=== PATIENT | male | born 1940 | race Caucasian/White ===

== ENCOUNTER 2017-09-30 18:00 | Observation (INO) | payer MEDICARE ==
--- NOTE | 2017-09-30 18:02 | ED ---
General Adult HPI - General Stated complaint: abd pain Time Seen by Provider: 09/30/17 18:02 - History of Present Illness Initial comments: Ernesto is a 77-year-old male who has not seen a physician in a number of years. He presents to the emergency department today via EMS for evaluation of inability to urinate and constipation. Patient reports he usually has bowel movements daily, his last bowel movement was 3 days ago. He reports that he cannot have a bowel movement. In addition the patient states that he feels a constant urge to urinate strains to urinate he is able to only dribble a little bit of urine with no relief of the urge. She does report that approximately 6 or 7 years ago he had similar symptoms, he had a Berger catheter placed at that time, he states he had a Berger catheter in place for 3-4 weeks, he followed up with a urologist remove the catheter and he has not had any problems since that time. Patient denies any history of any urologic surgeries or procedures. He is not sure what the cause of his previous episode was. He cannot recall if he was placed on antibiotics when the Berger was placed. Patient denies any other complaints denies any fevers, chills, nausea, vomiting , chest pain or shortness of breath. - Related Data Home Medications Medication Instructions Recorded Confirmed Aspirin 325 mg PO DAILY 09/30/17 09/30/17 Allergies Allergy/AdvReac Type Severity Reaction Status Date / Time No Known Allergies Allergy Verified 09/30/17 18:23 Review of Systems ROS Statement: Those systems with pertinent positive or pertinent negative responses have been documented in the HPI. ROS Other: All systems not noted in ROS Statement are negative. Constitutional: Denies: fever, chills Respiratory: Denies: cough Cardiovascular: Denies: chest pain Gastrointestinal: Reports: abdominal pain, constipation. Denies: nausea, vomiting Genitourinary: Reports: urgency Musculoskeletal: Denies: back pain Skin: Reports: lesions Hematological/Lymphatic: Denies: easy bleeding, easy bruising Past Medical History Past Medical History: CVA/TIA History of Any Multi-Drug Resistant Organisms: None Reported Past Surgical History: Tonsillectomy Additional Past Surgical History / Comment(s): Vasectomy Past Anesthesia/Blood Transfusion Reactions: No Reported Reaction Past Psychological History: No Psychological Hx Reported Smoking Status: Current every day smoker Past Alcohol Use History: Daily, Heavy Past Drug Use History: None Reported - Past Family History Father Family Medical History: CVA/TIA Mother Family Medical History: Dementia General Exam Limitations: no limitations General appearance: alert, in no apparent distress, other (unkempt, foul smelling, soiled clothes and shoes, noted to have ) Head exam: Present: atraumatic, normocephalic Eye exam: Present: normal appearance ENT exam: Present: other (poor fitting, broken dentures, ) Neck exam: Present: normal inspection, full ROM Respiratory exam: Absent: respiratory distress Cardiovascular Exam: Present: regular rate GI/Abdominal exam: Present: soft, distended (palpable bladder), tenderness Rectal exam: Present: deferred Extremities exam: Present: full ROM Neurological exam: Present: alert, oriented X3 Psychiatric exam: Present: flat affect Skin exam: Present: warm, dry, other Course Vital Signs 09/30/17 09/30/17 18:06 21:01 Temperature 97.8 F Pulse Rate 97 80 Respiratory 18 16 Rate Blood Pressure 102/67 127/76 O2 Sat by Pulse 98 96 Oximetry Medical Decision Making - Medical Decision Making Patient was seen and evaluated Patient is very unkempt, wearing soiled clothes and shoes He is noted to have bugs crawling on his clothes and skin Bladder scan >1000mL Labs, UA, berger catheter ordered [employer] notified of bedbug situation, patient's clothing removed and bagged, patient is to be showered prior UA reveals UTI, rocephin ordered Labs reviewed - mild hyperkalemia, normal kidney function Patient care discussed with Dr. Pena who accepts admission for UTI with urinary retention, confusion and concern for unsafe living conditions considering the poor condition the patient was in upon arrival admission orders placed - Lab Data Result diagrams: 09/30/17 19:22 09/30/17 19:22 Lab Results 09/30/17 09/30/17 09/30/17 Range/Units 19:22 19:22 19:22 WBC 5.0 (3.8-10.6) k/uL RBC 3.93 L (4.30-5.90) m/uL Hgb 13.3 (13.0-17.5) gm/dL Hct 39.0 (39.0-53.0) % MCV 99.3 (80.0-100.0) fL MCH 33.8 (25.0-35.0) pg MCHC 34.0 (31.0-37.0) g/dL RDW 13.8 (11.5-15.5) % Plt Count 305 (150-450) k/uL Neutrophils % 57 % Lymphocytes % 26 % Monocytes % 10 % Eosinophils % 3 % Basophils % 1 % Neutrophils # 2.8 (1.3-7.7) k/uL Lymphocytes # 1.3 (1.0-4.8) k/uL Monocytes # 0.5 (0-1.0) k/uL Eosinophils # 0.2 (0-0.7) k/uL Basophils # 0.0 (0-0.2) k/uL Sodium 142 (137-145) mmol/L Potassium 5.5 H (3.5-5.1) mmol/L Chloride 108 H (98-107) mmol/L Carbon Dioxide 24 (22-30) mmol/L Anion Gap 10 mmol/L BUN 12 (9-20) mg/dL Creatinine 0.80 (0.66-1.25) mg/dL Est GFR (MDRD) Af Amer >60 (>60 ml/min/1.73 sqM) Est GFR (MDRD) Non-Af >60 (>60 ml/min/1.73 sqM) Glucose 96 (74-99) mg/dL Calcium 9.3 (8.4-10.2) mg/dL Total Bilirubin 0.6 (0.2-1.3) mg/dL AST 34 (17-59) U/L ALT 17 L (21-72) U/L Alkaline Phosphatase 49 (38-126) U/L Total Protein 8.0 (6.3-8.2) g/dL Albumin 4.1 (3.5-5.0) g/dL Urine Color Yellow Urine Appearance Turbid (Clear) Urine pH 8.0 (5.0-8.0) Ur Specific Wayne 1.007 (1.001-1.035) Urine Protein 2+ H (Negative) Urine Glucose (UA) Negative (Negative) Urine Ketones Negative (Negative) Urine Blood Moderate H (Negative) Urine Nitrite Negative (Negative) Urine Bilirubin Negative (Negative) Urine Urobilinogen <2.0 (<2.0) mg/dL Ur Leukocyte Esterase Large H (Negative) Urine WBC 113 H (0-5) /hpf Urine WBC Clumps Moderate H (None) /hpf Ur Squamous Epith Cells 16 H (0-4) /hpf Disposition Clinical Impression: UTI (urinary tract infection), Acute urinary retention, Confusion, Infestation by bed bug, Poor oral hygiene Disposition: ADMITTED IP TO THIS HOSP Condition: Good
[2017-09-30 19:33] LABS: Basophils % (A) 1 %; CH 32.8; CHCM 33.1; Eosinophils # (A) 0.2 k/uL (0-0.7); Eosinophils % (A) 3 %; HDW 2.22; HGB 13.3 gm/dL (13.0-17.5); Luc # (Auto) 0.16; Luc % (Auto) 3; Lymphocytes # (A) 1.3 k/uL (1.0-4.8); Lymphocytes % (A) 26 %; MCH 33.8 pg (25.0-35.0); MCV 99.3 fL (80.0-100.0); Mean Platelet Volume 7.7; Monocytes # (A) 0.5 k/uL (0-1.0); Monocytes % (A) 10 %; Neutrophils # (A) 2.8 k/uL (1.3-7.7); Neutrophils % (A) 57 %; RBC 3.93 m/uL (4.30-5.90); RDW 13.8 % (11.5-15.5); WBC (Perox) 4.87
[2017-09-30 19:43] LABS: ALT 17 U/L (21-72); AST 34 U/L (17-59); Alkaline Phosphatase 49 U/L (38-126); Anion Gap 10 mmol/L; Appearance,Urine Turbid (Clear); Bilirubin,Urine Negative (Negative); Blood Urea Nitrogen 12 mg/dL (9-20); Calcium 9.3 mg/dL (8.4-10.2); Carbon Dioxide 24 mmol/L (22-30); Chloride 108 mmol/L (98-107); Glucose 96 mg/dL (74-99); Glucose,Urine (UA) Negative (Negative); Ketones,Urine Negative (Negative); Leukocyte Esterase,Urine Large (Negative); Nitrite,Urine Negative (Negative); Non-African American GFR(MDRD) >60 (>60 ml/min/1.73 sqM); Particle Count 83903; Protein,Urine 2+ (Negative); Sodium 142 mmol/L (137-145); Specific Gravity,Urine 1.007 (1.001-1.035); Squamous Epithelial Cell,Urine 16 /hpf (0-4); Total Bilirubin 0.6 mg/dL (0.2-1.3); UA Billing (MACRO vs. MICRO) MICRO; Urobilinogen,Urine <2.0 mg/dL (<2.0); WBC,Urine 113 /hpf (0-5)
[2017-09-30 19:44] LABS: Potassium 5.5 mmol/L (3.5-5.1)
[2017-09-30] MEDS ORDERED: cefTRIAXone IN SWFI 1,000 MG/10 ML SYRINGE IVP STA (20:23)
--- NOTE | 2017-09-30 20:37 | XR ---
EXAMINATION TYPE: XR abdomen acute w cxr DATE OF EXAM: 09/30/2017 COMPARISON: NONE HISTORY: Constipation and abdominal pain. TECHNIQUE: Single view upright chest radiograph, upright abdominal radiograph and supine abdominal r adiographs were performed. FINDINGS: Chest: Multiple healed old right-sided rib fractures are noted. There is pulmonary hyperinflation, ta pering of pulmonary vasculature and biapical lucency related to underlying COPD. Cardia mediastinal s ilhouette is within normal limits. No focal consolidation, pleural effusion or pneumothorax is seen. ABDOMEN: Moderate to large amount of retained fecal material is seen within a nondilated colon. There is a paucity of bowel gas within the rectum. No dilated small bowel is seen. No differential air-flu id levels or pneumoperitoneum. Moderate degenerative changes of the lumbosacral spine are seen as wel l as mild dextroscoliotic curvature. Moderate degenerative changes are also seen of the femoral aceta bular joints. IMPRESSION: 1. No acute cardiopulmonary pathology. Radiographic sequela of COPD. 2. Moderate to large amount of retained fecal debris without evidence of bowel obstruction or pneumop eritoneum.
[2017-09-30] MEDS ORDERED: NALOXONE 0.4 MG/ML 1 ML VIAL IV PRN ×2 (20:42→22:41)
[2017-09-30] MEDS: SODIUM CHLORIDE 0.9% 1,000 ML IV SCH (21:39)
[2017-09-30] MEDS ORDERED: ACETAMINOPHEN TAB 325 MG TAB PO PRN (22:41)
[2017-09-30] MEDS ORDERED: MAGNESIUM HYDROXIDE 2,400 MG/10 ML CUP PO PRN (22:41)
--- NOTE | 2017-09-30 23:05 | P.HPIM ---
History of Present Illness H&P Date: 09/30/17 Chief Complaint: Inability to urinate 77-year-old male who has not seen a physician in a number of years presents to the emergency department today via EMS for evaluation of inability to urinate and constipation. Patient feels a constant urge to urinate, he strains to urinate but he is able to only dribble a little bit of urine with no relief of the urge. He also has pain with urination. He denied any hematuria. He denied having any fevers, chills, abdominal pain, nausea or vomiting. No chest pain or shortness of breath. He does report that approximately 6 or 7 years ago he had similar symptoms, he had a Humphreys catheter placed at that time, the Humphreys catheter was in place for 3- 4 weeks, at that time he followed up with a urologist to remove the catheter and he has not had any problems since then. He also stated that normally he has a bowel movement every other day. In the emergency department patient looked very disheveled and unkempt, there were some bugs seen crawling on his skin. Review of Systems 12 point review of system was performed, negative except for HPI Past Medical History Past Medical History: No Reported History History of Any Multi-Drug Resistant Organisms: None Reported Past Surgical History: Tonsillectomy Additional Past Surgical History / Comment(s): Vasectomy Past Anesthesia/Blood Transfusion Reactions: No Reported Reaction Past Psychological History: No Psychological Hx Reported Smoking Status: Current every day smoker Past Alcohol Use History: Daily, Heavy Past Drug Use History: None Reported - Past Family History Father Family Medical History: CVA/TIA Mother Family Medical History: Dementia Medications and Allergies Home Medications Medication Instructions Recorded Confirmed Type Aspirin 325 mg PO DAILY 09/30/17 09/30/17 History Allergies Allergy/AdvReac Type Severity Reaction Status Date / Time No Known Allergies Allergy Verified 09/30/17 18:23 Physical Exam Vitals: Vital Signs Temp Pulse Resp BP Pulse Ox 09/30/17 21:01 80 16 127/76 96 09/30/17 18:06 97.8 F 97 18 102/67 98 Intake and Output 09/30/17 09/30/17 09/30/17 06:59 14:59 22:59 Output Total 2100 Balance -2100 Output: Urine 2100 Uretheral (Humphreys) 2100 Other: Weight 72.575 kg Patient Weight 10/01/17 06:59 Weight 72.575 kg Constitutional: No acute distress, conversant, pleasant Eyes: Anicteric sclerae, moist conjunctiva, no lid-lag, PERRLA, ENMT: Poor dentition, oropharynx clear, no erythema, exudates Neck: Supple, FROM, no masses, or JVD, No carotid bruits, No thyromegaly Lungs: Clear to auscultation, Clear to percussion, Normal respiratory effort, no accessory muscle use Cardiovascular: Heart regular in rate and rhythm, No murmurs, gallops, or rubs, No peripheral edema Abdominal: Soft, Nontender, no guarding, rebound or rigidity, Normoactive bowel sounds, No hepatomegaly, No splenomegaly, No palpable mass Skin: Normal temperature, tone, texture, turgor, no induration, No subcutaneous nodules, No rash, lesions, No ulcers Extremities: Long toenails, no digital cyanosis, No clubbing, Pedal pulses intact and symmetrical, Radial pulses intact and symmetrical, No calf tenderness Psychiatric: Alert and oriented to person, place and time, appropriate affect, intact judgement Neuro: Muscles Strength 5/5 in all 4 extremities, Sensation to light touch grossly present throughout, Cranial nerves II-XII grossly intact, no focal sensory deficits Results CBC & Chem 7: 09/30/17 19:22 09/30/17 19:22 Labs: Abnormal Lab Results - Last 24 Hours (Table) 09/30/17 09/30/17 09/30/17 Range/Units 19:22 19:22 19:22 RBC 3.93 L (4.30-5.90) m/uL Potassium 5.5 H (3.5-5.1) mmol/L Chloride 108 H (98-107) mmol/L ALT 17 L (21-72) U/L Urine Protein 2+ H (Negative) Urine Blood Moderate H (Negative) Ur Leukocyte Esterase Large H (Negative) Urine WBC 113 H (0-5) /hpf Urine WBC Clumps Moderate H (None) /hpf Ur Squamous Epith Cells 16 H (0-4) /hpf Assessment and Plan Plan: #1 Acute urinary tract infection/likely benign prostatic hypertrophy: Labs reviewed Urine culture was sent to the emergency department Start ceftriaxone 1 g IV daily Adjust antibiotics once the cultures are back Check PSA Urology consult #2 Constipation: Start laxatives #3 Rule out domestic elder abuse/unsafe home environment: Patient denies any abuse Consult social work and adult protective services #4 DVT prophylaxis: SCDs
[2017-09-30] MEDS: BISACODYL 5 MG TABLET.DR PO SCH (23:36)
[2017-09-30] MEDS: DOCUSATE 100 MG CAP PO SCH (23:36)
[2017-10-01 04:54] VITALS: BMI 20.5
[2017-10-01 07:33] LABS: ALT 28 U/L (21-72); AST 17 U/L (17-59); Alkaline Phosphatase 56 U/L (38-126); Anion Gap 9 mmol/L; Blood Urea Nitrogen 10 mg/dL (9-20); Carbon Dioxide 23 mmol/L (22-30); Chloride 110 mmol/L (98-107); Glucose 78 mg/dL (74-99); Magnesium 2.2 mg/dL (1.6-2.3); Non-African American GFR(MDRD) >60 (>60 ml/min/1.73 sqM); Phosphorus 3.4 mg/dL (2.5-4.5); Potassium 4.2 mmol/L (3.5-5.1); Sodium 142 mmol/L (137-145); Total Bilirubin 0.2 mg/dL (0.2-1.3); Total Protein 6.5 g/dL (6.3-8.2)
[2017-10-01 07:52] LABS: Basophils # (A) 0.1 k/uL (0-0.2); Basophils % (A) 1 %; CH 33.2; CHCM 33.1; Eosinophils # (A) 0.1 k/uL (0-0.7); Eosinophils % (A) 3 %; HCT 37.8 % (39.0-53.0); HGB 12.6 gm/dL (13.0-17.5); Luc # (Auto) 0.15; Luc % (Auto) 3; Lymphocytes % (A) 22 %; MCH 33.5 pg (25.0-35.0); MCHC 33.2 g/dL (31.0-37.0); MCV 100.7 fL (80.0-100.0); Macrocytosis Slight; Mean Platelet Volume 7.7; Monocytes # (A) 0.6 k/uL (0-1.0); Monocytes % (A) 12 %; Neutrophils # (A) 2.8 k/uL (1.3-7.7); Neutrophils % (A) 60 %; RBC 3.76 m/uL (4.30-5.90); RDW 13.7 % (11.5-15.5); WBC 4.8 k/uL (3.8-10.6); WBC (Perox) 4.72
--- NOTE | 2017-10-01 08:04 | P.PN ---
Subjective Progress Note Date: 10/01/17 Principal diagnosis: urinary retention 77 year old male that presented to the emergency room with 2 day history with inability to urinate. Denies any fever or chills.Any dysuria or hematuria. Says he can't produce he hadn't prolong urination.. But does but never had issues with urination in the past. Objective - Vital Signs Vital signs: Vital Signs Temp 97.8 F 09/30/17 18:06 Pulse 86 09/30/17 23:00 Resp 16 09/30/17 21:01 BP 115/62 09/30/17 23:00 Pulse Ox 99 09/30/17 23:00 Intake & Output 09/30/17 10/01/17 10/01/17 18:59 06:59 18:59 Intake Total 100 Output Total 2100 Balance -2000 Weight 72.575 kg 72.575 kg Intake: Oral 100 Output: Urine 2100 Uretheral (Berger) 2100 Other: Voiding Method Indwelling Catheter - Exam gen:alert and oriented lungs:clear to auscultation heart:s1s2 abdomen:soft and depressible,non tender ext:no edema - Labs CBC & Chem 7: 10/01/17 06:38 10/01/17 06:38 Labs: Abnormal Lab Results - Last 24 Hours (Table) 09/30/17 09/30/17 09/30/17 Range/Units 19:22 19:22 19:22 RBC 3.93 L (4.30-5.90) m/uL Potassium 5.5 H (3.5-5.1) mmol/L Chloride 108 H (98-107) mmol/L ALT 17 L (21-72) U/L Albumin (3.5-5.0) g/dL Urine Protein 2+ H (Negative) Urine Blood Moderate H (Negative) Ur Leukocyte Esterase Large H (Negative) Urine WBC 113 H (0-5) /hpf Urine WBC Clumps Moderate H (None) /hpf Ur Squamous Epith Cells 16 H (0-4) /hpf 10/01/17 Range/Units 06:38 RBC (4.30-5.90) m/uL Potassium (3.5-5.1) mmol/L Chloride 110 H (98-107) mmol/L ALT (21-72) U/L Albumin 3.3 L (3.5-5.0) g/dL Urine Protein (Negative) Urine Blood (Negative) Ur Leukocyte Esterase (Negative) Urine WBC (0-5) /hpf Urine WBC Clumps (None) /hpf Ur Squamous Epith Cells (0-4) /hpf Microbiology - Last 24 Hours (Table) 09/30/17 19:22 Urine Culture - Preliminary Urine,Catheterized Assessment and Plan (1) Acute urinary retention Narrative/Plan: berger catheter in place will start flomax had 1 liter out immediately after berger was placed urology to follow psa pending Current Visit: Yes Status: Acute Code(s): R33.8 - OTHER RETENTION OF URINE SNOMED Code(s): 234407435 (2) UTI (urinary tract infection) Narrative/Plan: on rocephin await cultures Current Visit: Yes Status: Acute Code(s): N39.0 - URINARY TRACT INFECTION, SITE NOT SPECIFIED SNOMED Code(s): 90791728 (3) Infestation by bed bug Current Visit: Yes Status: Acute Code(s): B88.8 - OTHER SPECIFIED INFESTATIONS SNOMED Code(s): 56439067
[2017-10-01] MEDS: BISACODYL 5 MG TABLET.DR PO SCH (08:40)
[2017-10-01] MEDS: DOCUSATE 100 MG CAP PO SCH ×2 (08:40→20:53)
[2017-10-01] MEDS: ASPIRIN 325 MG TAB PO SCH (08:40)
[2017-10-01] MEDS: TAMSULOSIN 0.4 MG CAP.ER.24H PO SCH ×2 (08:41→17:28)
--- NOTE | 2017-10-01 09:14 | P.GSCN ---
History of Present Illness Consult date: 10/01/17 Reason for Consult: Urinary retention History of present illness: The patient is a 77-year-old male presented to the emergency room yesterday afternoon for evaluation of abdominal pain and difficulty voiding. The patient said he had not had a bowel movement for the 3 previous days that on the date of admission he noted there is urinary frequency, sensations of incomplete bladder emptying and difficulty passing any urine. An seen in the emergency room a bladder scan showed at least 1000 mL. A catheter was placed and the patient was admitted for further evaluation due to concern in regard to a possible urinary tract infection. It's unclear how much actually drained from the patient's bladder when the catheter was initially placed however the report suggests it was 2100 mL. The patient has no previous history of urinary retention and had not had any recent fever or chills. He does have a history of urinary retention which occurred 7 years ago following a similar episode of constipation. The patient says he normally moves his bowels daily. He says he usually voids every 3-4 hours during the day and once or twice at night. He denies straining to void and feels he voids completely. He says the only hematuria he had in the past was 7 years ago associated with his urinary retention. Review of Systems - Constitutional Denies chills, Denies fever - Cardiovascular Denies chest pain, Denies shortness of breath - Respiratory Denies cough, Denies wheezing - Gastrointestinal Reports constipation, Denies abdominal pain, Denies vomiting - Genitourinary Reports as per HPI Past Medical History Past Medical History: No Reported History, CVA/TIA (CVA 9 years ago which affected his balance) History of Any Multi-Drug Resistant Organisms: None Reported Past Surgical History: Tonsillectomy Additional Past Surgical History / Comment(s): Vasectomy, bilateral inguinal hernia repair Past Anesthesia/Blood Transfusion Reactions: No Reported Reaction Past Psychological History: No Psychological Hx Reported Smoking Status: Current every day smoker Past Alcohol Use History: Daily, Heavy Past Drug Use History: None Reported - Past Family History Father Family Medical History: CVA/TIA Mother Family Medical History: Dementia Medications and Allergies Home Medications Medication Instructions Recorded Confirmed Type Aspirin 325 mg PO DAILY 09/30/17 09/30/17 History Allergies Allergy/AdvReac Type Severity Reaction Status Date / Time No Known Allergies Allergy Verified 09/30/17 18:23 Surgical - Exam Vital Signs Temp Pulse Resp BP Pulse Ox 97.8 F 97 18 102/67 98 09/30/17 18:06 09/30/17 18:06 09/30/17 18:06 09/30/17 18:06 09/30/17 18:06 - General well developed, no distress - ENT poor skilled nursing - Respiratory normal respiratory effort - Abdomen Abdomen: soft, non tender, no organomegaly Hernia: none - Genitourinary normal penis with no external lesions, testicles non-tender (A Humphreys catheter is in place and is draining urine with a moderate amount of sediment) - Rectum Rectum: normal sphincter tone, no hemorrhoids, other (Prostate is 1-2+ enlarged , smooth and benign in consistency. No evidence of fecal impaction) - Neurologic no memory loss - Psychiatric speech is normal, memory intact Results - Labs 10/01/17 06:38 10/01/17 06:38 Abnormal Lab Results - Last 24 Hours (Table) 09/30/17 09/30/17 09/30/17 Range/Units 19:22 19:22 19:22 RBC 3.93 L (4.30-5.90) m/uL Hgb (13.0-17.5) gm/dL Hct (39.0-53.0) % MCV (80.0-100.0) fL Potassium 5.5 H (3.5-5.1) mmol/L Chloride 108 H (98-107) mmol/L ALT 17 L (21-72) U/L Albumin (3.5-5.0) g/dL Urine Protein 2+ H (Negative) Urine Blood Moderate H (Negative) Ur Leukocyte Esterase Large H (Negative) Urine WBC 113 H (0-5) /hpf Urine WBC Clumps Moderate H (None) /hpf Ur Squamous Epith Cells 16 H (0-4) /hpf 10/01/17 10/01/17 Range/Units 06:38 06:38 RBC 3.76 L (4.30-5.90) m/uL Hgb 12.6 L (13.0-17.5) gm/dL Hct 37.8 L (39.0-53.0) % MCV 100.7 H (80.0-100.0) fL Potassium (3.5-5.1) mmol/L Chloride 110 H (98-107) mmol/L ALT (21-72) U/L Albumin 3.3 L (3.5-5.0) g/dL Urine Protein (Negative) Urine Blood (Negative) Ur Leukocyte Esterase (Negative) Urine WBC (0-5) /hpf Urine WBC Clumps (None) /hpf Ur Squamous Epith Cells (0-4) /hpf Microbiology - Last 24 Hours (Table) 09/30/17 19:22 Urine Culture - Preliminary Urine,Catheterized Diabetes panel 09/30/17 10/01/17 Range/Units 19:22 06:38 Sodium 142 142 (137-145) mmol/L Potassium 5.5 H 4.2 (3.5-5.1) mmol/L Chloride 108 H 110 H (98-107) mmol/L Carbon Dioxide 24 23 (22-30) mmol/L BUN 12 10 (9-20) mg/dL Creatinine 0.80 0.80 (0.66-1.25) mg/dL Glucose 96 78 (74-99) mg/dL Calcium 9.3 9.0 (8.4-10.2) mg/dL AST 34 17 (17-59) U/L ALT 17 L 28 (21-72) U/L Alkaline Phosphatase 49 56 (38-126) U/L Total Protein 8.0 6.5 (6.3-8.2) g/dL Albumin 4.1 3.3 L (3.5-5.0) g/dL Calcium panel 09/30/17 10/01/17 Range/Units 19:22 06:38 Calcium 9.3 9.0 (8.4-10.2) mg/dL Phosphorus 3.4 (2.5-4.5) mg/dL Albumin 4.1 3.3 L (3.5-5.0) g/dL Pituitary panel 09/30/17 10/01/17 Range/Units 19:22 06:38 Sodium 142 142 (137-145) mmol/L Potassium 5.5 H 4.2 (3.5-5.1) mmol/L Chloride 108 H 110 H (98-107) mmol/L Carbon Dioxide 24 23 (22-30) mmol/L BUN 12 10 (9-20) mg/dL Creatinine 0.80 0.80 (0.66-1.25) mg/dL Glucose 96 78 (74-99) mg/dL Calcium 9.3 9.0 (8.4-10.2) mg/dL Adrenal panel 09/30/17 10/01/17 Range/Units 19:22 06:38 Sodium 142 142 (137-145) mmol/L Potassium 5.5 H 4.2 (3.5-5.1) mmol/L Chloride 108 H 110 H (98-107) mmol/L Carbon Dioxide 24 23 (22-30) mmol/L BUN 12 10 (9-20) mg/dL Creatinine 0.80 0.80 (0.66-1.25) mg/dL Glucose 96 78 (74-99) mg/dL Calcium 9.3 9.0 (8.4-10.2) mg/dL Total Bilirubin 0.6 0.2 (0.2-1.3) mg/dL AST 34 17 (17-59) U/L ALT 17 L 28 (21-72) U/L Alkaline Phosphatase 49 56 (38-126) U/L Total Protein 8.0 6.5 (6.3-8.2) g/dL Albumin 4.1 3.3 L (3.5-5.0) g/dL Assessment and Plan Assessment: Impression: Urinary retention-probably precipitated by recent constipation. The patient had no previous symptoms of significant bladder outflow obstruction. It's unclear whether the patient actually has urinary tract infection as the sediment present within his urine could be from his urinary retention. If the patient actually had 2100 mL in his bladder it is possible that his bladder has at least temporarily been damaged due to overdistention. It is also possible that the patient has a chronically elevated postvoid residual with minimal symptoms Recommendation: The patient's constipation should be treated. The patient will be started on tamsulosin. If he remains afebrile he could be discharged and could follow-up in my office on Monday or Monday morning. If his appointment is in the morning his catheter could be removed and we could check him later in the day to ensure that he is voiding completely. If he remains unable to void then he might be started on self catheterization.
[2017-10-01] MEDS: SODIUM CHLORIDE 0.9% 1,000 ML IV SCH ×2 (14:10→19:19)
[2017-10-01] MEDS ORDERED: cefTRIAXone IN SWFI 1,000 MG/10 ML SYRINGE IVP SCH (20:00)
[2017-10-01 22:07] VITALS: RESP 16
[2017-10-02 07:36] LABS: CH 32.3; CHCM 31.1; HCT 36.3 % (39.0-53.0); HDW 2.04; HGB 11.4 gm/dL (13.0-17.5); MCH 32.6 pg (25.0-35.0); MCHC 31.3 g/dL (31.0-37.0); MCV 104.2 fL (80.0-100.0); Macrocytosis Moderate; Mean Platelet Volume 8.1; RBC 3.49 m/uL (4.30-5.90); RDW 14.7 % (11.5-15.5); WBC 5.8 k/uL (3.8-10.6)
[2017-10-02 07:46] LABS: Anion Gap 4 mmol/L; Blood Urea Nitrogen 15 mg/dL (9-20); Calcium 8.8 mg/dL (8.4-10.2); Carbon Dioxide 26 mmol/L (22-30); Chloride 108 mmol/L (98-107); Glucose 92 mg/dL (74-99); Non-African American GFR(MDRD) >60 (>60 ml/min/1.73 sqM); Potassium 4.1 mmol/L (3.5-5.1); Sodium 138 mmol/L (137-145)
[2017-10-02] MEDS: DOCUSATE 100 MG CAP PO SCH (08:17)
[2017-10-02] MEDS: ASPIRIN 325 MG TAB PO SCH (08:17)
[2017-10-02] MEDS: BISACODYL 5 MG TABLET.DR PO SCH (08:17)
[2017-10-02] MEDS: SODIUM CHLORIDE 0.9% 1,000 ML IV SCH (11:14)
[2017-10-02 15:45] VITALS: BP 121/75; PULSE 74; TEMP 98.6
--- NOTE | 2017-10-02 16:48 | P.DS ---
Providers Date of admission: 09/30/17 20:52 Expected date of discharge: 10/02/17 Attending physician: Gigi Pena MD Consults: 09/30/17 23:01 Consult Physician Routine Consulting Provider: Yared Costa Consult Reason/Comments: inability to urinate, UTI Do you want consulting provider notified?: Yes, Notify in am Primary care physician: Stated None - Discharge Diagnosis(es) (1) Constipation Current Visit: Yes Status: Acute (2) UTI (urinary tract infection) Current Visit: Yes Status: Acute (3) Acute urinary retention Current Visit: Yes Status: Acute (4) Infestation by bed bug Current Visit: Yes Status: Resolved (5) Poor oral hygiene Current Visit: Yes Status: Chronic Hospital Course: Patient is a 77-year-old male past medical history of prior stroke, tobacco abuse, and denture use who initially presented to the emergency department with inability to urinate. He had a Humphreys catheter placed was found to have acute urinary retention. He was also on have urinary tract infection was started on antibiotics. Acute abdominal series revealed constipation and he was started on bowel regiment. He was admitted to the general medical floor for further monitoring and care. Dr. Costa was consulted from urology. He recommended discharge home with Humphreys catheter in place, continuing Flomax, treat constipation, and follow up in the office in 2-3 days for possible voiding trial. Urine culture came back as 50- 100,000 colonies of apparent skin or genital ev, this will be treated as an acute urinary tract infection as it appears this urine was obtained from Humphreys catheter. He also had a large bowel movement the day before discharge. He had improved on ceftriaxone and was therefore switched to Keflex to complete a course of therapy. He will follow-up with urology on 10/04 at 740 in the morning. He does not have a family care physician but an appointment was made to establish care with Dr. Min Ortega. He was discharged home in stable condition. Unfortunately home health care could not be arranged as he does not have a primary care provider. He is provided with a leg bag and instructions on emptying his Humphreys catheter. Patient seen and examined at bedside. Resolved, no pain, aware he needs to go home with Humphreys catheter in place. He has no complaints currently and has been up and ambulating well. He states that he feels safe at home and does well for himself. He does not drive typically. He has no other complaints currently. He would like to be established with a primary care physician in the area and I suggested Dr. Ortega as he did not know of one and he is in agreement with this plan. Vital signs reviewed and stable. General: non toxic, no distress, appears at stated age Derm: warm, dry Head: atraumatic, normocephalic, symmetric Eyes: EOMI, no lid lag, anicteric sclera Mouth: no lip lesion, mucus membranes moist Cardiovascular: S1S2 reg, no murmur, positive posterior tibial pulse bilateral, Lungs: CTA bilateral, no rhonchi, no rales , no accessory muscle use Abdominal: soft, nontender to palpation, no guarding, no appreciable organomegaly Ext: no gross muscle atrophy, no edema, no contractures Neuro: CN II-XI grossly intact, no focal neuro deficits Psych: Alert, oriented, appropriate affect A total of 25 minutes of time were spent preparing this complex discharge summary . Patient Condition at Discharge: Good Plan - Discharge Summary New Discharge Prescriptions: New Cephalexin [Keflex] 500 mg PO Q12HR #10 cap Docusate [Colace] 100 mg PO BID cap Tamsulosin [Flomax] 0.4 mg PO PC-SUPPER #30 cap.er.24h Docusate [Colace] 100 mg PO BID #60 capsule Continue Aspirin 325 mg PO DAILY Discharge Medication List Aspirin 325 mg PO DAILY 09/30/17 [History] Cephalexin [Keflex] 500 mg PO Q12HR #10 cap 10/02/17 [Rx] Docusate [Colace] 100 mg PO BID cap 10/02/17 [Rx] Docusate [Colace] 100 mg PO BID #60 capsule 10/02/17 [Rx] Tamsulosin [Flomax] 0.4 mg PO PC-SUPPER #30 cap.er.24h 10/02/17 [Rx] Follow up Appointment(s)/Referral(s): Min Ortega MD [STAFF PHYSICIAN] - 10/09/17 9:15 am Yared Costa MD [STAFF PHYSICIAN] - 10/04/17 7:40 am Patient Instructions/Handouts: Cephalexin (By mouth), Laxative, Stool Softeners (By mouth), Tamsulosin (By mouth), Urinary Retention in Men (GEN), Urinary Tract Infection in Men (DC), Humphreys Catheter Placement and Care (DC), Bed Bugs (GEN) Activity/Diet/Wound Care/Special Instructions: home with leg bag - keep catheter in and Dr. Costa's staff will remove on Thursday 10/04 Discharge Disposition: HOME WITH HOME HEALTH SERVICES
== END 2017-10-02 16:32 | disposition home health service (06) ==
LOC: EC 18:00 → 5MS5E 20:52
PROVIDERS: ADMIT Internal Medicine; ATTEND Internal Medicine
DX: K59.00 Constipation, unspecified (principal); R33.9 Retention of urine, unspecified; N39.0 Urinary tract infection, site not specified; F17.200 Nicotine dependence, unspecified, uncomplicated; B88.8 Other specified infestations; Z79.82 Long term (current) use of aspirin; Z86.73 Personal history of transient ischemic attack (TIA), and cerebral infarction without residual deficits
CPT/HCPCS: 51702; 99285 ×2; 96374 ×2; 96376; 51798; 36415; 80053 ×2; 80048; 83735; 84100; 85025 ×2; 85027; 81001; 87086; 74022; G0378 ×3; G0103; J0696 ×2

== ENCOUNTER 2018-01-28 00:04 | Emergency (ER) | payer MEDICARE ==
[2018-01-28 00:13] VITALS: BP 146/80; PULSE 72; RESP 16; TEMP 97.7
--- NOTE | 2018-01-28 00:47 | CT ---
EXAMINATION TYPE: CT brain shalom gale DATE OF EXAM: 01/28/2018 COMPARISON: Head CT scan 09/24/2015 HISTORY: Neck pain. Headache. CT DLP: 1109.20 mGycm Automated exposure control for dose reduction was used. TECHNIQUE: CT scan of the head and cervical spine are performed without contrast. FINDINGS: There is cerebral cortical atrophy. There is no mass effect nor midline shift. There is n o sign of intracranial hemorrhage. The calvarium is intact. There is some debris in the left external auditory canal. The cervical vertebra have normal alignment. There is narrowing of disc spaces from C3 to T1 with mod erate hypertrophic anterior spurring. The posterior elements are intact. Facet joints are intact. I s ee no fracture. Skull base is intact. IMPRESSION: Cerebral atrophy. No acute intracranial abnormality. No change. Multilevel cervical spondylotic change. No fracture seen. Fibrotic changes noted at the lung apices.
--- NOTE | 2018-01-28 02:07 | ED ---
Fall HPI - General Chief Complaint: Fall Stated Complaint: Fall Time Seen by Provider: 01/28/18 00:06 Source: patient, EMS Mode of arrival: EMS - History of Present Illness Initial Comments: This patient is a 78-year-old man brought by ambulance to be evaluated for possible head injury. The patient had been drinking earlier today and then states that he lost his balance and then he fell striking his head on the edge of a table as she fell. There was no loss of consciousness. The patient states that there was initially some pain he states he is not having any pain now he is denying neck pain. He denies any other injury in the fall. Patient denies any neurologic symptoms. MD Complaint: fall -: minutes(s) Fall From: standing When Fall Occurred: just prior to arrival Fall Witnessed: yes, by bystander Place Fall Occurred: home Loss of Consciousness: none Prolonged Down Time?: no Symptoms Prior to Fall: none Severity scale (1-10): 0 Context: alcohol use Associated Symptoms: denies - Related Data Home Medications Medication Instructions Recorded Confirmed Aspirin 325 mg PO DAILY 09/30/17 09/30/17 Previous Rx's Medication Instructions Recorded Cephalexin [Keflex] 500 mg PO Q12HR #10 cap 10/02/17 Docusate [Colace] 100 mg PO BID cap 10/02/17 Docusate [Colace] 100 mg PO BID #60 capsule 10/02/17 Tamsulosin [Flomax] 0.4 mg PO PC-SUPPER #30 cap.er.24h 10/02/17 Allergies Allergy/AdvReac Type Severity Reaction Status Date / Time No Known Allergies Allergy Verified 01/28/18 00:12 Review of Systems ROS Statement: Those systems with pertinent positive or pertinent negative responses have been documented in the HPI. ROS Other: All systems not noted in ROS Statement are negative. Constitutional: Denies: weakness Eyes: Denies: eye pain, vision change ENT: Denies: hearing loss, epistaxis Respiratory: Denies: cough, dyspnea Cardiovascular: Denies: chest pain, syncope Gastrointestinal: Denies: abdominal pain, vomiting Musculoskeletal: Denies: back pain Skin: Denies: lesions Neurological: Denies: headache, weakness, numbness, paresthesias Hematological/Lymphatic: Denies: easy bleeding Past Medical History Past Medical History: No Reported History, CVA/TIA History of Any Multi-Drug Resistant Organisms: None Reported Past Surgical History: Tonsillectomy Additional Past Surgical History / Comment(s): Vasectomy, bilateral inguinal hernia repair Past Anesthesia/Blood Transfusion Reactions: No Reported Reaction Past Psychological History: No Psychological Hx Reported Smoking Status: Current every day smoker Past Alcohol Use History: Daily, Heavy Past Drug Use History: None Reported - Past Family History Father Family Medical History: CVA/TIA Mother Family Medical History: Dementia General Exam Limitations: no limitations General appearance: alert, in no apparent distress, appears intoxicated Head exam: Present: atraumatic, normocephalic, normal inspection Eye exam: Present: normal appearance, PERRL, EOMI, nystagmus. Absent: scleral icterus, conjunctival injection Neck exam: Present: other (Cervical collar). Absent: tenderness Respiratory exam: Present: normal lung sounds bilaterally. Absent: respiratory distress, wheezes, rales, rhonchi, stridor, chest wall tenderness Cardiovascular Exam: Present: regular rate, normal rhythm, normal heart sounds. Absent: systolic murmur, diastolic murmur, rubs, gallop GI/Abdominal exam: Present: soft. Absent: tenderness Extremities exam: Present: normal inspection, full ROM, normal capillary refill. Absent: tenderness Neurological exam: Present: alert, oriented X3, other (Mild dysarthria and mild ataxia.). Absent: motor sensory deficit Skin exam: Present: warm, dry, intact, normal color. Absent: rash Course Vital Signs 01/28/18 00:06 Temperature 97.7 F Pulse Rate 72 Respiratory 16 Rate Blood Pressure 146/80 O2 Sat by Pulse 97 Oximetry Disposition Clinical Impression: Fall, Head injury, Alcohol intoxication Disposition: HOME SELF-CARE Condition: Good Instructions: Fall Prevention for Older Adults (ED), Head Injury (ED), Alcohol Intoxication (ED) Referrals: None,Stated [Primary Care Provider] - 1-2 days
== END 2018-01-28 02:29 | disposition home or self-care (01) ==
LOC: EC 00:04
DX: S09.90XA Unspecified injury of head, initial encounter (principal); F10.129 Alcohol abuse with intoxication, unspecified; F17.200 Nicotine dependence, unspecified, uncomplicated; Z79.82 Long term (current) use of aspirin; Z86.73 Personal history of transient ischemic attack (TIA), and cerebral infarction without residual deficits; W01.198A Fall on same level from slipping, tripping and stumbling with subsequent striking against other object, initial encounter; Y93.89 Activity, other specified; Y92.009 Unspecified place in unspecified non-institutional (private) residence as the place of occurrence of the external cause
CPT/HCPCS: 70450; 72125; 99284

== ENCOUNTER 2019-03-18 01:12 | Observation (INO) | payer MEDICARE ==
[2019-03-18] MEDS ORDERED: SODIUM CHLORIDE 0.9% 1,000 ML IV STA (01:37)
--- NOTE | 2019-03-18 01:49 | ED ---
Fall HPI - General Source: EMS Mode of arrival: EMS <Christine Ruiz - Last Filed: 03/18/19 04:17> <Shaunna Gentile - Last Filed: 03/18/19 07:57> - General Chief Complaint: Fall Stated Complaint: Fall Time Seen by Provider: 03/18/19 01:13 - History of Present Illness Initial Comments: 79-year-old male patient presents to the emergency department today after experiencing a fall at home. Patient states that he was got out of bed because his cat was misbehaving. States he bent over to continuous pickling line pickler the cat and crumpled to the floor. Patient states that he is unsure why he fell. Denies any history of frequent falls. Patient does admit to drinking alcohol today. Patient states that he feels generally weak which is unusual for him. Patient states he is usually able to walk a mile a day. He denies any focal weakness, numbness, or tingling. Denies any headache, blurred vision, double vision. Denies any nausea, vomiting, abdominal pain. Denies any chest pain to me. Denies any shortness of breath or dizziness. Patient denies any recent rash, fever, chills, diarrhea, constipation, back pain, numbness, tingling, hematuria, dysuria, urinary urgency, urinary frequency, or any other complaints. (Christine Ruiz) - Related Data Home Medications Medication Instructions Recorded Confirmed Aspirin 325 mg PO DAILY 09/30/17 03/18/19 Previous Rx's Medication Instructions Recorded Cephalexin [Keflex] 500 mg PO Q12HR #10 cap 10/02/17 Docusate [Colace] 100 mg PO BID cap 10/02/17 Docusate [Colace] 100 mg PO BID #60 capsule 10/02/17 Tamsulosin [Flomax] 0.4 mg PO PC-SUPPER #30 cap.er.24h 10/02/17 Allergies Allergy/AdvReac Type Severity Reaction Status Date / Time No Known Allergies Allergy Verified 03/18/19 05:25 Review of Systems ROS Other: All systems not noted in ROS Statement are negative. <Christine Ruiz - Last Filed: 03/18/19 04:17> ROS Other: All systems not noted in ROS Statement are negative. <Shaunna Gentile - Last Filed: 03/18/19 07:57> ROS Statement: Those systems with pertinent positive or pertinent negative responses have been documented in the HPI. Past Medical History Past Medical History: CVA/TIA History of Any Multi-Drug Resistant Organisms: None Reported Past Surgical History: Tonsillectomy Additional Past Surgical History / Comment(s): Vasectomy, bilateral inguinal hernia repair Past Anesthesia/Blood Transfusion Reactions: No Reported Reaction Past Psychological History: No Psychological Hx Reported Smoking Status: Current every day smoker Past Alcohol Use History: Daily, Heavy Past Drug Use History: None Reported - Past Family History Father Family Medical History: CVA/TIA Mother Family Medical History: Dementia <Christine Ruiz M - Last Filed: 03/18/19 04:17> General Exam Limitations: altered mental status General appearance: alert, in no apparent distress, appears intoxicated, other (This is a well-developed, thin appearing elderly male patient in no acute distress. Vital signs upon presentation are temperature 98.4F, pulse 70, respirations 20, blood pressure 142/100, pulse ox 98% on room air. Patient is appear intoxicated, smells of alcohol, smells of urine.) Eye exam: Present: normal appearance, PERRL, EOMI. Absent: scleral icterus, conjunctival injection, nystagmus, periorbital swelling ENT exam: Present: normal exam, normal oropharynx, mucous membranes moist Respiratory exam: Present: normal lung sounds bilaterally. Absent: respiratory distress, wheezes, rales, rhonchi, stridor Cardiovascular Exam: Present: regular rate, normal rhythm, normal heart sounds. Absent: systolic murmur, diastolic murmur, rubs, gallop, clicks GI/Abdominal exam: Present: soft, normal bowel sounds. Absent: distended, tenderness, guarding, rebound, rigid Neurological exam: Present: alert, oriented X3, CN II-XII intact Expanded Speech: Present: fluid speech Cranial nerves: EOM's Intact: Normal, Tongue Deviation: Normal, Nystagmus: Normal Motor strength exam: RUE: 5, LUE: 5, RLE: 5, LLE: 5 Psychiatric exam: Present: normal affect, normal mood Skin exam: Present: warm, dry, intact, normal color. Absent: rash <Christine Ruiz M - Last Filed: 03/18/19 04:17> Course Vital Signs 03/18/19 01:17 Temperature 98.4 F Pulse Rate 70 Respiratory 20 Rate Blood Pressure 142/100 O2 Sat by Pulse 98 Oximetry Medical Decision Making - Lab Data Result diagrams: 03/18/19 01:45 03/18/19 01:45 - EKG Data -: EKG Interpreted by Ks - Radiology Data Radiology results: report reviewed, image reviewed <Christine Ruiz - Last Filed: 03/18/19 04:17> - Lab Data Result diagrams: 03/18/19 01:45 03/18/19 01:45 <Shaunna Gentile - Last Filed: 03/18/19 07:57> - Medical Decision Making 71-year-old male patient presented to the emergency department today for evalua tion after experiencing a fall. Patient does admit to being intoxicated. Physical examination is unremarkable. Neurologically intact no focal deficits. No injuries. Labs reviewed and were unremarkable. Patient's alcohol level is 293. Patient does not have transportation home or anyone to take responsibility for him. He will be admitted for observation for alcohol intoxication. (Christine Ruiz) I personally saw and examined the patient. I reviewed and agree with the mid- level provider findings including all diagnostic interpretations and treatment plans as written unless otherwise stated. (Shaunna Gentile) - Lab Data Lab Results 03/18/19 03/18/19 03/18/19 Range/Units 01:45 01:45 01:45 WBC 4.0 (3.8-10.6) k/uL RBC 3.68 L (4.30-5.90) m/uL Hgb 12.3 L (13.0-17.5) gm/dL Hct 37.4 L (39.0-53.0) % MCV 101.7 H (80.0-100.0) fL MCH 33.4 (25.0-35.0) pg MCHC 32.9 (31.0-37.0) g/dL RDW 13.9 (11.5-15.5) % Plt Count 116 L (150-450) k/uL Neutrophils % 52 % Lymphocytes % 34 % Monocytes % 7 % Eosinophils % 3 % Basophils % 1 % Neutrophils # 2.1 (1.3-7.7) k/uL Lymphocytes # 1.4 (1.0-4.8) k/uL Monocytes # 0.3 (0-1.0) k/uL Eosinophils # 0.1 (0-0.7) k/uL Basophils # 0.0 (0-0.2) k/uL Macrocytosis Slight PT 10.4 (9.0-12.0) sec INR 1.0 (<1.2) APTT 29.0 (22.0-30.0) sec Sodium 142 (137-145) mmol/L Potassium 3.7 (3.5-5.1) mmol/L Chloride 112 H (98-107) mmol/L Carbon Dioxide 22 (22-30) mmol/L Anion Gap 8 mmol/L BUN 6 L (9-20) mg/dL Creatinine 0.62 L (0.66-1.25) mg/dL Est GFR (CKD-EPI)AfAm >90 (>60 ml/min/1.73 sqM) Est GFR (CKD-EPI)NonAf >90 (>60 ml/min/1.73 sqM) Glucose 71 L (74-99) mg/dL Calcium 7.8 L (8.4-10.2) mg/dL Total Bilirubin 0.6 (0.2-1.3) mg/dL AST 36 (17-59) U/L ALT 18 L (21-72) U/L Alkaline Phosphatase 35 L (38-126) U/L Troponin I (0.000-0.034) ng/mL Total Protein 6.2 L (6.3-8.2) g/dL Albumin 3.4 L (3.5-5.0) g/dL Serum Alcohol 293 H* mg/dL 03/18/19 Range/Units 01:45 WBC (3.8-10.6) k/uL RBC (4.30-5.90) m/uL Hgb (13.0-17.5) gm/dL Hct (39.0-53.0) % MCV (80.0-100.0) fL MCH (25.0-35.0) pg MCHC (31.0-37.0) g/dL RDW (11.5-15.5) % Plt Count (150-450) k/uL Neutrophils % % Lymphocytes % % Monocytes % % Eosinophils % % Basophils % % Neutrophils # (1.3-7.7) k/uL Lymphocytes # (1.0-4.8) k/uL Monocytes # (0-1.0) k/uL Eosinophils # (0-0.7) k/uL Basophils # (0-0.2) k/uL Macrocytosis PT (9.0-12.0) sec INR (<1.2) APTT (22.0-30.0) sec Sodium (137-145) mmol/L Potassium (3.5-5.1) mmol/L Chloride (98-107) mmol/L Carbon Dioxide (22-30) mmol/L Anion Gap mmol/L BUN (9-20) mg/dL Creatinine (0.66-1.25) mg/dL Est GFR (CKD-EPI)AfAm (>60 ml/min/1.73 sqM) Est GFR (CKD-EPI)NonAf (>60 ml/min/1.73 sqM) Glucose (74-99) mg/dL Calcium (8.4-10.2) mg/dL Total Bilirubin (0.2-1.3) mg/dL AST (17-59) U/L ALT (21-72) U/L Alkaline Phosphatase (38-126) U/L Troponin I <0.012 (0.000-0.034) ng/mL Total Protein (6.3-8.2) g/dL Albumin (3.5-5.0) g/dL Serum Alcohol mg/dL - EKG Data EKG Comments: EKG obtained at 0124 shows normal sinus rhythm with a ventricular rate of 68, PA interval 192, QRS duration 92, QT 396, QTC 421. No evidence of ST elevation or depression. (Christine Ruiz) - Radiology Data Two-view x-ray of the chest is obtained. Report was reviewed in its entirety. Impression by Dr. Pérez shows no acute cardio pulmonary process. (Christine Ruiz) Disposition Decision to Admit Reason: Admit from EC Decision Date: 03/18/19 Decision Time: 04:23 <Christine Ruiz - Last Filed: 03/18/19 04:17> <Shaunna Gentile - Last Filed: 03/18/19 07:57> Clinical Impression: Alcohol intoxication Disposition: ADMITTED IP TO THIS HOSP Condition: Serious
[2019-03-18 02:08] LABS: Basophils % (A) 1 %; Eosinophils # (A) 0.1 k/uL (0-0.7); Eosinophils % (A) 3 %; HCT 37.4 % (39.0-53.0); HGB 12.3 gm/dL (13.0-17.5); Lymphocytes # (A) 1.4 k/uL (1.0-4.8); Lymphocytes % (A) 34 %; MCH 33.4 pg (25.0-35.0); MCHC 32.9 g/dL (31.0-37.0); MCV 101.7 fL (80.0-100.0); Macrocytosis Slight; Mean Platelet Volume 8.3; Monocytes # (A) 0.3 k/uL (0-1.0); Monocytes % (A) 7 %; Neutrophils # (A) 2.1 k/uL (1.3-7.7); Neutrophils % (A) 52 %; Platelet Count 116 k/uL (150-450); RBC 3.68 m/uL (4.30-5.90); RDW 13.9 % (11.5-15.5)
[2019-03-18 02:18] LABS: ALT 18 U/L (21-72); AST 36 U/L (17-59); Albumin 3.4 g/dL (3.5-5.0); Alkaline Phosphatase 35 U/L (38-126); Anion Gap 8 mmol/L; Blood Urea Nitrogen 6 mg/dL (9-20); Calcium 7.8 mg/dL (8.4-10.2); Carbon Dioxide 22 mmol/L (22-30); Chloride 112 mmol/L (98-107); Glucose 71 mg/dL (74-99); Potassium 3.7 mmol/L (3.5-5.1); Sodium 142 mmol/L (137-145); Total Bilirubin 0.6 mg/dL (0.2-1.3); Total Protein 6.2 g/dL (6.3-8.2)
[2019-03-18 02:26] LABS: Alcohol 293 mg/dL
--- NOTE | 2019-03-18 02:28 | XR ---
EXAM: XR Chest, 2 Views CLINICAL HISTORY: ITS.REASON XR Reason: Weakness TECHNIQUE: Frontal and lateral views of the chest. COMPARISON: 09/25/15 x-ray FINDINGS: Lungs: No consolidation or mass. Pleural space: No effusion. Heart: No cardiomegaly. Mediastinum: Unremarkable. IMPRESSION: No acute cardiopulmonary process.
[2019-03-18 02:29] LABS: Prothrombin Time 10.4 sec (9.0-12.0)
[2019-03-18] MEDS ORDERED: NALOXONE 0.4 MG/ML 1 ML VIAL IV PRN (04:14)
[2019-03-18] MEDS ORDERED: THIAMINE 100 MG/ML 2 ML VIAL IM STA (04:16)
[2019-03-18] MEDS ORDERED: LORazepam 2 MG/ML INJ IV PRN ×3 (04:16)
[2019-03-18] MEDS ORDERED: SODIUM CHLORIDE 0.9% 1,000 ML with MVI, ADULT NO.4 WITH VIT K 10 ML, THIAMINE 100 MG, F... IV ONE ×4 (05:00)
[2019-03-18 05:33] VITALS: BP 146/76; PULSE 69; TEMP 97.7
[2019-03-18 06:14] VITALS: RESP 17
--- NOTE | 2019-03-18 06:14 | P.HPIM ---
History of Present Illness H&P Date: 03/18/19 Chief Complaint: fall The patient is 79-year-old male patient presents to the emergency department today after experiencing a fall at home. Patient states that he was got out of bed because his cat was misbehaving. States he bent over to grape picker the cat and crumpled to the floor. Patient states that he is unsure why he fell, but reports hitting his Left hip on his bed. Denies any history of frequent falls. Patient does admit to drinking alcohol today reports 4 cans of beer and couple bottles of wine. Patient states that he feels generally weak which is unusual for him. Patient states he is usually able to walk a mile a day. He denies any focal weakness, numbness, or tingling. Denies any headache, blurred vision, double vision. Denies any nausea, vomiting, abdominal pain. Denies any chest pain to me. Denies any shortness of breath or dizziness. Patient denies any recent rash, fever, chills, diarrhea, constipation, back pain, numbness, tingling, hematuria, dysuria, urinary urgency, urinary frequency, or any other complaints. In the ER the patient had a comprehensive workup significant labs included hemoglobin of 12.3 platelets of 116, serum sodium level 142, serum potassium 3.7, BUN 6, creatinine 0.62. Serum alcohol 293. Chest x-ray showed no acute cardiopulmonary process and EKG showed normal sinus rhythm. Patient was recommended for admission for acute alcohol intoxication Review of Systems Pertinent positives per HPI all other systems otherwise negative Past Medical History Past Medical History: CVA/TIA, Dementia Additional Past Medical History / Comment(s): same day smoker. History of Any Multi-Drug Resistant Organisms: None Reported Past Surgical History: Tonsillectomy Additional Past Surgical History / Comment(s): Vasectomy, bilateral inguinal hernia repair Past Anesthesia/Blood Transfusion Reactions: No Reported Reaction Past Psychological History: No Psychological Hx Reported Smoking Status: Current every day smoker Past Alcohol Use History: Daily, Heavy Past Drug Use History: None Reported Additional Drug Use History / Comment(s): pt smelled of ETOH on admission, pt states: "I drank 3- 24 oz beers and does not like to drink hard alcohol." - Past Family History Father Family Medical History: CVA/TIA Mother Family Medical History: Dementia Medications and Allergies Home Medications Medication Instructions Recorded Confirmed Type Aspirin 325 mg PO DAILY 09/30/17 03/18/19 History Cephalexin [Keflex] 500 mg PO Q12HR #10 cap 10/02/17 03/18/19 Rx Docusate [Colace] 100 mg PO BID cap 10/02/17 03/18/19 Rx Docusate [Colace] 100 mg PO BID #60 capsule 10/02/17 03/18/19 Rx Tamsulosin [Flomax] 0.4 mg PO PC-SUPPER #30 cap.er.24h 10/02/17 03/18/19 Rx Allergies Allergy/AdvReac Type Severity Reaction Status Date / Time No Known Allergies Allergy Verified 03/18/19 05:25 Physical Exam Vitals: Vital Signs Temp Pulse Pulse Resp BP BP Pulse Ox 03/18/19 05:31 97.7 F 69 16 146/76 96 03/18/19 05:20 98.2 F 72 17 105/66 98 03/18/19 01:17 98.4 F 70 20 142/100 98 Intake and Output 03/17/19 03/17/19 03/18/19 14:59 22:59 06:59 Other: # Voids 1 Weight 83.915 kg Constitutional: Unkempt appears intoxicated, thin, smells of alcohol and urine Eyes: Anicteric sclerae, moist conjunctiva, no lid-lag, PERRLA ENMT: NC/AT,Oropharynx clear, no erythema, exudates Neck:Supple, FROM, no masses, or JVD, No carotid bruits; No thyromegaly Lungs: Clear to auscultation, Clear to percussion, Normal respiratory effort, no accessory muscle use Cardiovascular: Heart regular in rate and rhythm, No murmurs, gallops, or rubs no peripheral edema Abdominal: Soft Nontender, nom distended, no guarding, no rebound or rigidity, Normoactive bowel sounds No hepatomegaly, No splenomegaly, No palpable mass No abdominal wall hernia noted Skin: Normal temperature, tone, texture, turgor, No induration No subcutaneous nodules, No rash, lesions, No ulcers Extremities:No digital cyanosis No clubbing, Pedal pulses intact and symmetrical Radial pulses intact and symmetrical Normal gait and station, No calf tenderness Psychiatric: Alert and oriented to person, place and time, Appropriate affect Intact judgement Neuro: Muscles Strength 5/5 in all 4 extremities, Sensation to light touch grossly present throughout, Cranial nerves II-XII grossly intact. No focal sensory deficits Results CBC & Chem 7: 03/18/19 01:45 03/18/19 01:45 Labs: Abnormal Lab Results - Last 24 Hours (Table) 03/18/19 03/18/19 Range/Units 01:45 01:45 RBC 3.68 L (4.30-5.90) m/uL Hgb 12.3 L (13.0-17.5) gm/dL Hct 37.4 L (39.0-53.0) % MCV 101.7 H (80.0-100.0) fL Plt Count 116 L (150-450) k/uL Chloride 112 H (98-107) mmol/L BUN 6 L (9-20) mg/dL Creatinine 0.62 L (0.66-1.25) mg/dL Glucose 71 L (74-99) mg/dL Calcium 7.8 L (8.4-10.2) mg/dL ALT 18 L (21-72) U/L Alkaline Phosphatase 35 L (38-126) U/L Total Protein 6.2 L (6.3-8.2) g/dL Albumin 3.4 L (3.5-5.0) g/dL Serum Alcohol 293 H* mg/dL Thrombosis Risk Factor Assmnt - Choose All That Apply Each Risk Factor Represents 3 Points: Age 75 years or older Thrombosis Risk Factor Assessment Total Risk Factor Score: 3 Thrombosis Risk Factor Assessment Level: Moderate Risk Assessment and Plan (1) Alcohol intoxication Current Visit: Yes Status: Acute Code(s): F10.929 - ALCOHOL USE, UNSPECIFIED WITH INTOXICATION, UNSPECIFIED SNOMED Code(s): 60520833 (2) Poor oral hygiene Current Visit: No Status: Chronic Code(s): Z91.89 - OTH PERSONAL RISK FACTORS, NOT ELSEWHERE CLASSIFIED SNOMED Code(s): 779477104 (3) Infestation by bed bug Current Visit: No Status: Resolved Code(s): B88.8 - OTHER SPECIFIED INFESTATIONS SNOMED Code(s): 32356725 (4) Fall Current Visit: Yes Status: Acute Code(s): W19.XXXA - UNSPECIFIED FALL, INITIAL ENCOUNTER SNOMED Code(s): 3129098 Plan: The patient is placed in observation with acute alcohol intoxication with serum alcohol level of 293 he started on alcohol withdrawal protocol with Ativan when necessary per symptom triggered CIWA protocol with orders for hydration with normal saline. Continue supportive therapy with supplemental thiamine will plan to recheck serum alcohol level at approximately 12 PM today. Given patient's history of fall with hip pain we'll order hip x-rays and also consult PT . The patient was noted to have bedbugs as well we shall also consult social work to see the patient . We'll continue to monitor patient's clinical course. CODE STATUS: Full code Anticipate discharge: Later today Discussed plan of care with: patient Time with Patient: Greater than 30
--- NOTE | 2019-03-18 08:59 | XR ---
EXAMINATION TYPE: XR Hip Bilateral Complete DATE OF EXAM: 03/18/2019 CLINICAL HISTORY: pain TECHNIQUE: AP and frogleg views of the bilateral hips are obtained. COMPARISON: None. FINDINGS: There is no acute fracture/dislocation evident. The joint spaces appear moderately narrow ed. The overlying soft tissue appears unremarkable. IMPRESSION: 1. There is no acute fracture or dislocation. ICD 10 NO FRACTURE, INITIAL EVALUATION
--- NOTE | 2019-03-18 14:27 | P.PN ---
Subjective Chart was reviewed. Apparently patient got drunk, tripped and fell. No immediate trauma or loss of consciousness was described. He had x-ray of the hip that was negative for fracture. On my evaluation patient is awake alert oriented 3 stating that he is feeling well does not have any focal pain or any focal complaints. He tells me that he lives with 2 friends otherwise. REVIEW OF SYSTEMS: CONSTITUTIONAL: No fever or chills HEENT: No changes in vision or voice CARDIOVASCULAR: no chest pain or abnormal heart beats, or any swelling in ankles or feet. RESPIRATORY: No wheezing or coughing. GASTROINTESTINAL: No abdominal pain, no nausea no vomiting no constipation or diarrhea GENITOURINARY: no any urinary urgency, frequency or burning, and there has been no blood in her urine. no flank pain. MUSCULOSKELETAL: She notes full range of motion of all her joints without pain or swelling. NEUROLOGICAL: , no headache. no vision changes, or fainting. No numbness or tingling. Objective - Vital Signs Vital signs: Vital Signs Temp 97.7 F 03/18/19 05:31 Pulse 69 03/18/19 05:31 Resp 17 03/18/19 06:08 BP 146/76 03/18/19 05:31 Pulse Ox 96 03/18/19 05:31 Intake & Output 03/17/19 03/18/19 03/18/19 18:59 06:59 18:59 Intake Total 420 Balance 420 Weight 83.915 kg Intake: Oral 420 Other: Voiding Method Toilet Toilet # Voids 1 - Exam Vital Signs: I have reviewed the vital signs. GENERAL: Unkempt , no apparent distress, cooperative Eyes: PERRL, extraoculry movements intact, clear conjunctiva no nystagmus Head: : No facial asymmetry CVS: +S1/S2, No murmurs or gallops. Peripheral pulses 2+ and equal in all extremities. RESP: Unlabored respiratory effort. Clear to auscultation bilaterally. Abdomen: Bowel sounds present in all 4 quadrants, Soft to palpation, Nontender/Nondistended, No hepatosplenomegaly, no hernias or masses, no CVA tnderness Musculoskeletal: Extremities w/o deformity, No cyanosis or clubbing, no joint swelling Skin: Warm, Dry. No rashes or lesions Neuro: No focal deficits Psych: Awake, Alert, & Oriented (AAO) x3 Appropriate mood and affect - Labs CBC & Chem 7: 03/18/19 01:45 03/18/19 01:45 Labs: Abnormal Lab Results - Last 24 Hours (Table) 03/18/19 03/18/19 Range/Units 01:45 01:45 RBC 3.68 L (4.30-5.90) m/uL Hgb 12.3 L (13.0-17.5) gm/dL Hct 37.4 L (39.0-53.0) % MCV 101.7 H (80.0-100.0) fL Plt Count 116 L (150-450) k/uL Chloride 112 H (98-107) mmol/L BUN 6 L (9-20) mg/dL Creatinine 0.62 L (0.66-1.25) mg/dL Glucose 71 L (74-99) mg/dL Calcium 7.8 L (8.4-10.2) mg/dL ALT 18 L (21-72) U/L Alkaline Phosphatase 35 L (38-126) U/L Total Protein 6.2 L (6.3-8.2) g/dL Albumin 3.4 L (3.5-5.0) g/dL Serum Alcohol 293 H* mg/dL Assessment and Plan Plan: Assessment: 1. Acute alcohol intoxication 2. Accidental fall Plan: Patient appears clinically sober, he is awake alert oriented 3. He has a home and lives with some friends. Plan will be to mobilize the patient, assess for any orthostasis or difficulties in ambulation. If the patient tolerates this well, we will plan to discharge him home today with assistance from social sciences chair Strongly advised avoidance of alcohol and tobacco products
[2019-03-18] MEDS: THIAMINE 100 MG TAB PO SCH ×2 (17:29→17:39)
--- NOTE | 2019-03-19 09:32 | P.DS ---
Providers Date of admission: 03/18/19 04:17 Attending physician: Leobardo Flood MD Primary care physician: Stated None Hospital Course: Admisson date: 03/17/19 Discharge date: 03/18/19 Reason for admission: Fall Discharge diagnosis: 1. Accidental fall 2. Acute alcohol intoxication 3. Chronic alcoholism 4. bed bugs infestation HPI: per H&P from Dr. Flood:"The patient is 79-year-old male patient presents to the emergency department today after experiencing a fall at home. Patient states that he was got out of bed because his cat was misbehaving. States he bent over to curing pickling packer the cat and crumpled to the floor. Patient states that he is unsure why he fell, but reports hitting his Left hip on his bed. Denies any history of frequent falls. Patient does admit to drinking alcohol today reports 4 cans of beer and couple bottles of wine. Patient states that he feels generally weak which is unusual for him. Patient states he is usually able to walk a mile a day. He denies any focal weakness, numbness, or tingling. Denies any headache, blurred vision, double vision. Denies any nausea, vomiting, abdominal pain. Denies any chest pain to me. Denies any shortness of breath or dizziness. Patient denies any recent rash, fever, chills, diarrhea, constipation, back pain, numbness, tingling, hematuria, dysuria, urinary urgency, urinary frequency, or any other complaints. In the ER the patient had a comprehensive workup significant labs included hemoglobin of 12.3 platelets of 116, serum sodium level 142, serum potassium 3.7, BUN 6, creatinine 0.62. Serum alcohol 293. Chest x-ray showed no acute cardiopulmonary process and EKG showed normal sinus rhythm. Patient was recommended for admission for acute alcohol intoxication " Hospital course: Pt waas hydrated and monitor for withdrawals. He remained stable throughout hospitalization. On the day of discharge he was awake alert oriented 3 and clinically sober. He did not exhibit any signs of withdrawals and his vital signs were stable. Patient was mobilized and ambulated in the hallway without any difficulties. Repeat alcohol level was 114. He had x-ray of both hips which was negative for any fractures. Patient was evaluated by case management. Safe discharge environment was assessed. Patient lives at his home with 2 friends. Patient was discharged home. Refrain from drinking was advised as well as resources for alcohol rehab. Patient Condition at Discharge: Serious Plan - Discharge Summary Discharge Rx Participant: Yes New Discharge Prescriptions: Continue No Known Home Medications Discharge Medication List No Known Home Medications 03/18/19 [History] Follow up Appointment(s)/Referral(s): None,Stated [Primary Care Provider] - 1-2 days Patient Instructions/Handouts: Alcohol Intoxication (DC), Abuse of Alcohol (DC) Discharge Disposition: HOME SELF-CARE
== END 2019-03-18 18:35 | disposition home or self-care (01) ==
LOC: EC 01:12 → 1SOBS 04:17
PROVIDERS: ADMIT Family Medicine; ATTEND Family Medicine
DX: F10.229 Alcohol dependence with intoxication, unspecified (principal); M25.552 Pain in left hip; B88.8 Other specified infestations; R53.1 Weakness; Y90.8 Blood alcohol level of 240 mg/100 ml or more; F03.90 Unspecified dementia, unspecified severity, without behavioral disturbance, psychotic disturbance, mood disturbance, and anxiety; F17.200 Nicotine dependence, unspecified, uncomplicated; Z86.73 Personal history of transient ischemic attack (TIA), and cerebral infarction without residual deficits; W01.190A Fall on same level from slipping, tripping and stumbling with subsequent striking against furniture, initial encounter; Y92.003 Bedroom of unspecified non-institutional (private) residence as the place of occurrence of the external cause; Z79.82 Long term (current) use of aspirin; Z79.899 Other long term (current) drug therapy
CPT/HCPCS: 96361 ×2; 96360; 99285; 36415; 93005; 80053; 84484; 85025; 85610; 85730; 73521; 71046; G0378; G0480; 80320

== ENCOUNTER 2019-09-08 09:58 | Emergency (ER) | payer MEDICARE ==
[2019-09-08 10:46] VITALS: RESP 18
[2019-09-08] MEDS ORDERED: SODIUM CHLORIDE 0.9% 500 ML 500 ML IV STA (10:57)
[2019-09-08] MEDS ORDERED: LIDOCAINE 1% INJ 10MG/ML (20 ML MDV) SQ ONE (10:59)
[2019-09-08] MEDS ORDERED: DIPH,PERTUS(ACELL)TETVAC-LF 0.5 ML VIAL IM ONE (11:08)
[2019-09-08 11:25] LABS: ALT 8 U/L (21-72); AST 28 U/L (17-59); African American GFR (CKD) >90 (>60 ml/min/1.73 sqM); Albumin 4.3 g/dL (3.5-5.0); Alkaline Phosphatase 48 U/L (38-126); Anion Gap 13 mmol/L; Blood Urea Nitrogen 11 mg/dL (9-20); Calcium 9.2 mg/dL (8.4-10.2); Carbon Dioxide 22 mmol/L (22-30); Chloride 109 mmol/L (98-107); Creatine Kinase 196 U/L (55-170); Glucose 92 mg/dL (74-99); Potassium 4.6 mmol/L (3.5-5.1); Sodium 144 mmol/L (137-145); Total Bilirubin 0.6 mg/dL (0.2-1.3); Total Protein 7.9 g/dL (6.3-8.2)
[2019-09-08 11:30] LABS: Alcohol 165 mg/dL
[2019-09-08 11:31] LABS: Basophils % (A) 1 %; Eosinophils % (A) 0 %; HCT 42.2 % (39.0-53.0); HGB 14.3 gm/dL (13.0-17.5); Lymphocytes # (A) 0.7 k/uL (1.0-4.8); Lymphocytes % (A) 8 %; MCH 32.9 pg (25.0-35.0); MCHC 33.8 g/dL (31.0-37.0); MCV 97.5 fL (80.0-100.0); Mean Platelet Volume 6.9; Monocytes # (A) 0.8 k/uL (0-1.0); Monocytes % (A) 9 %; Neutrophils # (A) 6.5 k/uL (1.3-7.7); Neutrophils % (A) 80 %; Platelet Count 253 k/uL (150-450); RBC 4.33 m/uL (4.30-5.90); RDW 13.6 % (11.5-15.5); WBC 8.2 k/uL (3.8-10.6)
[2019-09-08 11:38] LABS: INR 0.9 (<1.2); Partial Thromboplastin Time 23.6 sec (22.0-30.0); Prothrombin Time 9.4 sec (9.0-12.0)
--- NOTE | 2019-09-08 11:50 | CT ---
EXAMINATION TYPE: CT brain hsalom gale DATE OF EXAM: 09/08/2019 COMPARISON: Previous study dated 01/28/2018. HISTORY: Fall yesterday with facial injuries and memory loss. CT DLP: 1081.5 mGycm Automated exposure control for dose reduction was used. TECHNIQUE: CT scan of the head and cervical spine are performed without contrast. FINDINGS: BRAIN: There are generalized changes of sulcal prominence and ventriculomegaly compatible with mild a trophy. There is diffuse periventricular white matter lucency, compatible with chronic white matter i schemic change. There is no acute focal lesion, mass effect or midline shift identified. I do not see evidence of intracranial blood. Visualized portions of the paranasal sinuses and mastoids are clear. The bony calvarium is intact. IMPRESSION: 1. NO ACUTE INTRACRANIAL ABNORMALITY. 2. ATROPHIC CHANGE. 3. CHRONIC WHITE MATTER ISCHEMIC CHANGE. CERVICAL SPINE: There is scarring at both lung apices. Prevertebral soft tissues are normal. Vertebral body height and alignment are maintained. Atlantoaxial relationships are normal. There is d egenerative disc disease and hypertrophic spondylosis at all levels with relative sparing of the C2-3 level. There is diffuse uncovertebral joint disease present at all levels. There is facet arthropath y on the right and 3 and C3-4 as well as C5-6. No definite protrusion is seen. No fracture is identif ied. IMPRESSION: 1. NO ACUTE OSSEOUS LESION. 2. FAIRLY SEVERE DEGENERATIVE CHANGE.
[2019-09-08 11:54] LABS: Creatine Kinase MB 3.3 ng/mL (0.0-2.4); Troponin I <0.012 ng/mL (0.000-0.034)
--- NOTE | 2019-09-08 11:54 | CT ---
EXAMINATION TYPE: CT facial bones wo con DATE OF EXAM: 09/08/2019 COMPARISON: None. HISTORY: Fall yesterday with facial injuries and memory loss. CT DLP: 1081.5 mGycm Automated exposure control for dose reduction was used. TECHNIQUE: CT scan of the sinuses is performed without contrast, axial images are obtained, coronal r eformatted images are also reviewed. FINDINGS: Both zygomatic arches are intact. The pterygoid plates are intact. No mandibular fracture i s seen. No facial fracture is seen. The ash of the orbits in the ash of the maxillary sinuses are intact. On the diffusion this study cannot adequately assessed". IMPRESSION: NO ACUTE FACIAL FRACTURE.
[2019-09-08] MEDS ORDERED: LORazepam 2 MG/ML INJ IV STA (12:13)
--- NOTE | 2019-09-08 13:08 | XR ---
EXAMINATION TYPE: XR chest 1V portable DATE OF EXAM: 09/08/2019 HISTORY: syncope. REFERENCE: Previous study dated 03/18/2019. FINDINGS: Heart size is upper limits of normal. There is increasing interstitial change at the lung b ases. No pleural fluid is seen. Pulmonary vasculature appears normal. IMPRESSION: INCREASED INTERSTITIAL MARKINGS IN THE LUNG BASES MAY REFLECT ATYPICAL PNEUMONIA. LESS LIKELY WOULD B E CONGESTIVE HEART FAILURE SUPERIMPOSED UPON ABNORMAL LUNG ARCHITECTURE.
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
[2019-09-08] MEDS ORDERED: LEVOFLOXACIN 750 MG TAB PO STA (14:15)
[2019-09-08] MEDS ORDERED: TOPICAL SKIN ADHESIVE 1 EACH AMP TOPICAL ONE (14:18)
[2019-09-08 15:15] VITALS: BP 110/72; PULSE 106; TEMP 98
== END 2019-09-08 15:31 | disposition home or self-care (01) ==
LOC: EC 09:58
DX: S01.111A Laceration without foreign body of right eyelid and periocular area, initial encounter (principal); S01.312A Laceration without foreign body of left ear, initial encounter; F10.20 Alcohol dependence, uncomplicated; F03.90 Unspecified dementia, unspecified severity, without behavioral disturbance, psychotic disturbance, mood disturbance, and anxiety; F17.200 Nicotine dependence, unspecified, uncomplicated; Z23 Encounter for immunization; Z86.73 Personal history of transient ischemic attack (TIA), and cerebral infarction without residual deficits; W19.XXXA Unspecified fall, initial encounter; Y93.01 Activity, walking, marching and hiking; Y92.000 Kitchen of unspecified non-institutional (private) residence as the place of occurrence of the external cause
CPT/HCPCS: 36415; 93005; 80053; 82550; 82553; 83735; 84484; 85025; 85610; 85730; 71045; 72125; 70486; 70450; 90715; 99285; 96374; 96361; 90471; 12013; G0480; J2060; J2001; 80320; 96375

== ENCOUNTER 2020-08-02 21:38 | Observation (INO) | payer MEDICARE ==
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
[2020-08-02 22:23] LABS: Anisocytosis Slight; HCT 37.9 % (39.0-53.0); HGB 11.5 gm/dL (13.0-17.5); Hypochromasia Marked; MCH 27.4 pg (25.0-35.0); MCHC 30.4 g/dL (31.0-37.0); MCV 90.3 fL (80.0-100.0); Mean Platelet Volume 7.5; Platelet Count 289 k/uL (150-450); RDW 19.5 % (11.5-15.5); WBC 5.6 k/uL (3.8-10.6)
[2020-08-02 22:29] LABS: INR 0.9 (<1.2); Partial Thromboplastin Time 23.3 sec (22.0-30.0); Prothrombin Time 9.4 sec (9.0-12.0)
[2020-08-02 22:34] LABS: ALT 8 U/L (4-49); AST 36 U/L (17-59); African American GFR (CKD) >90 (>60 ml/min/1.73 sqM); Alkaline Phosphatase 60 U/L (38-126); Anion Gap 9 mmol/L; Blood Urea Nitrogen 9 mg/dL (9-20); Calcium 8.9 mg/dL (8.4-10.2); Carbon Dioxide 24 mmol/L (22-30); Chloride 110 mmol/L (98-107); Glucose 100 mg/dL (74-99); Non-African American GFR(CKD) 83 (>60 ml/min/1.73 sqM); Potassium 4.8 mmol/L (3.5-5.1); Sodium 143 mmol/L (137-145); Total Bilirubin 0.4 mg/dL (0.2-1.3); Total Protein 7.6 g/dL (6.3-8.2)
--- NOTE | 2020-08-02 22:37 | XR ---
EXAMINATION TYPE: XR chest 1V portable DATE OF EXAM: 08/02/2020 COMPARISON: 09/08/2019 HISTORY: Fall. Pain. TECHNIQUE: Single view FINDINGS: There is slight coarsening of interstitial markings. There is no gross heart failure. I see no pleural effusion. Heart size is normal. IMPRESSION: Coarse lung markings could relate to some mild fibrosis. No change compared to old exam. No heart failure.
[2020-08-02 22:39] LABS: Alcohol 276 mg/dL
[2020-08-02 22:46] LABS: Eosinophils # (M) 0.11 k/uL (0-0.7); Monocytes # (M) 0.45 k/uL (0-1.0); Neutrophils # (M) 3.64 k/uL (1.3-7.7); Neutrophils % (M) 65 %; Nucleated Red Blood Cells 0 /100 WBC (0-0); Total Cells Counted 100
[2020-08-02 22:47] LABS: Target Cells Present
--- NOTE | 2020-08-02 23:16 | CT ---
EXAMINATION TYPE: CT brain cspine wo con DATE OF EXAM: 08/02/2020 COMPARISON: 09/08/2019 HISTORY: fall Headache. Neck pain CT DLP: 1336.4 mGycm Automated exposure control for dose reduction was used. There is cerebral cortical atrophy. There is no mass effect nor midline shift. There is no sign of in tracranial hemorrhage. The calvarium is intact. Cervical vertebra have normal alignment. There is extensive anterior hypertrophic bridging osteophyte formation from C3 to C7. Facet joints are intact. There is mild cervical disc space narrowing. IMPRESSION: Cerebral atrophy. No acute intracranial abnormality. Moderate multilevel cervical spondylotic changes . No fracture. No significant change compared to old exam.
[2020-08-02] MEDS ORDERED: NALOXONE 0.4 MG/ML 1 ML VIAL IV PRN (23:43)
[2020-08-03 10:21] VITALS: RESP 14
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
--- NOTE | 2020-08-03 13:56 | P.DS ---
Providers Date of admission: 08/02/20 23:43 Attending physician: Alie Aparicio Primary care physician: Stated None Hospital Course: as mentioned in HPI Patient Condition at Discharge: Stable Plan - Discharge Summary Discharge Rx Participant: No New Discharge Prescriptions: New Aspirin 81 mg PO DAILY #30 chewable Discharge Medication List Aspirin 81 mg PO DAILY #30 chewable 08/03/20 [Rx] Follow up Appointment(s)/Referral(s): Diamante Mendes MD [STAFF PHYSICIAN] - 1 Week Discharge Disposition: HOME SELF-CARE
[2020-08-03 15:46] VITALS: BP 128/70; PULSE 90; TEMP 98.4
== END 2020-08-03 17:45 | disposition home or self-care (01) ==
LOC: EC 21:38 → 1SOBS 23:43
PROVIDERS: ADMIT Hospitalist; ATTEND Hospitalist
DX: M54.2 Cervicalgia (principal); F10.129 Alcohol abuse with intoxication, unspecified; Y90.8 Blood alcohol level of 240 mg/100 ml or more; Y04.2XXA Assault by strike against or bumped into by another person, initial encounter; Y92.009 Unspecified place in unspecified non-institutional (private) residence as the place of occurrence of the external cause; Z86.73 Personal history of transient ischemic attack (TIA), and cerebral infarction without residual deficits; F03.90 Unspecified dementia, unspecified severity, without behavioral disturbance, psychotic disturbance, mood disturbance, and anxiety; F17.200 Nicotine dependence, unspecified, uncomplicated; Z79.82 Long term (current) use of aspirin; Z82.3 Family history of stroke; Z81.8 Family history of other mental and behavioral disorders
CPT/HCPCS: 99285; 36415; 93005; 97165; 80053; 85025; 85610; 85730; 71045; 72125; 70450; G0378; G0480; 80320

== ENCOUNTER 2020-09-24 18:48 | Observation (INO) | payer MEDICARE ==
[2020-09-24] MEDS ORDERED: DIPH,PERTUS(ACELL)TETVAC-LF 0.5 ML VIAL IM ONE (19:02)
[2020-09-24] MEDS ORDERED: PANTOPRAZOLE 40 MG/10 ML VIAL IVP STA (19:02)
--- NOTE | 2020-09-24 19:05 | ED ---
General Adult HPI - General Chief complaint: Fall Stated complaint: ETOH Time Seen by Provider: 09/24/20 18:51 Source: EMS, RN notes reviewed, old records reviewed Mode of arrival: EMS Limitations: altered mental status - History of Present Illness Initial comments: 80-year-old male presents status post fall. Patient is intoxicated, unable to contribute specific details of the fall. Uncertain if he lost consciousness. He is uncertain if he is on any anticoagulation. He does have some dark emesis around his lips. He does admit to drinking heavily. EMS report minimal bleeding on scene. He has a right parietal scalp laceration. - Related Data Previous Rx's Medication Instructions Recorded Aspirin 81 mg PO DAILY #30 chewable 08/03/20 Allergies Allergy/AdvReac Type Severity Reaction Status Date / Time No Known Allergies Allergy Verified 09/24/20 20:22 Review of Systems ROS Statement: Those systems with pertinent positive or pertinent negative responses have been documented in the HPI. ROS Other: All systems not noted in ROS Statement are negative. Past Medical History Past Medical History: CVA/TIA, Dementia Additional Past Medical History / Comment(s): same day smoker. History of Any Multi-Drug Resistant Organisms: None Reported Past Surgical History: Tonsillectomy Additional Past Surgical History / Comment(s): Vasectomy, bilateral inguinal hernia repair Past Anesthesia/Blood Transfusion Reactions: No Reported Reaction Past Psychological History: No Psychological Hx Reported Smoking Status: Current every day smoker Past Alcohol Use History: Abuse, Daily, Heavy Past Drug Use History: None Reported - Past Family History Father Family Medical History: CVA/TIA Mother Family Medical History: Dementia General Exam Limitations: altered mental status General appearance: alert, appears intoxicated Head exam: Present: other (7 cm V-shaped laceration in the right parietal scalp.) Eye exam: Present: PERRL, EOMI ENT exam: Present: normal exam Neck exam: Present: normal inspection. Absent: tenderness, meningismus Respiratory exam: Present: normal lung sounds bilaterally. Absent: respiratory distress, wheezes Cardiovascular Exam: Present: regular rate, normal rhythm GI/Abdominal exam: Present: soft, distended. Absent: tenderness, guarding, rebound Extremities exam: Present: normal inspection, normal capillary refill. Absent: pedal edema Neurological exam: Present: alert. Absent: motor sensory deficit Psychiatric exam: Present: other (Patient does not appear to have any focal neurological findings.) Skin exam: Present: warm, dry. Absent: cyanosis, diaphoretic Course Vital Signs 09/24/20 18:56 Temperature 97.1 F L Pulse Rate 73 Respiratory 18 Rate Blood Pressure 140/64 O2 Sat by Pulse 98 Oximetry Procedures - Laceration Laceration #1 Consent Obtained: verbal consent Indication: laceration Site: scalp Size (cm): 8 Description: flap, irregular Depth: simple, single layer Type of Sutures: other (nnamdi) Number of Sutures: 9 Technique: simple, interrupted Medical Decision Making - Medical Decision Making 40-year-old male with fall, head injury, scalp laceration. Laceration is repaired after wound is cleansed and irrigated in the emergency department. [address] performed, negative for intracranial hemorrhage or mass effect, CT cervical spine negative for fracture subluxation. Patient has an alcohol level of 338. He does not have family or right home. He will be admitted for acute alcohol intoxication. - Lab Data Result diagrams: 09/24/20 19:02 09/24/20 19:02 Lab Results 09/24/20 09/24/20 09/24/20 Range/Units 19:02 19:02 19:02 WBC 10.2 (3.8-10.6) k/uL RBC 4.46 (4.30-5.90) m/uL Hgb 11.9 L (13.0-17.5) gm/dL Hct 39.2 (39.0-53.0) % MCV 88.0 (80.0-100.0) fL MCH 26.7 (25.0-35.0) pg MCHC 30.3 L (31.0-37.0) g/dL RDW 18.7 H (11.5-15.5) % Plt Count 257 (150-450) k/uL MPV 8.1 Neutrophils % 79 % Lymphocytes % 11 % Monocytes % 6 % Eosinophils % 1 % Basophils % 0 % Neutrophils # 8.1 H (1.3-7.7) k/uL Lymphocytes # 1.1 (1.0-4.8) k/uL Monocytes # 0.7 (0-1.0) k/uL Eosinophils # 0.1 (0-0.7) k/uL Basophils # 0.0 (0-0.2) k/uL Hypochromasia Moderate Anisocytosis Slight PT 10.7 (9.0-12.0) sec INR 1.0 (<1.2) APTT 27.5 (22.0-30.0) sec Sodium 141 (137-145) mmol/L Potassium 4.7 (3.5-5.1) mmol/L Chloride 109 H (98-107) mmol/L Carbon Dioxide 20 L (22-30) mmol/L Anion Gap 12 mmol/L BUN 6 L (9-20) mg/dL Creatinine 0.83 (0.66-1.25) mg/dL Est GFR (CKD-EPI)AfAm >90 (>60 ml/min/1.73 sqM) Est GFR (CKD-EPI)NonAf 84 (>60 ml/min/1.73 sqM) Glucose 95 (74-99) mg/dL Calcium 9.0 (8.4-10.2) mg/dL Total Bilirubin 0.5 (0.2-1.3) mg/dL AST 31 (17-59) U/L ALT 7 (4-49) U/L Alkaline Phosphatase 53 (38-126) U/L Total Protein 8.6 H (6.3-8.2) g/dL Albumin 4.4 (3.5-5.0) g/dL Serum Alcohol 338 H* mg/dL Disposition Clinical Impression: Scalp laceration, Fall, Alcohol intoxication Disposition: ADMITTED IP TO THIS HOSP Condition: Stable Additional Instructions: Please return for staple removal in 10-14 days. Is patient prescribed a controlled substance at d/c from ED?: No Referrals: None,Stated [Primary Care Provider] - 1-2 days Decision to Admit Reason: Admit from EC Decision Date: 09/24/20 Decision Time: 20:34
[2020-09-24 19:46] LABS: Anisocytosis Slight; Basophils % (A) 0 %; Eosinophils # (A) 0.1 k/uL (0-0.7); Eosinophils % (A) 1 %; HCT 39.2 % (39.0-53.0); HGB 11.9 gm/dL (13.0-17.5); Hypochromasia Moderate; Lymphocytes # (A) 1.1 k/uL (1.0-4.8); Lymphocytes % (A) 11 %; MCH 26.7 pg (25.0-35.0); MCHC 30.3 g/dL (31.0-37.0); Mean Platelet Volume 8.1; Monocytes # (A) 0.7 k/uL (0-1.0); Monocytes % (A) 6 %; Neutrophils # (A) 8.1 k/uL (1.3-7.7); Neutrophils % (A) 79 %; Platelet Count 257 k/uL (150-450); RBC 4.46 m/uL (4.30-5.90); RDW 18.7 % (11.5-15.5); WBC 10.2 k/uL (3.8-10.6)
--- NOTE | 2020-09-24 19:47 | CT ---
EXAMINATION TYPE: CT brain cspine wo con DATE OF EXAM: 09/24/2020 COMPARISON: 08/02/2020 HISTORY: Fall. CT DLP: 1395.3 mGycm Automated exposure control for dose reduction was used. There is cerebral atrophy. There is no mass effect nor midline shift. There is no sign of intracrania l hemorrhage. There is some frontal scalp soft tissue swelling. The calvarium is intact. Cervical vertebra have normal alignment. There is extensive hypertrophic anterior bridging osteophyte formation from C3 to C7. Posterior elements are intact. The skull base is intact. Facet joints are i ntact. IMPRESSION: Cerebral atrophy. No acute intracranial abnormality. Frontal scalp soft tissue swelling. Brain unchan ged compared to old exam. Multilevel hypertrophic degenerative disc changes in the cervical spine with large anterior bridging osteophytes. No fracture. No change compared to old exam.
[2020-09-24 19:57] LABS: ALT 7 U/L (4-49); AST 31 U/L (17-59); African American GFR (CKD) >90 (>60 ml/min/1.73 sqM); Albumin 4.4 g/dL (3.5-5.0); Alkaline Phosphatase 53 U/L (38-126); Anion Gap 12 mmol/L; Blood Urea Nitrogen 6 mg/dL (9-20); Carbon Dioxide 20 mmol/L (22-30); Chloride 109 mmol/L (98-107); Glucose 95 mg/dL (74-99); Non-African American GFR(CKD) 84 (>60 ml/min/1.73 sqM); Potassium 4.7 mmol/L (3.5-5.1); Sodium 141 mmol/L (137-145); Total Bilirubin 0.5 mg/dL (0.2-1.3); Total Protein 8.6 g/dL (6.3-8.2)
[2020-09-24 19:59] LABS: Partial Thromboplastin Time 27.5 sec (22.0-30.0); Prothrombin Time 10.7 sec (9.0-12.0)
[2020-09-24 20:11] LABS: Alcohol 338 mg/dL
[2020-09-24] MEDS ORDERED: THIAMINE 100 MG/ML 2 ML VIAL IM STA (20:34)
[2020-09-24] MEDS ORDERED: LORazepam 2 MG/ML INJ IV PRN ×3 (20:34)
[2020-09-24] MEDS ORDERED: NALOXONE 0.4 MG/ML 1 ML VIAL IV PRN (20:34)
[2020-09-24] MEDS: THIAMINE 100 MG TAB PO SCH (20:38)
--- NOTE | 2020-09-25 00:07 | P.HPIM ---
History of Present Illness H&P Date: 09/24/20 Chief Complaint: fall , intoxicated 80 year old male with no active medical issues. patient lives with two room mates. patient is a , he claims that he does not drink, however since it was , and he was having some bad memories regarding his service time. He ordered beers and pizza, but drank the two beers rather quickly, he denies depression or suicidal ideation. he tried to get up and stepped on his cat , lost his balance, and next thing he remembers is waking up in the ambulance. covered with blood. he denies any frequent falls, last fall was more than a year ago . he uses a cane to ambulate. he does not take any prescription medications. he denies any symptoms associated with his fall, denies palpitations, dizziness, nausea or vomiting. denies any chest pain or trouble breathing in the ED , ct of head and spine showed no acute pathology or fractures, patient had his right parietal scalp wound cleaned and sutured. blood work showed el evated blood alcohol, patient did not have a ride or anyone to pick him up, he was very weak to ambulate on his own. Review of Systems Pertinent positives as noted in HPI. All other systems were reviewed and are negative Past Medical History Past Medical History: CVA/TIA, Dementia Additional Past Medical History / Comment(s): same day smoker. History of Any Multi-Drug Resistant Organisms: None Reported Past Surgical History: Tonsillectomy Additional Past Surgical History / Comment(s): Vasectomy, bilateral inguinal hernia repair Past Anesthesia/Blood Transfusion Reactions: No Reported Reaction Past Psychological History: No Psychological Hx Reported Smoking Status: Current every day smoker Past Alcohol Use History: Abuse, Daily, Heavy Past Drug Use History: None Reported Additional Drug Use History / Comment(s): pt smelled of ETOH on admission, pt states: "I drank 3- 24 oz beers and does not like to drink hard alcohol." - Past Family History Father Family Medical History: CVA/TIA Mother Family Medical History: Dementia Medications and Allergies Home Medications Medication Instructions Recorded Confirmed Type Aspirin 81 mg PO DAILY #30 chewable 08/03/20 09/24/20 Rx Allergies Allergy/AdvReac Type Severity Reaction Status Date / Time No Known Allergies Allergy Verified 09/24/20 20:22 Physical Exam Vitals: Vital Signs Temp Pulse Pulse Resp BP BP Pulse Ox 09/24/20 21:15 97.6 F 71 16 129/67 97 09/24/20 18:56 97.1 F L 73 18 140/64 98 Intake and Output 09/24/20 09/24/20 09/24/20 06:59 14:59 22:59 Other: Weight 83.915 kg Constitutional: No acute distress, conversant, pleasant Eyes: Anicteric sclerae, moist conjunctiva, Pupils equal round reactive to light ENMT: Normocephalic, stapled right parietal scalp wound, dry blood over upper lip and left forehead. Oropharynx clear, no erythema, no exudates Neck: Supple, FROM, no masses, or JVD No carotid bruits No thyromegaly Lungs: Clear to auscultation Clear to percussion Normal respiratory effort, no accessory muscle use Cardiovascular: Heart regular in rate and rhythm, No murmurs, gallops, or rubs No peripheral edema Abdominal: Soft Nontender, no guarding, rebound or rigidity Abdomen moving with respiration Normoactive bowel sounds No hepatomegaly, No splenomegaly No palpable mass No abdominal wall hernia noted Skin: Normal temperature, tone, texture, turgor No induration No subcutaneous nodules No rash, lesions No ulcers Extremities: No digital cyanosis No clubbing Pedal pulses intact and symmetrical Radial pulses intact and symmetrical No calf tenderness Psychiatric: Alert and oriented to person, place and time Appropriate affect fair judgement Neuro Muscles Strength 5/5 in all 4 extremities Sensation to light touch grossly present throughout Cranial nerves II-XII grossly intact No focal sensory deficits Lymphatics: no palpable cervical or supraclavicular , or inguinal lymph nodes Results CBC & Chem 7: 09/24/20 19:02 09/24/20 19:02 Labs: Abnormal Lab Results - Last 24 Hours (Table) 09/24/20 09/24/20 Range/Units 19:02 19:02 Hgb 11.9 L (13.0-17.5) gm/dL MCHC 30.3 L (31.0-37.0) g/dL RDW 18.7 H (11.5-15.5) % Neutrophils # 8.1 H (1.3-7.7) k/uL Chloride 109 H (98-107) mmol/L Carbon Dioxide 20 L (22-30) mmol/L BUN 6 L (9-20) mg/dL Total Protein 8.6 H (6.3-8.2) g/dL Serum Alcohol 338 H* mg/dL Thrombosis Risk Factor Assmnt - Choose All That Apply Any of the Below Risk Factors Present?: Yes Each Factor Represents 1 point: Swollen legs (current) Other Risk Factors: No Each Risk Factor Represents 3 Points: Age 75 years or older Thrombosis Risk Factor Assessment Total Risk Factor Score: 4 Thrombosis Risk Factor Assessment Level: Moderate Risk Assessment and Plan Assessment: acute severe alcohol intoxication with delerium , improving acute accidental fall with traumatic wound plan wound cleaning and nnamdi applied in the ED pain control IVF hydration thiamine benzo per CIWA for withdrawal PPI fall precautions mechanical DVT PPX CODE STATUS:full code Discussed with: Patient, ER Anticipated length of stay < than [address]: home A total of 65 minutes was spent on the care of this complex patient more than 50% of the time was spent in counseling and care coordination.
[2020-09-25] MEDS: SODIUM CHLORIDE 0.9% 1,000 ML IV SCH ×2 (00:45→11:15)
[2020-09-25] MEDS ORDERED: PANTOPRAZOLE 40 MG TABLET PO SCH (07:30)
[2020-09-25] MEDS: THIAMINE 100 MG TAB PO SCH (07:53)
[2020-09-25 09:20] VITALS: BP 132/75; PULSE 92; RESP 17; TEMP 98.1
--- NOTE | 2020-09-25 18:22 | P.DS ---
Providers Date of admission: 09/24/20 20:35 Attending physician: Medardo Arnold MD Primary care physician: Stated None - Discharge Diagnosis(es) (1) Scalp laceration Status: Acute Hospital Course: Patient with history of alcohol abuse positive alcohol level in the emergency room. The patient sustained a head lock off the fall was monitored overnight he was seen by me in the morning he had no evidence of withdrawal he had no pain on he wanted to go home plan for home with outpatient management patient was counseled about the need for alcohol cessation Patient Condition at Discharge: Stable Plan - Discharge Summary Discharge Rx Participant: No New Discharge Prescriptions: Continue Aspirin 81 mg PO DAILY #30 chewable Discharge Medication List Aspirin 81 mg PO DAILY #30 chewable 08/03/20 [Rx] Follow up Appointment(s)/Referral(s): None,Stated [Primary Care Provider] - 1-2 days Activity/Diet/Wound Care/Special Instructions: Please return for staple removal in 10-14 days. Discharge Disposition: HOME SELF-CARE
== END 2020-09-25 11:10 | disposition home or self-care (01) ==
LOC: EC 18:48 → 1SOBS 20:35
PROVIDERS: ADMIT Internal Medicine; ATTEND Internal Medicine
DX: S01.01XA Laceration without foreign body of scalp, initial encounter (principal); W19.XXXA Unspecified fall, initial encounter; F10.129 Alcohol abuse with intoxication, unspecified; Y90.8 Blood alcohol level of 240 mg/100 ml or more; F03.90 Unspecified dementia, unspecified severity, without behavioral disturbance, psychotic disturbance, mood disturbance, and anxiety; Z86.73 Personal history of transient ischemic attack (TIA), and cerebral infarction without residual deficits; F17.200 Nicotine dependence, unspecified, uncomplicated; Z82.3 Family history of stroke; Z81.8 Family history of other mental and behavioral disorders; Z98.52 Vasectomy status; Z98.890 Other specified postprocedural states; Z79.82 Long term (current) use of aspirin
CPT/HCPCS: 12004; 90471; 96372; 96374; 99285; 36415; 80053; 85025; 85610; 85730; 72125; 70450; 90715; G0378 ×2; G0480; J3411; C9113; 80320

== ENCOUNTER 2020-12-19 22:40 | Emergency (ER) | payer MEDICARE ==
[2020-12-19 22:51] VITALS: TEMP 97.6
--- NOTE | 2020-12-19 23:20 | ED ---
Alcohol HPI - General Chief Complaint: Alcohol Stated Complaint: ETOH Time Seen by Provider: 12/19/20 22:50 Source: EMS Mode of arrival: EMS Limitations: no limitations - History of Present Illness Initial Comments: This patient is 80-year-old man who is brought by ambulance to have evaluation after ground-level fall. The patient states that he did not want come in and that a roommate had called the ambulance after he had been drinking and fell. The patient denies any injury but states he wasn't able to stand up. Patient denies any medical complaints. MD Complaint: alcohol intoxication Last Drink: just [employer] -: hour(s) Previous Visits for Alcohol Intoxication?: Yes Recent Trauma: Yes Associated Symptoms: denies other symptoms Treatments Prior to Arrival: cervical collar - Related Data Previous Rx's Medication Instructions Recorded Aspirin 81 mg PO DAILY #30 chewable 08/03/20 Allergies Allergy/AdvReac Type Severity Reaction Status Date / Time No Known Allergies Allergy Verified 12/19/20 22:42 Review of Systems ROS Statement: Those systems with pertinent positive or pertinent negative responses have been documented in the HPI. ROS Other: All systems not noted in ROS Statement are negative. Constitutional: Reports: weakness. Denies: fever Eyes: Denies: eye pain, vision change ENT: Denies: epistaxis Respiratory: Denies: cough, dyspnea Cardiovascular: Denies: chest pain, palpitations, edema, syncope Gastrointestinal: Denies: abdominal pain, vomiting Genitourinary: Denies: testicular pain Musculoskeletal: Denies: back pain Skin: Denies: rash Neurological: Denies: headache, weakness, numbness, paresthesias Psychiatric: Denies: suicidal thoughts Past Medical History Past Medical History: CVA/TIA, Dementia Additional Past Medical History / Comment(s): same day smoker. History of Any Multi-Drug Resistant Organisms: None Reported Past Surgical History: Tonsillectomy Additional Past Surgical History / Comment(s): Vasectomy, bilateral inguinal hernia repair Past Anesthesia/Blood Transfusion Reactions: No Reported Reaction Past Psychological History: No Psychological Hx Reported Smoking Status: Current every day smoker Past Alcohol Use History: Abuse, Daily, Heavy Past Drug Use History: None Reported - Past Family History Father Family Medical History: CVA/TIA Mother Family Medical History: Dementia General Exam Limitations: no limitations General appearance: alert, in no apparent distress, appears intoxicated Head exam: Present: normocephalic, other (Abrasion left forehead) Eye exam: Present: normal appearance, PERRL, EOMI, conjunctival injection, n ystagmus. Absent: scleral icterus ENT exam: Present: mucous membranes dry, other (Poor dentition) Neck exam: Present: normal inspection, full ROM. Absent: tenderness Respiratory exam: Present: normal lung sounds bilaterally. Absent: respiratory distress, wheezes, rales, rhonchi, stridor, chest wall tenderness Cardiovascular Exam: Present: regular rate, normal rhythm, normal heart sounds. Absent: systolic murmur, diastolic murmur, rubs, gallop GI/Abdominal exam: Present: soft. Absent: distended, tenderness, guarding, rebound, rigid, mass Extremities exam: Present: normal inspection, normal capillary refill. Absent: pedal edema, calf tenderness Back exam: Present: normal inspection. Absent: vertebral tenderness Neurological exam: Present: alert, oriented X3, CN II-XII intact. Absent: motor sensory deficit Skin exam: Present: warm, dry, intact, normal color, abrasion. Absent: rash Course Vital Signs 12/19/20 12/20/20 12/20/20 22:42 01:00 02:00 Temperature 97.6 F Pulse Rate 87 70 76 Respiratory 16 16 Rate Blood Pressure 124/71 122/78 120/66 O2 Sat by Pulse 99 Oximetry 12/20/20 12/20/20 03:00 04:00 Temperature Pulse Rate Respiratory 18 18 Rate Blood Pressure O2 Sat by Pulse Oximetry Medical Decision Making - Lab Data Result diagrams: 12/20/20 00:00 12/20/20 00:00 Lab Results 12/20/20 12/20/20 12/20/20 Range/Units 00:00 00:00 00:00 WBC 5.2 (3.8-10.6) k/uL RBC 3.89 L (4.30-5.90) m/uL Hgb 10.7 L (13.0-17.5) gm/dL Hct 33.1 L (39.0-53.0) % MCV 85.2 (80.0-100.0) fL MCH 27.5 (25.0-35.0) pg MCHC 32.3 (31.0-37.0) g/dL RDW 18.6 H (11.5-15.5) % Plt Count 213 (150-450) k/uL MPV 7.9 Neutrophils % 59 % Lymphocytes % 24 % Monocytes % 10 % Eosinophils % 4 % Basophils % 1 % Neutrophils # 3.1 (1.3-7.7) k/uL Lymphocytes # 1.2 (1.0-4.8) k/uL Monocytes # 0.5 (0-1.0) k/uL Eosinophils # 0.2 (0-0.7) k/uL Basophils # 0.0 (0-0.2) k/uL Hypochromasia Slight Anisocytosis Slight Sodium 141 (137-145) mmol/L Potassium 4.5 (3.5-5.1) mmol/L Chloride 110 H (98-107) mmol/L Carbon Dioxide 21 L (22-30) mmol/L Anion Gap 10 mmol/L BUN 9 (9-20) mg/dL Creatinine 0.78 (0.66-1.25) mg/dL Est GFR (CKD-EPI)AfAm >90 (>60 ml/min/1.73 sqM) Est GFR (CKD-EPI)NonAf 86 (>60 ml/min/1.73 sqM) Glucose 86 (74-99) mg/dL Calcium 8.9 (8.4-10.2) mg/dL Magnesium 2.3 (1.6-2.3) mg/dL Total Bilirubin 0.6 (0.2-1.3) mg/dL AST 27 (17-59) U/L ALT <6 (4-49) U/L Alkaline Phosphatase 51 (38-126) U/L Ammonia <9 (<30) umol/L Total Protein 7.7 (6.3-8.2) g/dL Albumin 3.8 (3.5-5.0) g/dL Urine Color Urine Appearance (Clear) Urine pH (5.0-8.0) Ur Specific [place] (1.001-1.035) Urine Protein (Negative) Urine Glucose (UA) (Negative) Urine Ketones (Negative) Urine Blood (Negative) Urine Nitrite (Negative) Urine Bilirubin (Negative) Urine Urobilinogen (<2.0) mg/dL Ur Leukocyte Esterase (Negative) Urine RBC (0-5) /hpf Urine WBC (0-5) /hpf Urine Bacteria (None) /hpf Hyaline Casts (0-2) /lpf Serum Alcohol 233 H* mg/dL 12/20/20 Range/Units 00:00 WBC (3.8-10.6) k/uL RBC (4.30-5.90) m/uL Hgb (13.0-17.5) gm/dL Hct (39.0-53.0) % MCV (80.0-100.0) fL MCH (25.0-35.0) pg MCHC (31.0-37.0) g/dL RDW (11.5-15.5) % Plt Count (150-450) k/uL MPV Neutrophils % % Lymphocytes % % Monocytes % % Eosinophils % % Basophils % % Neutrophils # (1.3-7.7) k/uL Lymphocytes # (1.0-4.8) k/uL Monocytes # (0-1.0) k/uL Eosinophils # (0-0.7) k/uL Basophils # (0-0.2) k/uL Hypochromasia Anisocytosis Sodium (137-145) mmol/L Potassium (3.5-5.1) mmol/L Chloride (98-107) mmol/L Carbon Dioxide (22-30) mmol/L Anion Gap mmol/L BUN (9-20) mg/dL Creatinine (0.66-1.25) mg/dL Est GFR (CKD-EPI)AfAm (>60 ml/min/1.73 sqM) Est GFR (CKD-EPI)NonAf (>60 ml/min/1.73 sqM) Glucose (74-99) mg/dL Calcium (8.4-10.2) mg/dL Magnesium (1.6-2.3) mg/dL Total Bilirubin (0.2-1.3) mg/dL AST (17-59) U/L ALT (4-49) U/L Alkaline Phosphatase (38-126) U/L Ammonia (<30) umol/L Total Protein (6.3-8.2) g/dL Albumin (3.5-5.0) g/dL Urine Color Light Yellow Urine Appearance Cloudy (Clear) Urine pH 5.0 (5.0-8.0) Ur Specific [place] 1.005 (1.001-1.035) Urine Protein Negative (Negative) Urine Glucose (UA) Negative (Negative) Urine Ketones Negative (Negative) Urine Blood Negative (Negative) Urine Nitrite Positive (Negative) Urine Bilirubin Negative (Negative) Urine Urobilinogen <2.0 (<2.0) mg/dL Ur Leukocyte Esterase Large H (Negative) Urine RBC 5 (0-5) /hpf Urine WBC 56 H (0-5) /hpf Urine Bacteria Occasional H (None) /hpf Hyaline Casts 1 (0-2) /lpf Serum Alcohol mg/dL - EKG Data -: EKG Interpreted by [facility] EKG shows normal: sinus rhythm, axis (Normal), intervals (TX interval is 212 ms, consistent with first-degree AV block. QRS duration 80 ms, QTC 463 ms, both normal), QRS complexes (Normal), ST-T waves (Normal) Rate: normal (Rate 84 bpm) Disposition Clinical Impression: Alcohol intoxication, Fall Disposition: HOME SELF-CARE Condition: Fair Instructions (If sedation given, give patient instructions): Alcohol I ntoxication (ED) Is patient prescribed a controlled substance at d/c from ED?: No Referrals: None,Stated [Primary Care Provider] - 1-2 days
--- NOTE | 2020-12-19 23:43 | CT ---
EXAMINATION TYPE: CT brain wo con DATE OF EXAM: 12/19/2020 COMPARISON: 09/24/2020 HISTORY: fall CT DLP: 1227.4 mGycm Automated exposure control for dose reduction was used. There is some cerebral cortical atrophy. There is no mass effect nor midline shift. There is no sign of intracranial hemorrhage. The calvarium is intact. There is fairly normal aeration of the mastoid s inuses. Skull base is intact. IMPRESSION: Cerebral atrophy. No acute intracranial abnormality. No change.
[2020-12-20 00:11] LABS: Anisocytosis Slight; Basophils % (A) 1 %; Eosinophils # (A) 0.2 k/uL (0-0.7); Eosinophils % (A) 4 %; HCT 33.1 % (39.0-53.0); HGB 10.7 gm/dL (13.0-17.5); Hypochromasia Slight; Lymphocytes # (A) 1.2 k/uL (1.0-4.8); Lymphocytes % (A) 24 %; MCH 27.5 pg (25.0-35.0); MCHC 32.3 g/dL (31.0-37.0); MCV 85.2 fL (80.0-100.0); Mean Platelet Volume 7.9; Monocytes # (A) 0.5 k/uL (0-1.0); Monocytes % (A) 10 %; Neutrophils # (A) 3.1 k/uL (1.3-7.7); Neutrophils % (A) 59 %; Platelet Count 213 k/uL (150-450); RBC 3.89 m/uL (4.30-5.90); RDW 18.6 % (11.5-15.5); WBC 5.2 k/uL (3.8-10.6)
[2020-12-20 00:20] LABS: ALT <6 U/L (4-49); AST 27 U/L (17-59); African American GFR (CKD) >90 (>60 ml/min/1.73 sqM); Albumin 3.8 g/dL (3.5-5.0); Alkaline Phosphatase 51 U/L (38-126); Anion Gap 10 mmol/L; Blood Urea Nitrogen 9 mg/dL (9-20); Calcium 8.9 mg/dL (8.4-10.2); Carbon Dioxide 21 mmol/L (22-30); Chloride 110 mmol/L (98-107); Glucose 86 mg/dL (74-99); Magnesium 2.3 mg/dL (1.6-2.3); Non-African American GFR(CKD) 86 (>60 ml/min/1.73 sqM); Potassium 4.5 mmol/L (3.5-5.1); Sodium 141 mmol/L (137-145); Total Bilirubin 0.6 mg/dL (0.2-1.3); Total Protein 7.7 g/dL (6.3-8.2)
[2020-12-20 00:37] LABS: Alcohol 233 mg/dL
[2020-12-20 01:53] LABS: Appearance,Urine Cloudy (Clear); Bacteria,Urine Occasional /hpf; Bilirubin,Urine Negative (Negative); Blood,Urine Negative (Negative); Color,Urine Light Yellow; Glucose,Urine (UA) Negative (Negative); Hyaline Casts,Urine 1 /lpf (0-2); Ketones,Urine Negative (Negative); Leukocyte Esterase,Urine Large (Negative); Nitrite,Urine Positive (Negative); Protein,Urine Negative (Negative); RBC,Urine 5 /hpf (0-5); Specific Gravity,Urine 1.005 (1.001-1.035); Urobilinogen,Urine <2.0 mg/dL (<2.0); WBC,Urine 56 /hpf (0-5)
[2020-12-20] MEDS ORDERED: LEVOFLOXACIN 750 MG TAB PO STA (02:06)
[2020-12-20 04:45] VITALS: RESP 18
[2020-12-20 06:21] VITALS: BP 138/87; PULSE 85
== END 2020-12-20 06:33 | disposition home or self-care (01) ==
LOC: EC 22:40
DX: F10.129 Alcohol abuse with intoxication, unspecified (principal); S00.81XA Abrasion of other part of head, initial encounter; F17.200 Nicotine dependence, unspecified, uncomplicated; Z86.73 Personal history of transient ischemic attack (TIA), and cerebral infarction without residual deficits; W18.30XA Fall on same level, unspecified, initial encounter; Y90.7 Blood alcohol level of 200-239 mg/100 ml
CPT/HCPCS: 36415; 93005; 80053; 82140; 83735; 85025; 81001; 70450; 99284; G0480; 80320

== ENCOUNTER 2022-02-23 18:39 | Inpatient (IN) | payer MEDICARE ==
[2022-02-23] MEDS ORDERED: ONDANSETRON 4 MG/2 ML VIAL IVP STA (19:27)
[2022-02-23] MEDS ORDERED: MORPHINE SULFATE 4 MG/ML SYRINGE IV STA (19:27)
[2022-02-23] MEDS ORDERED: SODIUM CHLORIDE 0.9% 500 ML 500 ML IV STA (19:27)
--- NOTE | 2022-02-23 19:35 | ED ---
Weakness HPI <Aaron Oseguera - Last Filed: 02/24/22 02:22> - General Source: RN notes reviewed - History of Present Illness Complaint: generalized weakness <Robert Lopez - Last Filed: 02/24/22 02:49> - General Stated complaint: fall Time Seen by Provider: 02/23/22 18:46 - History of Present Illness Initial comments: This is a pleasant 82-year-old male with history of CVA and dementia. He presents to the emergency department today after having a fall of unknown etiology at home. Patient states he does not recall why he blacked out however he woke up on the floor today. Patient states he believes he fell yesterday. Patient has chronic orthopedic complaints. Patient states he has chronic knee pain and back pain. However he denies any significant pain on What he normally has. Patient does have some mild abdominal discomfort. Patient denies any vomiting. Patient did strike his head. He denies any significant headache or neck pain. Patient states he cannot walk since this happened. He also feels more shaky than usual. Patient does drink alcohol but states only one beer every now and then. Has not drank any alcohol for 4 days. Patient's history does stay CVA although the patient states he has never had a stroke. Patient not diabetic. According to EMS the house was in disarray. Patient is denying any chest pain or shortness of breath. Patient does have some pain to the chest wall. Patient believes he was lying on his cell phone which might of caused a first-degree burn to his right chest wall. (Robert Lopez) - Related Data Home Medications Medication Instructions Recorded Confirmed No Known Home Medications 02/23/22 02/23/22 Allergies Allergy/AdvReac Type Severity Reaction Status Date / Time No Known Allergies Allergy Verified 02/23/22 21:13 Review of Systems ROS Other: All systems not noted in ROS Statement are negative. <Aaron Oseguera - Last Filed: 02/24/22 02:22> ROS Other: All systems not noted in ROS Statement are negative. <Robert Lopez - Last Filed: 02/24/22 02:49> ROS Statement: Those systems with pertinent positive or pertinent negative responses have been documented in the HPI. Past Medical History Past Medical History: CVA/TIA, Dementia Additional Past Medical History / Comment(s): same day smoker. History of Any Multi-Drug Resistant Organisms: None Reported Past Surgical History: Tonsillectomy Additional Past Surgical History / Comment(s): Vasectomy, bilateral inguinal hernia repair Past Anesthesia/Blood Transfusion Reactions: No Reported Reaction Past Psychological History: No Psychological Hx Reported Smoking Status: Current every day smoker Past Alcohol Use History: Abuse, Daily, Heavy Past Drug Use History: None Reported - Past Family History Father Family Medical History: CVA/TIA Mother Family Medical History: Dementia <Robert Lopez Filed: 02/24/22 02:49> General Exam General appearance: alert, in no apparent distress, other (Generalized tremor, no focal findings) Head exam: Present: other (Forehead abrasion noted. No step-off or crepitus. Head is normocephalic atraumatic otherwise.) Eye exam: Present: normal appearance, PERRL, EOMI. Absent: scleral icterus, conjunctival injection, periorbital swelling ENT exam: Present: normal exam, mucous membranes dry, mucous membranes moist Neck exam: Present: normal inspection, full ROM. Absent: tenderness, meningismus, lymphadenopathy Respiratory exam: Present: rhonchi, chest wall tenderness (Tender to the left and right chest wall.), other (Erythematous area to right chest wall, does not appear to be infectious). Absent: respiratory distress, wheezes, stridor Cardiovascular Exam: Present: tachycardia, normal heart sounds. Absent: systolic murmur, diastolic murmur, rubs, gallop, clicks GI/Abdominal exam: Present: soft, tenderness (Generalized, mild tenderness to palpation), normal bowel sounds. Absent: distended, guarding, rebound, rigid Extremities exam: Present: normal inspection, full ROM, normal capillary refill. Absent: tenderness, pedal edema, joint swelling, calf tenderness Back exam: Present: normal inspection, rash noted. Absent: full ROM, tenderness, CVA tenderness (R), muscle spasm Neurological exam: Present: alert (Patient alert but disoriented to time.), oriented X3, CN II-XII intact, other ([place] Coma Scale is 15. No focal neurologic deficits.). Absent: altered, motor sensory deficit Psychiatric exam: Present: normal affect, normal mood Skin exam: Present: warm, dry, intact, normal color. Absent: rash, cyanosis, diaphoretic <Robert Lopez Filed: 02/24/22 02:49> - General Exam Comments Initial Comments: This is a disheveled and cachectic appearing 82-year-old male in mild distress. Patient does not appear to be toxic but is somewhat ill with generalized tremor noted. Vital signs are reviewed. (Robert Lopez) Course <Robert Lopez - Last Filed: 02/24/22 02:49> Vital Signs 02/23/22 02/23/22 02/23/22 19:23 19:57 20:00 Temperature 98.4 F Pulse Rate 140 H 134 H 133 H Respiratory 30 H 26 H 27 H Rate Blood Pressure 110/82 110/82 94/71 O2 Sat by Pulse 91 L 92 L 96 Oximetry 02/23/22 02/23/22 02/23/22 20:30 21:30 22:00 Temperature Pulse Rate 133 H 130 H Respiratory 22 23 Rate Blood Pressure 106/83 110/79 94/67 O2 Sat by Pulse 94 L 94 L Oximetry 02/23/22 02/23/22 02/23/22 22:33 22:34 22:40 Temperature Pulse Rate 133 H 131 H 130 H Respiratory 30 H Rate Blood Pressure 94/66 O2 Sat by Pulse 100 Oximetry 02/23/22 02/23/22 02/23/22 23:00 23:30 23:42 Temperature Pulse Rate 126 H 124 H 115 H Respiratory 26 H 26 H 22 Rate Blood Pressure 98/72 85/70 89/47 O2 Sat by Pulse 100 96 98 Oximetry 02/24/22 02/24/22 02/24/22 00:00 00:30 01:09 Temperature Pulse Rate 117 H 118 H 125 H Respiratory 27 H 25 H 14 Rate Blood Pressure 89/47 67/49 95/68 O2 Sat by Pulse 94 L 100 68 L Oximetry 02/24/22 02/24/22 02/24/22 01:30 01:45 02:00 Temperature Pulse Rate 120 H 115 H 114 H Respiratory 18 16 18 Rate Blood Pressure 99/73 112/76 93/70 O2 Sat by Pulse 99 100 100 Oximetry - Reevaluation(s) Reevaluation #1: 02/23/22 20:49 9. Troponin also elevated at 0.047. Of count 12,100. I'm going to give the patient the sepsis bolus which is 2500 mL. Here he received 1000 mL of normal saline. 1500 mL of Ringer's lactate ordered. (Robert Lopez) Reevaluation #2: 02/23/22 20:55 X-ray consistent with pneumonia. Pneumonia protocol initiated. (Robert Lopez) Reevaluation #3: 02/23/22 22:50 Medical record is reviewed Patient states he is still feeling well. However patient remains tachycardic, respiratory rate is increased again. Capillary refill is about [address] angiogram of the chest ordered. Patient is informed of results and questions answered Patient in no distress ABG which was done at 2205 reveals a pH of 7.45, CO2 of 26.1, bicarbonate of 18.3, pO2 of 73.7. Consistent with respiratory alkalosis with metabolic acidosis. Overcompensated. With hypoxemia (Robert Lopez) Reevaluation #4: 02/24/22 00:09 Patient's blood pressure dropped to a systolic in the high 60s. Norepinephrine infusion ordered. Is finishing his fluid bolus for sepsis. (Robert Lopez) Reevaluation #5: 02/24/22 00:15 Reevaluation, large right-sided pulmonary emboli with possible right heart strain. Consultation placed for vascular. (Robert Lopez) - Consultations Consultation #1: Consultation placed for vascular surgery (Robert Lopez) Consultation #2: Discussed case with Dr. Noel with subsequent patient to the ICU. Suggested continuing with the heparin infusion, norepinephrine infusion, holding the antibiotics at ceftriaxone and Zithromax for now. (Robert Lopez) EKG Findings - EKG Comments: EKG Findings:: EKG shows sinus tachycardia with frequent PVCs. No definitive ST elevation or depression. Baseline artifact noted. Normal intervals. Ventricular rate is 139. When compared to the previous study there is no concerning change in morphology. [place] is normal. Previous study showing normal rate. <Robert Lopez - Last Filed: 02/24/22 02:49> Procedures - Central Line Placement Right IJ Consent Obtained: verbal consent, emergent situation Patient Placed on Monitor/Pulse Ox: Yes MD Prep: mask, gown, gloves Central Line Prep: Chlorhexidine scrub Local Anesthesia Used: Lidocaine 1% Ultrasound Used for Placement: Yes Central Line Lumen Inserted: triple Central Line Position: good blood return, all ports aspirated, flushed, capped, sutured in place with 2-0 silk Dressing Applied: Tegaderm Post Procedure X-Ray: tip of catheter in good position Patient Tolerated Procedure: well, no complications Complications: none <Aaron Oseguera - Last Filed: 02/24/22 02:22> - Sepsis Sepsis Focused Exam #1 Time Sepsis Criteria Met: 20:49 Sepsis Focused Exam Date: 02/23/22 Sepsis Focused Exam Time: 20:49 Sepsis Focused Exam Complete: Yes Vital Signs & RN Notes Reviewed: Yes Capillary Refill: < 2 Seconds: Fingers, Toes Peripheral Pulses: Strong: Radial (R), Radial (L), Posterior Tibialis (R), Posterior Tibialis (L), Dorsalis Pedis (R), Dorsalis Pedis (L) Skin Color: Normal for Patient Respiratory Exam: rhonchi Cardiovascular Exam: tachycardia Sepsis Focused Exam #2 Sepsis Focused Exam Complete: Yes Vital Signs & RN Notes Reviewed: Yes Capillary Refill: < 2 Seconds: Fingers, Toes Peripheral Pulses: Normal: Radial (R), Radial (L), Posterior Tibialis (R), Posterior Tibialis (L), Dorsalis Pedis (R), Dorsalis Pedis (L) Skin Color: Normal for Patient Respiratory Exam: rhonchi Cardiovascular Exam: regular rate Sepsis Focused Exam #3 Sepsis Focused Exam Date: 02/23/22 Sepsis Focused Exam Time: 22:34 Sepsis Focused Exam Complete: Yes (Patient reevaluated at 2234. Heart rate still 131. ) Vital Signs & RN Notes Reviewed: Yes Capillary Refill: > 2 Seconds: Fingers (Approximately 4 seconds), Toes (4 seconds) Peripheral Pulses: Normal: Radial (R), Radial (L), Posterior Tibialis (R), Posterior Tibialis (L), Dorsalis Pedis (R), Dorsalis Pedis (L) Skin Color: Mottled (Mild) Respiratory Exam: rhonchi, other (Respiratory rate of 30) Cardiovascular Exam: tachycardia Sepsis Focused Exam #4 Sepsis Focused Exam Date: 02/24/22 Sepsis Focused Exam Time: 01:00 Sepsis Focused Exam Complete: Yes Vital Signs & RN Notes Reviewed: Yes Capillary Refill: > 2 Seconds: Fingers (Approximately 4 seconds), Toes (4 seconds) Peripheral Pulses: Strong: Radial (R), Radial (L), Posterior Tibialis (R), Posterior Tibialis (L), Dorsalis Pedis (R), Dorsalis Pedis (L) Skin Color: Normal for Patient Respiratory Exam: rhonchi (Left lung perez) Cardiovascular Exam: tachycardia <Robert Lopez - Last Filed: 02/24/22 02:49> Medical Decision Making - Lab Data Result diagrams: 02/23/22 19:48 02/23/22 19:48 <Aaron Oseguera - Last Filed: 02/24/22 02:22> - Lab Data Result diagrams: 02/23/22 19:48 02/23/22 19:48 - Radiology Data Radiology results: image reviewed (Chest x-ray convincing for infiltrate in the left lung perez. Patient also has atelectasis in the right lung perez. Awaiting radiology interpretation) <Robert Lopez - Last Filed: 02/24/22 02:49> - Medical Decision Making 82-year-old male who presents to the respiratory and found on the floor of his apartment. Apparently has a roommate who supposedly takes care of him however according to EMS the house was in disarray and was completely unkempt. Patient was noted to have bed bugs. Patient will require admission with social work professor consultation CIWA protocol is 5 tremor, agitation, and anxiety. Patient only admitted to drinking one beer to [place] prior to coming in. This was after he had been on the floor for an unknown amount of time. His alcohol level did come back at 338 however. Patient did have significant elevation of his CPK, he did meet the severe sepsis criteria. However he did not have a fever. However, given his chest x-ray findings and going to treat him for pneumonia and we will consider him to be positive for sepsis. Patient was given a fluid bolus of 2500 mL. Patient's troponin was also mildly elevated which certainly could be demand. Troponin was 0.047. Creatinine kinase was 4306. Lactic acid was 4.7. CO2 was 16. Anion gap 18. Creatinine 1.36, BUN 24. This is an elevation from baseline. (Robert Lopez) - Lab Data Lab Results 02/23/22 02/23/22 02/23/22 Range/Units 19:48 19:48 19:48 WBC 12.1 H (3.8-10.6) k/uL RBC 4.06 L (4.30-5.90) m/uL Hgb 13.2 (13.0-17.5) gm/dL Hct 40.6 (39.0-53.0) % MCV 99.9 (80.0-100.0) fL MCH 32.5 (25.0-35.0) pg MCHC 32.5 (31.0-37.0) g/dL RDW 13.3 (11.5-15.5) % Plt Count 201 (150-450) k/uL MPV 8.7 Neutrophils % 85 % Lymphocytes % 7 % Monocytes % 7 % Eosinophils % 0 % Basophils % 0 % Neutrophils # 10.3 H (1.3-7.7) k/uL Lymphocytes # 0.8 L (1.0-4.8) k/uL Monocytes # 0.8 (0-1.0) k/uL Eosinophils # 0.0 (0-0.7) k/uL Basophils # 0.0 (0-0.2) k/uL Sodium 141 (137-145) mmol/L Potassium 4.1 (3.5-5.1) mmol/L Chloride 107 (98-107) mmol/L Carbon Dioxide 16 L (22-30) mmol/L Anion Gap 18 mmol/L BUN 24 H (9-20) mg/dL Creatinine 1.36 H (0.66-1.25) mg/dL Est GFR (CKD-EPI)AfAm 56 (>60 ml/min/1.73 sqM) Est GFR (CKD-EPI)NonAf 48 (>60 ml/min/1.73 sqM) Glucose 135 H (74-99) mg/dL Lactic Ac Sepsis Rflx Plasma Lactic Acid Ugo 4.7 H* (0.7-2.0) mmol/L Calcium 9.4 (8.4-10.2) mg/dL Phosphorus 4.7 H (2.5-4.5) mg/dL Magnesium 2.4 H (1.6-2.3) mg/dL Total Bilirubin 2.2 H (0.2-1.3) mg/dL AST 159 H (17-59) U/L ALT 27 (4-49) U/L Alkaline Phosphatase 79 (38-126) U/L Creatine Kinase 4306 H* (55-170) U/L Troponin I (0.000-0.034) ng/mL Total Protein 8.2 (6.3-8.2) g/dL Albumin 3.7 (3.5-5.0) g/dL Lipase 46 (23-300) U/L TSH 3.190 (0.465-4.680) mIU/L Urine Color Urine Appearance (Clear) Urine pH (5.0-8.0) Ur Specific [place] (1.001-1.035) Urine Protein (Negative) Urine Glucose (UA) (Negative) Urine Ketones (Negative) Urine Blood (Negative) Urine Nitrite (Negative) Urine Bilirubin (Negative) Urine Urobilinogen (<2.0) mg/dL Ur Leukocyte Esterase (Negative) Urine RBC (0-5) /hpf Urine WBC (0-5) /hpf Urine WBC Clumps (None) /hpf Ur Squamous Epith Cells (0-4) /hpf Calcium Oxalate Crystal (None) /hpf Urine Bacteria (None) /hpf Urine Mucus (None) /hpf Coronavirus (PCR) (Not Detectd) 02/23/22 02/23/22 02/23/22 Range/Units 19:48 19:55 20:36 WBC (3.8-10.6) k/uL RBC (4.30-5.90) m/uL Hgb (13.0-17.5) gm/dL Hct (39.0-53.0) % MCV (80.0-100.0) fL MCH (25.0-35.0) pg MCHC (31.0-37.0) g/dL RDW (11.5-15.5) % Plt Count (150-450) k/uL MPV Neutrophils % % Lymphocytes % % Monocytes % % Eosinophils % % Basophils % % Neutrophils # (1.3-7.7) k/uL Lymphocytes # (1.0-4.8) k/uL Monocytes # (0-1.0) k/uL Eosinophils # (0-0.7) k/uL Basophils # (0-0.2) k/uL Sodium (137-145) mmol/L Potassium (3.5-5.1) mmol/L Chloride (98-107) mmol/L Carbon Dioxide (22-30) mmol/L Anion Gap mmol/L BUN (9-20) mg/dL Creatinine (0.66-1.25) mg/dL Est GFR (CKD-EPI)AfAm (>60 ml/min/1.73 sqM) Est GFR (CKD-EPI)NonAf (>60 ml/min/1.73 sqM) Glucose (74-99) mg/dL Lactic Ac Sepsis Rflx Y Plasma Lactic Acid Ugo (0.7-2.0) mmol/L Calcium (8.4-10.2) mg/dL Phosphorus (2.5-4.5) mg/dL Magnesium (1.6-2.3) mg/dL Total Bilirubin (0.2-1.3) mg/dL AST (17-59) U/L ALT (4-49) U/L Alkaline Phosphatase (38-126) U/L Creatine Kinase (55-170) U/L Troponin I 0.047 H* (0.000-0.034) ng/mL Total Protein (6.3-8.2) g/dL Albumin (3.5-5.0) g/dL Lipase (23-300) U/L TSH (0.465-4.680) mIU/L Urine Color Urine Appearance (Clear) Urine pH (5.0-8.0) Ur Specific [place] (1.001-1.035) Urine Protein (Negative) Urine Glucose (UA) (Negative) Urine Ketones (Negative) Urine Blood (Negative) Urine Nitrite (Negative) Urine Bilirubin (Negative) Urine Urobilinogen (<2.0) mg/dL Ur Leukocyte Esterase (Negative) Urine RBC (0-5) /hpf Urine WBC (0-5) /hpf Urine WBC Clumps (None) /hpf Ur Squamous Epith Cells (0-4) /hpf Calcium Oxalate Crystal (None) /hpf Urine Bacteria (None) /hpf Urine Mucus (None) /hpf Coronavirus (PCR) Not Detected (Not Detectd) 02/23/22 Range/Units 21:03 WBC (3.8-10.6) k/uL RBC (4.30-5.90) m/uL Hgb (13.0-17.5) gm/dL Hct (39.0-53.0) % MCV (80.0-100.0) fL MCH (25.0-35.0) pg MCHC (31.0-37.0) g/dL RDW (11.5-15.5) % Plt Count (150-450) k/uL MPV Neutrophils % % Lymphocytes % % Monocytes % % Eosinophils % % Basophils % % Neutrophils # (1.3-7.7) k/uL Lymphocytes # (1.0-4.8) k/uL Monocytes # (0-1.0) k/uL Eosinophils # (0-0.7) k/uL Basophils # (0-0.2) k/uL Sodium (137-145) mmol/L Potassium (3.5-5.1) mmol/L Chloride (98-107) mmol/L Carbon Dioxide (22-30) mmol/L Anion Gap mmol/L BUN (9-20) mg/dL Creatinine (0.66-1.25) mg/dL Est GFR (CKD-EPI)AfAm (>60 ml/min/1.73 sqM) Est GFR (CKD-EPI)NonAf (>60 ml/min/1.73 sqM) Glucose (74-99) mg/dL Lactic Ac Sepsis Rflx Plasma Lactic Acid Ugo (0.7-2.0) mmol/L Calcium (8.4-10.2) mg/dL Phosphorus (2.5-4.5) mg/dL Magnesium (1.6-2.3) mg/dL Total Bilirubin (0.2-1.3) mg/dL AST (17-59) U/L ALT (4-49) U/L Alkaline Phosphatase (38-126) U/L Creatine Kinase (55-170) U/L Troponin I (0.000-0.034) ng/mL Total Protein (6.3-8.2) g/dL Albumin (3.5-5.0) g/dL Lipase (23-300) U/L TSH (0.465-4.680) mIU/L Urine Color Yellow Urine Appearance Turbid (Clear) Urine pH 7.5 (5.0-8.0) Ur Specific [place] 1.012 (1.001-1.035) Urine Protein 2+ H (Negative) Urine Glucose (UA) Negative (Negative) Urine Ketones Negative (Negative) Urine Blood Moderate H (Negative) Urine Nitrite Negative (Negative) Urine Bilirubin Negative (Negative) Urine Urobilinogen <2.0 (<2.0) mg/dL Ur Leukocyte Esterase Large H (Negative) Urine RBC 8 H (0-5) /hpf Urine WBC 91 H (0-5) /hpf Urine WBC Clumps Few H (None) /hpf Ur Squamous Epith Cells 8 H (0-4) /hpf Calcium Oxalate Crystal Occasional H (None) /hpf Urine Bacteria Many H (None) /hpf Urine Mucus Rare H (None) /hpf Coronavirus (PCR) (Not Detectd) Critical Care Time Critical Care Time: Yes Total Critical Care Time: 60 <Robert Lopez - Last Filed: 02/24/22 02:49> Critical Care Time: Multiple re-evaluations. Evaluation of patient's response to treatment. Consultation with the patient's admitting physician, the delivery architect, evaluation and diagnostic tests, ordering interventions, severe septic shock, hypotension, ICU admission (Robert Lopez) Disposition <aAron Oseguera - Last Filed: 02/24/22 02:22> Time of Disposition: 21:29 Decision to Admit Reason: Admit from EC Decision Time: 21:29 <Robert Lopez - Last Filed: 02/24/22 02:49> Clinical Impression: Dehydration, Rhabdomyolysis, Pneumonia involving left lung, Alcohol intoxication, Acute kidney injury, Urinary tract infection, Closed head injury, Septic shock, Pulmonary embolism, NSTEMI (non-ST elevated myocardial infarction) Narrative: Elevated troponinlikely demand related, also acute kidney injury. Patient is also debilitated. Facial abrasion with closed head injury. Alcohol intoxi cation (Robert Lopez) Disposition: ADMITTED IP TO THIS HOSP Condition: Fair
[2022-02-23 20:13] LABS: Basophils % (A) 0 %; Eosinophils % (A) 0 %; HCT 40.6 % (39.0-53.0); HGB 13.2 gm/dL (13.0-17.5); Lymphocytes # (A) 0.8 k/uL (1.0-4.8); Lymphocytes % (A) 7 %; MCH 32.5 pg (25.0-35.0); MCHC 32.5 g/dL (31.0-37.0); MCV 99.9 fL (80.0-100.0); Mean Platelet Volume 8.7; Monocytes # (A) 0.8 k/uL (0-1.0); Monocytes % (A) 7 %; Neutrophils # (A) 10.3 k/uL (1.3-7.7); Neutrophils % (A) 85 %; Platelet Count 201 k/uL (150-450); RBC 4.06 m/uL (4.30-5.90); RDW 13.3 % (11.5-15.5); WBC 12.1 k/uL (3.8-10.6)
[2022-02-23 20:19] LABS: AST 159 U/L (17-59); African American GFR (CKD) 56 (>60 ml/min/1.73 sqM); Albumin 3.7 g/dL (3.5-5.0); Alkaline Phosphatase 79 U/L (38-126); Anion Gap 18 mmol/L; Blood Urea Nitrogen 24 mg/dL (9-20); Calcium 9.4 mg/dL (8.4-10.2); Carbon Dioxide 16 mmol/L (22-30); Chloride 107 mmol/L (98-107); Glucose 135 mg/dL (74-99); Lipase 46 U/L (23-300); Magnesium 2.4 mg/dL (1.6-2.3); Non-African American GFR(CKD) 48 (>60 ml/min/1.73 sqM); Phosphorus 4.7 mg/dL (2.5-4.5); Potassium 4.1 mmol/L (3.5-5.1); Sodium 141 mmol/L (137-145); Total Bilirubin 2.2 mg/dL (0.2-1.3); Total Protein 8.2 g/dL (6.3-8.2)
[2022-02-23 20:25] LABS: ALT 27 U/L (4-49)
[2022-02-23] MEDS ORDERED: LACTATED RINGERS 1,000 ML IV ONE (20:45)
[2022-02-23 20:53] LABS: Creatine Kinase 4306 U/L (55-170)
[2022-02-23] MEDS ORDERED: AZITHROMYCIN 500 MG in SODIUM CHLORIDE 0.9% 250 ML IVPB STA (20:53)
[2022-02-23] MEDS ORDERED: PNEUMONIA PROTOCOL UTILIZED 1 EACH MISC PO PRN (20:53)
[2022-02-23] MEDS ORDERED: IPRATROPIUM-ALBUTEROL 3 ML NEB INHALATION STA (20:54)
--- NOTE | 2022-02-23 20:57 | CT ---
EXAMINATION TYPE: CT brain cspine wo con DATE OF EXAM: 02/23/2022 COMPARISON: 09/24/2020 HISTORY: ams CT DLP: 1372 mGycm Automated exposure control for dose reduction was used. Images of the brain and cervical spine obtained without contrast. The cervical vertebra have normal alignment. There is large anterior hypertrophic bridging osteophyte formation from C3 to C7. Posterior elements are intact. Facet joints are intact. There is cerebral cortical atrophy. There is no mass effect nor midline shift. There is no sign of in tracranial hemorrhage. Calvarium is intact. There is normal aeration of the mastoids sinuses. Skull b ase is intact. IMPRESSION: Multilevel cervical spondylotic changes. No fracture. Cerebral atrophy. No acute intracranial abnormality. No significant change.
--- NOTE | 2022-02-23 20:59 | XR ---
EXAMINATION TYPE: XR pelvis AP view DATE OF EXAM: 02/23/2022 COMPARISON: NONE HISTORY: Pain TECHNIQUE: Single view FINDINGS: The pelvic ring is intact. The proximal femurs and hip joints are intact. Sacroiliac joints are normal. There are phleboliths in the pelvis. IMPRESSION: No acute abnormality of the pelvis.
[2022-02-23] MEDS ORDERED: LACTATED RINGERS 1,500 ML IV ONE (21:00)
--- NOTE | 2022-02-23 21:00 | XR ---
EXAMINATION TYPE: XR knee complete RT DATE OF EXAM: 02/23/2022 COMPARISON: NONE HISTORY: Pain TECHNIQUE: 3 views FINDINGS: I see no fracture nor dislocation. Joint spaces are fairly normal. No sign of a joint effus ion. There is mild vascular calcification. IMPRESSION: No acute abnormality of the right knee.
--- NOTE | 2022-02-23 21:03 | XR ---
EXAMINATION TYPE: XR KUB DATE OF EXAM: 02/23/2022 COMPARISON: 09/30/2017 HISTORY: Pain TECHNIQUE: 2 views supine FINDINGS: There is no sign of intestinal obstruction or pneumoperitoneum. Fecal pattern is normal. There is no evidence of abdominal mass. Lung bases are clear. There is mild degenerative spurring in the lumbar spine. Bony pelvis is intact IMPRESSION: Nonacute abdomen. No adverse change.
--- NOTE | 2022-02-23 21:04 | XR ---
EXAMINATION TYPE: XR chest 1V portable DATE OF EXAM: 02/23/2022 COMPARISON: NONE HISTORY: 08/02/2020 TECHNIQUE: Single view FINDINGS: Heart is normal. There is some coarsening of the interstitial markings. There are no hilar masses. Bony thorax is intact. Costophrenic angles are clear. There are chest leads. IMPRESSION: Mild coarsening of the lung markings could be mild pulmonary fibrosis. No significant kailey nge compared to old exam. No heart failure seen.
[2022-02-23] MEDS ORDERED: LORazepam 2 MG/ML INJ IV STA (21:05)
[2022-02-23] MEDS ORDERED: SODIUM BICARB 8.4% 50 ML SYR (1 MEQ/ML) IV STA (21:24)
[2022-02-23 21:33] LABS: Appearance,Urine Turbid (Clear); Bacteria,Urine Many /hpf; Bilirubin,Urine Negative (Negative); Blood,Urine Moderate (Negative); Calcium Oxalate Crystals,Urine Occasional /hpf; Color,Urine Yellow; Glucose,Urine (UA) Negative (Negative); Ketones,Urine Negative (Negative); Leukocyte Esterase,Urine Large (Negative); Mucus,Urine Rare /hpf; Nitrite,Urine Negative (Negative); PH, Urine 7.5 (5.0-8.0); Protein,Urine 2+ (Negative); RBC,Urine 8 /hpf (0-5); Specific Gravity,Urine 1.012 (1.001-1.035); Squamous Epithelial Cell,Urine 8 /hpf (0-4); Urobilinogen,Urine <2.0 mg/dL (<2.0); WBC,Urine 91 /hpf (0-5)
[2022-02-23 22:05] LABS: ABG Base Excess -5.6 mmol/L; ABG HCO3 18 mmol/L (21-25); ABG Oxygen Saturation 93.8 % (94-97); ABG PCO2 26 mmHg (35-45); ABG PH 7.46 (7.35-7.45); ABG PO2 74 mmHg (83-108); ABG TCO2 19 mmol/L (19-24); Allen Test Performed? Yes
[2022-02-23] MEDS ORDERED: SODIUM CHLORIDE 0.9% 500 ML 500 ML IV ONE (22:20)
[2022-02-23] MEDS ORDERED: ONDANSETRON 4 MG/2 ML VIAL IVP PRN (23:14)
[2022-02-23] MEDS ORDERED: NALOXONE 0.4 MG/ML 1 ML VIAL IV PRN (23:14)
[2022-02-23] MEDS: SODIUM CHLORIDE 0.9% 1,000 ML IV SCH (23:41)
--- NOTE | 2022-02-23 23:45 | CT ---
EXAMINATION TYPE: CT angio chest DATE OF EXAM: 02/23/2022 COMPARISON: None HISTORY: Pain CT DLP: 418.9 mGycm Automated exposure control for dose reduction was used. CONTRAST: Performed with IV Contrast, patient injected with 80 mL of Isovue 370. Images obtained from the thoracic inlet to the diaphragm with IV contrast. There are Three-D postproc essed images. There is some coarse interstitial reticular density in both lungs. Mild subsegmental atelectasis is p resent at the lung bases. No pleural effusion. There is contrast reflux into the inferior vena cava. Heart is top normal in size. There is no pericardial effusion. There is large filling defects in the right lower lobe pulmonary artery. There is no mediastinal samuel opathy. Thoracic aorta is intact. The thoracic vertebra. Tach. There is L1 anterior wedging 25% which is probably old. Sternum is intac t. IMPRESSION: Large emboli in the right lower lobe pulmonary artery. Contrast refluxed into the inferior vena cava could relate to some right heart strain. Pulmonary fibrotic changes. Subsegmental atelectasis at the lung bases. Attempts were made to contact the emergency room to discuss this exam but was not successful.
--- NOTE | 2022-02-24 00:04 | CT ---
EXAMINATION TYPE: CT abdomen pelvis w con DATE OF EXAM: 02/23/2022 COMPARISON: None HISTORY: Abd Pain CT DLP: 1035.60 mGycm Automated exposure control for dose reduction was used. CONTRAST: Performed with IV Contrast, patient injected with 80 mL of Isovue 370. Images obtained from the diaphragm to the floor of the pelvis with IV contrast. There is some interstitial infiltrate or atelectasis at the posterior lung bases. There is no pericar dial effusion. No pleural effusion. Liver is intact. Spleen is intact. There is no evidence of pancreatic mass. Gallbladder is intact. Th e bile ducts are not dilated. Stomach is intact. There is no adrenal mass. Kidneys show satisfactory contrast opacification. There is no hydronephrosi s. There is 4.8 cm cortical cyst anterior right kidney. Ureters are not dilated. There is no retroper itoneal adenopathy. There is Humphreys catheter in the urinary bladder. Urinary bladder shows irregular w all thickening. This appears to measure up to 2.5 cm. No inguinal hernia. There is no free fluid in t he pelvis. There is some retained fecal material in the large bowel. No free air. No ascites. There is no mesent julian edema. The lumbar vertebra show fairly normal alignment. There is 25% wedging of L1 vertebra that is probabl y old. The bony pelvis is intact. Hip joints are intact. IMPRESSION: Urinary bladder wall thickening is nonspecific. Follow-up recommended. Bladder tumor is possible. There is evidence of constipation. Minimal fibrotic changes and subsegmental atelectasis at the lung bases.
[2022-02-24] MEDS ORDERED: HEPARIN SODIUM 1,000 UN/ML (10ML VL) IV PRN (00:13)
[2022-02-24] MEDS ORDERED: HEPARIN SODIUM 1,000 UN/ML (10ML VL) IV ONE (00:13)
[2022-02-24] MEDS ORDERED: NOREPINEPHRINE 4 MG in SODIUM CHLORIDE 0.9% 250 ML IV ONE (00:15)
[2022-02-24] MEDS ORDERED: NALOXONE 0.4 MG/ML 1 ML VIAL IV PRN (00:25)
[2022-02-24] MEDS ORDERED: NOREPINEPHRINE 4 MG in SODIUM CHLORIDE 0.9% 250 ML IV SCH ×2 (00:30→17:00)
[2022-02-24] MEDS: HEPARIN SOD,PORK IN 0.45% NACL 25,000 UNIT in 0.45% NACL 1 250ML.BAG IV SCH ×2 (00:31→18:49)
[2022-02-24] MEDS ORDERED: LIDOCAINE 1% INJ 10MG/ML (20 ML MDV) SQ ONE ×2 (01:31→17:59)
--- NOTE | 2022-02-24 02:42 | XR ---
EXAMINATION TYPE: XR chest 1V confirm line [facility] DATE OF EXAM: 02/24/2022 COMPARISON: 02/23/2022 HISTORY: Line placement TECHNIQUE: Single view FINDINGS: There is right jugular catheter with tip in the superior vena cava region. There is some co arsening of interstitial markings. No heart failure seen. There are chest leads. Heart size is normal . No heart failure. There is pleural thickening at the lung apices. IMPRESSION: Catheter tip appears to be in the superior vena cava.
[2022-02-24] MEDS ORDERED: THIAMINE 100 MG/ML 2 ML VIAL IM STA (02:45)
[2022-02-24 03:33] LABS: Basophils % (A) 0 %; Eosinophils % (A) 0 %; HCT 31.9 % (39.0-53.0); HGB 10.3 gm/dL (13.0-17.5); Lymphocytes # (A) 0.7 k/uL (1.0-4.8); Lymphocytes % (A) 7 %; MCH 32.2 pg (25.0-35.0); MCHC 32.4 g/dL (31.0-37.0); MCV 99.4 fL (80.0-100.0); Mean Platelet Volume 9.2; Monocytes # (A) 0.8 k/uL (0-1.0); Monocytes % (A) 9 %; Neutrophils # (A) 7.5 k/uL (1.3-7.7); Neutrophils % (A) 82 %; Platelet Count 160 k/uL (150-450); RBC 3.21 m/uL (4.30-5.90); RDW 12.8 % (11.5-15.5); WBC 9.1 k/uL (3.8-10.6)
[2022-02-24 05:37] LABS: Albumin 2.6 g/dL (3.5-5.0); Calcium 8.1 mg/dL (8.4-10.2); Magnesium 2.2 mg/dL (1.6-2.3); Phosphorus 4.6 mg/dL (2.5-4.5); Potassium 3.9 mmol/L (3.5-5.1); Total Bilirubin 0.9 mg/dL (0.2-1.3); Total Protein 6.1 g/dL (6.3-8.2)
[2022-02-24] MEDS: SODIUM CHLORIDE 0.9% 1,000 ML IV SCH ×3 (07:34→18:49)
[2022-02-24] MEDS: PANTOPRAZOLE 40 MG/10 ML VIAL IV SCH (07:36)
[2022-02-24] MEDS: IPRATROPIUM-ALBUTEROL 3 ML NEB INHALATION PRN ×3 (07:41→15:47)
--- NOTE | 2022-02-24 11:48 | P.CNPUL ---
History of Present Illness Consult date: 02/24/22 Requesting physician: Mariela Baumann Reason for consult: abnormal CXR/CT Chief complaint: Syncopal episode History of present illness: This is an 82-year-old male patient with a known history of dementia, chronic and ongoing tobacco dependence and alcohol abuse. He had a syncopal episode at h ome and was unsure of his down time. He had fallen and was laying on his cell phone. He had stated his last drink was 4 days prior. He did remember hitting his head. He arrived to the emergency room last evening. EMS stated his house was in disarray. computed tomography scan of the brain and C-spine revealed no acute intracranial abnormalities. No cervical fractures. Pelvic x-rays revealed no acute abnormality of the pelvis. X-ray of the right knee revealed no acute fracture. X-ray of the KUB revealed nonacute abdomen. EKG revealed sinus tachycardia with nonspecific ST and T wave abnormalities. Computed tomography scan of the abdomen and pelvis revealed urinary bladder wall thickening which is nonspecific. Follow-up recommended. Bladder tumor is possible. There is evidence of constipation. Mild fibrotic changes and subsegmental atelectasis at the lung bases.CT angiogram revealed large emboli in the right lower lobe pulmonary artery. Possible right heart strain. He is seen today in consultation in the emergency department. He is currently awake and alert. He has some garbled speech. Echocardiogram is in progress. He's been initiated on a heparin drip. He has a right internal jugular triple-lumen catheter in place. Currently in sinus rhythm. White count 9.1. Hemoglobin 10.3. Platelets 160. Sodium 142. Potassium 3.9. Bicarb 20. BUN 26. Creatinine 1.34. Glucose 115. AST 103. ALT 17. Creatinine kinase 4306. Troponins 0.04, 0.3, 0.4. Urinalysis positive for moderate blood, large leukocyte esterase, many bacteria. Urine culture is pending. He is maintaining O2 saturations up to 100% on 3 L/m per nasal cannula. He's been initiated on DuoNeb inhalations, antibiotics in the form of ceftriaxone and placed in the CIWA protocol. 0.9 normal saline at 130 ML's per hour. He had been hypotensive and currently on norepinephrine at 0.05 mcg/kg/m. Review of Systems REVIEW OF SYSTEMS: CONSTITUTIONAL: Syncopal episode status post fall. Denies any recent significant weight loss or weight gain. EYES: Denies change in vision. EARS, NOSE, MOUTH, THROAT: Denies headaches, denies sore throat. CARDIOVASCULAR: Denies chest pain, palpitations or syncopal episodes. RESPIRATORY: Positive for shortness of breath, no cough, congestion or he moptysis. GASTROINTESTINAL: Denies change in appetite, denies abdominal pain GENITOURINARY: Denies hematuria, denies infections. MUSKULOSKELETAL: Denies pain, denies swelling. INTEGUMENTARY: Denies rash, denies eczema. NEUROLOGICAL: Positive for dementia. PSYCHIATRIC: Denies anxiety, denies depression. HEMATOLOGIC/LYMPHATIC: Denies anemia, denies enlarged lymph nodes. Past Medical History Past Medical History: CVA/TIA, Dementia Additional Past Medical History / Comment(s): same day smoker. History of Any Multi-Drug Resistant Organisms: None Reported Past Surgical History: Tonsillectomy Additional Past Surgical History / Comment(s): Vasectomy, bilateral inguinal hernia repair Past Anesthesia/Blood Transfusion Reactions: No Reported Reaction Past Psychological History: No Psychological Hx Reported Smoking Status: Current every day smoker Past Alcohol Use History: Abuse, Daily, Heavy Past Drug Use History: None Reported - Past Family History Father Family Medical History: CVA/TIA Mother Family Medical History: Dementia Medications and Allergies Home Medications Medication Instructions Recorded Confirmed Type No Known Home Medications 02/23/22 02/23/22 History Allergies Allergy/AdvReac Type Severity Reaction Status Date / Time No Known Allergies Allergy Verified 02/23/22 21:13 Physical Exam Vitals: Vital Signs Temp Pulse Resp BP Pulse Ox 02/24/22 11:13 95 02/24/22 10:42 96 16 111/73 100 02/24/22 09:00 97 18 119/80 100 02/24/22 07:50 94 02/24/22 07:41 94 100 02/24/22 07:31 96 18 97/70 100 02/24/22 06:00 95 18 104/71 100 02/24/22 05:11 89/65 02/24/22 04:00 101 H 18 101/66 100 02/24/22 03:00 103 H 18 89/55 100 02/24/22 02:00 114 H 18 93/70 100 02/24/22 01:45 115 H 16 112/76 100 02/24/22 01:30 120 H 18 99/73 99 02/24/22 01:09 125 H 14 95/68 68 L 02/24/22 00:30 118 H 25 H 67/49 100 02/24/22 00:00 117 H 27 H 89/47 94 L 02/23/22 23:42 115 H 22 89/47 98 02/23/22 23:30 124 H 26 H 85/70 96 02/23/22 23:00 126 H 26 H 98/72 100 02/23/22 22:40 130 H 02/23/22 22:34 131 H 30 H 94/66 100 02/23/22 22:33 133 H 02/23/22 22:00 130 H 23 94/67 94 L 02/23/22 21:30 133 H 22 110/79 94 L 02/23/22 20:30 106/83 02/23/22 20:00 133 H 27 H 94/71 96 02/23/22 19:57 134 H 26 H 110/82 92 L 02/23/22 19:23 98.4 F 140 H 30 H 110/82 91 L Intake and Output 02/23/22 02/24/22 02/24/22 22:59 06:59 14:59 Intake Total 114.798 Output Total 1200 180 Balance -1200 -180 114.798 Intake: Intake, IV Titration 114.798 Amount Heparin Sod,Pork in 0.45% 114.798 NaCl 25,000 unit In 0.45 % NaCl 1 250ml.bag @ 18 UNITS/KG/HR 15.105 mls/hr IV .[id number] [facility] Rx#: [id number] Output: Urine 1200 180 Uretheral (Humphreys) 1200 Other: Weight 83.915 kg GENERAL EXAM: Alert, disheveled, 82-year-old male patient, somewhat of a poor historian, fairly comfortable in no apparent distress. HEAD: Abrasion on the right cheek. Normocephalic. EYES: Normal reaction of pupils, equal size. NOSE: Clear with pink turbinates. THROAT: No erythema or exudates. NECK: No masses, no JVD. CHEST: Abrasion on the right chest wal. lNo chest wall deformity. LUNGS: Equal air entry with faint crackles in the posterior bases. CVS: S1 and S2 normal with no audible murmur, regular rhythm. ABDOMEN: No hepatosplenomegaly, normal bowel sounds, no guarding or rigidity. SPINE: No scoliosis or deformity SKIN: Areas of ecchymosis and abrasions CENTRAL NERVOUS SYSTEM: Garbled speech. No focal deficits, tone is normal in all 4 extremities. EXTREMITIES: Abrasion on the right knee. There is no peripheral edema. No clubbing, no cyanosis. Peripheral pulses are intact. Results - Laboratory Findings CBC and BMP: 02/24/22 03:10 02/24/22 04:02 ABG ABG pH 7.46 (7.35-7.45) H 02/23/22 22:02 ABG pCO2 26 mmHg (35-45) L 02/23/22 22:02 ABG pO2 74 mmHg (83-108) L 02/23/22 22:02 ABG O2 Saturation 93.8 % (94-97) L 02/23/22 22:02 Abnormal lab findings: Abnormal Labs 02/23/22 02/23/22 02/23/22 19:48 19:48 19:48 WBC 12.1 H RBC 4.06 L Hgb Hct Neutrophils # 10.3 H Lymphocytes # 0.8 L APTT ABG pH ABG pCO2 ABG pO2 ABG HCO3 ABG O2 Saturation Chloride Carbon Dioxide 16 L BUN 24 H Creatinine 1.36 H Glucose 135 H Plasma Lactic Acid Ugo 4.7 H* Calcium Phosphorus 4.7 H Magnesium 2.4 H Total Bilirubin 2.2 H AST 159 H Creatine Kinase 4306 H* Troponin I Total Protein Albumin Urine Protein Urine Blood Ur Leukocyte Esterase Urine RBC Urine WBC Urine WBC Clumps Ur Squamous Epith Cells Calcium Oxalate Crystal Urine Bacteria Urine Mucus 02/23/22 02/23/22 02/23/22 19:48 21:03 22:02 WBC RBC Hgb Hct Neutrophils # Lymphocytes # APTT ABG pH 7.46 H ABG pCO2 26 L ABG pO2 74 L ABG HCO3 18 L ABG O2 Saturation 93.8 L Chloride Carbon Dioxide BUN Creatinine Glucose Plasma Lactic Acid Ugo Calcium Phosphorus Magnesium Total Bilirubin AST Creatine Kinase Troponin I 0.047 H* Total Protein Albumin Urine Protein 2+ H Urine Blood Moderate H Ur Leukocyte Esterase Large H Urine RBC 8 H Urine WBC 91 H Urine WBC Clumps Few H Ur Squamous Epith Cells 8 H Calcium Oxalate Crystal Occasional H Urine Bacteria Many H Urine Mucus Rare H 02/23/22 02/23/22 02/23/22 22:05 22:54 23:50 WBC RBC Hgb Hct Neutrophils # Lymphocytes # APTT ABG pH ABG pCO2 ABG pO2 ABG HCO3 ABG O2 Saturation Chloride Carbon Dioxide BUN Creatinine Glucose Plasma Lactic Acid Ugo 3.2 H* 3.7 H* Calcium Phosphorus Magnesium Total Bilirubin AST Creatine Kinase Troponin I 0.303 H* Total Protein Albumin Urine Protein Urine Blood Ur Leukocyte Esterase Urine RBC Urine WBC Urine WBC Clumps Ur Squamous Epith Cells Calcium Oxalate Crystal Urine Bacteria Urine Mucus 02/24/22 02/24/22 02/24/22 02:21 03:10 04:02 WBC RBC 3.21 L Hgb 10.3 L Hct 31.9 L Neutrophils # Lymphocytes # 0.7 L APTT ABG pH ABG pCO2 ABG pO2 ABG HCO3 ABG O2 Saturation Chloride 112 H Carbon Dioxide 20 L BUN 26 H Creatinine 1.34 H Glucose 115 H Plasma Lactic Acid Ugo 2.1 H* Calcium 8.1 L Phosphorus 4.6 H Magnesium Total Bilirubin AST 103 H Creatine Kinase Troponin I Total Protein 6.1 L Albumin 2.6 L Urine Protein Urine Blood Ur Leukocyte Esterase Urine RBC Urine WBC Urine WBC Clumps Ur Squamous Epith Cells Calcium Oxalate Crystal Urine Bacteria Urine Mucus 02/24/22 02/24/22 04:02 06:36 WBC RBC Hgb Hct Neutrophils # Lymphocytes # APTT 131.8 H* ABG pH ABG pCO2 ABG pO2 ABG HCO3 ABG O2 Saturation Chloride Carbon Dioxide BUN Creatinine Glucose Plasma Lactic Acid Ugo Calcium Phosphorus Magnesium Total Bilirubin AST Creatine Kinase Troponin I 0.400 H* Total Protein Albumin Urine Protein Urine Blood Ur Leukocyte Esterase Urine RBC Urine WBC Urine WBC Clumps Ur Squamous Epith Cells Calcium Oxalate Crystal Urine Bacteria Urine Mucus - Diagnostic Findings Chest x-ray: image reviewed CT scan - chest: image reviewed Assessment and Plan Assessment: 1 Syncopal episode suspect secondary to large pulmonary emboli. Unclear of down time. The patient is a poor historian. Currently on a heparin drip. 2 Acute hypoxemic respiratory failure secondary to above 3 Right heart strain noted on CAT scan, echocardiogram pending 4 Troponin leak 5 Hypotension secondary to above requiring norepinephrine 6 Urinary tract infection, culture pending 7 Acute renal failure 8 History of alcohol abuse 9 History of dementia 10 Chronic and ongoing tobacco dependence Plan: The patient was seen and evaluated Chest x-ray, CAT scans and labs reviewed Has been initiated on a heparin drip Cardiology consulted for possible E Kos Echocardiogram pending Initiated on DuoNeb inhalations, ceftriaxone Placed on the CIWA protocol Titrate the FiO2 as tolerated We will continue to follow and make further recommendations based on his clinical status I have personally seen and examined the patient, performed the documentation and the assessment and plan as written. Number of minutes spent on the visit: 20.
--- NOTE | 2022-02-24 12:00 | ECHOF ---
Referral Reason:PE MEASUREMENTS -------- HEIGHT: 188.0 cm WEIGHT: 83.9 kg BP: 118/73 IVSd: 1.1 cm (0.6 - 1.1) LVIDd: 3.1 cm (3.9 - 5.3) LVPWd: 1.1 cm (0.6 - 1.1) EDV(Teich): 38 ml IVSs: 1.6 cm LVIDs: 2.1 cm LVPWs: 1.7 cm %IVS Thck: 51 % ESV(Teich): 15 ml EF(Teich): 60 % %FS: 31 % SV(Teich): 23 ml LA Diam: 3.5 cm (2.7 - 3.8) RVIDd: 3.6 cm (< 3.3) Ao Diam: 3.7 cm (2.0 - 3.7) AV Cusp: 2.0 cm (1.5 - 2.6) EPSS: 0.2 cm MV DecT: 119 ms MV PHT: 39 ms MVA By PHT: 5.7 cm AV Vmax: 1.54 m/s AV maxP.04 mmHg AR Vmax: 3.22 m/s AR maxP.53 mmHg AR PHT: 748 ms AR Dec Time: 2578 ms AR Dec Rankin: 1.3 m/s TR Vmax: 3.34 m/s TR maxP.65 mmHg RAP: 15.00 mmHg RVSP: 59.65 mmHg MV EF SLOPE: 16.07 mm/s (70 - 150) MV EXCURSION: 17.30 mm (> 18.000) FINDINGS -------- This was a technically adequate study. The left ventricular size is normal. There is borderline concentric left ventricular hypertrophy. Overall left ventricular systolic function is normal with, an EF between 55 - 60 %. There is septa l flattening in diastole and systole which is consistent with right ventricular pressure and volume o verload. The right ventricle is mildly enlarged. Normal LA size by volume 22+/-6 ml/m2. The right atrium is normal in size. Interatrial and interventricular septum intact. Aortic valve is trileaflet and is mildly thickened. There is mild aortic regurgitation. The mitral valve leaflets are mildly thickened. Mild mitral regurgitation is present. Moderate tricuspid regurgitation present. There is severe pulmonary hypertension. The right ventr icular systolic pressure, as measured by Doppler, is 59.65mmHg. Trace/mild (physiologic) pulmonic regurgitation. The aortic root size is normal. The inferior vena cava is dilated with no significant inspiratory collapse which is consistent estima jase right atrial pressure of >15 mmHg. There is no pericardial effusion. CONCLUSIONS -------- 1. The left ventricular size is normal. 2. There is borderline concentric left ventricular hypertrophy. 3. Overall left ventricular systolic function is normal with, an EF between 55 - 60 %. 4. There is septal flattening in diastole and systole which is consistent with right ventricular pres sure and volume overload. 5. The right ventricle is mildly enlarged. 6. Aortic valve is trileaflet and is mildly thickened. 7. There is mild aortic regurgitation. 8. The mitral valve leaflets are mildly thickened. 9. Mild mitral regurgitation is present. 10. Moderate tricuspid regurgitation present. 11. There is severe pulmonary hypertension. 12. The right ventricular systolic pressure, as measured by Doppler, is 59.65mmHg. 13. Trace/mild (physiologic) pulmonic regurgitation. 14. The inferior vena cava is dilated with no significant inspiratory collapse which is consistent es timated right atrial pressure of >15 mmHg. 15. There is no pericardial effusion. CUSTOMER SERVICE DRIVER: BRANDON Machado
[2022-02-24] MEDS ORDERED: ALTEPLASE 10 MG in SODIUM CHLORIDE 0.9% 90 ML IV ONE ×7 (13:36→17:00)
[2022-02-24] MEDS ORDERED: SODIUM CHLORIDE 0.9% 1,000 ML IV SCH ×8 (13:45→14:00)
[2022-02-24 14:46] LABS: Basophils % (A) 0 %; Eosinophils % (A) 0 %; HCT 34.4 % (39.0-53.0); HGB 10.7 gm/dL (13.0-17.5); Hypochromasia Slight; Lymphocytes # (A) 0.9 k/uL (1.0-4.8); Lymphocytes % (A) 9 %; MCH 32.1 pg (25.0-35.0); MCHC 31.2 g/dL (31.0-37.0); MCV 102.7 fL (80.0-100.0); Macrocytosis Slight; Mean Platelet Volume 8.9; Monocytes # (A) 0.7 k/uL (0-1.0); Monocytes % (A) 8 %; Neutrophils # (A) 7.4 k/uL (1.3-7.7); Neutrophils % (A) 81 %; Platelet Count 163 k/uL (150-450); RBC 3.35 m/uL (4.30-5.90); RDW 13.4 % (11.5-15.5); WBC 9.2 k/uL (3.8-10.6)
--- NOTE | 2022-02-24 14:52 | P.HPIM ---
History of Present Illness H&P Date: 02/24/22 Chief Complaint: Syncope, found on the floor. Patient is a 82-year-old male with a known history of dementia, history of CVA/TIA and currently everyday smoker and history of heavy alcohol abuse was brought to the hospital by EMS. Patient was found on the floor. Patient does not recall how long she was staying on there. Patient is also complaining of knee pain and back pain which is not significant as his usual level. No complaints of fever or chills. No chest pain but did have mild shortness of breath. Patient did have last alcohol drink about 4 days ago. Currently not on any home medications as per the list. Denies any paralysis. Patient is somewhat poor historian. CT head and cervical spine showed multilevel cervical spondylitic changes. No fractures. Cerebral atrophy. No acute intercurrent abnormality. No significant change. Chest x-ray showed mild coarsening of the left lung markings could be mild pulmonary fibrosis. No significant change compatible exam. Laboratory data showed WBC 12.1 hemoglobin 13.2 and platelets 201 sodium 141 potassium 4.1 chloride 107 bicarb is 16 BUN 24 and creatinine 1.36 and blood sugar is 135 and lactic acid 4.7 Magnesium 2.4 AST 159 ALT 27 alk phos 79 CPK 02/13/2006 and troponin 0.047 TSH 3.199 urinalysis showed 2+ protein moderate blood large leukocyte esterase and elevated RBCs and WBCs. Coronavirus PCR not detected. CT of the abdomen and pelvis showed urinary bladder wall thickening is nonspecific. Follow-up recommended. Bladder tumor is possible. There is evidence of constipation. Minimal fibrotic changes and subsegmental atelectasis in the lung bases. CT angiogram of the chest showed large emboli in the right lower lobe pulmonary artery. Review of Systems Complete review of systems could not be obtained from the patient except as per HPI. Past Medical History Past Medical History: CVA/TIA, Dementia Additional Past Medical History / Comment(s): same day smoker. History of Any Multi-Drug Resistant Organisms: None Reported Past Surgical History: Tonsillectomy Additional Past Surgical History / Comment(s): Vasectomy, bilateral inguinal hernia repair Past Anesthesia/Blood Transfusion Reactions: No Reported Reaction Past Psychological History: No Psychological Hx Reported Smoking Status: Current every day smoker Past Alcohol Use History: Abuse, Daily, Heavy Past Drug Use History: None Reported - Past Family History Father Family Medical History: CVA/TIA Mother Family Medical History: Dementia Medications and Allergies Home Medications Medication Instructions Recorded Confirmed Type No Known Home Medications 02/23/22 02/23/22 History Allergies Allergy/AdvReac Type Severity Reaction Status Date / Time No Known Allergies Allergy Verified 02/23/22 21:13 Physical Exam Vitals: Vital Signs Temp Pulse Resp BP Pulse Ox 02/24/22 09:00 97 18 119/80 100 02/24/22 07:50 94 02/24/22 07:41 94 100 02/24/22 07:31 96 18 97/70 100 02/24/22 06:00 95 18 104/71 100 02/24/22 05:11 89/65 02/24/22 04:00 101 H 18 101/66 100 02/24/22 03:00 103 H 18 89/55 100 02/24/22 02:00 114 H 18 93/70 100 02/24/22 01:45 115 H 16 112/76 100 02/24/22 01:30 120 H 18 99/73 99 02/24/22 01:09 125 H 14 95/68 68 L 02/24/22 00:30 118 H 25 H 67/49 100 02/24/22 00:00 117 H 27 H 89/47 94 L 02/23/22 23:42 115 H 22 89/47 98 02/23/22 23:30 124 H 26 H 85/70 96 02/23/22 23:00 126 H 26 H 98/72 100 02/23/22 22:40 130 H 02/23/22 22:34 131 H 30 H 94/66 100 02/23/22 22:33 133 H 02/23/22 22:00 130 H 23 94/67 94 L 02/23/22 21:30 133 H 22 110/79 94 L 02/23/22 20:30 106/83 02/23/22 20:00 133 H 27 H 94/71 96 02/23/22 19:57 134 H 26 H 110/82 92 L 02/23/22 19:23 98.4 F 140 H 30 H 110/82 91 L Intake and Output 02/23/22 02/24/22 02/24/22 22:59 06:59 14:59 Intake Total 114.798 Output Total 1200 180 Balance -1200 -180 114.798 Intake: Intake, IV Titration 114.798 Amount Heparin Sod,Pork in 0.45% 114.798 NaCl 25,000 unit In 0.45 % NaCl 1 250ml.bag @ 18 UNITS/KG/HR 15.105 mls/hr IV .[id number] [facility] Rx#: [id number] Output: Urine 1200 180 Uretheral (Humphreys) 1200 Other: Weight 83.915 kg PHYSICAL EXAMINATION: Patient is lying in the bed comfortably, no acute distress, awake alert but lethargic and drowsy... HEENT: Normocephalic. Neck is supple. Pupils reactive. Nostrils clear. Oral cavity is moist. Neck reveals no JVD, carotid bruits, or thyromegaly. CHEST EXAMINATION: Trachea is central. Symmetrical expansion. Scattered crackles. Lung perez clear to auscultation and percussion. CARDIAC: Normal S1, S2 with no gallops. No murmurs ABDOMEN: Soft. Bowel sounds normal. No organomegaly. No abdominal bruits. Extremities: reveal no edema. No clubbing or cyanosis Neurologically awake, alert, oriented x3 with well-coordinated movements. No focal deficits noted Skin: No rash or skin lesions. Psychiatric: Coperative. Could not be assessed at this time completely. Musculoskeletal: No joint swelling or deformity. Normal range of motion. Results CBC & Chem 7: 02/24/22 14:18 02/24/22 04:02 Labs: Abnormal Lab Results - Last 24 Hours (Table) 02/23/22 02/23/22 02/23/22 Range/Units 19:48 19:48 19:48 WBC 12.1 H (3.8-10.6) k/uL RBC 4.06 L (4.30-5.90) m/uL Hgb (13.0-17.5) gm/dL Hct (39.0-53.0) % Neutrophils # 10.3 H (1.3-7.7) k/uL Lymphocytes # 0.8 L (1.0-4.8) k/uL APTT (22.0-30.0) sec ABG pH (7.35-7.45) ABG pCO2 (35-45) mmHg ABG pO2 (83-108) mmHg ABG HCO3 (21-25) mmol/L ABG O2 Saturation (94-97) % Chloride (98-107) mmol/L Carbon Dioxide 16 L (22-30) mmol/L BUN 24 H (9-20) mg/dL Creatinine 1.36 H (0.66-1.25) mg/dL Glucose 135 H (74-99) mg/dL Plasma Lactic Acid Ugo 4.7 H* (0.7-2.0) mmol/L Calcium (8.4-10.2) mg/dL Phosphorus 4.7 H (2.5-4.5) mg/dL Magnesium 2.4 H (1.6-2.3) mg/dL Total Bilirubin 2.2 H (0.2-1.3) mg/dL AST 159 H (17-59) U/L Creatine Kinase 4306 H* (55-170) U/L Troponin I (0.000-0.034) ng/mL Total Protein (6.3-8.2) g/dL Albumin (3.5-5.0) g/dL Urine Protein (Negative) Urine Blood (Negative) Ur Leukocyte Esterase (Negative) Urine RBC (0-5) /hpf Urine WBC (0-5) /hpf Urine WBC Clumps (None) /hpf Ur Squamous Epith Cells (0-4) /hpf Calcium Oxalate Crystal (None) /hpf Urine Bacteria (None) /hpf Urine Mucus (None) /hpf 02/23/22 02/23/22 02/23/22 Range/Units 19:48 21:03 22:02 WBC (3.8-10.6) k/uL RBC (4.30-5.90) m/uL Hgb (13.0-17.5) gm/dL Hct (39.0-53.0) % Neutrophils # (1.3-7.7) k/uL Lymphocytes # (1.0-4.8) k/uL APTT (22.0-30.0) sec ABG pH 7.46 H (7.35-7.45) ABG pCO2 26 L (35-45) mmHg ABG pO2 74 L (83-108) mmHg ABG HCO3 18 L (21-25) mmol/L ABG O2 Saturation 93.8 L (94-97) % Chloride (98-107) mmol/L Carbon Dioxide (22-30) mmol/L BUN (9-20) mg/dL Creatinine (0.66-1.25) mg/dL Glucose (74-99) mg/dL Plasma Lactic Acid Ugo (0.7-2.0) mmol/L Calcium (8.4-10.2) mg/dL Phosphorus (2.5-4.5) mg/dL Magnesium (1.6-2.3) mg/dL Total Bilirubin (0.2-1.3) mg/dL AST (17-59) U/L Creatine Kinase (55-170) U/L Troponin I 0.047 H* (0.000-0.034) ng/mL Total Protein (6.3-8.2) g/dL Albumin (3.5-5.0) g/dL Urine Protein 2+ H (Negative) Urine Blood Moderate H (Negative) Ur Leukocyte Esterase Large H (Negative) Urine RBC 8 H (0-5) /hpf Urine WBC 91 H (0-5) /hpf Urine WBC Clumps Few H (None) /hpf Ur Squamous Epith Cells 8 H (0-4) /hpf Calcium Oxalate Crystal Occasional H (None) /hpf Urine Bacteria Many H (None) /hpf Urine Mucus Rare H (None) /hpf 02/23/22 02/23/22 02/23/22 Range/Units 22:05 22:54 23:50 WBC (3.8-10.6) k/uL RBC (4.30-5.90) m/uL Hgb (13.0-17.5) gm/dL Hct (39.0-53.0) % Neutrophils # (1.3-7.7) k/uL Lymphocytes # (1.0-4.8) k/uL APTT (22.0-30.0) sec ABG pH (7.35-7.45) ABG pCO2 (35-45) mmHg ABG pO2 (83-108) mmHg ABG HCO3 (21-25) mmol/L ABG O2 Saturation (94-97) % Chloride (98-107) mmol/L Carbon Dioxide (22-30) mmol/L BUN (9-20) mg/dL Creatinine (0.66-1.25) mg/dL Glucose (74-99) mg/dL Plasma Lactic Acid Ugo 3.2 H* 3.7 H* (0.7-2.0) mmol/L Calcium (8.4-10.2) mg/dL Phosphorus (2.5-4.5) mg/dL Magnesium (1.6-2.3) mg/dL Total Bilirubin (0.2-1.3) mg/dL AST (17-59) U/L Creatine Kinase (55-170) U/L Troponin I 0.303 H* (0.000-0.034) ng/mL Total Protein (6.3-8.2) g/dL Albumin (3.5-5.0) g/dL Urine Protein (Negative) Urine Blood (Negative) Ur Leukocyte Esterase (Negative) Urine RBC (0-5) /hpf Urine WBC (0-5) /hpf Urine WBC Clumps (None) /hpf Ur Squamous Epith Cells (0-4) /hpf Calcium Oxalate Crystal (None) /hpf Urine Bacteria (None) /hpf Urine Mucus (None) /hpf 02/24/22 02/24/22 02/24/22 Range/Units 02:21 03:10 04:02 WBC (3.8-10.6) k/uL RBC 3.21 L (4.30-5.90) m/uL Hgb 10.3 L (13.0-17.5) gm/dL Hct 31.9 L (39.0-53.0) % Neutrophils # (1.3-7.7) k/uL Lymphocytes # 0.7 L (1.0-4.8) k/uL APTT (22.0-30.0) sec ABG pH (7.35-7.45) ABG pCO2 (35-45) mmHg ABG pO2 (83-108) mmHg ABG HCO3 (21-25) mmol/L ABG O2 Saturation (94-97) % Chloride 112 H (98-107) mmol/L Carbon Dioxide 20 L (22-30) mmol/L BUN 26 H (9-20) mg/dL Creatinine 1.34 H (0.66-1.25) mg/dL Glucose 115 H (74-99) mg/dL Plasma Lactic Acid Ugo 2.1 H* (0.7-2.0) mmol/L Calcium 8.1 L (8.4-10.2) mg/dL Phosphorus 4.6 H (2.5-4.5) mg/dL Magnesium (1.6-2.3) mg/dL Total Bilirubin (0.2-1.3) mg/dL AST 103 H (17-59) U/L Creatine Kinase (55-170) U/L Troponin I (0.000-0.034) ng/mL Total Protein 6.1 L (6.3-8.2) g/dL Albumin 2.6 L (3.5-5.0) g/dL Urine Protein (Negative) Urine Blood (Negative) Ur Leukocyte Esterase (Negative) Urine RBC (0-5) /hpf Urine WBC (0-5) /hpf Urine WBC Clumps (None) /hpf Ur Squamous Epith Cells (0-4) /hpf Calcium Oxalate Crystal (None) /hpf Urine Bacteria (None) /hpf Urine Mucus (None) /hpf 02/24/22 02/24/22 Range/Units 04:02 06:36 WBC (3.8-10.6) k/uL RBC (4.30-5.90) m/uL Hgb (13.0-17.5) gm/dL Hct (39.0-53.0) % Neutrophils # (1.3-7.7) k/uL Lymphocytes # (1.0-4.8) k/uL APTT 131.8 H* (22.0-30.0) sec ABG pH (7.35-7.45) ABG pCO2 (35-45) mmHg ABG pO2 (83-108) mmHg ABG HCO3 (21-25) mmol/L ABG O2 Saturation (94-97) % Chloride (98-107) mmol/L Carbon Dioxide (22-30) mmol/L BUN (9-20) mg/dL Creatinine (0.66-1.25) mg/dL Glucose (74-99) mg/dL Plasma Lactic Acid Ugo (0.7-2.0) mmol/L Calcium (8.4-10.2) mg/dL Phosphorus (2.5-4.5) mg/dL Magnesium (1.6-2.3) mg/dL Total Bilirubin (0.2-1.3) mg/dL AST (17-59) U/L Creatine Kinase (55-170) U/L Troponin I 0.400 H* (0.000-0.034) ng/mL Total Protein (6.3-8.2) g/dL Albumin (3.5-5.0) g/dL Urine Protein (Negative) Urine Blood (Negative) Ur Leukocyte Esterase (Negative) Urine RBC (0-5) /hpf Urine WBC (0-5) /hpf Urine WBC Clumps (None) /hpf Ur Squamous Epith Cells (0-4) /hpf Calcium Oxalate Crystal (None) /hpf Urine Bacteria (None) /hpf Urine Mucus (None) /hpf Microbiology - Last 24 Hours (Table) 02/23/22 21:03 Urine Culture - Preliminary Urine,Voided Thrombosis Risk Factor Assmnt - DVT/VTE Prophylaxis DVT/VTE Prophylaxis: Pharmacologic Prophylaxis ordered Assessment and Plan Assessment: Acute right lower lobe large emboli/PE with right ventricular strain as per CT.. Acute syncopal episode and hitting his head likely secondary to above Acute hypoxemic respiratory failure Mild troponin elevation Acute urinary tract infection Acute kidney injury with creatinine 1.36 on admission Acute rhabdomyolysis Dementia Severe alcohol abuse. Last drink was 4 days ago. Currently everyday smoker DVT prophylaxis. On heparin drip. Plan: Patient will be continued on heparin drip and oxygen supplementation via nasal cannula. 2D echocardiogram was ordered to rule out right ventricular strain. Patient will be continued on gentle IV hydration and monitor renal function closely. Continue with antibiotics in the form of ceftriaxone and follow-up urine culture report. Cardiology and pulmonary was consulted. Cardiology is planning for EKOS procedure. Monitor for alcohol withdrawal symptoms. Prognosis is guarded with multiple medical problems and comorbid conditions. Time with Patient: Greater than 30
[2022-02-24 14:57] LABS: INR 0.9 (<1.2); Partial Thromboplastin Time 59.2 sec (22.0-30.0); Prothrombin Time 9.8 sec (9.0-12.0)
--- NOTE | 2022-02-24 15:17 | P.CRDCN ---
History of Present Illness History of present illness: HISTORY OF PRESENTING ILLNESS This is a pleasant 82-year-old male past medical history significant for dementia, chronic nicotine dependence, alcohol abuse. 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 Unknown cardiac disease history. We have been asked to see in consultation for pulmonary embolism. Patient is seen and examined in the emergency department. Patient is unable to get an accurate history. Per chart review and emergency department report patient had a syncopal episode at home, unknown down time. Patient brought to the ER via EMS. CTA revealed large emboli in the right lower lobe pulmonary artery with Possible right heart strain. He's been initiated on a heparin drip. He had a internal jugular triple-lumen catheter in place. Troponins elevated 0.04, 0.3, 0.4. Pl aced in the CIWA protocol. He had been hypotensive and was initiated on a norepinephrine drip at 0.05 mcg/kg/m. Echocardiogram revealed an EF 5560%, septal flattening diastole and systole which is consistent with right ventricular pressure volume overload, moderate tricuspid regurgitation, severe pulmonary hypertension with an RVSP of 59 mmHg DIAGNOSTICS EKG reveals sinus tachycardia, heart rate 139, nonspecific STT wave abnormalities. No acute ischemia noted. CT spine and C-spine revealed no acute intracranial abnormalities. No cervical fractures. Pelvic x-rays revealed no acute abnormality of the pelvis. Right Knee Xray revealed no acute fracture. KUB revealed nonacute abdomen. EKG revealed sinus tachycardia with nonspecific ST and T wave abnormalities. CT abdomen and pelvis revealed urinary bladder wall thickening which is nonspecific. Follow-up recommended. Bladder tumor is possible. There is evidence of constipation. Mild fibrotic changes and subsegmental atelectasis at the lung bases. Laboratory reviewed, WBC 9.2, hemoglobin 10.7, platelets 163, sodium 142, pota ssium 3.9, BUN 3026, serum creatinine 1.3, magnesium 2.2, albumin 2.6, creatine kinase 4306 No home medications listed REVIEW OF SYSTEMS At the time of my exam: CONSTITUTIONAL: Denies fever or chills. CARDIOVASCULAR: Denies chest pain, shortness of breath, orthopnea, PND or palpitations. RESPIRATORY: Denies cough. GASTROINTESTINAL: Denies abdominal pain, diarrhea, constipation, nausea or vomiting. MUSCULOSKELETAL: Denies myalgias. NEUROLOGIC: Denies numbness, tingling, headacbe or weakness. ENDOCRINE: Denies fatigue, weight change, polydipsia or polyurina. GENITOURINARY: Denies burning, hematuria or urgency with micturation. HEMATOLOGIC: Denies history of anemia or bleeding. PHYSICAL EXAMINATION Blood pressure 102/67, heart rate 98, 97% on 3 L nasal cannula CONSTITUTIONAL: No apparent distress. HEENT: Head is normocephalic. Abrasion on right cheek. Sclerae anicteric. Mucous membranes of the mouth are dry. No JVD. CHEST EXAMINATION: Lungs are clear to auscultation. No chest wall tenderness is noted on palpation or with deep breathing. HEART EXAMINATION: Regular rate and rhythm. S1, S2 heard. No murmurs, gallops or rub. ABDOMEN: Soft, nontender. Positive bowel sounds. EXTREMITIES: 2+ peripheral pulses, no lower extremity edema and no calf tenderness. SKIN: Abrasion on right chest wall with bruising and tender to palpation NEUROLOGIC EXAMINATION: Patient is awake, alert and oriented x2, garble speech ASSESSMENT Large right lower lobe pulmonary emboli with right heart strain Syncopal episode, likely related to pulmonary emboli Elevated troponin, likely related to above Hypotension Urinary tract infection Acute kidney injury, likely pre-renal History of alcohol abuse History of dementia Chronic nicotine dependence PLAN Echocardiogram reviewed by Dr. El and plans for EKOS procedure today. Obtain consent and plan for EKOS procedure today Continue IV heparin drip Further recommendations based on clinical course Nurse practitioner note has been reviewed by physician. Signing provider agrees with the documented findings, assessment, and plan of care. Past Medical History Past Medical History: CVA/TIA, Dementia Additional Past Medical History / Comment(s): same day smoker. History of Any Multi-Drug Resistant Organisms: None Reported Past Surgical History: Tonsillectomy Additional Past Surgical History / Comment(s): Vasectomy, bilateral inguinal hernia repair Past Anesthesia/Blood Transfusion Reactions: No Reported Reaction Past Psychological History: No Psychological Hx Reported Smoking Status: Current every day smoker Past Alcohol Use History: Abuse, Daily, Heavy Past Drug Use History: None Reported - Past Family History Father Family Medical History: CVA/TIA Mother Family Medical History: Dementia Medications and Allergies Home Medications Medication Instructions Recorded Confirmed Type No Known Home Medications 02/23/22 02/23/22 History Allergies Allergy/AdvReac Type Severity Reaction Status Date / Time No Known Allergies Allergy Verified 02/23/22 21:13 Physical Exam Vitals: Vital Signs Temp Pulse Resp BP Pulse Ox 02/24/22 07:50 94 02/24/22 07:41 94 100 02/24/22 07:31 96 18 97/70 100 02/24/22 06:00 95 18 104/71 100 02/24/22 05:11 89/65 02/24/22 04:00 101 H 18 101/66 100 02/24/22 03:00 103 H 18 89/55 100 02/24/22 02:00 114 H 18 93/70 100 02/24/22 01:45 115 H 16 112/76 100 02/24/22 01:30 120 H 18 99/73 99 02/24/22 01:09 125 H 14 95/68 68 L 02/24/22 00:30 118 H 25 H 67/49 100 02/24/22 00:00 117 H 27 H 89/47 94 L 02/23/22 23:42 115 H 22 89/47 98 02/23/22 23:30 124 H 26 H 85/70 96 02/23/22 23:00 126 H 26 H 98/72 100 02/23/22 22:40 130 H 02/23/22 22:34 131 H 30 H 94/66 100 02/23/22 22:33 133 H 02/23/22 22:00 130 H 23 94/67 94 L 02/23/22 21:30 133 H 22 110/79 94 L 02/23/22 20:30 106/83 02/23/22 20:00 133 H 27 H 94/71 96 02/23/22 19:57 134 H 26 H 110/82 92 L 02/23/22 19:23 98.4 F 140 H 30 H 110/82 91 L Intake and Output 02/23/22 02/24/22 02/24/22 22:59 06:59 14:59 Intake Total 114.798 Output Total 1200 180 Balance -1200 -180 114.798 Intake: Intake, IV Titration 114.798 Amount Heparin Sod,Pork in 0.45% 114.798 NaCl 25,000 unit In 0.45 % NaCl 1 250ml.bag @ 18 UNITS/KG/HR 15.105 mls/hr IV .[id number] [facility] Rx#: [id number] Output: Urine 1200 180 Uretheral (Humphreys) 1200 Other: Weight 83.915 kg Results 02/24/22 14:18 02/24/22 04:02 Cardiac Enzymes 02/23/22 02/23/22 02/23/22 Range/Units 19:48 19:48 23:50 AST 159 H (17-59) U/L Troponin I 0.047 H* 0.303 H* (0.000-0.034) ng/mL 02/24/22 02/24/22 Range/Units 04:02 04:02 AST 103 H (17-59) U/L Troponin I 0.400 H* (0.000-0.034) ng/mL Coagulation 02/24/22 Range/Units 06:36 APTT 131.8 H* (22.0-30.0) sec CBC 02/23/22 02/24/22 Range/Units 19:48 03:10 WBC 12.1 H 9.1 (3.8-10.6) k/uL RBC 4.06 L 3.21 L (4.30-5.90) m/uL Hgb 13.2 10.3 L (13.0-17.5) gm/dL Hct 40.6 31.9 L (39.0-53.0) % Plt Count 201 160 (150-450) k/uL Comprehensive Metabolic Panel 02/23/22 02/24/22 Range/Units 19:48 04:02 Sodium 141 142 (137-145) mmol/L Potassium 4.1 3.9 (3.5-5.1) mmol/L Chloride 107 112 H (98-107) mmol/L Carbon Dioxide 16 L 20 L (22-30) mmol/L BUN 24 H 26 H (9-20) mg/dL Creatinine 1.36 H 1.34 H (0.66-1.25) mg/dL Glucose 135 H 115 H (74-99) mg/dL Calcium 9.4 8.1 L (8.4-10.2) mg/dL AST 159 H 103 H (17-59) U/L ALT 27 17 (4-49) U/L Alkaline Phosphatase 79 55 (38-126) U/L Total Protein 8.2 6.1 L (6.3-8.2) g/dL Albumin 3.7 2.6 L (3.5-5.0) g/dL Current Medications Generic Name Dose Route Start Last Admin Trade Name Freq PRN Reason Stop Dose Admin Acetaminophen 650 mg 02/23/22 23:14 Acetaminophen Tab 325 Mg Tab PO Q6HR PRN Mild Pain or Fever > 100.5 Albuterol/Ipratropium 3 ml 02/24/22 00:25 02/24/22 07:41 Ipratropium-Albuterol 3 Ml Neb INHALATION 3 ml RT-Q4H PRN Administration Shortness Of Breath Or Wheezing Heparin Sodium (Porcine) 0 unit 02/24/22 00:13 Heparin Sodium 1,000 Un/Ml (10ml Vl) IV PER PROTOCOL PRN Low PTT Protocol Sodium Chloride 1,000 mls @ 130 mls/hr 02/23/22 23:15 02/24/22 07:34 Saline 0.9% IV 130 mls/hr .[id number] ANG Administration Norepinephrine Bitartrate 4 mg 254 mls @ 15.986 mls/hr 02/24/22 00:15 02/24/22 00:25 / Sodium Chloride IV 02/24/22 16:08 0.05 mcg/kg/min .[id number] ONE 15.986 mls/hr Administration Protocol 0.05 MCG/KG/MIN Heparin Sodium/Sodium Chloride 250 mls @ 15.105 mls/hr 02/24/22 00:15 02/24/22 08:07 25,000 unit/ Sodium Chloride IV 0 units/kg/hr .[id number] ANG 0 mls/hr Titration Protocol 18 UNITS/KG/HR Lorazepam 1 mg 02/24/22 02:45 Lorazepam 2 Mg/Ml Inj IV Q2HR PRN CIWA 8 or 9 Lorazepam 1 mg 02/24/22 02:45 Lorazepam 2 Mg/Ml Inj IV Q1HR PRN CIWA 10 to 15 Lorazepam 2 mg 02/24/22 02:45 Lorazepam 2 Mg/Ml Inj IV 02/26/22 02:45 Q10M PRN CIWA 16 or higher Miscellaneous Information 1 each 02/23/22 20:53 Pneumonia Protocol Utilized 1 Each Misc PO ONCE PRN Per Protocol Naloxone HCl 0.2 mg 02/23/22 23:14 Naloxone 0.4 Mg/Ml 1 Ml Vial IV Q2M PRN Opioid Reversal Naloxone HCl 0.2 mg 02/24/22 00:25 Naloxone 0.4 Mg/Ml 1 Ml Vial IV Q2M PRN Opioid Reversal Ondansetron HCl 4 mg 02/23/22 23:14 Ondansetron 4 Mg/2 Ml Vial IVP Q8HR PRN Nausea And Vomiting Pantoprazole Sodium 40 mg 02/24/22 09:00 02/24/22 07:36 Pantoprazole 40 Mg/10 Ml Vial IV 40 mg DAILY ANG Administration Thiamine HCl 100 mg 02/24/22 17:30 Thiamine 100 Mg Tab PO BID-W/MEALS [facility] Intake and Output 02/23/22 02/24/22 02/24/22 22:59 06:59 14:59 Intake Total 114.798 Output Total 1200 180 Balance -1200 -180 114.798 Intake: Intake, IV Titration 114.798 Amount Heparin Sod,Pork in 0.45% 114.798 NaCl 25,000 unit In 0.45 % NaCl 1 250ml.bag @ 18 UNITS/KG/HR 15.105 mls/hr IV .[id number] [facility] Rx#: [id number] Output: Urine 1200 180 Uretheral (Humphreys) 1200 Other: Weight 83.915 kg 02/24/22 03:10 02/24/22 04:02
[2022-02-24 15:48] LABS: Calcium 7.9 mg/dL (8.4-10.2)
[2022-02-24] MEDS ORDERED: HEPARIN SOD,PORK IN 0.45% NACL 25,000 UNIT in 0.45% NACL 1 250ML.BAG IV SCH (17:00)
[2022-02-24] MEDS ORDERED: LIDOCAINE 1% INJ 10MG/ML (20 ML MDV) ONE (17:44)
[2022-02-24] MEDS ORDERED: IV FLUID CONTINUATION 1,000 ML IV ONE (18:00)
[2022-02-24 18:23] LABS: Allen Test Performed? Yes
[2022-02-24 18:25] LABS: Allen Test Performed? Yes
[2022-02-24 18:38] LABS: ABG Base Excess -5.7 mmol/L; ABG HCO3 19 mmol/L (21-25); ABG Oxygen Saturation 54.3 % (94-97); ABG PCO2 36 mmHg (35-45); ABG PH 7.34 (7.35-7.45)
[2022-02-24 18:44] LABS: ABG PO2 36 mmHg (83-108)
[2022-02-24 18:47] LABS: ABG Base Excess -6.1 mmol/L; ABG HCO3 19 mmol/L (21-25); ABG Oxygen Saturation 51.9 % (94-97); ABG PCO2 38 mmHg (35-45); ABG PH 7.32 (7.35-7.45)
[2022-02-24 18:48] LABS: ABG PO2 37 mmHg (83-108)
[2022-02-24] MEDS: THIAMINE 100 MG TAB PO SCH (18:50)
[2022-02-24 18:51] LABS: ABG Base Excess -5.9 mmol/L; ABG HCO3 19 mmol/L (21-25); ABG Oxygen Saturation 52.7 % (94-97); ABG PCO2 37 mmHg (35-45); ABG PH 7.33 (7.35-7.45)
[2022-02-24 18:56] LABS: ABG PO2 36 mmHg (83-108)
[2022-02-24 19:21] LABS: Glucose,Whole Blood 70 mg/dL (75-99)
--- NOTE | 2022-02-24 19:42 | PCN ---
PROCEDURE NOTE DATE OF SERVICE: 02/24/2022 PROCEDURE: 1. Right heart catheterization and Garcia cardiac output. 2. EKOS procedure for right-sided pulmonary embolism with right ventricular strain, submassive pulmonary embolism. PERFORMED BY: Dr. Camron El. Moderate conscious sedation time was 22 minutes. Patient was administered Versed. Oxygen saturation, hemodynamics and EKG were monitored closely. CLINICAL INFORMATION: Mr. Ernesto La is an 82-year-old gentleman with very little information. He came into the hospital this morning with a clinical picture of having been found lying down, had CPK elevation suggestive of what seems to be rhabdomyolysis, with CPK in the range of 4300. He has history of CVA, dementia. He had a fall of unknown time frame. After waking up on the floor, the patient was brought to the hospital. The exact clinical picture is unclear. After he arrived at the hospital, he was found to be hypoxic, received some oxygen, and clinical picture and CT scan suggested pulmonary embolism confined to the right lower lobe, fairly moderate-sized with evidence of right heart strain. Echo revealed right-sided pressures of 59 mmHg with enlarged right ventricle, flattening of the septum. He was advised to be placed on heparin. He was hydrated on a small dose of Levophed and then brought in for an ultrasound and tPA infusion with EKOS catheter. Rationale, risks, benefits and options were explained. No family member was available. Patient was brought in in an almost semi-emergency state. PROCEDURE NOTE: Under local anesthesia and strict aseptic precautions, a 6-Georgian introducer was placed in the right femoral vein. Under fluoroscopic guidance and with the help of a [employer] wire, a long 300 cm wire, I advanced and positioned the catheter in the right pulmonary artery. I obtained the saturation from the right atrium, right ventricle and pulmonary artery. Gracia cardiac output was performed and the O2 saturation in the PA was about 55 and the femoral artery saturation by pulse oximeter was 96%. This translated to a cardiac output of about 4.35 L. The catheter was positioned in the right pulmonary artery inferiorly. I then took the wire out and advanced the EKOS catheter. Through the EKOS catheter the ultrasound catheter was advanced through the port. Good position was secured. The sheath was sutured. The catheters were sutured. Heparin infusion at 500 units/hour will be continued for about 12 hours. I will also give a tPA infusion of 1 mg/hour for the next 8 hours. I discussed my thoughts in detail with the patient, but I am not sure how much he comprehends. Right heart catheterization and EKOS procedure were performed uneventfully. Right atrial pressure was 3 mmHg. Right ventricular was 42/3. Pulmonary artery pressure was 42/15 with a mean of 25. I did not do a wedge pressure. EKOS procedure was performed uneventfully. Patient will receive ultrasound and tPA infusion for the next 8 hours. MMODL / IJN: [id number] /
[2022-02-24 20:44] LABS: Glucose,Whole Blood 99 mg/dL (75-99)
[2022-02-24 23:20] LABS: Glucose,Whole Blood 96 mg/dL (75-99)
[2022-02-25] MEDS: SODIUM CHLORIDE 0.9% 1,000 ML IV SCH ×3 (06:57→20:42)
[2022-02-25] MEDS: THIAMINE 100 MG TAB PO SCH ×2 (06:57→18:26)
--- NOTE | 2022-02-25 07:01 | P.GSCN ---
History of Present Illness Consult date: 02/24/22 Reason for Consult: Bladder mass Requesting physician: Mariela Baumann History of present illness: The patient is an 82-year-old white male with a history of dementia. He has a history of alcohol abuse. He has smoked a pipe since 1957 but denies cigarette smoking. He was found on the floor after an apparent syncopal episode and brought to the ER. He was admitted to the ICU and is being treated for a pulmonary embolus. CT scan imaging shows a right renal cyst and an apparent bladder mass. He has an unremarkable urologic history. He denies dysuria and hematuria. Review of Systems - Constitutional Denies chills, Denies fever - Cardiovascular Denies chest pain - Respiratory Reports dyspnea - Genitourinary Reports as per HPI Past Medical History Past Medical History: CVA/TIA, Dementia Additional Past Medical History / Comment(s): same day smoker. History of Any Multi-Drug Resistant Organisms: None Reported Past Surgical History: Tonsillectomy Additional Past Surgical History / Comment(s): Vasectomy, bilateral inguinal hernia repair Past Anesthesia/Blood Transfusion Reactions: No Reported Reaction Past Psychological History: No Psychological Hx Reported Smoking Status: Current every day smoker Past Alcohol Use History: Abuse, Daily, Heavy Past Drug Use History: None Reported - Past Family History Father Family Medical History: CVA/TIA Mother Family Medical History: Dementia Medications and Allergies Home Medications Medication Instructions Recorded Confirmed Type No Known Home Medications 02/23/22 02/23/22 History Allergies Allergy/AdvReac Type Severity Reaction Status Date / Time No Known Allergies Allergy Verified 02/23/22 21:13 Surgical - Exam Vital Signs Temp Pulse Resp BP Pulse Ox 98.4 F 140 H 30 H 110/82 91 L 02/23/22 19:23 02/23/22 19:23 02/23/22 19:23 02/23/22 19:23 02/23/22 19:23 - General well developed, well nourished, no distress - Respiratory normal respiratory effort - Abdomen Abdomen: soft, non tender, no guarding, no rigid, no rebound - Genitourinary normal penis with no external lesions, testicles non-tender - Psychiatric oriented to time, oriented to person, oriented to place, speech is normal, memory intact Results - Labs 02/24/22 14:18 02/24/22 14:18 Abnormal Lab Results - Last 24 Hours (Table) 02/23/22 02/23/22 02/23/22 Range/Units 19:48 19:48 19:48 WBC 12.1 H (3.8-10.6) k/uL RBC 4.06 L (4.30-5.90) m/uL Hgb (13.0-17.5) gm/dL Hct (39.0-53.0) % MCV (80.0-100.0) fL Neutrophils # 10.3 H (1.3-7.7) k/uL Lymphocytes # 0.8 L (1.0-4.8) k/uL APTT (22.0-30.0) sec Fibrinogen (200-500) mg/dL ABG pH (7.35-7.45) ABG pCO2 (35-45) mmHg ABG pO2 (83-108) mmHg ABG HCO3 (21-25) mmol/L ABG O2 Saturation (94-97) % Chloride (98-107) mmol/L Carbon Dioxide 16 L (22-30) mmol/L BUN 24 H (9-20) mg/dL Creatinine 1.36 H (0.66-1.25) mg/dL Glucose 135 H (74-99) mg/dL POC Glucose (mg/dL) (75-99) mg/dL Plasma Lactic Acid Ugo 4.7 H* (0.7-2.0) mmol/L Calcium (8.4-10.2) mg/dL Phosphorus 4.7 H (2.5-4.5) mg/dL Magnesium 2.4 H (1.6-2.3) mg/dL Total Bilirubin 2.2 H (0.2-1.3) mg/dL AST 159 H (17-59) U/L Creatine Kinase 4306 H* (55-170) U/L Troponin I (0.000-0.034) ng/mL Total Protein (6.3-8.2) g/dL Albumin (3.5-5.0) g/dL Urine Protein (Negative) Urine Blood (Negative) Ur Leukocyte Esterase (Negative) Urine RBC (0-5) /hpf Urine WBC (0-5) /hpf Urine WBC Clumps (None) /hpf Ur Squamous Epith Cells (0-4) /hpf Calcium Oxalate Crystal (None) /hpf Urine Bacteria (None) /hpf Urine Mucus (None) /hpf 02/23/22 02/23/22 02/23/22 Range/Units 19:48 21:03 22:02 WBC (3.8-10.6) k/uL RBC (4.30-5.90) m/uL Hgb (13.0-17.5) gm/dL Hct (39.0-53.0) % MCV (80.0-100.0) fL Neutrophils # (1.3-7.7) k/uL Lymphocytes # (1.0-4.8) k/uL APTT (22.0-30.0) sec Fibrinogen (200-500) mg/dL ABG pH 7.46 H (7.35-7.45) ABG pCO2 26 L (35-45) mmHg ABG pO2 74 L (83-108) mmHg ABG HCO3 18 L (21-25) mmol/L ABG O2 Saturation 93.8 L (94-97) % Chloride (98-107) mmol/L Carbon Dioxide (22-30) mmol/L BUN (9-20) mg/dL Creatinine (0.66-1.25) mg/dL Glucose (74-99) mg/dL POC Glucose (mg/dL) (75-99) mg/dL Plasma Lactic Acid Ugo (0.7-2.0) mmol/L Calcium (8.4-10.2) mg/dL Phosphorus (2.5-4.5) mg/dL Magnesium (1.6-2.3) mg/dL Total Bilirubin (0.2-1.3) mg/dL AST (17-59) U/L Creatine Kinase (55-170) U/L Troponin I 0.047 H* (0.000-0.034) ng/mL Total Protein (6.3-8.2) g/dL Albumin (3.5-5.0) g/dL Urine Protein 2+ H (Negative) Urine Blood Moderate H (Negative) Ur Leukocyte Esterase Large H (Negative) Urine RBC 8 H (0-5) /hpf Urine WBC 91 H (0-5) /hpf Urine WBC Clumps Few H (None) /hpf Ur Squamous Epith Cells 8 H (0-4) /hpf Calcium Oxalate Crystal Occasional H (None) /hpf Urine Bacteria Many H (None) /hpf Urine Mucus Rare H (None) /hpf 02/23/22 02/23/22 02/23/22 Range/Units 22:05 22:54 23:50 WBC (3.8-10.6) k/uL RBC (4.30-5.90) m/uL Hgb (13.0-17.5) gm/dL Hct (39.0-53.0) % MCV (80.0-100.0) fL Neutrophils # (1.3-7.7) k/uL Lymphocytes # (1.0-4.8) k/uL APTT (22.0-30.0) sec Fibrinogen (200-500) mg/dL ABG pH (7.35-7.45) ABG pCO2 (35-45) mmHg ABG pO2 (83-108) mmHg ABG HCO3 (21-25) mmol/L ABG O2 Saturation (94-97) % Chloride (98-107) mmol/L Carbon Dioxide (22-30) mmol/L BUN (9-20) mg/dL Creatinine (0.66-1.25) mg/dL Glucose (74-99) mg/dL POC Glucose (mg/dL) (75-99) mg/dL Plasma Lactic Acid Ugo 3.2 H* 3.7 H* (0.7-2.0) mmol/L Calcium (8.4-10.2) mg/dL Phosphorus (2.5-4.5) mg/dL Magnesium (1.6-2.3) mg/dL Total Bilirubin (0.2-1.3) mg/dL AST (17-59) U/L Creatine Kinase (55-170) U/L Troponin I 0.303 H* (0.000-0.034) ng/mL Total Protein (6.3-8.2) g/dL Albumin (3.5-5.0) g/dL Urine Protein (Negative) Urine Blood (Negative) Ur Leukocyte Esterase (Negative) Urine RBC (0-5) /hpf Urine WBC (0-5) /hpf Urine WBC Clumps (None) /hpf Ur Squamous Epith Cells (0-4) /hpf Calcium Oxalate Crystal (None) /hpf Urine Bacteria (None) /hpf Urine Mucus (None) /hpf 0402/24/22 02/24/22 Range/Units 02:21 03:10 04:02 WBC (3.8-10.6) k/uL RBC 3.21 L (4.30-5.90) m/uL Hgb 10.3 L (13.0-17.5) gm/dL Hct 31.9 L (39.0-53.0) % MCV (80.0-100.0) fL Neutrophils # (1.3-7.7) k/uL Lymphocytes # 0.7 L (1.0-4.8) k/uL APTT (22.0-30.0) sec Fibrinogen (200-500) mg/dL ABG pH (7.35-7.45) ABG pCO2 (35-45) mmHg ABG pO2 (83-108) mmHg ABG HCO3 (21-25) mmol/L ABG O2 Saturation (94-97) % Chloride 112 H (98-107) mmol/L Carbon Dioxide 20 L (22-30) mmol/L BUN 26 H (9-20) mg/dL Creatinine 1.34 H (0.66-1.25) mg/dL Glucose 115 H (74-99) mg/dL POC Glucose (mg/dL) (75-99) mg/dL Plasma Lactic Acid Ugo 2.1 H* (0.7-2.0) mmol/L Calcium 8.1 L (8.4-10.2) mg/dL Phosphorus 4.6 H (2.5-4.5) mg/dL Magnesium (1.6-2.3) mg/dL Total Bilirubin (0.2-1.3) mg/dL AST 103 H (17-59) U/L Creatine Kinase (55-170) U/L Troponin I (0.000-0.034) ng/mL Total Protein 6.1 L (6.3-8.2) g/dL Albumin 2.6 L (3.5-5.0) g/dL Urine Protein (Negative) Urine Blood (Negative) Ur Leukocyte Esterase (Negative) Urine RBC (0-5) /hpf Urine WBC (0-5) /hpf Urine WBC Clumps (None) /hpf Ur Squamous Epith Cells (0-4) /hpf Calcium Oxalate Crystal (None) /hpf Urine Bacteria (None) /hpf Urine Mucus (None) /hpf 04/14/22 04/14/22 04/14/22 Range/Units 04:02 06:36 14:18 WBC (3.8-10.6) k/uL RBC (4.30-5.90) m/uL Hgb (13.0-17.5) gm/dL Hct (39.0-53.0) % MCV (80.0-100.0) fL Neutrophils # (1.3-7.7) k/uL Lymphocytes # (1.0-4.8) k/uL APTT 131.8 H* 59.2 H (22.0-30.0) sec Fibrinogen 520 H (200-500) mg/dL ABG pH (7.35-7.45) ABG pCO2 (35-45) mmHg ABG pO2 (83-108) mmHg ABG HCO3 (21-25) mmol/L ABG O2 Saturation (94-97) % Chloride (98-107) mmol/L Carbon Dioxide (22-30) mmol/L BUN (9-20) mg/dL Creatinine (0.66-1.25) mg/dL Glucose (74-99) mg/dL POC Glucose (mg/dL) (75-99) mg/dL Plasma Lactic Acid Ugo (0.7-2.0) mmol/L Calcium (8.4-10.2) mg/dL Phosphorus (2.5-4.5) mg/dL Magnesium (1.6-2.3) mg/dL Total Bilirubin (0.2-1.3) mg/dL AST (17-59) U/L Creatine Kinase (55-170) U/L Troponin I 0.400 H* (0.000-0.034) ng/mL Total Protein (6.3-8.2) g/dL Albumin (3.5-5.0) g/dL Urine Protein (Negative) Urine Blood (Negative) Ur Leukocyte Esterase (Negative) Urine RBC (0-5) /hpf Urine WBC (0-5) /hpf Urine WBC Clumps (None) /hpf Ur Squamous Epith Cells (0-4) /hpf Calcium Oxalate Crystal (None) /hpf Urine Bacteria (None) /hpf Urine Mucus (None) /hpf 02/24/22 02/24/22 02/24/22 Range/Units 14:18 14:18 18:05 WBC (3.8-10.6) k/uL RBC 3.35 L (4.30-5.90) m/uL Hgb 10.7 L (13.0-17.5) gm/dL Hct 34.4 L (39.0-53.0) % MCV 102.7 H (80.0-100.0) fL Neutrophils # (1.3-7.7) k/uL Lymphocytes # 0.9 L (1.0-4.8) k/uL APTT (22.0-30.0) sec Fibrinogen (200-500) mg/dL ABG pH 7.34 L (7.35-7.45) ABG pCO2 (35-45) mmHg ABG pO2 36 L* (83-108) mmHg ABG HCO3 19 L (21-25) mmol/L ABG O2 Saturation 54.3 L (94-97) % Chloride 115 H (98-107) mmol/L Carbon Dioxide 20 L (22-30) mmol/L BUN 23 H (9-20) mg/dL Creatinine (0.66-1.25) mg/dL Glucose (74-99) mg/dL POC Glucose (mg/dL) (75-99) mg/dL Plasma Lactic Acid Ugo (0.7-2.0) mmol/L Calcium 7.9 L (8.4-10.2) mg/dL Phosphorus (2.5-4.5) mg/dL Magnesium (1.6-2.3) mg/dL Total Bilirubin (0.2-1.3) mg/dL AST (17-59) U/L Creatine Kinase (55-170) U/L Troponin I (0.000-0.034) ng/mL Total Protein (6.3-8.2) g/dL Albumin (3.5-5.0) g/dL Urine Protein (Negative) Urine Blood (Negative) Ur Leukocyte Esterase (Negative) Urine RBC (0-5) /hpf Urine WBC (0-5) /hpf Urine WBC Clumps (None) /hpf Ur Squamous Epith Cells (0-4) /hpf Calcium Oxalate Crystal (None) /hpf Urine Bacteria (None) /hpf Urine Mucus (None) /hpf 02/24/22 02/24/22 02/24/22 Range/Units 18:05 18:05 19:19 WBC (3.8-10.6) k/uL RBC (4.30-5.90) m/uL Hgb (13.0-17.5) gm/dL Hct (39.0-53.0) % MCV (80.0-100.0) fL Neutrophils # (1.3-7.7) k/uL Lymphocytes # (1.0-4.8) k/uL APTT (22.0-30.0) sec Fibrinogen (200-500) mg/dL ABG pH 7.33 L 7.32 L (7.35-7.45) ABG pCO2 (35-45) mmHg ABG pO2 36 L* 37 L* (83-108) mmHg ABG HCO3 19 L 19 L (21-25) mmol/L ABG O2 Saturation 52.7 L 51.9 L (94-97) % Chloride (98-107) mmol/L Carbon Dioxide (22-30) mmol/L BUN (9-20) mg/dL Creatinine (0.66-1.25) mg/dL Glucose (74-99) mg/dL POC Glucose (mg/dL) 70 L (75-99) mg/dL Plasma Lactic Acid Ugo (0.7-2.0) mmol/L Calcium (8.4-10.2) mg/dL Phosphorus (2.5-4.5) mg/dL Magnesium (1.6-2.3) mg/dL Total Bilirubin (0.2-1.3) mg/dL AST (17-59) U/L Creatine Kinase (55-170) U/L Troponin I (0.000-0.034) ng/mL Total Protein (6.3-8.2) g/dL Albumin (3.5-5.0) g/dL Urine Protein (Negative) Urine Blood (Negative) Ur Leukocyte Esterase (Negative) Urine RBC (0-5) /hpf Urine WBC (0-5) /hpf Urine WBC Clumps (None) /hpf Ur Squamous Epith Cells (0-4) /hpf Calcium Oxalate Crystal (None) /hpf Urine Bacteria (None) /hpf Urine Mucus (None) /hpf Microbiology - Last 24 Hours (Table) 02/23/22 21:03 Urine Culture - Preliminary Urine,Voided Diabetes panel 0402/24/22 02/24/22 Range/Units 19:48 04:02 14:18 Sodium 141 142 145 (137-145) mmol/L Potassium 4.1 3.9 4.0 (3.5-5.1) mmol/L Chloride 107 112 H 115 H (98-107) mmol/L Carbon Dioxide 16 L 20 L 20 L (22-30) mmol/L BUN 24 H 26 H 23 H (9-20) mg/dL Creatinine 1.36 H 1.34 H 1.15 (0.66-1.25) mg/dL Glucose 135 H 115 H 94 (74-99) mg/dL Calcium 9.4 8.1 L 7.9 L (8.4-10.2) mg/dL AST 159 H 103 H (17-59) U/L ALT 27 17 (4-49) U/L Alkaline Phosphatase 79 55 (38-126) U/L Total Protein 8.2 6.1 L (6.3-8.2) g/dL Albumin 3.7 2.6 L (3.5-5.0) g/dL Thyroid panel 02/23/22 Range/Units 19:48 TSH 3.190 (0.465-4.680) mIU/L Calcium panel 02/23/22 02/24/22 02/24/22 Range/Units 19:48 04:02 14:18 Calcium 9.4 8.1 L 7.9 L (8.4-10.2) mg/dL Phosphorus 4.7 H 4.6 H (2.5-4.5) mg/dL Albumin 3.7 2.6 L (3.5-5.0) g/dL Pituitary panel 02/23/22 02/24/22 02/24/22 Range/Units 19:48 04:02 14:18 Sodium 141 142 145 (137-145) mmol/L Potassium 4.1 3.9 4.0 (3.5-5.1) mmol/L Chloride 107 112 H 115 H (98-107) mmol/L Carbon Dioxide 16 L 20 L 20 L (22-30) mmol/L BUN 24 H 26 H 23 H (9-20) mg/dL Creatinine 1.36 H 1.34 H 1.15 (0.66-1.25) mg/dL Glucose 135 H 115 H 94 (74-99) mg/dL Calcium 9.4 8.1 L 7.9 L (8.4-10.2) mg/dL TSH 3.190 (0.465-4.680) mIU/L Adrenal panel 02/23/22 02/24/22 02/24/22 Range/Units 19:48 04:02 14:18 Sodium 141 142 145 (137-145) mmol/L Potassium 4.1 3.9 4.0 (3.5-5.1) mmol/L Chloride 107 112 H 115 H (98-107) mmol/L Carbon Dioxide 16 L 20 L 20 L (22-30) mmol/L BUN 24 H 26 H 23 H (9-20) mg/dL Creatinine 1.36 H 1.34 H 1.15 (0.66-1.25) mg/dL Glucose 135 H 115 H 94 (74-99) mg/dL Calcium 9.4 8.1 L 7.9 L (8.4-10.2) mg/dL Total Bilirubin 2.2 H 0.9 (0.2-1.3) mg/dL AST 159 H 103 H (17-59) U/L ALT 27 17 (4-49) U/L Alkaline Phosphatase 79 55 (38-126) U/L Total Protein 8.2 6.1 L (6.3-8.2) g/dL Albumin 3.7 2.6 L (3.5-5.0) g/dL - Imaging CT scan - pelvis: report reviewed, image reviewed Assessment and Plan (1) Nonspecific abnormal finding on imaging of genitourinary organs Current Visit: Yes Status: Acute Code(s): R93.89 - ABNORMAL FINDINGS ON DX IMAGING OF OTH BODY STRUCTURES SNOMED Code(s): 275351630 Plan: I explained to the patient in detail that the CT scan suggests the presence of a bladder mass, which if present is likely malignant in nature. I have advised him to undergo outpatient office cystoscopy upon discharge to determine with certainty whether he does indeed have a bladder mass. In the meantime, I am hopeful that he does not develop hematuria as he will require anticoagulation for the pulmonary embolus. The Humphreys catheter is currently draining clear ur ine. Time with Patient: Greater than 30
[2022-02-25 07:27] LABS: Calcium 7.9 mg/dL (8.4-10.2)
[2022-02-25 07:51] LABS: Basophils % (A) 0 %; Eosinophils % (A) 0 %; HCT 31.7 % (39.0-53.0); HGB 10.1 gm/dL (13.0-17.5); Hypochromasia Moderate; Lymphocytes # (A) 0.7 k/uL (1.0-4.8); Lymphocytes % (A) 9 %; MCHC 31.8 g/dL (31.0-37.0); MCV 103.6 fL (80.0-100.0); Macrocytosis Slight; Mean Platelet Volume 9.4; Monocytes # (A) 0.6 k/uL (0-1.0); Monocytes % (A) 7 %; Neutrophils # (A) 6.6 k/uL (1.3-7.7); Neutrophils % (A) 82 %; Platelet Count 127 k/uL (150-450); RBC 3.06 m/uL (4.30-5.90); RDW 13.2 % (11.5-15.5); WBC 8.1 k/uL (3.8-10.6)
[2022-02-25] MEDS: IPRATROPIUM-ALBUTEROL 3 ML NEB INHALATION PRN ×2 (08:25→15:08)
[2022-02-25] MEDS: APIXABAN 5 MG TAB PO SCH ×2 (08:46→21:19)
[2022-02-25] MEDS: PANTOPRAZOLE 40 MG/10 ML VIAL IV SCH (08:46)
--- NOTE | 2022-02-25 08:59 | PN ---
PROGRESS NOTE This is an 82-year-old gentleman who was found pretty much unresponsive and had been on the floor for several hours. He has some pressure sores as a result of this, and subsequent investigation revealed that he had a significant pulmonary embolism almost all confined to the right lower lobe area with a strain pattern and right-sided pressures of about 55 mm by echo. Given this, I performed an EKOS procedure with tPA infusion and ultrasound yesterday uneventfully. This morning he feels better. His oxygen saturation has improved. He is not in any distress. He is responding to questions but does not remember much of what happened prior to his arrival. He does drink alcohol generously, according to the chart. Blood pressure is 108/70, pulse rate is 80, sinus. JVD 1 cm. No carotid bruit. S1-S2 heard normally. Short systolic murmur noted at the base. Second heart sound is preserved. Lungs are clear. Abdomen is soft. Right groin is clean and dry. Central nervous system: Generalized weakness, especially of lower extremities. IMPRESSION: 1. Acute pulmonary embolism with RV strain, submassive. 2. Rhabdomyolysis. 3. History of alcoholism. RECOMMENDATIONS: I have pulled his ultrasound catheter and the EKOS catheter out. The 6-[place]uv[place] sheath will be pulled out soon. We will discontinue the IV heparin after starting him on Eliquis 10 mg b.i.d. for one week followed by 5 mg b.i.d. after that. He will continue his other medications as before. Prognosis remains guarded. MMODL / IJN: [id number] /
[2022-02-25] MEDS: LORazepam 2 MG/ML INJ IV PRN ×4 (09:15→21:20)
[2022-02-25 11:28] LABS: Glucose,Whole Blood 110 mg/dL (75-99)
--- NOTE | 2022-02-25 11:37 | P.PN ---
Subjective Progress Note Date: 02/25/22 Principal diagnosis: syncope secondary to pulmonary embolism This is an 82-year-old male patient with a known history of dementia, chronic and ongoing tobacco dependence and alcohol abuse. He had a syncopal episode at home and was unsure of his down time. He had fallen and was laying on his cell phone. He had stated his last drink was 4 days prior. He did remember hitting his head. He arrived to the emergency room last evening. EMS stated his house was in disarray. computed tomography scan of the brain and C-spine revealed no acute intracranial abnormalities. No cervical fractures. Pelvic x-rays revealed no acute abnormality of the pelvis. X-ray of the right knee revealed no acute fracture. X-ray of the KUB revealed nonacute abdomen. EKG revealed sinus tachycardia with nonspecific ST and T wave abnormalities. Computed tomography scan of the abdomen and pelvis revealed urinary bladder wall thickening which is nonspecific. Follow-up recommended. Bladder tumor is possible. There is evidence of constipation. Mild fibrotic changes and subsegmental atelectasis at the lung bases.CT angiogram revealed large emboli in the right lower lobe pulmonary artery. Possible right heart strain. He is seen today in consultation in the emergency department. He is currently awake and alert. He has some garbled speech. Echocardiogram is in progress. He's been initiated on a heparin drip. He has a right internal jugular triple-lumen catheter in place. Currently in sinus rhythm. White count 9.1. Hemoglobin 10.3. Platelets 160. Sodium 142. Potassium 3.9. Bicarb 20. BUN 26. Creatinine 1.34. Glucose 115. AST 103. ALT 17. Creatinine kinase 4306. Troponins 0.04, 0.3, 0.4. Urinalysis positive for moderate blood, large leukocyte esterase, many bacteria. Urine culture is pending. He is maintaining O2 saturations up to 100% on 3 L/m per nasal cannula. He's been initiated on DuoNeb inhalations, antibiotics in the form of ceftriaxone and placed in the CIWA protocol. 0.9 normal saline at 130 ML's per hour. He had been hypotensive and currently on norepinephrine at 0.05 mcg/kg/m. patient was reevaluated today on 01/25/2022, patient remains in the ICU, he is doing quite well. He is actually on room air, O2 saturation is in the low 90s. Does not seem to be in any distress, patient is status post EKOS thrombolytic therapy, and he seems to be doing great. He was already started on eliquis,hemodynamically stable, not requiring any pressors. And his labs are basically unremarkable including CBC, and a relatively normal basic metabolic profile. Patient is intermittently agitated, and his requiring Ativan for sedation, remains on the alcohol withdrawal protocol. Objective - Vital Signs Vital signs: Vital Signs Temp 98.8 F 02/25/22 08:00 Pulse 117 H 02/25/22 11:00 Resp 21 02/25/22 11:00 BP 96/61 02/25/22 11:00 Pulse Ox 95 02/25/22 11:00 Intake & Output 02/24/22 02/25/22 02/25/22 18:59 06:59 18:59 Intake Total 961.605 7524.972 240 Output Total 360 225 Balance 692.732 7047.972 15 Weight 85.5 kg Intake: IV 400 1380 240 Sodium Chloride 0.9% 1, 1170 240 000 ml @ 130 mls/hr IV . Q7H42M ANG Rx#:[id number] Sodium Chloride 0.9% 1, 210 000 ml @ 130 mls/hr IV . Q7H42M ANG Rx#:[id number] Intake, IV Titration 114.798 31.972 Amount Heparin Sod,Pork in 0.45% 114.798 NaCl 25,000 unit In 0.45 % NaCl 1 250ml.bag @ 18 UNITS/KG/HR 15.105 mls/hr IV .[id number] ANG Rx#: [id number] Norepinephrine 4 mg In 31.972 Sodium Chloride 0.9% 250 ml @ 0.05 MCG/KG/MIN 15. 986 mls/hr IV .[id number] AGN Rx#:[id number] Output: Urine 360 225 Other: Voiding Method Indwelling Catheter Indwelling Catheter - Exam Physical Exam: Revealed 82-year-old white male in no distress, calm, on room air. Head: Atraumatic, normocephalic. However the patient does have abrasions on the right cheek. Possibly related to recent fall or trauma. HEENT:[Neck is supple.] [No neck masses.] [No thyromegaly.] [No JVD.] Chest: [Clear throughout, no crackles, no rhonchi, no wheezes.]abrasion noted on the right chest wall. Cardiac Exam: [Normal S1 and S2, no S3 gallop, no murmur.] Abdomen: [Soft, nontender, no megaly, no rebound, no guarding, normal bowel sounds.] Extremities: [No clubbing, no edema, no cyanosis.] Neurological Exam: slightly garbled speech, generally weak, otherwise unremarkable patient is oriented 3. skin: Multiple areas of abrasions and ecchymosis.Also noted on the right knee. - Labs CBC & Chem 7: 02/25/22 06:52 02/25/22 06:52 Labs: Abnormal Lab Results - Last 24 Hours (Table) 02/24/22 02/24/22 02/24/22 Range/Units 14:18 14:18 14:18 RBC 3.35 L (4.30-5.90) m/uL Hgb 10.7 L (13.0-17.5) gm/dL Hct 34.4 L (39.0-53.0) % MCV 102.7 H (80.0-100.0) fL Plt Count (150-450) k/uL Lymphocytes # 0.9 L (1.0-4.8) k/uL APTT 59.2 H (22.0-30.0) sec Fibrinogen 520 H (200-500) mg/dL ABG pH (7.35-7.45) ABG pO2 (83-108) mmHg ABG HCO3 (21-25) mmol/L ABG O2 Saturation (94-97) % Sodium (137-145) mmol/L Chloride 115 H (98-107) mmol/L Carbon Dioxide 20 L (22-30) mmol/L BUN 23 H (9-20) mg/dL POC Glucose (mg/dL) (75-99) mg/dL Calcium 7.9 L (8.4-10.2) mg/dL 02/24/22 02/24/22 02/24/22 Range/Units 18:05 18:05 18:05 RBC (4.30-5.90) m/uL Hgb (13.0-17.5) gm/dL Hct (39.0-53.0) % MCV (80.0-100.0) fL Plt Count (150-450) k/uL Lymphocytes # (1.0-4.8) k/uL APTT (22.0-30.0) sec Fibrinogen (200-500) mg/dL ABG pH 7.34 L 7.33 L 7.32 L (7.35-7.45) ABG pO2 36 L* 36 L* 37 L* (83-108) mmHg ABG HCO3 19 L 19 L 19 L (21-25) mmol/L ABG O2 Saturation 54.3 L 52.7 L 51.9 L (94-97) % Sodium (137-145) mmol/L Chloride (98-107) mmol/L Carbon Dioxide (22-30) mmol/L BUN (9-20) mg/dL POC Glucose (mg/dL) (75-99) mg/dL Calcium (8.4-10.2) mg/dL 02/24/22 02/24/22 02/25/22 Range/Units 19:19 20:34 00:37 RBC (4.30-5.90) m/uL Hgb (13.0-17.5) gm/dL Hct (39.0-53.0) % MCV (80.0-100.0) fL Plt Count (150-450) k/uL Lymphocytes # (1.0-4.8) k/uL APTT 30.7 H (22.0-30.0) sec Fibrinogen 536 H (200-500) mg/dL ABG pH (7.35-7.45) ABG pO2 (83-108) mmHg ABG HCO3 (21-25) mmol/L ABG O2 Saturation (94-97) % Sodium (137-145) mmol/L Chloride (98-107) mmol/L Carbon Dioxide (22-30) mmol/L BUN (9-20) mg/dL POC Glucose (mg/dL) 70 L (75-99) mg/dL Calcium (8.4-10.2) mg/dL 02/25/22 02/25/22 02/25/22 Range/Units 06:52 06:52 06:52 RBC 3.06 L (4.30-5.90) m/uL Hgb 10.1 L (13.0-17.5) gm/dL Hct 31.7 L (39.0-53.0) % MCV 103.6 H (80.0-100.0) fL Plt Count 127 L (150-450) k/uL Lymphocytes # 0.7 L (1.0-4.8) k/uL APTT (22.0-30.0) sec Fibrinogen 541 H (200-500) mg/dL ABG pH (7.35-7.45) ABG pO2 (83-108) mmHg ABG HCO3 (21-25) mmol/L ABG O2 Saturation (94-97) % Sodium 146 H (137-145) mmol/L Chloride 118 H (98-107) mmol/L Carbon Dioxide 20 L (22-30) mmol/L BUN (9-20) mg/dL POC Glucose (mg/dL) (75-99) mg/dL Calcium 7.9 L (8.4-10.2) mg/dL 02/25/22 Range/Units 11:26 RBC (4.30-5.90) m/uL Hgb (13.0-17.5) gm/dL Hct (39.0-53.0) % MCV (80.0-100.0) fL Plt Count (150-450) k/uL Lymphocytes # (1.0-4.8) k/uL APTT (22.0-30.0) sec Fibrinogen (200-500) mg/dL ABG pH (7.35-7.45) ABG pO2 (83-108) mmHg ABG HCO3 (21-25) mmol/L ABG O2 Saturation (94-97) % Sodium (137-145) mmol/L Chloride (98-107) mmol/L Carbon Dioxide (22-30) mmol/L BUN (9-20) mg/dL POC Glucose (mg/dL) 110 H (75-99) mg/dL Calcium (8.4-10.2) mg/dL Microbiology - Last 24 Hours (Table) 02/23/22 22:00 Blood Culture - Preliminary Blood No Growth after 24 hours 02/23/22 22:05 Blood Culture - Preliminary Blood No Growth after 24 hours Assessment and Plan Assessment: impression: Syncope secondary to pulmonary embolism Acute hypoxic referral failure secondary to above Right ventricular strain secondary to above Possible urinary tract infection History of alcohol abuse. Suspect history of dementia Chronic and ongoing tobacco dependence. acute kidney injury, resolved. Recommendation: Continue to monitor in the ICU for the next 24 hours. Continue anticoagulation therapy/eliquis. Continue to monitor for potential alcohol withdrawal. continue empiric antibiotics until the final culture of the urine is back. We'll continue to follow, patient will eventually need placement as he seems to be homeless. Time with Patient: Less than 30
[2022-02-26] MEDS: LORazepam 2 MG/ML INJ IV PRN ×3 (02:29→22:54)
[2022-02-26 06:11] LABS: Basophils % (A) 0 %; Eosinophils % (A) 0 %; HCT 32.1 % (39.0-53.0); HGB 10.3 gm/dL (13.0-17.5); Hypochromasia Slight; Lymphocytes # (A) 0.9 k/uL (1.0-4.8); Lymphocytes % (A) 10 %; MCH 32.6 pg (25.0-35.0); MCV 101.8 fL (80.0-100.0); Macrocytosis Slight; Monocytes # (A) 0.6 k/uL (0-1.0); Monocytes % (A) 6 %; Neutrophils # (A) 7.6 k/uL (1.3-7.7); Neutrophils % (A) 83 %; Platelet Count 144 k/uL (150-450); RBC 3.15 m/uL (4.30-5.90); RDW 13.2 % (11.5-15.5); WBC 9.2 k/uL (3.8-10.6)
[2022-02-26 06:31] LABS: Albumin 2.4 g/dL (3.5-5.0); Calcium 8.2 mg/dL (8.4-10.2); Potassium 3.1 mmol/L (3.5-5.1); Total Bilirubin 0.9 mg/dL (0.2-1.3); Total Protein 5.9 g/dL (6.3-8.2)
[2022-02-26] MEDS ORDERED: Potassium Replacement Protocol 1 EACH MISC MISCELLANE PRN (06:51)
[2022-02-26] MEDS: SODIUM CHLORIDE 0.9% 1,000 ML IV SCH (07:49)
[2022-02-26] MEDS: PANTOPRAZOLE 40 MG/10 ML VIAL IV SCH (08:55)
[2022-02-26] MEDS: APIXABAN 5 MG TAB PO SCH ×2 (08:55→22:55)
[2022-02-26] MEDS: POTASSIUM CHLORIDE ER 20 MEQ TAB.ER PO STA ×2 (08:56→09:43)
[2022-02-26] MEDS: THIAMINE 100 MG TAB PO SCH ×2 (08:56→15:49)
[2022-02-26] MEDS: POTASSIUM CHLORIDE 20 MEQ in WATER FOR INJECTION 1 100ML.BAG IVPB SCH ×4 (08:57→13:41)
--- NOTE | 2022-02-26 10:05 | PN ---
PROGRESS NOTE Mr. La has history of pulmonary embolism, alcoholism. He was found unresponsive and also had pulmonary embolism, for which he received EKOS procedure. He is doing better from a hemodynamic standpoint but is having confusion and probably alcohol withdrawal- type picture. His potassium is down. I am recommending that we give him a total of 80 mEq of potassium, combination of IV and p.o. He is in sinus rhythm. JVD 1 cm. S1-S2 heard normally. Irregular rhythm noted. Short systolic murmur noted. Lungs revealed diminished air entry. Abdomen is soft. Lower extremities reveal diminished pulses. Central nervous system is normal. IMPRESSION: 1. Episode of fall and unresponsiveness with rhabdomyolysis. 2. Pulmonary embolism, status post EKOS procedure with tPA infusion and ultrasound. 3. Probable alcoholism with withdrawal-type symptoms. 4. History of smoking and chronic obstructive pulmonary disease. RECOMMENDATIONS: Continue current supportive care. Supplement potassium. We will continue to see the patient as needed. He is on 10 mg b.i.d. of Eliquis, which will continue for one week, and then switch him to 5 mg b.i.d.. MMODL / IJN: [id number] /
[2022-02-26] MEDS: DEXTROSE 5% IN WATER 1,000 ML IV SCH (10:49)
--- NOTE | 2022-02-26 12:12 | P.PN ---
Progress Note - Text Progress Note Date: 02/26/22 The patient underwent EKOS thrombolytic therapy and is now receiving Eliquis. His Humphreys catheter continues to drain clear yellow urine. The catheter may be removed when no longer medically needed. Arrangements will be made upon discharge for the patient to undergo office cystoscopy to determine if indeed he has a bladder tumor, as suggested by CT scan.
--- NOTE | 2022-02-26 12:18 | P.PN ---
Subjective Progress Note Date: 02/26/22 Principal diagnosis: syncope secondary to pulmonary embolism This is an 82-year-old male patient with a known history of dementia, chronic and ongoing tobacco dependence and alcohol abuse. He had a syncopal episode at home and was unsure of his down time. He had fallen and was laying on his cell phone. He had stated his last drink was 4 days prior. He did remember hitting his head. He arrived to the emergency room last evening. EMS stated his house was in disarray. computed tomography scan of the brain and C-spine revealed no acute intracranial abnormalities. No cervical fractures. Pelvic x-rays revealed no acute abnormality of the pelvis. X-ray of the right knee revealed no acute fracture. X-ray of the KUB revealed nonacute abdomen. EKG revealed sinus tachycardia with nonspecific ST and T wave abnormalities. Computed tomography scan of the abdomen and pelvis revealed urinary bladder wall thickening which is nonspecific. Follow-up recommended. Bladder tumor is possible. There is evidence of constipation. Mild fibrotic changes and subsegmental atelectasis at the lung bases.CT angiogram revealed large emboli in the right lower lobe pulmonary artery. Possible right heart strain. He is seen today in consultation in the emergency department. He is currently awake and alert. He has some garbled speech. Echocardiogram is in progress. He's been initiated on a heparin drip. He has a right internal jugular triple-lumen catheter in place. Currently in sinus rhythm. White count 9.1. Hemoglobin 10.3. Platelets 160. Sodium 142. Potassium 3.9. Bicarb 20. BUN 26. Creatinine 1.34. Glucose 115. AST 103. ALT 17. Creatinine kinase 4306. Troponins 0.04, 0.3, 0.4. Urinalysis positive for moderate blood, large leukocyte esterase, many bacteria. Urine culture is pending. He is maintaining O2 saturations up to 100% on 3 L/m per nasal cannula. He's been initiated on DuoNeb inhalations, antibiotics in the form of ceftriaxone and placed in the CIWA protocol. 0.9 normal saline at 130 ML's per hour. He had been hypotensive and currently on norepinephrine at 0.05 mcg/kg/m. patient was reevaluated today on 01/25/2022, patient remains in the ICU, he is doing quite well. He is actually on room air, O2 saturation is in the low 90s. Does not seem to be in any distress, patient is status post EKOS thrombolytic therapy, and he seems to be doing great. He was already started on eliquis,hemodynamically stable, not requiring any pressors. And his labs are basically unremarkable including CBC, and a relatively normal basic metabolic profile. Patient is intermittently agitated, and his requiring Ativan for sedation, remains on the alcohol withdrawal protocol. reevaluated today on 02/26/2022, patient remains in the ICU, confused, he is on r oom air, remains on anticoagulation therapy, he is also on ceftriaxone for presumptive urinary tract infection. His sodium seems to be a bit high today, hence I'm recommending D5W at 50 mL per hour. Considering his confusion, and considering his history of alcohol abuse, patient will be kept in the ICU for the next 24 hours for close monitoring. Patient is unable to take anything by mouth, may have to place a nasogastric tube for enteral feeding and to be able to give him his oral medications. Objective - Vital Signs Vital signs: Vital Signs Temp 99.4 F 02/26/22 08:00 Pulse 105 H 02/26/22 11:00 Resp 28 H 02/26/22 11:00 BP 142/97 02/26/22 11:00 Pulse Ox 98 02/26/22 11:00 Intake & Output 02/25/22 02/26/22 02/26/22 18:59 06:59 18:59 Intake Total 660 640 360 Output Total 500 650 275 Balance 160 -10 85 Weight 85.5 kg 77.7 kg Intake: IV 660 640 60 0.9% NS 480 60 Sodium Chloride 0.9% 1, 660 60 000 ml @ 130 mls/hr IV . Q7H42M ANG Rx#:[id number] cefTRIAXone 1 gm In 100 Sodium Chloride 0.9% 50 ml @ 100 mls/hr IVPB Q24H ANG Rx#:[id number] Intake, IV Titration 300 Amount Dextrose 5% in Water 1, 100 000 ml @ 50 mls/hr IV . Q20H ANG Rx#:[id number] Potassium Chloride 20 meq 200 In Water For Injection 1 100ml.bag @ 50 mls/hr IVPB Q2H ANG Rx#: [id number] Output: Urine 500 650 275 Other: Voiding Method Indwelling Catheter Indwelling Catheter Indwelling Catheter - Exam Physical Exam: Revealed 82-year-old white male in no distress, calm, on room air. Head: Atraumatic, normocephalic. However the patient does have abrasions on the right cheek. Possibly related to recent fall or trauma. HEENT:[Neck is supple.] [No neck masses.] [No thyromegaly.] [No JVD.] Chest: [Clear throughout, no crackles, no rhonchi, no wheezes.]abrasion noted on the right chest wall. Cardiac Exam: [Normal S1 and S2, no S3 gallop, no murmur.] Abdomen: [Soft, nontender, no megaly, no rebound, no guarding, normal bowel sounds.] Extremities: [No clubbing, no edema, no cyanosis.] Neurological Exam: generally weak, otherwise unremarkable patient is oriented 3. skin: Multiple areas of abrasions and ecchymosis.Also noted on the right knee. - Labs CBC & Chem 7: 02/26/22 05:26 02/26/22 05:26 Labs: Abnormal Lab Results - Last 24 Hours (Table) 02/25/22 02/26/22 02/26/22 Range/Units 12:49 05:26 05:26 RBC 3.15 L (4.30-5.90) m/uL Hgb 10.3 L (13.0-17.5) gm/dL Hct 32.1 L (39.0-53.0) % MCV 101.8 H (80.0-100.0) fL Plt Count 144 L (150-450) k/uL Lymphocytes # 0.9 L (1.0-4.8) k/uL Fibrinogen 521 H (200-500) mg/dL Sodium 148 H (137-145) mmol/L Potassium 3.1 L (3.5-5.1) mmol/L Chloride 120 H (98-107) mmol/L Glucose 105 H (74-99) mg/dL Calcium 8.2 L (8.4-10.2) mg/dL AST 80 H (17-59) U/L Total Protein 5.9 L (6.3-8.2) g/dL Albumin 2.4 L (3.5-5.0) g/dL Microbiology - Last 24 Hours (Table) 02/23/22 21:03 Urine Culture - Final Urine,Voided Escherichia coli 02/23/22 22:00 Blood Culture - Preliminary Blood No Growth after 48 hours 02/23/22 22:05 Blood Culture - Preliminary Blood No Growth after 48 hours Assessment and Plan Assessment: impression: Syncope secondary to pulmonary embolism Acute hypoxic referral failure secondary to above Right ventricular strain secondary to above Possible urinary tract infection History of alcohol abuse. Suspect history of dementia Chronic and ongoing tobacco dependence. acute kidney injury, resolved. hypernatremia secondary to free water deficit Recommendation: liberalize free water intake. Continue to monitor and continue CIWA protocol. Continue to monitor in the ICU Continue anticoagulation therapy/eliquis. continue antibiotics for E. coli urinary tract infection. We'll continue to follow, patient will eventually need placement as he seems to be homeless. Time with Patient: Less than 30
[2022-02-26 17:59] LABS: African American GFR (CKD) >90 (>60 ml/min/1.73 sqM); Anion Gap 4 mmol/L; Blood Urea Nitrogen 12 mg/dL (9-20); Carbon Dioxide 21 mmol/L (22-30); Chloride 122 mmol/L (98-107); Glucose 134 mg/dL (74-99); Non-African American GFR(CKD) 80 (>60 ml/min/1.73 sqM); Potassium 3.8 mmol/L (3.5-5.1); Sodium 147 mmol/L (137-145)
[2022-02-26 18:17] LABS: Calcium 8.2 mg/dL (8.4-10.2)
[2022-02-26] MEDS ORDERED: POTASSIUM BICARBONATE/CIT AC 20 MEQ TABLET.EFF PO ONE (18:51)
[2022-02-27 06:07] LABS: Basophils % (A) 0 %; Eosinophils # (A) 0.1 k/uL (0-0.7); Eosinophils % (A) 1 %; HCT 31.5 % (39.0-53.0); HGB 10.1 gm/dL (13.0-17.5); Hypochromasia Slight; Lymphocytes # (A) 0.9 k/uL (1.0-4.8); Lymphocytes % (A) 9 %; MCH 32.8 pg (25.0-35.0); MCV 102.4 fL (80.0-100.0); Macrocytosis Slight; Mean Platelet Volume 8.7; Monocytes # (A) 0.4 k/uL (0-1.0); Monocytes % (A) 4 %; Neutrophils # (A) 8.3 k/uL (1.3-7.7); Neutrophils % (A) 85 %; Platelet Count 168 k/uL (150-450); RBC 3.07 m/uL (4.30-5.90); RDW 13.2 % (11.5-15.5); WBC 9.8 k/uL (3.8-10.6)
[2022-02-27 06:18] LABS: ALT 21 U/L (4-49); AST 71 U/L (17-59); African American GFR (CKD) >90 (>60 ml/min/1.73 sqM); Albumin 2.4 g/dL (3.5-5.0); Alkaline Phosphatase 80 U/L (38-126); Anion Gap 6 mmol/L; Blood Urea Nitrogen 11 mg/dL (9-20); Calcium 8.1 mg/dL (8.4-10.2); Carbon Dioxide 20 mmol/L (22-30); Chloride 122 mmol/L (98-107); Glucose 136 mg/dL (74-99); Non-African American GFR(CKD) 87 (>60 ml/min/1.73 sqM); Potassium 3.6 mmol/L (3.5-5.1); Sodium 148 mmol/L (137-145); Total Bilirubin 0.7 mg/dL (0.2-1.3); Total Protein 5.9 g/dL (6.3-8.2)
[2022-02-27] MEDS ORDERED: Potassium Replacement Protocol 1 EACH MISC MISCELLANE PRN (07:53)
[2022-02-27] MEDS ORDERED: POTASSIUM BICARBONATE/CIT AC 20 MEQ TABLET.EFF NG-TUBE SCH (08:00)
[2022-02-27] MEDS: APIXABAN 5 MG TAB PO SCH ×2 (08:13→21:01)
[2022-02-27] MEDS: DEXTROSE 5% IN WATER 1,000 ML IV SCH (08:13)
[2022-02-27] MEDS: THIAMINE 100 MG TAB PO SCH ×2 (08:13→16:37)
[2022-02-27] MEDS: PANTOPRAZOLE 40 MG/10 ML VIAL IV SCH (08:14)
--- NOTE | 2022-02-27 08:36 | PN ---
PROGRESS NOTE Mr. La is 82 years of age. He probably has underlying alcoholism, came in after being found unresponsive and also has pulmonary embolism, for which he had EKOS procedure. He is more obtunded today, has an NG tube. I am concerned about a neurological event. I am recommending neurology evaluation. I told the nurse that we should have a neurology evaluation to assess his mentation. There may be a contribution from alcohol withdrawal as well. However, he is hemodynamically stable. We will continue Eliquis for now. He may need a CT scan of the head also. Vitals are stable. S1-S2 heard normally. Short systolic murmur noted. Lungs reveal diminished air entry. Abdomen is soft, nontender. Central nervous system assessment was not performed. IMPRESSION: 1. The patient is more obtunded today. We should seek a neuro evaluation and consider CT scan. 2. Overall prognosis remains poor, but renal function seems to be fairly stable at this time. He also may need some blood gases and he does have an NG to as well. Prognosis remains guarded. MMODL / IJN: [id number] /
--- NOTE | 2022-02-27 09:45 | XR ---
EXAMINATION TYPE: XR chest 1V portable DATE OF EXAM: 02/27/2022 HISTORY: Shortness of breath. COMPARISON: 02/24/2022 TECHNIQUE: Single view of the chest is submitted. FINDINGS: Demonstrated are scattered senescent parenchymal change. NG tube is seen coursing into the stomach. Right IJ central venous line is unchanged. Mild left perihilar and right basilar infiltrate. The heart is stable. Hilar and mediastinal structures are within normal limits. Degenerative changes are seen of the dorsal spine. IMPRESSION: 1. Mild left perihilar and right basilar infiltrate.
--- NOTE | 2022-02-27 11:04 | P.PN ---
Progress Note - Text Progress Note Date: 02/27/22 The patient is somewhat confused this morning. His Humphreys catheter is draining clear yellow urine. I explained to him that the computed tomography scan suggested the presence of a bladder tumor. I told him that at the time of discharge he will be given an appointment to follow up with me as an outpatient for office cystoscopy, and I stressed the need for him to keep that appointment.
--- NOTE | 2022-02-27 11:30 | P.PN ---
Subjective Progress Note Date: 02/27/22 Principal diagnosis: syncope secondary to pulmonary embolism This is an 82-year-old male patient with a known history of dementia, chronic and ongoing tobacco dependence and alcohol abuse. He had a syncopal episode at home and was unsure of his down time. He had fallen and was laying on his cell phone. He had stated his last drink was 4 days prior. He did remember hitting his head. He arrived to the emergency room last evening. EMS stated his house was in disarray. computed tomography scan of the brain and C-spine revealed no acute intracranial abnormalities. No cervical fractures. Pelvic x-rays revealed no acute abnormality of the pelvis. X-ray of the right knee revealed no acute fracture. X-ray of the KUB revealed nonacute abdomen. EKG revealed sinus tachycardia with nonspecific ST and T wave abnormalities. Computed tomography scan of the abdomen and pelvis revealed urinary bladder wall thickening which is nonspecific. Follow-up recommended. Bladder tumor is possible. There is evidence of constipation. Mild fibrotic changes and subsegmental atelectasis at the lung bases.CT angiogram revealed large emboli in the right lower lobe pulmonary artery. Possible right heart strain. He is seen today in consultation in the emergency department. He is currently awake and alert. He has some garbled speech. Echocardiogram is in progress. He's been initiated on a heparin drip. He has a right internal jugular triple-lumen catheter in place. Currently in sinus rhythm. White count 9.1. Hemoglobin 10.3. Platelets 160. Sodium 142. Potassium 3.9. Bicarb 20. BUN 26. Creatinine 1.34. Glucose 115. AST 103. ALT 17. Creatinine kinase 4306. Troponins 0.04, 0.3, 0.4. Urinalysis positive for moderate blood, large leukocyte esterase, many bacteria. Urine culture is pending. He is maintaining O2 saturations up to 100% on 3 L/m per nasal cannula. He's been initiated on DuoNeb inhalations, antibiotics in the form of ceftriaxone and placed in the CIWA protocol. 0.9 normal saline at 130 ML's per hour. He had been hypotensive and currently on norepinephrine at 0.05 mcg/kg/m. patient was reevaluated today on 01/25/2022, patient remains in the ICU, he is doing quite well. He is actually on room air, O2 saturation is in the low 90s. Does not seem to be in any distress, patient is status post EKOS thrombolytic therapy, and he seems to be doing great. He was already started on eliquis,hemodynamically stable, not requiring any pressors. And his labs are basically unremarkable including CBC, and a relatively normal basic metabolic profile. Patient is intermittently agitated, and his requiring Ativan for sedation, remains on the alcohol withdrawal protocol. reevaluated today on 02/26/2022, patient remains in the ICU, confused, he is on r oom air, remains on anticoagulation therapy, he is also on ceftriaxone for presumptive urinary tract infection. His sodium seems to be a bit high today, hence I'm recommending D5W at 50 mL per hour. Considering his confusion, and considering his history of alcohol abuse, patient will be kept in the ICU for the next 24 hours for close monitoring. Patient is unable to take anything by mouth, may have to place a nasogastric tube for enteral feeding and to be able to give him his oral medications. Reevaluated today on 02/27/2022, patient remains in the ICU, he is developing more confusion, and significant worsening of his mental status today. Patient has a nasogastric tube in place, he is not being orally fed, but he will be receiving nutritional support via nasogastric tube. Patient is developing a bit of infiltrate in the right lower lobe, and slight infiltrate in the left perihilar area, I'm suspecting the patient may have developed a slight aspiration pneumonia, and I will empirically change antibiotics to Zosyn. Patient does have E. coli urinary tract infection, he is presently on Rocephin, however I believe Zosyn at this point would be more appropriate. Considering his worsening mental status, I recommended neurological consultation in the meantime I ordered a CT of the brain. His WBC count is 9.8 hemoglobin is 10 sodium is a bit high at 148, patient will receive free water via the nasogastric tube today. And we will try to get his sodium down as it may be a contributing factor to his metabolic encephalopathy. Renal profile is normal. The rest of the labs were basically unremarkable, albumin is low at 2.4. Objective - Vital Signs Vital signs: Vital Signs Temp 99.6 F 02/27/22 04:00 Pulse 97 02/27/22 06:00 Resp 38 H 02/27/22 06:00 BP 125/96 02/27/22 06:00 Pulse Ox 93 L 02/27/22 06:00 Intake & Output 02/26/22 02/27/22 02/27/22 18:59 06:59 18:59 Intake Total 860 960 360 Output Total 650 620 130 Balance 210 340 230 Weight 76 kg Intake: IV 60 550 100 Dextrose 5% in Water 1, 450 100 000 ml @ 50 mls/hr IV . Q20H ANG Rx#:[id number] NS 60 cefTRIAXone 1 gm In 100 Sodium Chloride 0.9% 50 ml @ 100 mls/hr IVPB Q24H ANG Rx#:[id number] Intake, IV Titration 800 50 Amount Dextrose 5% in Water 1, 400 50 000 ml @ 50 mls/hr IV . Q20H ANG Rx#:[id number] Potassium Chloride 20 meq 200 In Water For Injection 1 100ml.bag @ 50 mls/hr IVPB Q2H ANG Rx#: [id number] Potassium Chloride 20 meq 200 In Water For Injection 1 100ml.bag @ 50 mls/hr IVPB Q2H ANG Rx#: [id number] Tube Feeding 270 60 Other 90 200 Output: Urine 650 620 130 Other: Voiding Method Indwelling Catheter Indwelling Catheter Indwelling Catheter # Bowel Movements 1 - Exam Physical Exam: Revealed 82-year-old white male in no distress, calm, on room ai r. Head: Atraumatic, normocephalic. However the patient does have abrasions on the right cheek. Possibly related to recent fall or trauma. HEENT:[Neck is supple.] [No neck masses.] [No thyromegaly.] [No JVD.] Nasogastric tube is noted to be intact. Chest: [Symmetrical chest expansion fine crackles at the bases especially at the right base. Cardiac Exam: [Normal S1 and S2, no S3 gallop, no murmur.] Abdomen: [Soft, nontender, no megaly, no rebound, no guarding, normal bowel sounds.] Extremities: [No clubbing, no edema, no cyanosis.] Neurological Exam: generally weak, confused, and encephalopathic. Does not follow any instructions. Patient is mumbling words that I couldn't understand. skin: Multiple areas of abrasions and ecchymosis.Also noted on the right knee. - Labs CBC & Chem 7: 02/27/22 05:31 02/27/22 05:31 Labs: Abnormal Lab Results - Last 24 Hours (Table) 02/26/22 02/27/22 02/27/22 Range/Units 17:40 05:31 05:31 RBC 3.07 L (4.30-5.90) m/uL Hgb 10.1 L (13.0-17.5) gm/dL Hct 31.5 L (39.0-53.0) % MCV 102.4 H (80.0-100.0) fL Neutrophils # 8.3 H (1.3-7.7) k/uL Lymphocytes # 0.9 L (1.0-4.8) k/uL Sodium 147 H 148 H (137-145) mmol/L Chloride 122 H 122 H (98-107) mmol/L Carbon Dioxide 21 L 20 L (22-30) mmol/L Glucose 134 H 136 H (74-99) mg/dL Calcium 8.2 L 8.1 L (8.4-10.2) mg/dL AST 71 H (17-59) U/L Total Protein 5.9 L (6.3-8.2) g/dL Albumin 2.4 L (3.5-5.0) g/dL Microbiology - Last 24 Hours (Table) 02/23/22 22:00 Blood Culture - Preliminary Blood No Growth after 72 hours 02/23/22 22:05 Blood Culture - Preliminary Blood No Growth after 72 hours 02/23/22 21:03 Urine Culture - Final Urine,Voided Escherichia coli Assessment and Plan Assessment: impression: Syncope secondary to pulmonary embolism Acute hypoxic referral failure secondary to above Right ventricular strain secondary to above Possible urinary tract infection History of alcohol abuse. Suspect history of dementia Chronic and ongoing tobacco dependence. acute kidney injury, resolved. hypernatremia secondary to free water deficit Acute toxic metabolic encephalopathy., Patient will need further evaluation and a neurology consultation was initiated, CT of the brain was also ordered. Possible aspiration pneumonia is strongly suspected based on the chest x-ray today. Recommendation: Continue to monitor in the ICU. Initiate neurological consultation. CT of the brain was ordered. Start patient on Zosyn and discontinue Rocephin. Keep patient nothing by mouth, and use nasogastric tube for feeding and for medications. And to increase free water intake. liberalize free water intake. Continue to monitor and continue CIWA protocol. Continue anticoagulation therapy/eliquis. Prognosis remains fairly guarded. Patient will be closely monitored in the ICU for now. Time with Patient: Less than 30
[2022-02-27] MEDS: PIPERACILLIN-TAZOBACTAM 3.375 GM in SODIUM CHLORIDE 0.9% 100 ML IVPB SCH ×2 (11:53→21:01)
--- NOTE | 2022-02-27 12:18 | CT ---
EXAMINATION TYPE: CT brain wo con DATE OF EXAM: 02/27/2022 COMPARISON: 02/23/2022 HISTORY: Altered mental status. CT DLP: 1217.[address] of the brain was performed. The ventricles, basal cisterns and sulci overlying the cerebral convexities demonstrate moderate enla rgement. There is no evidence for intracranial hemorrhage or sulcal effacement. There is decreased attenuation about the periventricular white matter and deep white matter of both c erebral hemispheres, compatible with chronic small vessel ischemia. Differential diagnosis does inclu de demyelination. No mass effects are seen.No midline shift. Osseous calvarium is intact. If symptoms persist consider MRI. IMPRESSION: 1. Age related atrophic and chronic small vessel ischemic change without acute intracranial process s een at this time.
--- NOTE | 2022-02-27 13:37 | P.CNNES ---
History of Present Illness Consult date: 02/27/22 Requesting physician: Ifrah Garcia Reason for Consult: altered mental status History of Present Illness: This is an 82 -year-old gentleman with medical history of reported dementia, ongoing tobacco dependence and alcohol abuse who presented to the emergency department on 02/23/2022 after he had a syncopal episode at home and unsure downtime. Neurology team is consulted for altered mental status. History is obtained from medical records and patient's nurse. It seems the patient last drink was 4 days prior to presenting to our facility. It was found that patient has pulmonary embolism with right ventricular strain and underwent EKOS for the right pulmonary embolis on 02/24/2022. He was on eliquis because of PE. Patient was hypoxic because of pulmonary embolism Patient was found to have UTI and possible aspiration pneumonia per ICU team. Patient had CT brain on presentation which is reported as cerebral atrophy. No acute intracranial abnormality. No significant change. CT Cervical spine is reported as multilevel cervical spondylotic changes. No fracture. Patient had CT abd/plevis. Which is reported as urinary bladder wall thickening is no specific. Follow-up recommended. Bladder tumor is possible. Otherwise work-up: Most recent wbc is 9.8K normal. Kidney function has improved. Coronavirus PCR is not detected. TSH: 3.190 I reviewed rest of labs. Review of Systems Review of system is limited but the per positive and negative as per HPI. Past Medical History Past Medical History: CVA/TIA, Dementia Additional Past Medical History / Comment(s): same day smoker. History of Any Multi-Drug Resistant Organisms: None Reported Past Surgical History: Tonsillectomy Additional Past Surgical History / Comment(s): Vasectomy, bilateral inguinal hernia repair Past Anesthesia/Blood Transfusion Reactions: No Reported Reaction Past Psychological History: No Psychological Hx Reported Smoking Status: Current every day smoker Past Alcohol Use History: Abuse, Daily, Heavy Past Drug Use History: None Reported - Past Family History Father Family Medical History: CVA/TIA Mother Family Medical History: Dementia Medications and Allergies Home Medications Medication Instructions Recorded Confirmed Type No Known Home Medications 02/23/22 02/23/22 History Allergies Allergy/AdvReac Type Severity Reaction Status Date / Time No Known Allergies Allergy Verified 02/23/22 21:13 Physical Examination - Vital Signs Vital Signs: Vital Signs Temp Pulse Resp BP Pulse Ox 02/27/22 06:00 97 38 H 125/96 93 L 02/27/22 05:00 96 34 H 136/79 95 02/27/22 04:00 99.6 F 98 30 H 128/80 96 02/27/22 03:00 102 H 30 H 137/86 94 L 02/27/22 02:00 102 H 28 H 119/76 98 02/27/22 01:00 107 H 31 H 140/91 98 02/27/22 00:00 98.8 F 105 H 22 127/84 93 L 02/26/22 23:00 105 H 25 H 137/88 96 02/26/22 22:00 108 H 26 H 129/81 96 02/26/22 21:00 111 H 21 142/95 95 02/26/22 20:00 99 F 109 H 20 149/80 97 02/26/22 19:00 104 H 29 H 149/80 96 02/26/22 18:00 105 H 27 H 140/95 97 02/26/22 17:00 101 H 31 H 127/84 95 02/26/22 16:00 98.7 F 105 H 23 127/84 96 02/26/22 15:00 13 154/71 95 02/26/22 14:00 109 H 29 H 146/93 95 02/26/22 13:00 110 H 32 H 135/91 97 02/26/22 12:00 98.2 F 106 H 14 142/97 97 Intake and Output 02/26/22 02/27/22 02/27/22 22:59 06:59 14:59 Intake Total 520 640 360 Output Total 500 335 130 Balance 20 305 230 Intake: IV 150 400 100 Dextrose 5% in Water 1, 150 300 100 000 ml @ 50 mls/hr IV . Q20H ANG Rx#:[id number] cefTRIAXone 1 gm In 100 Sodium Chloride 0.9% 50 ml @ 100 mls/hr IVPB Q24H ANG Rx#:[id number] Intake, IV Titration 250 Amount Dextrose 5% in Water 1, 250 000 ml @ 50 mls/hr IV . Q20H ANG Rx#:[id number] Tube Feeding 90 180 60 Other 30 60 200 Output: Urine 500 335 130 Other: Voiding Method Indwelling Catheter Indwelling Catheter Indwelling Catheter Weight 76 kg GENERAL: The patient is lying in bed and does not seem in acute distress. CHEST: The heart rate is regular rate rhythm. No murmurs to auscultation. LUNG: Clear to auscultation bilaterally no wheezing noted throughout. Not labored breathing. ABDOMEN/GI: Bowel sounds present in all 4 quadrants. No tenderness to palpation throughout. NEUROLOGICAL: Higher mental function: The patient is drowsy but is awakeable to voice. He is oriented to self and states he is in the hospital. He could not tell me about time. He is able to follow simple commands. It is hard to assess language but does not appear he has aphasia. No neglect. Cranial nerves: The pupils are round, equal and reactive to light. Visual perez are full to confrontation throughout. Extraocular movement is intact no nystagmus is noted. The facial strength is normal throughout. Attempting to stick tongue out. Has moderate dysarthria. Motor:Gait is deferred. The strength is hard to assess individual muscle: Lifting bilateral upper above gravity and wiggling toes. Has increased tone over the left uppers. Normal bulk throughout. Cerebellum: Unable to assess. Sensation: Sensation is normal to touch throughout. Reflexes (right/left):2+ in uppers while lowers are 1+. Plantars are mute bilaterally. Results - Laboratory Findings CBC and BMP: 02/27/22 05:31 02/27/22 05:31 Abnormal Lab Findings: Abnormal Labs 02/23/22 02/23/22 02/23/22 19:48 19:48 19:48 WBC 12.1 H RBC 4.06 L Hgb Hct MCV Plt Count Neutrophils # 10.3 H Lymphocytes # 0.8 L APTT Fibrinogen ABG pH ABG pCO2 ABG pO2 ABG HCO3 ABG O2 Saturation Sodium Potassium Chloride Carbon Dioxide 16 L BUN 24 H Creatinine 1.36 H Glucose 135 H POC Glucose (mg/dL) Plasma Lactic Acid Ugo 4.7 H* Calcium Phosphorus 4.7 H Magnesium 2.4 H Total Bilirubin 2.2 H AST 159 H Creatine Kinase 4306 H* Troponin I Total Protein Albumin Urine Protein Urine Blood Ur Leukocyte Esterase Urine RBC Urine WBC Urine WBC Clumps Ur Squamous Epith Cells Calcium Oxalate Crystal Urine Bacteria Urine Mucus 02/23/22 02/23/22 02/23/22 19:48 21:03 22:02 WBC RBC Hgb Hct MCV Plt Count Neutrophils # Lymphocytes # APTT Fibrinogen ABG pH 7.46 H ABG pCO2 26 L ABG pO2 74 L ABG HCO3 18 L ABG O2 Saturation 93.8 L Sodium Potassium Chloride Carbon Dioxide BUN Creatinine Glucose POC Glucose (mg/dL) Plasma Lactic Acid Ugo Calcium Phosphorus Magnesium Total Bilirubin AST Creatine Kinase Troponin I 0.047 H* Total Protein Albumin Urine Protein 2+ H Urine Blood Moderate H Ur Leukocyte Esterase Large H Urine RBC 8 H Urine WBC 91 H Urine WBC Clumps Few H Ur Squamous Epith Cells 8 H Calcium Oxalate Crystal Occasional H Urine Bacteria Many H Urine Mucus Rare H 02/23/22 02/23/22 02/23/22 22:05 22:54 23:50 WBC RBC Hgb Hct MCV Plt Count Neutrophils # Lymphocytes # APTT Fibrinogen ABG pH ABG pCO2 ABG pO2 ABG HCO3 ABG O2 Saturation Sodium Potassium Chloride Carbon Dioxide BUN Creatinine Glucose POC Glucose (mg/dL) Plasma Lactic Acid Ugo 3.2 H* 3.7 H* Calcium Phosphorus Magnesium Total Bilirubin AST Creatine Kinase Troponin I 0.303 H* Total Protein Albumin Urine Protein Urine Blood Ur Leukocyte Esterase Urine RBC Urine WBC Urine WBC Clumps Ur Squamous Epith Cells Calcium Oxalate Crystal Urine Bacteria Urine Mucus 02/24/22 02/24/22 02/24/22 02:21 03:10 04:02 WBC RBC 3.21 L Hgb 10.3 L Hct 31.9 L MCV Plt Count Neutrophils # Lymphocytes # 0.7 L APTT Fibrinogen ABG pH ABG pCO2 ABG pO2 ABG HCO3 ABG O2 Saturation Sodium Potassium Chloride 112 H Carbon Dioxide 20 L BUN 26 H Creatinine 1.34 H Glucose 115 H POC Glucose (mg/dL) Plasma Lactic Acid Ugo 2.1 H* Calcium 8.1 L Phosphorus 4.6 H Magnesium Total Bilirubin AST 103 H Creatine Kinase Troponin I Total Protein 6.1 L Albumin 2.6 L Urine Protein Urine Blood Ur Leukocyte Esterase Urine RBC Urine WBC Urine WBC Clumps Ur Squamous Epith Cells Calcium Oxalate Crystal Urine Bacteria Urine Mucus 02/24/22 02/24/22 02/24/22 04:02 06:36 14:18 WBC RBC Hgb Hct MCV Plt Count Neutrophils # Lymphocytes # APTT 131.8 H* 59.2 H Fibrinogen 520 H ABG pH ABG pCO2 ABG pO2 ABG HCO3 ABG O2 Saturation Sodium Potassium Chloride Carbon Dioxide BUN Creatinine Glucose POC Glucose (mg/dL) Plasma Lactic Acid Ugo Calcium Phosphorus Magnesium Total Bilirubin AST Creatine Kinase Troponin I 0.400 H* Total Protein Albumin Urine Protein Urine Blood Ur Leukocyte Esterase Urine RBC Urine WBC Urine WBC Clumps Ur Squamous Epith Cells Calcium Oxalate Crystal Urine Bacteria Urine Mucus 02/24/22 02/24/22 02/24/22 14:18 14:18 18:05 WBC RBC 3.35 L Hgb 10.7 L Hct 34.4 L MCV 102.7 H Plt Count Neutrophils # Lymphocytes # 0.9 L APTT Fibrinogen ABG pH 7.34 L ABG pCO2 ABG pO2 36 L* ABG HCO3 19 L ABG O2 Saturation 54.3 L Sodium Potassium Chloride 115 H Carbon Dioxide 20 L BUN 23 H Creatinine Glucose POC Glucose (mg/dL) Plasma Lactic Acid Ugo Calcium 7.9 L Phosphorus Magnesium Total Bilirubin AST Creatine Kinase Troponin I Total Protein Albumin Urine Protein Urine Blood Ur Leukocyte Esterase Urine RBC Urine WBC Urine WBC Clumps Ur Squamous Epith Cells Calcium Oxalate Crystal Urine Bacteria Urine Mucus 02/24/22 02/24/22 02/24/22 18:05 18:05 19:19 WBC RBC Hgb Hct MCV Plt Count Neutrophils # Lymphocytes # APTT Fibrinogen ABG pH 7.33 L 7.32 L ABG pCO2 ABG pO2 36 L* 37 L* ABG HCO3 19 L 19 L ABG O2 Saturation 52.7 L 51.9 L Sodium Potassium Chloride Carbon Dioxide BUN Creatinine Glucose POC Glucose (mg/dL) 70 L Plasma Lactic Acid Ugo Calcium Phosphorus Magnesium Total Bilirubin AST Creatine Kinase Troponin I Total Protein Albumin Urine Protein Urine Blood Ur Leukocyte Esterase Urine RBC Urine WBC Urine WBC Clumps Ur Squamous Epith Cells Calcium Oxalate Crystal Urine Bacteria Urine Mucus 02/24/22 02/25/22 02/25/22 20:34 00:37 06:52 WBC RBC 3.06 L Hgb 10.1 L Hct 31.7 L MCV 103.6 H Plt Count 127 L Neutrophils # Lymphocytes # 0.7 L APTT 30.7 H Fibrinogen 536 H ABG pH ABG pCO2 ABG pO2 ABG HCO3 ABG O2 Saturation Sodium Potassium Chloride Carbon Dioxide BUN Creatinine Glucose POC Glucose (mg/dL) Plasma Lactic Acid Ugo Calcium Phosphorus Magnesium Total Bilirubin AST Creatine Kinase Troponin I Total Protein Albumin Urine Protein Urine Blood Ur Leukocyte Esterase Urine RBC Urine WBC Urine WBC Clumps Ur Squamous Epith Cells Calcium Oxalate Crystal Urine Bacteria Urine Mucus 02/25/22 02/25/22 02/25/22 06:52 06:52 11:26 WBC RBC Hgb Hct MCV Plt Count Neutrophils # Lymphocytes # APTT Fibrinogen 541 H ABG pH ABG pCO2 ABG pO2 ABG HCO3 ABG O2 Saturation Sodium 146 H Potassium Chloride 118 H Carbon Dioxide 20 L BUN Creatinine Glucose POC Glucose (mg/dL) 110 H Plasma Lactic Acid Ugo Calcium 7.9 L Phosphorus Magnesium Total Bilirubin AST Creatine Kinase Troponin I Total Protein Albumin Urine Protein Urine Blood Ur Leukocyte Esterase Urine RBC Urine WBC Urine WBC Clumps Ur Squamous Epith Cells Calcium Oxalate Crystal Urine Bacteria Urine Mucus 02/25/22 02/26/22 02/26/22 12:49 05:26 05:26 WBC RBC 3.15 L Hgb 10.3 L Hct 32.1 L MCV 101.8 H Plt Count 144 L Neutrophils # Lymphocytes # 0.9 L APTT Fibrinogen 521 H ABG pH ABG pCO2 ABG pO2 ABG HCO3 ABG O2 Saturation Sodium 148 H Potassium 3.1 L Chloride 120 H Carbon Dioxide BUN Creatinine Glucose 105 H POC Glucose (mg/dL) Plasma Lactic Acid Ugo Calcium 8.2 L Phosphorus Magnesium Total Bilirubin AST 80 H Creatine Kinase Troponin I Total Protein 5.9 L Albumin 2.4 L Urine Protein Urine Blood Ur Leukocyte Esterase Urine RBC Urine WBC Urine WBC Clumps Ur Squamous Epith Cells Calcium Oxalate Crystal Urine Bacteria Urine Mucus 02/26/22 02/27/22 02/27/22 17:40 05:31 05:31 WBC RBC 3.07 L Hgb 10.1 L Hct 31.5 L MCV 102.4 H Plt Count Neutrophils # 8.3 H Lymphocytes # 0.9 L APTT Fibrinogen ABG pH ABG pCO2 ABG pO2 ABG HCO3 ABG O2 Saturation Sodium 147 H 148 H Potassium Chloride 122 H 122 H Carbon Dioxide 21 L 20 L BUN Creatinine Glucose 134 H 136 H POC Glucose (mg/dL) Plasma Lactic Acid Ugo Calcium 8.2 L 8.1 L Phosphorus Magnesium Total Bilirubin AST 71 H Creatine Kinase Troponin I Total Protein 5.9 L Albumin 2.4 L Urine Protein Urine Blood Ur Leukocyte Esterase Urine RBC Urine WBC Urine WBC Clumps Ur Squamous Epith Cells Calcium Oxalate Crystal Urine Bacteria Urine Mucus Assessment and Plan Assessment: Altered mental status due to multifactorial: Hypoxic encephalopathy (due to Pulmonary embolism), component of metoblic encephalopathy and underlying UTI and possible aspiration pneumonia.---per nurse he seems better upon me examining him compared to earlier. Acute Pulmonary embolism s/p EKOS for the right pulmonary embolis on . Syncopal episode due to pulmonary embolism Acute UTI Questionable bladder mass Reported dementia Chronic ongoing alcohol use and last use was 4 days prior to presenting to hospital Tobacco use Plan: Patient had repeat CT head ordered by ICU team and I personally reviewed it and no acute or subacute ischemia and no intraparenchymal hemorrhage. Pending final report. Ordered routine EEG (will be performed tomorrow). Ordered ammonia level, vitamin B12, folate. If ammonia level is elevated will defer management to the primary team. Q2Hr neuro checks. Patient is on Thiamine 100mg daily. Cardiology is on board For questionable bladder mass: Urology is consulted PT and OT are consulted. Will defer the rest of medical management to the primary and ICU team. The plan is discussed with the patient's nurse. Thank you for the consultation. Dr. Lima will start neurology service tomorrow AM. Casey Storey M.D. Neuro-Hospitalist. Time with Patient: Greater than 30
[2022-02-28] MEDS: PIPERACILLIN-TAZOBACTAM 3.375 GM in SODIUM CHLORIDE 0.9% 100 ML IVPB SCH ×3 (04:35→19:57)
[2022-02-28] MEDS: DEXTROSE 5% IN WATER 1,000 ML IV SCH ×2 (04:37→18:52)
[2022-02-28 06:25] LABS: Basophils % (A) 1 %; Eosinophils # (A) 0.2 k/uL (0-0.7); Eosinophils % (A) 3 %; HCT 35.5 % (39.0-53.0); HGB 10.9 gm/dL (13.0-17.5); Hypochromasia Marked; Lymphocytes % (A) 11 %; MCH 32.4 pg (25.0-35.0); MCHC 30.7 g/dL (31.0-37.0); MCV 105.6 fL (80.0-100.0); Macrocytosis Slight; Mean Platelet Volume 9.1; Monocytes # (A) 0.4 k/uL (0-1.0); Monocytes % (A) 5 %; Neutrophils # (A) 6.8 k/uL (1.3-7.7); Neutrophils % (A) 80 %; Platelet Count 187 k/uL (150-450); RBC 3.36 m/uL (4.30-5.90); RDW 12.7 % (11.5-15.5); WBC 8.6 k/uL (3.8-10.6)
[2022-02-28 06:43] LABS: ALT 20 U/L (4-49); AST 49 U/L (17-59); African American GFR (CKD) >90 (>60 ml/min/1.73 sqM); Albumin 2.3 g/dL (3.5-5.0); Alkaline Phosphatase 84 U/L (38-126); Anion Gap 6 mmol/L; Blood Urea Nitrogen 11 mg/dL (9-20); Carbon Dioxide 22 mmol/L (22-30); Chloride 117 mmol/L (98-107); Glucose 102 mg/dL (74-99); Non-African American GFR(CKD) >90 (>60 ml/min/1.73 sqM); Potassium 3.9 mmol/L (3.5-5.1); Sodium 145 mmol/L (137-145); Total Bilirubin 0.8 mg/dL (0.2-1.3)
[2022-02-28] MEDS ORDERED: Potassium Replacement Protocol 1 EACH MISC MISCELLANE PRN (07:55)
[2022-02-28] MEDS ORDERED: POTASSIUM BICARBONATE/CIT AC 20 MEQ TABLET.EFF NG-TUBE SCH (08:00)
--- NOTE | 2022-02-28 08:32 | XR ---
EXAMINATION TYPE: XR chest 1V portable DATE OF EXAM: 02/28/2022 COMPARISON: 02/27/2022 HISTORY: SOB, Follow Up FINDINGS: Indwelling tubes and catheters are unchanged. Noted interstitial infiltrates remain unchanged. Stable appearance of the cardio-mediastinal structures at this time. IMPRESSION: 1. Stable portable chest. Clinical correlation and follow up until resolution is recommended.
--- NOTE | 2022-02-28 09:11 | P.PN ---
Subjective Progress Note Date: 02/28/22 The patient is an 82-year-old male who is currently admitted to the hospital after being found unresponsive and was subsequently diagnosed with a pulmonary embolism. Evidence of right heart strain was noted, therefore the patient underwent EKOS procedure on 02/24/22. Yesterday the patient was noted to be more obtunded, therefore neurological evaluation was recommended. On exam this morning the patient is sitting comfortably in bed. He is alert and oriented 2. He is aware of himself and that he is currently in the hospital, however has no recollection his admission or early day of admission. She states he's feeling relatively well and has no complaints. GENERAL: Well-appearing, well-nourished and in no acute distress. NECK: Supple without JVD or thyromegaly. LUNGS: Breath sounds coarse auscultation bilaterally, worse on the right. Respiration equal and unlabored. No wheezes. HEART: Regular rate and rhythm without murmurs, rubs or gallops. S1 and S2 heard. EXTREMITIES: Limited range of motion. Bilateral foot drop boots, no edema. No clubbing or cyanosis. Peripheral pulses intact. VITALS: Blood pressure 129/90, SpO2 96% on 2 L nasal cannula, respiratory rate 22, heart rate 75 TELEMETRY: Sinus rhythm LABS: WBC 8.6, hemoglobin 10.9, hematocrit 35.5, platelet 187, sodium 145, potassium 3.9, BUN 11, creatinine 0.66, AST 49, ALT 20 IMPRESSION: Large right lower lobe pulmonary embolism with right heart strain Syncope Elevated troponin, secondary to PE Acute kidney injury, resolved History of alcohol abuse PLAN: Repeat limited echocardiogram to reevaluate RV and pulmonary pressures Continue anticoagulation Further recommendations. Based on clinical course I am dictating on behalf of Dr Osito Roach's history/physical and assessment/plan. Objective - Vital Signs Vital signs: Vital Signs Temp 98.4 F 02/28/22 04:00 Pulse 75 02/28/22 07:00 Resp 22 02/28/22 07:00 BP 129/90 02/28/22 07:00 Pulse Ox 96 02/28/22 07:00 Intake & Output 02/27/22 02/28/22 02/28/22 18:59 06:59 18:59 Intake Total 1280 1200 Output Total 765 625 Balance 515 575 Weight 75 kg Intake: IV 600 850 Dextrose 5% in Water 1, 600 650 000 ml @ 50 mls/hr IV . Q20H [facility] Rx#:[id number] Piperacillin-Tazobactam 3 200 .375 gm In Sodium Chloride 0.9% 100 ml @ 25 mls/hr IVPB Q8H [facility] Rx#: [id number] Intake, IV Titration 100 Amount Piperacillin-Tazobactam 3 100 .375 gm In Sodium Chloride 0.9% 100 ml @ 25 mls/hr IVPB Q8H [facility] Rx#: [id number] Tube Feeding 180 260 Other 400 90 Output: Urine 765 625 Other: Voiding Method Indwelling Catheter Indwelling Catheter - Labs CBC & Chem 7: 02/28/22 06:06 02/28/22 06:06 Labs: Abnormal Lab Results - Last 24 Hours (Table) 02/28/22 02/28/22 Range/Units 06:06 06:06 RBC 3.36 L (4.30-5.90) m/uL Hgb 10.9 L (13.0-17.5) gm/dL Hct 35.5 L (39.0-53.0) % MCV 105.6 H (80.0-100.0) fL MCHC 30.7 L (31.0-37.0) g/dL Chloride 117 H (98-107) mmol/L Glucose 102 H (74-99) mg/dL Calcium 8.0 L (8.4-10.2) mg/dL Total Protein 6.0 L (6.3-8.2) g/dL Albumin 2.3 L (3.5-5.0) g/dL Microbiology - Last 24 Hours (Table) 02/23/22 22:00 Blood Culture - Preliminary Blood No Growth after 96 hours 02/23/22 22:05 Blood Culture - Preliminary Blood No Growth after 96 hours
--- NOTE | 2022-02-28 10:14 | P.PN ---
Subjective Progress Note Date: 02/25/22 Patient is a 82-year-old male with a known history of dementia, history of CVA/TIA and currently everyday smoker and history of heavy alcohol abuse was brought to the hospital by EMS. Patient was found on the floor. Patient does not recall how long she was staying on there. Patient is also complaining of knee pain and back pain which is not significant as his usual level. No complaints of fever or chills. No chest pain but did have mild shortness of breath. Patient did have last alcohol drink about 4 days ago. Currently not on any home medications as per the list. Denies any paralysis. Patient is somewhat poor historian. CT head and cervical spine showed multilevel cervical spondylitic changes. No fractures. Cerebral atrophy. No acute intercurrent abnormality. No significant change. Chest x-ray showed mild coarsening of the left lung markings could be mild pulmonary fibrosis. No significant change compatible exam. Laboratory data showed WBC 12.1 hemoglobin 13.2 and platelets 201 sodium 141 potassium 4.1 chloride 107 bicarb is 16 BUN 24 and creatinine 1.36 and blood sugar is 135 and lactic acid 4.7 Magnesium 2.4 AST 159 ALT 27 alk phos 79 CPK 02/13/2006 and troponin 0.047 TSH 3.199 urinalysis showed 2+ protein moderate blood large leukocyte esterase and elevated RBCs and WBCs. Coronavirus PCR not detected. CT of the abdomen and pelvis showed urinary bladder wall thickening is nonspecific. Follow-up recommended. Bladder tumor is possible. There is evidence of constipation. Minimal fibrotic changes and subsegmental atelectasis in the lung bases. CT angiogram of the chest showed large emboli in the right lower lobe pulmonary artery. 02/25/2022 Patient is currently in the MICU. Admitted to hospital due to large pulmonary embolism and right ventricular strain. Status post EKOS procedure today. Currently on room air. Does not require any pressor support. Otherwise patient is very confused and mumbling. Continued on alcohol withdrawal protocol. Laboratory data showed WBC 8.1 hemoglobin 10.1 and platelets 127 sodium 146 potassium 4.0 chloride 108 bicarb is 20 BUN 19 and creatinine 1.02 and calcium 7.9 lipase 68. Current medications reviewed. Objective - Vital Signs Vital signs: Vital Signs Temp 98.4 F 02/25/22 16:00 Pulse 117 H 02/25/22 19:00 Resp 25 H 02/25/22 19:00 BP 103/75 02/25/22 19:00 Pulse Ox 93 L 02/25/22 19:00 Intake & Output 02/25/22 02/25/22 02/26/22 06:59 18:59 06:59 Intake Total 1411.972 660 60 Output Total 360 500 85 Balance 1051.972 160 -25 Weight 85.5 kg 85.5 kg Intake: IV 1380 660 60 Sodium Chloride 0.9% 1, 1170 660 60 000 ml @ 130 mls/hr IV . Q7H42M [facility] Rx#:[id number] Sodium Chloride 0.9% 1, 210 000 ml @ 60 mls/hr IV . [id number] [facility] Rx#:[id number] Intake, IV Titration 31.972 Amount Norepinephrine 4 mg In 31.972 Sodium Chloride 0.9% 250 ml @ 0.05 MCG/KG/MIN 15. 986 mls/hr IV .[id number] [facility] Rx#:[id number] Output: Urine 360 500 85 Other: Voiding Method Indwelling Catheter Indwelling Catheter - Exam PHYSICAL EXAMINATION: Patient is lying in the bed comfortably, no acute distress, awake alert but lethargic and drowsy... HEENT: Normocephalic. Neck is supple. Pupils reactive. Nostrils clear. Oral cavity is moist. Neck reveals no JVD, carotid bruits, or thyromegaly. CHEST EXAMINATION: Trachea is central. Symmetrical expansion. Scattered crackles. Lung perez clear to auscultation and percussion. CARDIAC: Normal S1, S2 with no gallops. No murmurs ABDOMEN: Soft. Bowel sounds normal. No organomegaly. No abdominal bruits. Extremities: reveal no edema. No clubbing or cyanosis Neurologically awake, alert, oriented x3 with well-coordinated movements. No focal deficits noted Skin: No rash or skin lesions. Psychiatric: Cooperative. Could not be assessed at this time completely. Musculoskeletal: No joint swelling or deformity. Normal range of motion. - Labs CBC & Chem 7: 02/28/22 06:06 02/28/22 06:06 Labs: Abnormal Lab Results - Last 24 Hours (Table) 02/25/22 02/25/22 02/25/22 Range/Units 00:37 06:52 06:52 RBC 3.06 L (4.30-5.90) m/uL Hgb 10.1 L (13.0-17.5) gm/dL Hct 31.7 L (39.0-53.0) % MCV 103.6 H (80.0-100.0) fL Plt Count 127 L (150-450) k/uL Lymphocytes # 0.7 L (1.0-4.8) k/uL Fibrinogen 536 H (200-500) mg/dL Sodium 146 H (137-145) mmol/L Chloride 118 H (98-107) mmol/L Carbon Dioxide 20 L (22-30) mmol/L POC Glucose (mg/dL) (75-99) mg/dL Calcium 7.9 L (8.4-10.2) mg/dL 02/25/22 02/25/22 02/25/22 Range/Units 06:52 11:26 12:49 RBC (4.30-5.90) m/uL Hgb (13.0-17.5) gm/dL Hct (39.0-53.0) % MCV (80.0-100.0) fL Plt Count (150-450) k/uL Lymphocytes # (1.0-4.8) k/uL Fibrinogen 541 H 521 H (200-500) mg/dL Sodium (137-145) mmol/L Chloride (98-107) mmol/L Carbon Dioxide (22-30) mmol/L POC Glucose (mg/dL) 110 H (75-99) mg/dL Calcium (8.4-10.2) mg/dL Microbiology - Last 24 Hours (Table) 02/23/22 21:03 Urine Culture - Preliminary Urine,Voided Gram Neg Bacilli 02/23/22 22:00 Blood Culture - Preliminary Blood No Growth after 24 hours 02/23/22 22:05 Blood Culture - Preliminary Blood No Growth after 24 hours Assessment and Plan Assessment: Acute right lower lobe large emboli/PE with right ventricular strain as per CT.. Status post EKOS on 02/25. Acute syncopal episode and hitting his head likely secondary to above Acute hypoxemic respiratory failure Mild troponin elevation Acute urinary tract infection Acute kidney injury with creatinine 1.36 on admission Acute rhabdomyolysis Dementia Severe alcohol abuse. Last drink was 4 days ago. Currently everyday smoker DVT prophylaxis. On heparin drip. Plan: Patient will be continued on heparin drip and oxygen supplementation via nasal cannula. 2D echocardiogram was ordered to rule out right ventricular strain. Patient will be continued on gentle IV hydration and monitor renal function closely. Continue with antibiotics in the form of ceftriaxone and follow-up urine culture report. Cardiology and pulmonary is following.. Status post EKOS procedure. Monitor for alcohol withdrawal symptoms. Prognosis is guarded with multiple m edical problems and comorbid conditions. Time with Patient: Greater than 30
--- NOTE | 2022-02-28 10:17 | P.PN ---
Subjective Progress Note Date: 02/26/22 Patient is a 82-year-old male with a known history of dementia, history of CVA/TIA and currently everyday smoker and history of heavy alcohol abuse was brought to the hospital by EMS. Patient was found on the floor. Patient does not recall how long she was staying on there. Patient is also complaining of knee pain and back pain which is not significant as his usual level. No complaints of fever or chills. No chest pain but did have mild shortness of breath. Patient did have last alcohol drink about 4 days ago. Currently not on any home medications as per the list. Denies any paralysis. Patient is somewhat poor historian. CT head and cervical spine showed multilevel cervical spondylitic changes. No fractures. Cerebral atrophy. No acute intercurrent abnormality. No significant change. Chest x-ray showed mild coarsening of the left lung markings could be mild pulmonary fibrosis. No significant change compatible exam. Laboratory data showed WBC 12.1 hemoglobin 13.2 and platelets 201 sodium 141 potassium 4.1 chloride 107 bicarb is 16 BUN 24 and creatinine 1.36 and blood sugar is 135 and lactic acid 4.7 Magnesium 2.4 AST 159 ALT 27 alk phos 79 CPK 02/13/2006 and troponin 0.047 TSH 3.199 urinalysis showed 2+ protein moderate blood large leukocyte esterase and elevated RBCs and WBCs. Coronavirus PCR not detected. CT of the abdomen and pelvis showed urinary bladder wall thickening is nonspecific. Follow-up recommended. Bladder tumor is possible. There is evidence of constipation. Minimal fibrotic changes and subsegmental atelectasis in the lung bases. CT angiogram of the chest showed large emboli in the right lower lobe pulmonary artery. 02/25/2022 Patient is currently in the MICU. Admitted to hospital due to large pulmonary embolism and right ventricular strain. Status post EKOS procedure today. Currently on room air. Does not require any pressor support. Otherwise patient is very confused and mumbling. Continued on alcohol withdrawal protocol. Laboratory data showed WBC 8.1 hemoglobin 10.1 and platelets 127 sodium 146 potassium 4.0 chloride 108 bicarb is 20 BUN 19 and creatinine 1.02 and calcium 7.9 lipase 68. 02/26/2022 Patient is currently in the MICU. Confused and lethargic and mumbling. Currently being continued alcohol withdrawal protocol. Anticoagulation with heparin will be changed to Eliquis. Otherwise patient is medically antibiotics now ceftriaxone for urinary tract infection. IV hydration with D5 water. Laboratory data showed WBC 9.2 hemoglobin 10.3 and platelets 144 Sodium 148 potassium 3.1 chloride 120 bicarb is 22 BUN 14 and creatinine 0.98 Current medications reviewed. Objective - Vital Signs Vital signs: Vital Signs Temp 98.2 F 02/26/22 12:00 Pulse 109 H 02/26/22 14:00 Resp 29 H 02/26/22 14:00 BP 146/93 02/26/22 14:00 Pulse Ox 95 02/26/22 14:00 Intake & Output 02/25/22 02/26/22 02/26/22 18:59 06:59 18:59 Intake Total 660 640 660 Output Total 500 650 435 Balance 160 -10 225 Weight 85.5 kg 77.7 kg Intake: IV 660 640 60 0.9% NS 480 60 Sodium Chloride 0.9% 1, 660 60 000 ml @ 130 mls/hr IV . Q7H42M [facility] Rx#:[id number] cefTRIAXone 1 gm In 100 Sodium Chloride 0.9% 50 ml @ 100 mls/hr IVPB Q24H [facility] Rx#:[id number] Intake, IV Titration 600 Amount Dextrose 5% in Water 1, 200 000 ml @ 50 mls/hr IV . Q20H [facility] Rx#:[id number] Potassium Chloride 20 meq 200 In Water For Injection 1 100ml.bag @ 50 mls/hr IVPB Q2H [facility] Rx#: [id number] Potassium Chloride 20 meq 200 In Water For Injection 1 100ml.bag @ 50 mls/hr IVPB Q2H [facility] Rx#: [id number] Output: Urine 500 650 435 Other: Voiding Method Indwelling Catheter Indwelling Catheter Indwelling Catheter - Exam PHYSICAL EXAMINATION: Patient is lying in the bed comfortably, no acute distress, awake alert but lethargic and drowsy... HEENT: Normocephalic. Neck is supple. Pupils reactive. Nostrils clear. Oral cavity is moist. Neck reveals no JVD, carotid bruits, or thyromegaly. CHEST EXAMINATION: Trachea is central. Symmetrical expansion. Scattered crackles. Lung perez clear to auscultation and percussion. CARDIAC: Normal S1, S2 with no gallops. No murmurs ABDOMEN: Soft. Bowel sounds normal. No organomegaly. No abdominal bruits. Extremities: reveal no edema. No clubbing or cyanosis Neurologically awake, alert, oriented x3 with well-coordinated movements. No focal deficits noted Skin: No rash or skin lesions. Psychiatric: Cooperative. Could not be assessed at this time completely. Musculoskeletal: No joint swelling or deformity. Normal range of motion. - Labs CBC & Chem 7: 02/28/22 06:06 02/28/22 06:06 Labs: Abnormal Lab Results - Last 24 Hours (Table) 02/26/22 02/26/22 Range/Units 05:26 05:26 RBC 3.15 L (4.30-5.90) m/uL Hgb 10.3 L (13.0-17.5) gm/dL Hct 32.1 L (39.0-53.0) % MCV 101.8 H (80.0-100.0) fL Plt Count 144 L (150-450) k/uL Lymphocytes # 0.9 L (1.0-4.8) k/uL Sodium 148 H (137-145) mmol/L Potassium 3.1 L (3.5-5.1) mmol/L Chloride 120 H (98-107) mmol/L Glucose 105 H (74-99) mg/dL Calcium 8.2 L (8.4-10.2) mg/dL AST 80 H (17-59) U/L Total Protein 5.9 L (6.3-8.2) g/dL Albumin 2.4 L (3.5-5.0) g/dL Microbiology - Last 24 Hours (Table) 02/23/22 21:03 Urine Culture - Final Urine,Voided Escherichia coli 02/23/22 22:00 Blood Culture - Preliminary Blood No Growth after 48 hours 02/23/22 22:05 Blood Culture - Preliminary Blood No Growth after 48 hours Assessment and Plan Assessment: Acute right lower lobe large emboli/PE with right ventricular strain as per CT.. Status post EKOS on 02/25. Acute syncopal episode and hitting his head likely secondary to above Acute hypoxemic respiratory failure Mild troponin elevation Acute urinary tract infection Acute kidney injury with creatinine 1.36 on admission Acute rhabdomyolysis Dementia Severe alcohol abuse. Last drink was 4 days ago. Currently everyday smoker DVT prophylaxis. On heparin drip. Plan: Patient will be continued on heparin drip and oxygen supplementation via nasal cannula. 2D echocardiogram was ordered to rule out right ventricular strain. Patient will be continued on gentle IV hydration and monitor renal function closely. Continue with antibiotics in the form of ceftriaxone and follow-up urine culture report. Cardiology and pulmonary is following.. Status post EKOS procedure. Monitor for alcohol withdrawal symptoms. Prognosis is guarded with multiple medical problems and comorbid conditions. Time with Patient: Greater than 30
--- NOTE | 2022-02-28 10:20 | P.PN ---
Subjective Progress Note Date: 02/27/22 Patient is a 82-year-old male with a known history of dementia, history of CVA/TIA and currently everyday smoker and history of heavy alcohol abuse was brought to the hospital by EMS. Patient was found on the floor. Patient does not recall how long she was staying on there. Patient is also complaining of knee pain and back pain which is not significant as his usual level. No complaints of fever or chills. No chest pain but did have mild shortness of breath. Patient did have last alcohol drink about 4 days ago. Currently not on any home medications as per the list. Denies any paralysis. Patient is somewhat poor historian. CT head and cervical spine showed multilevel cervical spondylitic changes. No fractures. Cerebral atrophy. No acute intercurrent abnormality. No significant change. Chest x-ray showed mild coarsening of the left lung markings could be mild pulmonary fibrosis. No significant change compatible exam. Laboratory data showed WBC 12.1 hemoglobin 13.2 and platelets 201 sodium 141 potassium 4.1 chloride 107 bicarb is 16 BUN 24 and creatinine 1.36 and blood sugar is 135 and lactic acid 4.7 Magnesium 2.4 AST 159 ALT 27 alk phos 79 CPK 02/13/2006 and troponin 0.047 TSH 3.199 urinalysis showed 2+ protein moderate blood large leukocyte esterase and elevated RBCs and WBCs. Coronavirus PCR not detected. CT of the abdomen and pelvis showed urinary bladder wall thickening is nonspecific. Follow-up recommended. Bladder tumor is possible. There is evidence of constipation. Minimal fibrotic changes and subsegmental atelectasis in the lung bases. CT angiogram of the chest showed large emboli in the right lower lobe pulmonary artery. 02/25/2022 Patient is currently in the MICU. Admitted to hospital due to large pulmonary embolism and right ventricular strain. Status post EKOS procedure today. Currently on room air. Does not require any pressor support. Otherwise patient is very confused and mumbling. Continued on alcohol withdrawal protocol. Laboratory data showed WBC 8.1 hemoglobin 10.1 and platelets 127 sodium 146 potassium 4.0 chloride 108 bicarb is 20 BUN 19 and creatinine 1.02 and calcium 7.9 lipase 68. 02/26/2022 Patient is currently in the MICU. Confused and lethargic and mumbling. Currently being continued alcohol withdrawal protocol. Anticoagulation with heparin will be changed to Eliquis. Otherwise patient is medically antibiotics now ceftriaxone for urinary tract infection. IV hydration with D5 water. Laboratory data showed WBC 9.2 hemoglobin 10.3 and platelets 144 Sodium 148 potassium 3.1 chloride 120 bicarb is 22 BUN 14 and creatinine 0.98 02/27/2022 Patient remains in the MICU. Patient is still confused and lethargic and not improving well. Neurology was consulted for evaluation. CT head was done which showed is related atrophic and chronic small vessel ischemic changes without acute p intracranial Process. Chest x-ray showed mild left perihilar and right basilar infiltrate. Laboratory data showed WBC 9.8 hemoglobin 10.1 and platelets 168 Sodium 148 potassium 3.6 chloride 122 bicarb is 20 BUN 11 creatinine 0.73 and calcium 8.1 albumin 3.4. Vitamin B12 is 342 and folate 13.6 within normal limits. Urine culture showed E. coli. Patient is being current antibiotics in the form of Zosyn. Also on anticoagulation changed to Eliquis via NG tube. Current medications reviewed. Objective - Vital Signs Vital signs: Vital Signs Temp 99.6 F 02/27/22 04:00 Pulse 97 02/27/22 06:00 Resp 38 H 02/27/22 06:00 BP 125/96 02/27/22 06:00 Pulse Ox 93 L 02/27/22 06:00 Intake & Output 02/27/22 02/27/22 02/28/22 06:59 18:59 06:59 Intake Total 960 1280 70 Output Total 620 765 50 Balance 340 515 20 Weight 76 kg Intake: IV 550 600 50 Dextrose 5% in Water 1, 450 600 50 000 ml @ 50 mls/hr IV . Q20H [facility] Rx#:[id number] cefTRIAXone 1 gm In 100 Sodium Chloride 0.9% 50 ml @ 100 mls/hr IVPB Q24H [facility] Rx#:[id number] Intake, IV Titration 50 100 Amount Dextrose 5% in Water 1, 50 000 ml @ 50 mls/hr IV . Q20H [facility] Rx#:[id number] Piperacillin-Tazobactam 3 100 .375 gm In Sodium Chloride 0.9% 100 ml @ 25 mls/hr IVPB Q8H [facility] Rx#: [id number] Tube Feeding 270 180 20 Other 90 400 Output: Urine 620 765 50 Other: Voiding Method Indwelling Catheter Indwelling Catheter - Exam PHYSICAL EXAMINATION: Patient is lying in the bed comfortably, no acute distress, awake alert but lethargic and drowsy... HEENT: Normocephalic. Neck is supple. Pupils reactive. Nostrils clear. Oral cavity is moist. Neck reveals no JVD, carotid bruits, or thyromegaly. CHEST EXAMINATION: Trachea is central. Symmetrical expansion. Scattered crackles. Lung perez clear to auscultation and percussion. CARDIAC: Normal S1, S2 with no gallops. No murmurs ABDOMEN: Soft. Bowel sounds normal. No organomegaly. No abdominal bruits. Extremities: reveal no edema. No clubbing or cyanosis Neurologically awake, alert, oriented x3 with well-coordinated movements. No focal deficits noted Skin: No rash or skin lesions. Psychiatric: Cooperative. Could not be assessed at this time completely. Musculoskeletal: No joint swelling or deformity. Normal range of motion. - Labs CBC & Chem 7: 02/28/22 06:06 02/28/22 06:06 Labs: Abnormal Lab Results - Last 24 Hours (Table) 02/27/22 02/27/22 Range/Units 05:31 05:31 RBC 3.07 L (4.30-5.90) m/uL Hgb 10.1 L (13.0-17.5) gm/dL Hct 31.5 L (39.0-53.0) % MCV 102.4 H (80.0-100.0) fL Neutrophils # 8.3 H (1.3-7.7) k/uL Lymphocytes # 0.9 L (1.0-4.8) k/uL Sodium 148 H (137-145) mmol/L Chloride 122 H (98-107) mmol/L Carbon Dioxide 20 L (22-30) mmol/L Glucose 136 H (74-99) mg/dL Calcium 8.1 L (8.4-10.2) mg/dL AST 71 H (17-59) U/L Total Protein 5.9 L (6.3-8.2) g/dL Albumin 2.4 L (3.5-5.0) g/dL Microbiology - Last 24 Hours (Table) 02/23/22 22:00 Blood Culture - Preliminary Blood No Growth after 72 hours 02/23/22 22:05 Blood Culture - Preliminary Blood No Growth after 72 hours Assessment and Plan Assessment: Acute metabolic encephalopathy Acute right lower lobe large emboli/PE with right ventricular strain as per CT.. Status post EKOS on 02/25. Acute syncopal episode and hitting his head likely secondary to above Acute hypoxemic respiratory failure Mild troponin elevation Acute urinary tract infection with E. coli. Acute kidney injury with creatinine 1.36 on admission Acute rhabdomyolysis Dementia Severe alcohol abuse. Last drink was 4 days ago. Currently everyday smoker DVT prophylaxis. On heparin drip. Plan: Patient will be continued on heparin drip and oxygen supplementation via nasal cannula. 2D echocardiogram was ordered to rule out right ventricular strain. Patient will be continued on gentle IV hydration and monitor renal function closely. Continue with antibiotics in the form of ceftriaxone and follow-up urine culture report. Cardiology and pulmonary is following.. Status post EKOS procedure. Monitor for alcohol withdrawal symptoms. Prognosis is guarded with multiple medical problems and comorbid conditions. Time with Patient: Greater than 30
[2022-02-28] MEDS: APIXABAN 5 MG TAB PO SCH ×2 (10:26→20:02)
[2022-02-28] MEDS: PANTOPRAZOLE 40 MG/10 ML VIAL IV SCH (10:26)
[2022-02-28] MEDS: THIAMINE 100 MG TAB PO SCH ×2 (10:29→18:12)
--- NOTE | 2022-02-28 10:56 | P.PN ---
Subjective Progress Note Date: 02/28/22 Principal diagnosis: Altered mental status, acute hypoxic respiratory failure This is an 82-year-old male patient with a known history of dementia, chronic and ongoing tobacco dependence and alcohol abuse. He had a syncopal episode at home and was unsure of his down time. He had fallen and was laying on his cell phone. He had stated his last drink was 4 days prior. He did remember hitting his head. He arrived to the emergency room last evening. EMS stated his house was in disarray. computed tomography scan of the brain and C-spine revealed no acute intracranial abnormalities. No cervical fractures. Pelvic x-rays revealed no acute abnormality of the pelvis. X-ray of the right knee revealed no acute fracture. X-ray of the KUB revealed nonacute abdomen. EKG revealed sinus tachycardia with nonspecific ST and T wave abnormalities. Computed tomography scan of the abdomen and pelvis revealed urinary bladder wall thickening which is nonspecific. Follow-up recommended. Bladder tumor is possible. There is evidence of constipation. Mild fibrotic changes and subsegmental atelectasis at the lung bases.CT angiogram revealed large emboli in the right lower lobe pulmon zehra artery. Possible right heart strain. He is seen today in consultation in the emergency department. He is currently awake and alert. He has some garbled speech. Echocardiogram is in progress. He's been initiated on a heparin drip. He has a right internal jugular triple-lumen catheter in place. Currently in sinus rhythm. White count 9.1. Hemoglobin 10.3. Platelets 160. Sodium 142. Potassium 3.9. Bicarb 20. BUN 26. Creatinine 1.34. Glucose 115. AST 103. ALT 17. Creatinine kinase 4306. Troponins 0.04, 0.3, 0.4. Urinalysis positive for moderate blood, large leukocyte esterase, many bacteria. Urine culture is pending. He is maintaining O2 saturations up to 100% on 3 L/m per nasal cannula. He's been initiated on DuoNeb inhalations, antibiotics in the form of ceftriaxone and placed in the CIWA protocol. 0.9 normal saline at 130 ML's per hour. He had been hypotensive and currently on norepinephrine at 0.05 mcg/kg/m. patient was reevaluated today on 01/25/2022, patient remains in the ICU, he is doing quite well. He is actually on room air, O2 saturation is in the low 90s. Does not seem to be in any distress, patient is status post EKOS thrombolytic therapy, and he seems to be doing great. He was already started on eliquis,hemodynamically stable, not requiring any pressors. And his labs are basically unremarkable including CBC, and a relatively normal basic metabolic profile. Patient is intermittently agitated, and his requiring Ativan for sedation, remains on the alcohol withdrawal protocol. reevaluated today on 02/26/2022, patient remains in the ICU, confused, he is on room air, remains on anticoagulation therapy, he is also on ceftriaxone for presumptive urinary tract infection. His sodium seems to be a bit high today, hence I'm recommending D5W at 50 mL per hour. Considering his confusion, and considering his history of alcohol abuse, patient will be kept in the ICU for the next 24 hours for close monitoring. Patient is unable to take anything by mouth, may have to place a nasogastric tube for enteral feeding and to be able to give him his oral medications. Reevaluated today on 02/27/2022, patient remains in the ICU, he is developing mor e confusion, and significant worsening of his mental status today. Patient has a nasogastric tube in place, he is not being orally fed, but he will be receiving nutritional support via nasogastric tube. Patient is developing a bit of infiltrate in the right lower lobe, and slight infiltrate in the left perihilar area, I'm suspecting the patient may have developed a slight aspiration pneumonia, and I will empirically change antibiotics to Zosyn. Patient does have E. coli urinary tract infection, he is presently on Rocephin, however I believe Zosyn at this point would be more appropriate. Considering his worsening mental status, I recommended neurological consultation in the meantime I ordered a CT of the brain. His WBC count is 9.8 hemoglobin is 10 sodium is a bit high at 148, patient will receive free water via the nasogastric tube today. And we will try to get his sodium down as it may be a contributing factor to his metabolic encephalopathy. Renal profile is normal. The rest of the labs were basically unremarkable, albumin is low at 2.4. On 02/28/2022 patient seen in follow-up in intensive care unit, on today's exam neurologically he is more awake, responsive, he knows he is in hospital, he is in the CT report here, he knew the correct month, however started dozing off when we asked him who the president was. Appears to be breathing comfortably, no signs of any respiratory distress pulse ox is 96% on 2 L, vital signs are stable, afebrile, blood pressure stable, is currently on D5W at a rate of 50 ML per hour, he is on tube feedings of vital a rate of 20 ML per hour. He is status pos EKOS on 02/23/2022, he remains on Apixaban 10 mg twice daily. Yesterday we requested neurology recommendations in view of his lethargy, confusion, and altered mental status. Brain CT showed age-related atrophic and chronic small vessel ischemic changes without acute intracranial process. Chest x-ray showed interstitial infiltrates, unchanged. Today's labs have been revie wed, white blood cell count is 8.6, hemoglobin is 10.9, platelet count is 187, sodium is improved today is down to 145, potassium is 3.9, chloride is 117, CO2 is 22, BUN is 11 and creatinine 0.66. LFTs are within normal limits, ammonia level is less than 9. NG tube is in place, for tube feedings. But now the patient is more awake he is also taken and some sips of water by mouth. No other acute events overnight, vital signs have been stable, and overall patient seems to be clinically improving, more awake and alert, following commands Objective - Vital Signs Vital signs: Vital Signs Temp 98.4 F 02/28/22 04:00 Pulse 75 02/28/22 07:00 Resp 22 02/28/22 07:00 BP 129/90 02/28/22 07:00 Pulse Ox 96 02/28/22 07:00 Intake & Output 02/27/22 02/28/22 02/28/22 18:59 06:59 18:59 Intake Total 1280 1200 Output Total 765 625 Balance 515 575 Weight 75 kg 75 kg Intake: IV 600 850 Dextrose 5% in Water 1, 600 650 000 ml @ 50 mls/hr IV . Q20H [facility] Rx#:[id number] Piperacillin-Tazobactam 3 200 .375 gm In Sodium Chloride 0.9% 100 ml @ 25 mls/hr IVPB Q8H [facility] Rx#: [id number] Intake, IV Titration 100 Amount Piperacillin-Tazobactam 3 100 .375 gm In Sodium Chloride 0.9% 100 ml @ 25 mls/hr IVPB Q8H [facility] Rx#: [id number] Tube Feeding 180 260 Other 400 90 Output: Urine 765 625 Other: Voiding Method Indwelling Catheter Indwelling Catheter - Exam GENERAL EXAM: Drowsy but arousable to voice, 82-year-old white male, resting comfortably in bed, 2 L of oxygen with pulse ox of 98% comfortable in no apparent distress. HEAD: Normocephalic/atraumatic. EYES: Normal reaction of pupils, equal size. Conjunctiva pink, sclera white. NOSE: Clear with pink turbinates. NG tube is in place THROAT: No erythema or exudates. NECK: No masses, no JVD, no thyroid enlargement, no adenopathy. CHEST: No chest wall deformity. Symmetrical expansion. LUNGS: Equal air entry with no crackles, wheeze, rhonchi or dullness. CVS: Regular rate and rhythm, normal S1 and S2, no gallops, no murmurs, no rubs ABDOMEN: Soft, nontender. No hepatosplenomegaly, normal bowel sounds, no guarding or rigidity. EXTREMITIES: No clubbing, no edema, no cyanosis, 2+ pulses and upper and lower extremities. MUSCULOSKELETAL: Muscle strength and tone normal. SPINE: No scoliosis or deformity SKIN: No rashes CENTRAL NERVOUS SYSTEM: Drowsy and oriented -2. No focal deficits, tone is normal in all 4 extremities. PSYCHIATRIC: Drowsy and oriented -2. Appropriate affect. Intact judgment and insight. - Labs CBC & Chem 7: 02/28/22 06:06 02/28/22 06:06 Labs: Abnormal Lab Results - Last 24 Hours (Table) 02/28/22 02/28/22 Range/Units 06:06 06:06 RBC 3.36 L (4.30-5.90) m/uL Hgb 10.9 L (13.0-17.5) gm/dL Hct 35.5 L (39.0-53.0) % MCV 105.6 H (80.0-100.0) fL MCHC 30.7 L (31.0-37.0) g/dL Chloride 117 H (98-107) mmol/L Glucose 102 H (74-99) mg/dL Calcium 8.0 L (8.4-10.2) mg/dL Total Protein 6.0 L (6.3-8.2) g/dL Albumin 2.3 L (3.5-5.0) g/dL Microbiology - Last 24 Hours (Table) 02/23/22 22:00 Blood Culture - Preliminary Blood No Growth after 96 hours 02/23/22 22:05 Blood Culture - Preliminary Blood No Growth after 96 hours Assessment and Plan Plan: Assessment: #1. Syncopal episode secondary to pulmonary embolism #2. Acute hypoxic respiratory failure secondary to the above, and possibility of aspiration pneumonia #3. Right ventricular strain secondary to pulmonary embolism, status post EKOS and TPA #4. Possible urinary tract infection #5. History of alcohol abuse #6. Altered mental status, multifactorial, related to underlying history of dementia, acute pulmonary embolism, acute hypoxic respiratory failure, acute aspiration pneumonia, acute kidney injury, and hypernatremia #7. Acute kidney injury, resolved #8. Hypernatremia secondary to free water deficit, resolved #9. Acute toxic metabolic encephalopathy Plan: Continue current medical treatment Maintain aspiration precautions Continue same antibiotics Continue IV fluids Continue tube feedings Neurology recommendations have been noted Today's labs and chest x-rays have been reviewed No acute events overnight If remains stable may consider possible transfer out of intensive care unit tomorrow I have personally seen and examined the patient, performed the documentation and the assessment and plan as written. Number of minutes spent on the visit: [10] Time with Patient: Less than 30
--- NOTE | 2022-02-28 11:42 | P.PN ---
Subjective Progress Note Date: 02/28/[address] Casey Storey. Please refer to his note for details. Patient is a 82-year-old male with altered mental status. Patient had a syncopal spell, found unresponsive by the roommate. The syncopal spell was felt to be related to a PE. Patient's computed tomography scan of the head is normal. Patient at present is laying in the bed. He admits to having headache, but "not too bad". He has developed rhabdomyolysis, PE. Some report of alcoholism. Patient is apparently is homeless at this time. per nursing report, he is getting better. No new concerns. No seizure-like activity. Objective - Vital Signs Vital signs: Vital Signs Temp 98.4 F 02/28/22 04:00 Pulse 79 02/28/22 10:00 Resp 25 H 02/28/22 10:00 BP 133/78 02/28/22 10:00 Pulse Ox 96 02/28/22 10:00 Intake & Output 02/27/22 02/28/22 02/28/22 18:59 06:59 18:59 Intake Total 1280 1200 250 Output Total 765 625 140 Balance 515 575 110 Weight 75 kg 75 kg Intake: IV 600 850 250 Dextrose 5% in Water 1, 600 650 150 000 ml @ 50 mls/hr IV . Q20H [facility] Rx#:[id number] Piperacillin-Tazobactam 3 200 100 .375 gm In Sodium Chloride 0.9% 100 ml @ 25 mls/hr IVPB Q8H [facility] Rx#: [id number] Intake, IV Titration 100 Amount Piperacillin-Tazobactam 3 100 .375 gm In Sodium Chloride 0.9% 100 ml @ 25 mls/hr IVPB Q8H [facility] Rx#: [id number] Tube Feeding 180 260 Other 400 90 Output: Urine 765 625 140 Other: Voiding Method Indwelling Catheter Indwelling Catheter - Exam on examination patient is an elderly male, who is appearing encephalopathic, laying comfortably in the bed. When he wakes up, he appears congested, coughs. Patient states his legs are sore. Patient able to tell his name, date of and it is 2020. Patient states he is in [facility] in the hospital. Patient is slightly morning. Patient's pupils are equal, round and reacting to light, extraocular muscles are intact. No nystagmus. Visual perez are full on confrontation with no neglect. Face is symmetric and tongue protrudes the midline. Mouth is very dry. Hearing appears normal for conversation. Patient has multiple bruises/ecchymosis over his forearms and dorsum hand. Deep tendon reflexes are 1 in the right upper limb, 2 in the left upper limb, absent knees and ankles, plantars are flat. - Labs CBC & Chem 7: 03/01/22 05:05 03/01/22 05:05 Labs: Abnormal Lab Results - Last 24 Hours (Table) 02/28/22 02/28/22 Range/Units 06:06 06:06 RBC 3.36 L (4.30-5.90) m/uL Hgb 10.9 L (13.0-17.5) gm/dL Hct 35.5 L (39.0-53.0) % MCV 105.6 H (80.0-100.0) fL MCHC 30.7 L (31.0-37.0) g/dL Chloride 117 H (98-107) mmol/L Glucose 102 H (74-99) mg/dL Calcium 8.0 L (8.4-10.2) mg/dL Total Protein 6.0 L (6.3-8.2) g/dL Albumin 2.3 L (3.5-5.0) g/dL Microbiology - Last 24 Hours (Table) 02/23/22 22:00 Blood Culture - Preliminary Blood No Growth after 96 hours 02/23/22 22:05 Blood Culture - Preliminary Blood No Growth after 96 hours Assessment and Plan Assessment: Altered mental status due to multifactorial: Hypoxic encephalopathy (due to Pulmonary embolism), component of metoblic encephalopathy and underlying UTI and possible aspiration pneumonia.---per nurse he seems better upon me examining him compared to earlier. Acute Pulmonary embolism s/p EKOS for the right pulmonary embolis on 02/24/2022. Syncopal episode due to pulmonary embolism Acute E. Coli UTI Questionable bladder mass Reported dementia Chronic ongoing alcohol use and last use was 4 days prior to presenting to hospital Tobacco use Plan: * Repeat CT head 02/27/2022 showed age-related atrophic and chronic small vessel ischemic change doubt acute intracranial process. I personally reviewed CT head and agree with the finding. * EEG was performed, which was abnormal EEG due to mild background slowing, intermixed with fast frequency activity. This is suggestive of nonspecific generalized cerebral dysfunction as can be seen with encephalopathy or medication effect. No epileptiform activity was seen. * Patient's ammonia level <9, vitamin B12 342, folate 13.6. We will start B12 replacement. * Patient is on Thiamine 100mg daily. * Cardiology is on board * For questionable bladder mass: Urology is consulted * PT and OT when patient able to tolerate * Will defer the rest of medical management to the primary and ICU team.
[2022-02-28] MEDS: LACTULOSE 20 GM/30 ML CUP PO SCH ×2 (18:15→20:02)
--- NOTE | 2022-02-28 18:54 | EEG ---
ELECTROENCEPHALOGRAM REPORT DATE OF SERVICE: 02/28/2022 PREAMBLE: This is an 82-year-old male admitted with a syncopal spell. This study is performed to evaluate for any epileptiform activity. Patient does have history of dementia, tobacco and alcohol use. Patient currently takes Eliquis, Ativan. EEG FINDINGS: This is a 21-channel digital EEG recorded with video component, utilizing 10/20 international system with referential and bipolar montages. Background consists of moderately well developed and regulated mixed frequencies of 6 hertz theta, intermixed with some low-voltage fast frequency beta activity. Background does not seem to be clearly reactive to eye opening and closing. Photic driving response was not seen. Different stages of sleep were not seen. No focal or generalized epileptiform activity was seen. IMPRESSION: This is an abnormal EEG due to mild background slowing, intermixed with fast frequency activity. This is suggestive of nonspecific generalized cerebral dysfunction as can be seen with encephalopathy or medication effect. No epileptiform activity was seen. MMODL / IJN: [id number] /
[2022-03-01 06:01] LABS: African American GFR (CKD) >90 (>60 ml/min/1.73 sqM); Anion Gap 0 mmol/L; Blood Urea Nitrogen 10 mg/dL (9-20); Calcium 7.4 mg/dL (8.4-10.2); Carbon Dioxide 28 mmol/L (22-30); Chloride 108 mmol/L (98-107); Glucose 110 mg/dL (74-99); Non-African American GFR(CKD) >90 (>60 ml/min/1.73 sqM); Sodium 136 mmol/L (137-145)
[2022-03-01 06:10] LABS: Potassium 3.5 mmol/L (3.5-5.1)
[2022-03-01] MEDS: PIPERACILLIN-TAZOBACTAM 3.375 GM in SODIUM CHLORIDE 0.9% 100 ML IVPB SCH ×3 (06:19→20:08)
[2022-03-01 06:50] LABS: Basophils % (A) 0 %; Eosinophils # (A) 0.1 k/uL (0-0.7); Eosinophils % (A) 2 %; HCT 28.4 % (39.0-53.0); Lymphocytes # (A) 0.8 k/uL (1.0-4.8); Lymphocytes % (A) 13 %; MCH 32.1 pg (25.0-35.0); MCHC 31.7 g/dL (31.0-37.0); Macrocytosis Slight; Mean Platelet Volume 9.4; Monocytes # (A) 0.4 k/uL (0-1.0); Monocytes % (A) 6 %; Neutrophils % (A) 77 %; Platelet Count 230 k/uL (150-450); RBC 2.81 m/uL (4.30-5.90); RDW 13.6 % (11.5-15.5); WBC 6.4 k/uL (3.8-10.6)
[2022-03-01] MEDS: THIAMINE 100 MG TAB PO SCH ×2 (08:24→17:04)
[2022-03-01] MEDS: POTASSIUM BICARBONATE/CIT AC 20 MEQ TABLET.EFF NG-TUBE SCH ×2 (08:24→09:41)
[2022-03-01] MEDS: LACTULOSE 20 GM/30 ML CUP PO SCH ×2 (08:24→20:08)
[2022-03-01] MEDS: PANTOPRAZOLE 40 MG/10 ML VIAL IV SCH (08:25)
[2022-03-01] MEDS: APIXABAN 5 MG TAB PO SCH ×2 (08:26→20:07)
--- NOTE | 2022-03-01 09:05 | P.PN ---
Subjective Progress Note Date: 03/01/22 The patient is an 82-year-old male who is currently admitted to the hospital after being found unresponsive and was subsequently diagnosed with a pulmonary embolism. Evidence of right heart strain was noted, therefore the patient underwent EKOS procedure on 02/24/22. Repeat limited echocardiogram to be co mpleted on 03/01/2022. On exam this morning the patient is sleeping comfortably in bed. He continues to be alert and oriented 2. GENERAL: Well-appearing, well-nourished and in no acute distress. NECK: Supple without JVD or thyromegaly. LUNGS: Breath sounds coarse auscultation bilaterally, improving. Respiration equal and unlabored. No wheezes. HEART: Regular rate and rhythm without murmurs, rubs or gallops. S1 and S2 heard. EXTREMITIES: Limited range of motion. Bilateral foot drop boots, no edema. No clubbing or cyanosis. Peripheral pulses intact. VITALS: Blood pressure 90/56, pulse 76, respiratory rate 12, SpO2 99% on 2 L nasal cannula TELEMETRY: Sinus rhythm LABS: WBC 6.4, hemoglobin 9.0, hematocrit 28.4, platelet 2:30, sodium 136, potassium 3.5, chloride 108, BUN 10, creatinine 0.62 IMPRESSION: Large right lower lobe pulmonary embolism with right heart strain Syncope Elevated troponin, secondary to PE Acute kidney injury, resolved History of alcohol abuse PLAN: Awaiting results from repeat 2-D echocardiogram No changes to current medication regimen Further recommendations will be based on clinical course I am dictating on behalf of Dr Osito Roach's history/physical and assessment/plan. Objective - Vital Signs Vital signs: Vital Signs Temp 98.4 F 03/01/22 04:00 Pulse 76 03/01/22 07:00 Resp 12 03/01/22 07:00 BP 90/56 03/01/22 07:00 Pulse Ox 99 03/01/22 07:00 Intake & Output 02/28/22 03/01/22 03/01/22 18:59 06:59 18:59 Intake Total 900 1550 100 Output Total 490 485 100 Balance 410 1065 0 Weight 75 kg 78.4 kg Intake: IV 750 500 50 Dextrose 5% in Water 1, 550 400 000 ml @ 50 mls/hr IV . Q20H [facility] Rx#:[id number] Piperacillin-Tazobactam 3 200 100 50 .375 gm In Sodium Chloride 0.9% 100 ml @ 25 mls/hr IVPB Q8H [facility] Rx#: [id number] Oral 150 Tube Feeding 450 50 Other 600 Output: Urine 490 485 100 Other: Voiding Method Indwelling Catheter Indwelling Catheter - Labs CBC & Chem 7: 03/01/22 05:05 03/01/22 05:05 Labs: Abnormal Lab Results - Last 24 Hours (Table) 03/01/22 03/01/22 Range/Units 05:05 05:05 RBC 2.81 L (4.30-5.90) m/uL Hgb 9.0 L D (13.0-17.5) gm/dL Hct 28.4 L (39.0-53.0) % MCV 101.0 H (80.0-100.0) fL Lymphocytes # 0.8 L (1.0-4.8) k/uL Sodium 136 L (137-145) mmol/L Chloride 108 H (98-107) mmol/L Creatinine 0.62 L (0.66-1.25) mg/dL Glucose 110 H (74-99) mg/dL Calcium 7.4 L (8.4-10.2) mg/dL Microbiology - Last 24 Hours (Table) 02/23/22 22:00 Blood Culture - Preliminary Blood No Growth after 120 hours 02/23/22 22:05 Blood Culture - Preliminary Blood No Growth after 120 hours
[2022-03-01] MEDS: LACTATED RINGERS 1,000 ML IV SCH (09:41)
[2022-03-01] MEDS ORDERED: CYANOCOBALAMIN 1,000 MCG/ML 1 ML VIAL IM ONE (09:52)
--- NOTE | 2022-03-01 10:25 | P.PN ---
Subjective Progress Note Date: 03/01/22 Principal diagnosis: Altered mental status, acute hypoxic respiratory failure This is an 82-year-old male patient with a known history of dementia, chronic and ongoing tobacco dependence and alcohol abuse. He had a syncopal episode at home and was unsure of his down time. He had fallen and was laying on his cell phone. He had stated his last drink was 4 days prior. He did remember hitting his head. He arrived to the emergency room last evening. EMS stated his house was in disarray. computed tomography scan of the brain and C-spine revealed no acute intracranial abnormalities. No cervical fractures. Pelvic x-rays revealed no acute abnormality of the pelvis. X-ray of the right knee revealed no acute fracture. X-ray of the KUB revealed nonacute abdomen. EKG revealed sinus tachycardia with nonspecific ST and T wave abnormalities. Computed tomography scan of the abdomen and pelvis revealed urinary bladder wall thickening which is nonspecific. Follow-up recommended. Bladder tumor is possible. There is evidence of constipation. Mild fibrotic changes and subsegmental atelectasis at the lung bases.CT angiogram revealed large emboli in the right lower lobe pulmon zehra artery. Possible right heart strain. He is seen today in consultation in the emergency department. He is currently awake and alert. He has some garbled speech. Echocardiogram is in progress. He's been initiated on a heparin drip. He has a right internal jugular triple-lumen catheter in place. Currently in sinus rhythm. White count 9.1. Hemoglobin 10.3. Platelets 160. Sodium 142. Potassium 3.9. Bicarb 20. BUN 26. Creatinine 1.34. Glucose 115. AST 103. ALT 17. Creatinine kinase 4306. Troponins 0.04, 0.3, 0.4. Urinalysis positive for moderate blood, large leukocyte esterase, many bacteria. Urine culture is pending. He is maintaining O2 saturations up to 100% on 3 L/m per nasal cannula. He's been initiated on DuoNeb inhalations, antibiotics in the form of ceftriaxone and placed in the CIWA protocol. 0.9 normal saline at 130 ML's per hour. He had been hypotensive and currently on norepinephrine at 0.05 mcg/kg/m. patient was reevaluated today on 01/25/2022, patient remains in the ICU, he is doing quite well. He is actually on room air, O2 saturation is in the low 90s. Does not seem to be in any distress, patient is status post EKOS thrombolytic therapy, and he seems to be doing great. He was already started on eliquis,hemodynamically stable, not requiring any pressors. And his labs are basically unremarkable including CBC, and a relatively normal basic metabolic profile. Patient is intermittently agitated, and his requiring Ativan for sedation, remains on the alcohol withdrawal protocol. reevaluated today on 02/26/2022, patient remains in the ICU, confused, he is on room air, remains on anticoagulation therapy, he is also on ceftriaxone for presumptive urinary tract infection. His sodium seems to be a bit high today, hence I'm recommending D5W at 50 mL per hour. Considering his confusion, and considering his history of alcohol abuse, patient will be kept in the ICU for the next 24 hours for close monitoring. Patient is unable to take anything by mouth, may have to place a nasogastric tube for enteral feeding and to be able to give him his oral medications. Reevaluated today on 02/27/2022, patient remains in the ICU, he is developing mor e confusion, and significant worsening of his mental status today. Patient has a nasogastric tube in place, he is not being orally fed, but he will be receiving nutritional support via nasogastric tube. Patient is developing a bit of infiltrate in the right lower lobe, and slight infiltrate in the left perihilar area, I'm suspecting the patient may have developed a slight aspiration pneumonia, and I will empirically change antibiotics to Zosyn. Patient does have E. coli urinary tract infection, he is presently on Rocephin, however I believe Zosyn at this point would be more appropriate. Considering his worsening mental status, I recommended neurological consultation in the meantime I ordered a CT of the brain. His WBC count is 9.8 hemoglobin is 10 sodium is a bit high at 148, patient will receive free water via the nasogastric tube today. And we will try to get his sodium down as it may be a contributing factor to his metabolic encephalopathy. Renal profile is normal. The rest of the labs were basically unremarkable, albumin is low at 2.4. On 02/28/2022 patient seen in follow-up in intensive care unit, on today's exam neurologically he is more awake, responsive, he knows he is in hospital, he is in the CT report here, he knew the correct month, however started dozing off when we asked him who the president was. Appears to be breathing comfortably, no signs of any respiratory distress pulse ox is 96% on 2 L, vital signs are stable, afebrile, blood pressure stable, is currently on D5W at a rate of 50 ML per hour, he is on tube feedings of vital a rate of 20 ML per hour. He is status pos EKOS on 02/23/2022, he remains on Apixaban 10 mg twice daily. Yesterday we requested neurology recommendations in view of his lethargy, confusion, and altered mental status. Brain CT showed age-related atrophic and chronic small vessel ischemic changes without acute intracranial process. Chest x-ray showed interstitial infiltrates, unchanged. Today's labs have been revie wed, white blood cell count is 8.6, hemoglobin is 10.9, platelet count is 187, sodium is improved today is down to 145, potassium is 3.9, chloride is 117, CO2 is 22, BUN is 11 and creatinine 0.66. LFTs are within normal limits, ammonia level is less than 9. NG tube is in place, for tube feedings. But now the patient is more awake he is also taken and some sips of water by mouth. No other acute events overnight, vital signs have been stable, and overall patient seems to be clinically improving, more awake and alert, following commands. On 03/01/2022 patient seen in follow-up in intensive care unit. He is a bit drowsy, but easily arousable, answers some simple questions, does not appear to be in any acute distress, breathing comfortably. On the 20 L of oxygen his pulse ox is 95-97%, his been afebrile, hemodynamically has been stable, he is in sinus mechanism with a rate of 75 BPM. He is on oral anticoagulation with an requests for recent history of pulmonary embolism with evidence of right ventricular strain status post equals catheter placement and TPA thrombolysis. EEG was completed showing mild background slowing, intermixed with fast frequency activity suggestive of nonspecific generalized cerebral dysfunction as can be seen with encephalopathy, no epileptiform activity was seen. Patient remains on D5W at a rate of 50 ML per hour, NG tube is in place and he is recei ving tube feedings with a vital AF at a rate of 50 with a goal of 60 and standard water flushes. No acute events overnight. No vasopressor support. No fever or chills overnight. White count is normal in today's labs at 6.4, hemoglobin is 9.0, platelet counts 230, sodium is 136, potassium is 3.5, chloride is 108, B1 is 10 and creatinine 0.62. Ammonia level was less than 9. CT of the brain from 02/27/2022 showed age-related atrophic and chronic small vessel ischemic changes without acute intracranial process. Patient was started on lactulose 20 mg twice a day yesterday for constipation. Abdomen is soft, nontender. he remains on Zosyn for antibiotic coverage, so far blood cultures are negative, urine culture was positive for E. coli. Objective - Vital Signs Vital signs: Vital Signs Temp 98.3 F 03/01/22 08:00 Pulse 80 03/01/22 10:00 Resp 23 03/01/22 10:00 BP 104/66 03/01/22 10:00 Pulse Ox 97 03/01/22 10:00 Intake & Output 02/28/22 03/01/22 03/01/22 18:59 06:59 18:59 Intake Total 900 1550 325 Output Total 490 485 175 Balance 410 1065 150 Weight 75 kg 78.4 kg Intake: IV 750 500 75 Dextrose 5% in Water 1, 550 400 000 ml @ 50 mls/hr IV . Q20H [facility] Rx#:[id number] Piperacillin-Tazobactam 3 200 100 75 .375 gm In Sodium Chloride 0.9% 100 ml @ 25 mls/hr IVPB Q8H [facility] Rx#: [id number] Oral 150 Tube Feeding 450 50 Other 600 200 Output: Urine 490 485 175 Other: Voiding Method Indwelling Catheter Indwelling Catheter Indwelling Catheter - Exam GENERAL EXAM: Drowsy but arousable to voice, 82-year-old white male, resting comfortably in bed, 2 L of oxygen with pulse ox of 98% comfortable in no apparent distress. HEAD: Normocephalic/atraumatic. EYES: Normal reaction of pupils, equal size. Conjunctiva pink, sclera white. NOSE: Clear with pink turbinates. NG tube is in place with tube feeds THROAT: No erythema or exudates. NECK: No masses, no JVD, no thyroid enlargement, no adenopathy. CHEST: No chest wall deformity. Symmetrical expansion. LUNGS: Equal air entry with no crackles, wheeze, rhonchi or dullness. CVS: Regular rate and rhythm, normal S1 and S2, no gallops, no murmurs, no rubs ABDOMEN: Soft, nontender. No hepatosplenomegaly, normal bowel sounds, no guarding or rigidity. EXTREMITIES: No clubbing, no edema, no cyanosis, 2+ pulses and upper and lower extremities. MUSCULOSKELETAL: Muscle strength and tone normal. SPINE: No scoliosis or deformity SKIN: No rashes CENTRAL NERVOUS SYSTEM: Drowsy and oriented -2. No focal deficits, tone is normal in all 4 extremities. PSYCHIATRIC: Drowsy and oriented -2. Appropriate affect. Intact judgment and insight. - Labs CBC & Chem 7: 03/01/22 05:05 03/01/22 05:05 Labs: Abnormal Lab Results - Last 24 Hours (Table) 03/01/22 03/01/22 Range/Units 05:05 05:05 RBC 2.81 L (4.30-5.90) m/uL Hgb 9.0 L D (13.0-17.5) gm/dL Hct 28.4 L (39.0-53.0) % MCV 101.0 H (80.0-100.0) fL Lymphocytes # 0.8 L (1.0-4.8) k/uL Sodium 136 L (137-145) mmol/L Chloride 108 H (98-107) mmol/L Creatinine 0.62 L (0.66-1.25) mg/dL Glucose 110 H (74-99) mg/dL Calcium 7.4 L (8.4-10.2) mg/dL Microbiology - Last 24 Hours (Table) 02/23/22 22:00 Blood Culture - Preliminary Blood No Growth after 120 hours 02/23/22 22:05 Blood Culture - Preliminary Blood No Growth after 120 hours Assessment and Plan Plan: Assessment: #1. Syncopal episode secondary to pulmonary embolism, brain CT showed no acute intracranial process, EEG showed nonspecific cerebral dysfunction seen with enc ephalopathy, no epileptiform activity. #2. Acute hypoxic respiratory failure secondary to the above, and possibility of aspiration pneumonia #3. Right ventricular strain secondary to pulmonary embolism, status post EKOS and TPA #4. Acute urinary tract infection, related to E-Coli #5. History of alcohol abuse #6. Altered mental status, multifactorial, related to underlying history of dementia, acute pulmonary embolism, acute hypoxic respiratory failure, acute aspiration pneumonia, acute kidney injury, and hypernatremia #7. Acute kidney injury, resolved #8. Hypernatremia secondary to free water deficit, resolved #9. Acute toxic metabolic encephalopathy Plan: Clinical hemodynamically patient is stable Breathing comfortably, On minimal amount of supplemental oxygen or room air No fever or chills Continue Zosyn for now Swallow evaluation will be completed If passes we may start oral feedings Discontinue NG tube for now to facilitate bedside swallow evaluation Maintain aspiration precautions Continue nebulized bronchodilators Continue oral anticoagulation Neurology recommendations Switch IV fluids to LR at 50 ML per hour Continue monitoring in the ICU today I have personally seen and examined the patient, performed the documentation and the assessment and plan as written. Number of minutes spent on the visit: [10] Time with Patient: Less than 30
--- NOTE | 2022-03-01 10:29 | P.PN ---
Subjective Progress Note Date: 02/28/22 Patient is a 82-year-old male with a known history of dementia, history of CVA/TIA and currently everyday smoker and history of heavy alcohol abuse was brought to the hospital by EMS. Patient was found on the floor. Patient does not recall how long she was staying on there. Patient is also complaining of knee pain and back pain which is not significant as his usual level. No complaints of fever or chills. No chest pain but did have mild shortness of breath. Patient did have last alcohol drink about 4 days ago. Currently not on any home medications as per the list. Denies any paralysis. Patient is somewhat poor historian. CT head and cervical spine showed multilevel cervical spondylitic changes. No fractures. Cerebral atrophy. No acute intercurrent abnormality. No significant change. Chest x-ray showed mild coarsening of the left lung markings could be mild pulmonary fibrosis. No significant change compatible exam. Laboratory data showed WBC 12.1 hemoglobin 13.2 and platelets 201 sodium 141 potassium 4.1 chloride 107 bicarb is 16 BUN 24 and creatinine 1.36 and blood sugar is 135 and lactic acid 4.7 Magnesium 2.4 AST 159 ALT 27 alk phos 79 CPK 02/13/2006 and troponin 0.047 TSH 3.199 urinalysis showed 2+ protein moderate blood large leukocyte esterase and elevated RBCs and WBCs. Coronavirus PCR not detected. CT of the abdomen and pelvis showed urinary bladder wall thickening is nonspecific. Follow-up recommended. Bladder tumor is possible. There is evidence of constipation. Minimal fibrotic changes and subsegmental atelectasis in the lung bases. CT angiogram of the chest showed large emboli in the right lower lobe pulmonary artery. 02/25/2022 Patient is currently in the MICU. Admitted to hospital due to large pulmonary embolism and right ventricular strain. Status post EKOS procedure today. Currently on room air. Does not require any pressor support. Otherwise patient is very confused and mumbling. Continued on alcohol withdrawal protocol. Laboratory data showed WBC 8.1 hemoglobin 10.1 and platelets 127 sodium 146 potassium 4.0 chloride 108 bicarb is 20 BUN 19 and creatinine 1.02 and calcium 7.9 lipase 68. 02/26/2022 Patient is currently in the MICU. Confused and lethargic and mumbling. Currently being continued alcohol withdrawal protocol. Anticoagulation with heparin will be changed to Eliquis. Otherwise patient is medically antibiotics now ceftriaxone for urinary tract infection. IV hydration with D5 water. Laboratory data showed WBC 9.2 hemoglobin 10.3 and platelets 144 Sodium 148 potassium 3.1 chloride 120 bicarb is 22 BUN 14 and creatinine 0.98 02/27/2022 Patient remains in the MICU. Patient is still confused and lethargic and not improving well. Neurology was consulted for evaluation. CT head was done which showed is related atrophic and chronic small vessel ischemic changes without acute p intracranial Process. Chest x-ray showed mild left perihilar and right basilar infiltrate. Laboratory data showed WBC 9.8 hemoglobin 10.1 and platelets 168 Sodium 148 potassium 3.6 chloride 122 bicarb is 20 BUN 11 creatinine 0.73 and calcium 8.1 albumin 3.4. Vitamin B12 is 342 and folate 13.6 within normal limits. Urine culture showed E. coli. Patient is being current antibiotics in the form of Zosyn. Also on anticoagulation changed to Eliquis via NG tube. 02/28/2022 Patient is currently in the MICU. Status post EKOS procedure. Patient is awake and is able to response with his name but unable to communicate. Patient was able to tolerate small quantity of oral diet today. Requiring oxygen at 2 L via nasal cannula. Chest x-ray today showed stable portable chest. Clinical correlation and follow-up until resolution is recommended. Patient is being current on anticoagulation with apixaban. Also on IV fluids wi th D5 water. Sodium level is 145, potassium 3.9 chloride 107 BUN 11 and creatinine 0.66 and calcium 8.0 Hemoglobin 10.9 platelets 187 MCV 104.6. Patient is being monitored for alcohol withdrawal symptoms Neurology and pulmonary is on board. Current medications reviewed. Objective - Vital Signs Vital signs: Vital Signs Temp 97.7 F 02/28/22 20:00 Pulse 75 02/28/22 21:00 Resp 19 02/28/22 21:00 BP 127/71 02/28/22 21:00 Pulse Ox 98 02/28/22 21:00 Intake & Output 02/28/22 02/28/22 03/01/22 06:59 18:59 06:59 Intake Total 1200 900 395 Output Total 625 490 120 Balance 575 410 275 Weight 75 kg 75 kg Intake: IV 850 750 125 Dextrose 5% in Water 1, 650 550 100 000 ml @ 50 mls/hr IV . Q20H [facility] Rx#:[id number] Piperacillin-Tazobactam 3 200 200 25 .375 gm In Sodium Chloride 0.9% 100 ml @ 25 mls/hr IVPB Q8H [facility] Rx#: [id number] Oral 150 Tube Feeding 260 70 Other 90 200 Output: Urine 625 490 120 Other: Voiding Method Indwelling Catheter Indwelling Catheter Indwelling Catheter - Exam PHYSICAL EXAMINATION: Patient is lying in the bed comfortably, no acute distress, awake alert but lethargic and drowsy... HEENT: Normocephalic. Neck is supple. Pupils reactive. Nostrils clear. Oral cavity is moist. Neck reveals no JVD, carotid bruits, or thyromegaly. CHEST EXAMINATION: Trachea is central. Symmetrical expansion. Scattered crackles. Lung perez clear to auscultation and percussion. CARDIAC: Normal S1, S2 with no gallops. No murmurs ABDOMEN: Soft. Bowel sounds normal. No organomegaly. No abdominal bruits. Extremities: reveal no edema. No clubbing or cyanosis Neurologically awake, alert, oriented x3 with well-coordinated movements. No focal deficits noted Skin: No rash or skin lesions. Psychiatric: Cooperative. Could not be assessed at this time completely. Musculoskeletal: No joint swelling or deformity. Normal range of motion. - Labs CBC & Chem 7: 03/01/22 05:05 03/01/22 05:05 Labs: Abnormal Lab Results - Last 24 Hours (Table) 02/28/22 02/28/22 Range/Units 06:06 06:06 RBC 3.36 L (4.30-5.90) m/uL Hgb 10.9 L (13.0-17.5) gm/dL Hct 35.5 L (39.0-53.0) % MCV 105.6 H (80.0-100.0) fL MCHC 30.7 L (31.0-37.0) g/dL Chloride 117 H (98-107) mmol/L Glucose 102 H (74-99) mg/dL Calcium 8.0 L (8.4-10.2) mg/dL Total Protein 6.0 L (6.3-8.2) g/dL Albumin 2.3 L (3.5-5.0) g/dL Microbiology - Last 24 Hours (Table) 02/23/22 22:00 Blood Culture - Preliminary Blood No Growth after 96 hours 02/23/22 22:05 Blood Culture - Preliminary Blood No Growth after 96 hours Assessment and Plan Assessment: Acute metabolic encephalopathy Acute right lower lobe large emboli/PE with right ventricular strain as per CT.. Status post EKOS on 02/25. Acute syncopal episode and hitting his head likely secondary to above Acute hypoxemic respiratory failure Mild troponin elevation Acute urinary tract infection with E. coli. Acute kidney injury with creatinine 1.36 on admission Acute rhabdomyolysis Dementia Severe alcohol abuse. Last drink was 4 days ago. Currently everyday smoker DVT prophylaxis. On heparin drip. Plan: Patient is still encephalopathic and is being monitored in the MICU. Patient will be continued on oxygen supplementation via nasal cannula. 2D echocardiogram was ordered to rule out right ventricular strain. Status post EKOS procedure. Continue with antibiotics in the form of ceftriaxone and urine cultures showed E. coli.. Cardiology and pulmonary and neurology is following.. CT head showed no acute intracranial process. Age Is related to chronic ischemic changes. Monitor for alcohol withdrawal symptoms. Prognosis is guarded with multiple medical problems and comorbid conditions. Time with Patient: Greater than 30
[2022-03-01] MEDS: ACETAMINOPHEN TAB 325 MG TAB PO PRN (12:06)
--- NOTE | 2022-03-01 16:26 | CA ---
Transthoracic Echo Report Name: Ernesto La Age: 82 Gender: M : 1940 Exam Date: 03/01/2022 08:22 Exam Location: [facility] Ht (in): 74 Wt (lb): 165 Ordering Physician: Fabiola Burrows Attending/Referring Phys: Hoeing Row Boss BZ Procedure CPT: Indications: s/p EKOS for PE Cardiac Hx: Technical Quality: Fair Contrast 1: Total Dose (mL): Contrast 2: Total Dose (mL): MEASUREMENTS (Male / Female) Normal Values 2D ECHO RV Internal Dim ED PLAX 3.3 cm DOPPLER TR Peak Velocity 281.8 cm/s TR Peak Gradient 31.8 mmHg Right Ventricular Systolic Press 47.1 mmHg FINDINGS Left Ventricle Left ventricular ejection fraction is estimated at 55-60 %. Right Ventricle Moderate pulmonary hypertension. RVSP IS 47 mm/Hg Right Atrium Normal in size Left Atrium Normal in size Mitral Valve Appears to be normal Aortic Valve There is thickening of the aortic valve leaflets without any stenosis or regurgitation Tricuspid Valve Structurally normal tricuspid valve without significant stenosis. Pulmonary artery systolic pressure is normal. Pulmonic Valve Pericardium Normal pericardium without effusion. Aorta Normal aortic root dimension. CONCLUSIONS #1. Normal left ventricle size and function. #2. Thickening of the leaflets without any significant stenosis or regurgitation. #3. Normal pulmonary artery pressure number #4. There is no pericardial effusion Previewed by: Dr. Edwin Amaro MD (Electronically Signed) Final Date: 01 March 2022 12:27
--- NOTE | 2022-03-01 16:36 | P.PN ---
Subjective Progress Note Date: 03/01/22 03/01/2022: Patient was seen for a follow-up. Patient laying comfortably in the bed. Patient states he feels "not too bad". Denies headache. He admits that he had a headache yesterday but gone today. Denies dizziness. He does complain of "pain all over". 02/28/2022: Patient initially seen a Dr. Casey Storey. Please refer to his note for details. Patient is a 82-year-old male with altered mental status. Patient had a syncopal spell, found unresponsive by the roommate. The syncopal spell was felt to be related to a PE. Patient's computed tomography scan of the head is normal. Patient at present is laying in the bed. He admits to having headache, but "not too bad". He has developed rhabdomyolysis, PE. Some report of alcoholism. Patient is apparently is homeless at this time. per nursing report, he is getting better. No new concerns. No seizure-like activity. Objective - Vital Signs Vital signs: Vital Signs Temp 97.8 F 03/01/22 12:00 Pulse 78 03/01/22 15:00 Resp 13 03/01/22 15:00 BP 104/71 03/01/22 15:00 Pulse Ox 98 03/01/22 15:00 Intake & Output 02/28/22 03/01/22 03/01/22 18:59 06:59 18:59 Intake Total 900 1550 575 Output Total 490 485 445 Balance 410 1065 130 Weight 75 kg 78.4 kg Intake: IV 750 500 125 Dextrose 5% in Water 1, 550 400 000 ml @ 50 mls/hr IV . Q20H ANG Rx#:[id number] Piperacillin-Tazobactam 3 200 100 125 .375 gm In Sodium Chloride 0.9% 100 ml @ 25 mls/hr IVPB Q8H ANG Rx#: [id number] Intake, IV Titration 200 Amount Lactated Ringers 1,000 ml 200 @ 50 mls/hr IV .Q20H ANG Rx#:[id number] Oral 150 Tube Feeding 450 50 Other 600 200 Output: Urine 490 485 445 Other: Voiding Method Indwelling Catheter Indwelling Catheter Indwelling Catheter - Exam on examination patient is an elderly male, who is appearing much more alert and awake, mentation is more clear as compared to yesterday. Patient is laying comfortably in the bed. Patient able to tell his name, date of and it is 2020. Patient states he is in [facility] in the hospital. Patient's pupils are equal, round and reacting to light, extraocular muscles are intact. No nystagmus. Visual perez are full on confrontation with no neglect. Face is symmetric and tongue protrudes the midline. Mouth is very dry. Hearing appears normal for conversation. Muscle strength appears normal in the director of personnel biceps and triceps. Ankles appears at least 4+ bilaterally. Patient has multiple bruises/ecchymosis over his forearms and dorsum hand. Deep tendon reflexes are 1 in the right upper limb, 2 in the left upper limb, absent knees and ankles, plantars are flat. - Labs CBC & Chem 7: 03/01/22 05:05 03/01/22 05:05 Labs: Abnormal Lab Results - Last 24 Hours (Table) 03/01/22 03/01/22 Range/Units 05:05 05:05 RBC 2.81 L (4.30-5.90) m/uL Hgb 9.0 L D (13.0-17.5) gm/dL Hct 28.4 L (39.0-53.0) % MCV 101.0 H (80.0-100.0) fL Lymphocytes # 0.8 L (1.0-4.8) k/uL Sodium 136 L (137-145) mmol/L Chloride 108 H (98-107) mmol/L Creatinine 0.62 L (0.66-1.25) mg/dL Glucose 110 H (74-99) mg/dL Calcium 7.4 L (8.4-10.2) mg/dL Microbiology - Last 24 Hours (Table) 02/23/22 22:00 Blood Culture - Preliminary Blood No Growth after 120 hours 02/23/22 22:05 Blood Culture - Preliminary Blood No Growth after 120 hours Assessment and Plan Assessment: Altered mental status due to multifactorial: Hypoxic encephalopathy (due to Pulmonary embolism), component of metabolic encephalopathy and underlying UTI and possible aspiration pneumonia. Patient's mentation much improved. Acute Pulmonary embolism s/p EKOS for the right pulmonary embolis on 02/24/2022. Syncopal episode due to pulmonary embolism Acute E. Coli UTI Questionable bladder mass Reported dementia Chronic ongoing alcohol use and last use was 4 days prior to presenting to hospital Tobacco use Plan: * Repeat CT head 02/27/2022 showed age-related atrophic and chronic small vessel ischemic change doubt acute intracranial process. I personally reviewed CT head and agree with the finding. * EEG was performed, which was abnormal EEG due to mild background slowing, intermixed with fast frequency activity. This is suggestive of nonspecific generalized cerebral dysfunction as can be seen with encephalopathy or medication effect. No epileptiform activity was seen. * Patient's ammonia level <9, vitamin B12 342, folate 13.6. We will start B12 replacement. * Patient is on Thiamine 100mg daily. * Cardiology is on board * For questionable bladder mass: Urology is consulted * PT and OT when patient able to tolerate * Will defer the rest of medical management to the primary and ICU team. * Neurologically, no other workup indicated.
[2022-03-02] MEDS: LACTATED RINGERS 1,000 ML IV SCH (04:57)
[2022-03-02] MEDS: PIPERACILLIN-TAZOBACTAM 3.375 GM in SODIUM CHLORIDE 0.9% 100 ML IVPB SCH (04:57)
[2022-03-02] MEDS: LACTULOSE 20 GM/30 ML CUP PO SCH ×2 (08:53→20:15)
[2022-03-02] MEDS: THIAMINE 100 MG TAB PO SCH ×2 (08:53→17:04)
[2022-03-02] MEDS: AMOXIC-POT CLAV 875-125MG 1 EACH TAB PO SCH ×2 (08:54→20:15)
[2022-03-02] MEDS: PANTOPRAZOLE 40 MG/10 ML VIAL IV SCH (08:54)
[2022-03-02] MEDS: APIXABAN 5 MG TAB PO SCH ×2 (08:54→20:15)
--- NOTE | 2022-03-02 10:14 | P.PN ---
Subjective Progress Note Date: 03/02/22 Principal diagnosis: Altered mental status, acute hypoxic respiratory failure This is an 82-year-old male patient with a known history of dementia, chronic and ongoing tobacco dependence and alcohol abuse. He had a syncopal episode at home and was unsure of his down time. He had fallen and was laying on his cell phone. He had stated his last drink was 4 days prior. He did remember hitting his head. He arrived to the emergency room last evening. EMS stated his house was in disarray. computed tomography scan of the brain and C-spine revealed no acute intracranial abnormalities. No cervical fractures. Pelvic x-rays revealed no acute abnormality of the pelvis. X-ray of the right knee revealed no acute fracture. X-ray of the KUB revealed nonacute abdomen. EKG revealed sinus tachycardia with nonspecific ST and T wave abnormalities. Computed tomography scan of the abdomen and pelvis revealed urinary bladder wall thickening which is nonspecific. Follow-up recommended. Bladder tumor is possible. There is evidence of constipation. Mild fibrotic changes and subsegmental atelectasis at the lung bases.CT angiogram revealed large emboli in the right lower lobe pulmon zehra artery. Possible right heart strain. He is seen today in consultation in the emergency department. He is currently awake and alert. He has some garbled speech. Echocardiogram is in progress. He's been initiated on a heparin drip. He has a right internal jugular triple-lumen catheter in place. Currently in sinus rhythm. White count 9.1. Hemoglobin 10.3. Platelets 160. Sodium 142. Potassium 3.9. Bicarb 20. BUN 26. Creatinine 1.34. Glucose 115. AST 103. ALT 17. Creatinine kinase 4306. Troponins 0.04, 0.3, 0.4. Urinalysis positive for moderate blood, large leukocyte esterase, many bacteria. Urine culture is pending. He is maintaining O2 saturations up to 100% on 3 L/m per nasal cannula. He's been initiated on DuoNeb inhalations, antibiotics in the form of ceftriaxone and placed in the CIWA protocol. 0.9 normal saline at 130 ML's per hour. He had been hypotensive and currently on norepinephrine at 0.05 mcg/kg/m. patient was reevaluated today on 01/25/2022, patient remains in the ICU, he is doing quite well. He is actually on room air, O2 saturation is in the low 90s. Does not seem to be in any distress, patient is status post EKOS thrombolytic therapy, and he seems to be doing great. He was already started on eliquis,hemodynamically stable, not requiring any pressors. And his labs are basically unremarkable including CBC, and a relatively normal basic metabolic profile. Patient is intermittently agitated, and his requiring Ativan for sedation, remains on the alcohol withdrawal protocol. reevaluated today on 02/26/2022, patient remains in the ICU, confused, he is on room air, remains on anticoagulation therapy, he is also on ceftriaxone for presumptive urinary tract infection. His sodium seems to be a bit high today, hence I'm recommending D5W at 50 mL per hour. Considering his confusion, and considering his history of alcohol abuse, patient will be kept in the ICU for the next 24 hours for close monitoring. Patient is unable to take anything by mouth, may have to place a nasogastric tube for enteral feeding and to be able to give him his oral medications. Reevaluated today on 02/27/2022, patient remains in the ICU, he is developing mor e confusion, and significant worsening of his mental status today. Patient has a nasogastric tube in place, he is not being orally fed, but he will be receiving nutritional support via nasogastric tube. Patient is developing a bit of infiltrate in the right lower lobe, and slight infiltrate in the left perihilar area, I'm suspecting the patient may have developed a slight aspiration pneumonia, and I will empirically change antibiotics to Zosyn. Patient does have E. coli urinary tract infection, he is presently on Rocephin, however I believe Zosyn at this point would be more appropriate. Considering his worsening mental status, I recommended neurological consultation in the meantime I ordered a CT of the brain. His WBC count is 9.8 hemoglobin is 10 sodium is a bit high at 148, patient will receive free water via the nasogastric tube today. And we will try to get his sodium down as it may be a contributing factor to his metabolic encephalopathy. Renal profile is normal. The rest of the labs were basically unremarkable, albumin is low at 2.4. On 02/28/2022 patient seen in follow-up in intensive care unit, on today's exam neurologically he is more awake, responsive, he knows he is in hospital, he is in the CT report here, he knew the correct month, however started dozing off when we asked him who the president was. Appears to be breathing comfortably, no signs of any respiratory distress pulse ox is 96% on 2 L, vital signs are stable, afebrile, blood pressure stable, is currently on D5W at a rate of 50 ML per hour, he is on tube feedings of vital a rate of 20 ML per hour. He is status pos EKOS on 02/23/2022, he remains on Apixaban 10 mg twice daily. Yesterday we requested neurology recommendations in view of his lethargy, confusion, and altered mental status. Brain CT showed age-related atrophic and chronic small vessel ischemic changes without acute intracranial process. Chest x-ray showed interstitial infiltrates, unchanged. Today's labs have been revie wed, white blood cell count is 8.6, hemoglobin is 10.9, platelet count is 187, sodium is improved today is down to 145, potassium is 3.9, chloride is 117, CO2 is 22, BUN is 11 and creatinine 0.66. LFTs are within normal limits, ammonia level is less than 9. NG tube is in place, for tube feedings. But now the patient is more awake he is also taken and some sips of water by mouth. No other acute events overnight, vital signs have been stable, and overall patient seems to be clinically improving, more awake and alert, following commands. On 03/01/2022 patient seen in follow-up in intensive care unit. He is a bit drowsy, but easily arousable, answers some simple questions, does not appear to be in any acute distress, breathing comfortably. On the 20 L of oxygen his pulse ox is 95-97%, his been afebrile, hemodynamically has been stable, he is in sinus mechanism with a rate of 75 BPM. He is on oral anticoagulation with an requests for recent history of pulmonary embolism with evidence of right ventricular strain status post equals catheter placement and TPA thrombolysis. EEG was completed showing mild background slowing, intermixed with fast frequency activity suggestive of nonspecific generalized cerebral dysfunction as can be seen with encephalopathy, no epileptiform activity was seen. Patient remains on D5W at a rate of 50 ML per hour, NG tube is in place and he is recei ving tube feedings with a vital AF at a rate of 50 with a goal of 60 and standard water flushes. No acute events overnight. No vasopressor support. No fever or chills overnight. White count is normal in today's labs at 6.4, hemoglobin is 9.0, platelet counts 230, sodium is 136, potassium is 3.5, chloride is 108, B1 is 10 and creatinine 0.62. Ammonia level was less than 9. CT of the brain from 02/27/2022 showed age-related atrophic and chronic small vessel ischemic changes without acute intracranial process. Patient was started on lactulose 20 mg twice a day yesterday for constipation. Abdomen is soft, nontender. he remains on Zosyn for antibiotic coverage, so far blood cultures are negative, urine culture was positive for E. coli. On 03/02/2022 patient seen in follow-up in the intensive care unit. Patient is much more awake, he is oriented to self, to month but not the year. He was disoriented to place, he thought he was in [place]. Easily reorients, , cooperative, breathing comfortable, room air pulse ox is 96%, hemodynamically stable, he is in sinus mechanism, rate is controlled. Blood pressure stable 108/55 this morning. Lung sounds are clear, no rhonchi or wheezing. NG tube has been removed for swallow evaluation yesterday, patient passed swallow evaluation without any difficulty, dysphagia diet was recommended and patient is tolerating it well. Room air pulse ox is 96%, no acute events overnight, no cognitive chest pain, no worsening dyspnea or cough. No fever or chills. Remains on Zosyn for pneumatic coverage. His urine culture showed E. coli, b lood cultures have been negative. His labs showed a potassium of 3.6, today's labs are pending right now Objective - Vital Signs Vital signs: Vital Signs Temp 98.4 F 03/02/22 08:00 Pulse 78 03/02/22 08:00 Resp 13 03/02/22 08:00 BP 115/84 03/02/22 08:00 Pulse Ox 96 03/02/22 08:00 Intake & Output 03/01/22 03/02/22 03/02/22 18:59 06:59 18:59 Intake Total 600 500 400 Output Total 520 225 250 Balance 80 275 150 Weight 83.2 kg Intake: IV 150 500 400 Lactated Ringers 400 400 Piperacillin-Tazobactam 3 150 100 .375 gm In Sodium Chloride 0.9% 100 ml @ 25 mls/hr IVPB Q8H ANG Rx#: [id number] Intake, IV Titration 200 Amount Lactated Ringers 1,000 ml 200 @ 50 mls/hr IV .Q20H ANG Rx#:[id number] Tube Feeding 50 Other 200 Output: Urine 520 225 250 Other: Voiding Method Indwelling Catheter Indwelling Catheter Indwelling Catheter # Bowel Movements 1 - Exam GENERAL EXAM: Awake and alert, oriented times 82-year-old white male, resting comfortably in bed, on room air with a pulse ox of 96 comfortable in no apparent distress. HEAD: Normocephalic/atraumatic. EYES: Normal reaction of pupils, equal size. Conjunctiva pink, sclera white. NOSE: Clear with pink turbinates. Ng tube removed THROAT: No erythema or exudates. NECK: No masses, no JVD, no thyroid enlargement, no adenopathy. CHEST: No chest wall deformity. Symmetrical expansion. LUNGS: Equal air entry with no crackles, wheeze, rhonchi or dullness. CVS: Regular rate and rhythm, normal S1 and S2, no gallops, no murmurs, no rubs ABDOMEN: Soft, nontender. No hepatosplenomegaly, normal bowel sounds, no guarding or rigidity. EXTREMITIES: No clubbing, no edema, no cyanosis, 2+ pulses and upper and lower extremities. MUSCULOSKELETAL: Muscle strength and tone normal. SPINE: No scoliosis or deformity SKIN: No rashes CENTRAL NERVOUS SYSTEM: Drowsy and oriented -2. No focal deficits, tone is normal in all 4 extremities. PSYCHIATRIC: Drowsy and oriented -2. Appropriate affect. Intact judgment and insight. - Labs CBC & Chem 7: 03/01/22 05:05 03/02/22 07:11 Labs: Microbiology - Last 24 Hours (Table) 02/23/22 22:00 Blood Culture - Final Blood No Growth after 144 hours 02/23/22 22:05 Blood Culture - Final Blood No Growth after 144 hours Assessment and Plan Plan: Assessment: #1. Syncopal episode secondary to pulmonary embolism, brain CT showed no acute intracranial process, EEG showed nonspecific cerebral dysfunction seen with en cephalopathy, no epileptiform activity. #2. Acute hypoxic respiratory failure secondary to the above, and possibility of aspiration pneumonia #3. Right ventricular strain secondary to pulmonary embolism, status post EKOS and TPA #4. Acute urinary tract infection, related to E-Coli #5. History of alcohol abuse #6. Altered mental status, multifactorial, related to underlying history of dem entia, acute pulmonary embolism, acute hypoxic respiratory failure, acute aspiration pneumonia, acute kidney injury, and hypernatremia #7. Acute kidney injury, resolved #8. Hypernatremia secondary to free water deficit, resolved #9. Acute toxic metabolic encephalopathy Plan: Clinically patient has remained stable Continues to improve Today he is on room air and breathing comfortably We'll switch Zosyn to oral Augmentin Patient passed swallow evaluation he is tolerating oral diet Continue oral anticoagulation Supervision and assistance with meals Maintain aspiration precautions Continue nebulized bronchodilators Physical therapy evaluation Transfer out of intensive care unit today I have personally seen and examined the patient, performed the documentation and the assessment and plan as written. Number of minutes spent on the visit: [10] Time with Patient: Less than 30
[2022-03-02 11:30] VITALS: BMI 23.5
--- NOTE | 2022-03-02 12:37 | P.PN ---
Subjective Patient is a lot more alert now. He is asking for water's his mouth was dry He was admitted with unresponsiveness. Pulmonary embolism with RV strain and he underwent the EKOS procedure Blood pressure 115/84 mmHg Pulse rate in the 70s Afebrile 98.4F Breath sounds are reduced bilaterally BREATH sounds Heart sounds S1-S2 are soft Impression Large right lower lobe pulmonary embolism with right heart strain and syncope Elevated troponin secondary to pulmonary embolism Acute kidney injury resolved plan history of alcohol abuse Continue current medications and anticoagulation ELIQUIS 10 mg twice daily for 7-10 days and then switched to 5 mg by mouth twice a day Objective - Vital Signs Vital signs: Vital Signs Temp 98.4 F 03/02/22 12:00 Pulse 76 03/02/22 12:00 Resp 16 03/02/22 12:00 BP 112/61 03/02/22 12:00 Pulse Ox 97 03/02/22 12:00 Intake & Output 03/01/22 03/02/22 03/02/22 18:59 06:59 18:59 Intake Total 600 500 400 Output Total 520 225 250 Balance 80 275 150 Weight 83.2 kg 83.2 kg Intake: IV 150 500 400 Lactated Ringers 400 400 Piperacillin-Tazobactam 3 150 100 .375 gm In Sodium Chloride 0.9% 100 ml @ 25 mls/hr IVPB Q8H ANG Rx#: [id number] Intake, IV Titration 200 Amount Lactated Ringers 1,000 ml 200 @ 50 mls/hr IV .Q20H ANG Rx#:[id number] Tube Feeding 50 Other 200 Output: Urine 520 225 250 Other: Voiding Method Indwelling Catheter Indwelling Catheter Indwelling Catheter # Bowel Movements 1 - Labs CBC & Chem 7: 03/01/22 05:05 03/02/22 07:11 Labs: Microbiology - Last 24 Hours (Table) 02/23/22 22:00 Blood Culture - Final Blood No Growth after 144 hours 02/23/22 22:05 Blood Culture - Final Blood No Growth after 144 hours
--- NOTE | 2022-03-02 16:30 | P.PN ---
Subjective Progress Note Date: 03/02/22 03/02/2022: Patient was seen for a follow-up. Patient is laying comfortably in the bed. Patient has taken a shower, appears much more pleasant. Less pain. Offers no new concerns. 03/01/2022: Patient was seen for a follow-up. Patient laying comfortably in the bed. Patient states he feels "not too bad". Denies headache. He admits that he had a headache yesterday but gone today. Denies dizziness. He does complain of "pain all over". 02/28/2022: Patient initially seen a Dr. Casey Storey. Please refer to his note for details. Patient is a 82-year-old male with altered mental status. Patient had a syncopal spell, found unresponsive by the roommate. The syncopal spell was felt to be related to a PE. Patient's computed tomography scan of the head is normal. Patient at present is laying in the bed. He admits to having headache, but "not too bad". He has developed rhabdomyolysis, PE. Some report of alcoholism. Patient is apparently is homeless at this time. per nursing report, he is getting better. No new concerns. No seizure-like activity. Objective - Vital Signs Vital signs: Vital Signs Temp 98.4 F 03/02/22 12:00 Pulse 76 03/02/22 12:00 Resp 16 03/02/22 12:00 BP 112/61 03/02/22 12:00 Pulse Ox 97 03/02/22 12:00 Intake & Output 03/01/22 03/02/22 03/02/22 18:59 06:59 18:59 Intake Total 600 500 400 Output Total 520 225 250 Balance 80 275 150 Weight 83.2 kg 83.2 kg Intake: IV 150 500 400 Lactated Ringers 400 400 Piperacillin-Tazobactam 3 150 100 .375 gm In Sodium Chloride 0.9% 100 ml @ 25 mls/hr IVPB Q8H ANG Rx#: [id number] Intake, IV Titration 200 Amount Lactated Ringers 1,000 ml 200 @ 50 mls/hr IV .Q20H ANG Rx#:[id number] Tube Feeding 50 Other 200 Output: Urine 520 225 250 Other: Voiding Method Indwelling Catheter Indwelling Catheter Indwelling Catheter # Bowel Movements 1 - Exam on examination patient is an elderly male, who is appearing much more alert and awake, mentation is more clear as compared to yesterday. Patient is laying comfortably in the bed. Patient able to tell his name, date of and it is 2021. Patient states he is in [facility] in the hospital. Patient's pupils are equal, round and reacting to light, extraocular muscles are intact. No nystagmus. Visual perez are full on confrontation with no neglect. Face is symmetric and tongue protrudes the midline. Hearing appears normal for conversation. Muscle strength appears normal in the agent [employer] desk biceps and triceps, and deltoids. Ankles appears at least 4+ bilaterally. Deep tendon reflexes are 1 in the right upper limb, 2 in the left upper limb, absent knees and ankles, plantars are flat. - Labs CBC & Chem 7: 03/01/22 05:05 03/02/22 07:11 Labs: Microbiology - Last 24 Hours (Table) 02/23/22 22:00 Blood Culture - Final Blood No Growth after 144 hours 02/23/22 22:05 Blood Culture - Final Blood No Growth after 144 hours Assessment and Plan Assessment: Altered mental status due to multifactorial: Hypoxic encephalopathy (due to Pulmonary embolism), component of metabolic encephalopathy and underlying UTI and possible aspiration pneumonia. Patient's mentation much improved. Acute Pulmonary embolism s/p EKOS for the right pulmonary embolis on 022. Syncopal episode due to pulmonary embolism Acute E. Coli UTI Questionable bladder mass Reported dementia Chronic ongoing alcohol use and last use was 4 days prior to presenting to hospital Tobacco use Plan: * Repeat CT head 02/27/2022 showed age-related atrophic and chronic small vessel ischemic change doubt acute intracranial process. I personally reviewed CT head and agree with the finding. * EEG was performed, which was abnormal EEG due to mild background slowing, intermixed with fast frequency activity. This is suggestive of nonspecific generalized cerebral dysfunction as can be seen with encephalopathy or medication effect. No epileptiform activity was seen. * Patient's ammonia level <9, vitamin B12 342, folate 13.6. Continue B12 1000 g orally daily. * Patient is on Thiamine 100mg daily. * Cardiology is on board * For questionable bladder mass: Urology is consulted * PT and OT when patient able to tolerate * Will defer the rest of medical management to the primary and ICU team. * Neurologically, no other workup indicated. Neurology will sign off. Please reconsult neurology if any concerns.
[2022-03-02] MEDS: CYANOCOBALAMIN 500 MCG TAB PO SCH (17:17)
[2022-03-02] MEDS: ACETAMINOPHEN TAB 325 MG TAB PO PRN (22:25)
[2022-03-03] MEDS: LACTATED RINGERS 1,000 ML IV SCH ×2 (02:06→22:05)
[2022-03-03] MEDS: THIAMINE 100 MG TAB PO SCH ×2 (06:34→16:56)
[2022-03-03 08:32] LABS: Basophils % (A) 0 %; Eosinophils # (A) 0.1 k/uL (0-0.7); Eosinophils % (A) 1 %; HCT 29.3 % (39.0-53.0); Lymphocytes # (A) 1.1 k/uL (1.0-4.8); Lymphocytes % (A) 16 %; MCH 33.2 pg (25.0-35.0); MCV 97.5 fL (80.0-100.0); Mean Platelet Volume 9.1; Monocytes # (A) 0.4 k/uL (0-1.0); Monocytes % (A) 6 %; Neutrophils # (A) 5.4 k/uL (1.3-7.7); Neutrophils % (A) 76 %; Platelet Count 283 k/uL (150-450); RDW 13.8 % (11.5-15.5)
[2022-03-03 08:45] LABS: African American GFR (CKD) >90 (>60 ml/min/1.73 sqM); Anion Gap 4 mmol/L; Blood Urea Nitrogen 7 mg/dL (9-20); Calcium 7.8 mg/dL (8.4-10.2); Carbon Dioxide 26 mmol/L (22-30); Chloride 106 mmol/L (98-107); Glucose 83 mg/dL (74-99); Non-African American GFR(CKD) >90 (>60 ml/min/1.73 sqM); Potassium 3.8 mmol/L (3.5-5.1); Sodium 136 mmol/L (137-145)
[2022-03-03] MEDS: CYANOCOBALAMIN 500 MCG TAB PO SCH (09:04)
[2022-03-03] MEDS: LACTULOSE 20 GM/30 ML CUP PO SCH ×2 (09:04→21:23)
[2022-03-03] MEDS: APIXABAN 5 MG TAB PO SCH ×2 (09:05→21:22)
[2022-03-03] MEDS: PANTOPRAZOLE 40 MG/10 ML VIAL IV SCH (09:05)
[2022-03-03] MEDS: AMOXIC-POT CLAV 875-125MG 1 EACH TAB PO SCH ×3 (09:06→21:23)
--- NOTE | 2022-03-03 10:09 | P.PN ---
Subjective Progress Note Date: 03/01/22 Patient is a 82-year-old male with a known history of dementia, history of CVA/TIA and currently everyday smoker and history of heavy alcohol abuse was brought to the hospital by EMS. Patient was found on the floor. Patient does not recall how long she was staying on there. Patient is also complaining of knee pain and back pain which is not significant as his usual level. No complaints of fever or chills. No chest pain but did have mild shortness of breath. Patient did have last alcohol drink about 4 days ago. Currently not on any home medications as per the list. Denies any paralysis. Patient is somewhat poor historian. CT head and cervical spine showed multilevel cervical spondylitic changes. No fractures. Cerebral atrophy. No acute intercurrent abnormality. No significant change. Chest x-ray showed mild coarsening of the left lung markings could be mild pulmonary fibrosis. No significant change compatible exam. Laboratory data showed WBC 12.1 hemoglobin 13.2 and platelets 201 sodium 141 potassium 4.1 chloride 107 bicarb is 16 BUN 24 and creatinine 1.36 and blood sugar is 135 and lactic acid 4.7 Magnesium 2.4 AST 159 ALT 27 alk phos 79 CPK 02/13/2006 and troponin 0.047 TSH 3.199 urinalysis showed 2+ protein moderate blood large leukocyte esterase and elevated RBCs and WBCs. Coronavirus PCR not detected. CT of the abdomen and pelvis showed urinary bladder wall thickening is nonspecific. Follow-up recommended. Bladder tumor is possible. There is evidence of constipation. Minimal fibrotic changes and subsegmental atelectasis in the lung bases. CT angiogram of the chest showed large emboli in the right lower lobe pulmonary artery. 02/25/2022 Patient is currently in the MICU. Admitted to hospital due to large pulmonary embolism and right ventricular strain. Status post EKOS procedure today. Currently on room air. Does not require any pressor support. Otherwise patient is very confused and mumbling. Continued on alcohol withdrawal protocol. Laboratory data showed WBC 8.1 hemoglobin 10.1 and platelets 127 sodium 146 potassium 4.0 chloride 108 bicarb is 20 BUN 19 and creatinine 1.02 and calcium 7.9 lipase 68. 02/26/2022 Patient is currently in the MICU. Confused and lethargic and mumbling. Currently being continued alcohol withdrawal protocol. Anticoagulation with heparin will be changed to Eliquis. Otherwise patient is medically antibiotics now ceftriaxone for urinary tract infection. IV hydration with D5 water. Laboratory data showed WBC 9.2 hemoglobin 10.3 and platelets 144 Sodium 148 potassium 3.1 chloride 120 bicarb is 22 BUN 14 and creatinine 0.98 02/27/2022 Patient remains in the MICU. Patient is still confused and lethargic and not improving well. Neurology was consulted for evaluation. CT head was done which showed is related atrophic and chronic small vessel ischemic changes without acute p intracranial Process. Chest x-ray showed mild left perihilar and right basilar infiltrate. Laboratory data showed WBC 9.8 hemoglobin 10.1 and platelets 168 Sodium 148 potassium 3.6 chloride 122 bicarb is 20 BUN 11 creatinine 0.73 and calcium 8.1 albumin 3.4. Vitamin B12 is 342 and folate 13.6 within normal limits. Urine culture showed E. coli. Patient is being current antibiotics in the form of Zosyn. Also on anticoagulation changed to Eliquis via NG tube. 02/28/2022 Patient is currently in the MICU. Status post EKOS procedure. Patient is awake and is able to response with his name but unable to communicate. Patient was able to tolerate small quantity of oral diet today. Requiring oxygen at 2 L via nasal cannula. Chest x-ray today showed stable portable chest. Clinical correlation and follow-up until resolution is recommended. Patient is being current on anticoagulation with apixaban. Also on IV fluids w ith D5 water. Sodium level is 145, potassium 3.9 chloride 107 BUN 11 and creatinine 0.66 and calcium 8.0 Hemoglobin 10.9 platelets 187 MCV 104.6. Patient is being monitored for alcohol withdrawal symptoms Neurology and pulmonary is on board. 03/01/2022 Patient is in the intensive care unit..intake and easily arousable. Mentation did improve compared to yesterday.currently on oxygen at2 L via nasal cannula. Patient is status post EKOS procedure and is on oral anticoagulation with the Eliquis. patientis being continued onIV hydration. Not on any pressors support. No fever no chills. No nausea vomiting or diarrhea. Laboratory data showedWBC 6.4 hemoglobin 9.0 and platelets 2:30 Sodium 136 potassium 3.5 chloride 108 bicarb is 28 BUN 10 and creatinine 0.60 and calcium 7.4. EKG showed abnormal EEG due to mild background slowing, intermixed with faster frequency activity. Service 12 nonspecific generalized cerebral dysfunction as can be seen with encephalopathy or medication effect. Limited 2-D echocardiogram showed ejection fraction 55-60%. Normal pulmonary artery pressure. No pericardial effusion. Pulmonary and cardiology is on board. Current medications reviewed. Objective - Vital Signs Vital signs: Vital Signs Temp 98.3 F 03/01/22 08:00 Pulse 80 03/01/22 10:00 Resp 23 03/01/22 10:00 BP 104/66 03/01/22 10:00 Pulse Ox 97 03/01/22 10:00 Intake & Output 02/28/22 03/01/22 03/01/22 18:59 06:59 18:59 Intake Total 900 1550 350 Output Total 490 485 220 Balance 410 1065 130 Weight 75 kg 78.4 kg Intake: IV 750 500 100 Dextrose 5% in Water 1, 550 400 000 ml @ 50 mls/hr IV . Q20H [facility] Rx#:[id number] Piperacillin-Tazobactam 3 200 100 100 .375 gm In Sodium Chloride 0.9% 100 ml @ 25 mls/hr IVPB Q8H [facility] Rx#: [id number] Oral 150 Tube Feeding 450 50 Other 600 200 Output: Urine 490 485 220 Other: Voiding Method Indwelling Catheter Indwelling Catheter Indwelling Catheter - Exam PHYSICAL EXAMINATION: Patient is lying in the bed comfortably, no acute distress, awake alert but lethargic and drowsy... HEENT: Normocephalic. Neck is supple. Pupils reactive. Nostrils clear. Oral cavity is moist. Neck reveals no JVD, carotid bruits, or thyromegaly. CHEST EXAMINATION: Trachea is central. Symmetrical expansion. Scattered crackles. Lung perez clear to auscultation and percussion. CARDIAC: Normal S1, S2 with no gallops. No murmurs ABDOMEN: Soft. Bowel sounds normal. No organomegaly. No abdominal bruits. Extremities: reveal no edema. No clubbing or cyanosis Neurologically awake, alert, oriented x3 with well-coordinated movements. No focal deficits noted Skin: No rash or skin lesions. Psychiatric: Cooperative. Could not be assessed at this time completely. Musculoskeletal: No joint swelling or deformity. Normal range of motion. - Labs CBC & Chem 7: 03/03/22 07:26 03/03/22 07:26 Labs: Abnormal Lab Results - Last 24 Hours (Table) 03/01/22 03/01/22 Range/Units 05:05 05:05 RBC 2.81 L (4.30-5.90) m/uL Hgb 9.0 L D (13.0-17.5) gm/dL Hct 28.4 L (39.0-53.0) % MCV 101.0 H (80.0-100.0) fL Lymphocytes # 0.8 L (1.0-4.8) k/uL Sodium 136 L (137-145) mmol/L Chloride 108 H (98-107) mmol/L Creatinine 0.62 L (0.66-1.25) mg/dL Glucose 110 H (74-99) mg/dL Calcium 7.4 L (8.4-10.2) mg/dL Microbiology - Last 24 Hours (Table) 02/23/22 22:00 Blood Culture - Preliminary Blood No Growth after 120 hours 02/23/22 22:05 Blood Culture - Preliminary Blood No Growth after 120 hours Assessment and Plan Assessment: Acute metabolic encephalopathy Acute right lower lobe large emboli/PE with right ventricular strain as per CT.. Status post EKOS on 02/25. Acute syncopal episode and hitting his head likely secondary to above Acute hypoxemic respiratory failure Mild troponin elevation Acute urinary tract infection with E. coli. Acute kidney injury with creatinine 1.36 on admission Acute rhabdomyolysis Dementia Severe alcohol abuse. Last drink was 4 days ago. Currently everyday smoker DVT prophylaxis. On heparin drip. Plan: Patient is still encephalopathic and is being monitored in the MICU. Patient will be continued on oxygen supplementation via nasal cannula. 2D echocardiogram was ordered to rule out right ventricular strain. Status post EKOS procedure. Continue with antibiotics in the form of ceftriaxone and urine cultures showed E. coli.. Cardiology and pulmonary and neurology is following.. CT head showed no acute intracranial process. Age related to chronic ischemic changes. Monitor for alcohol withdrawal symptoms. Prognosis is guarded with multiple medical problems and comorbid conditions. Time with Patient: Greater than 30
--- NOTE | 2022-03-03 10:12 | P.PN ---
Subjective Progress Note Date: 03/02/22 Patient is a 82-year-old male with a known history of dementia, history of CVA/TIA and currently everyday smoker and history of heavy alcohol abuse was brought to the hospital by EMS. Patient was found on the floor. Patient does not recall how long she was staying on there. Patient is also complaining of knee pain and back pain which is not significant as his usual level. No complaints of fever or chills. No chest pain but did have mild shortness of breath. Patient did have last alcohol drink about 4 days ago. Currently not on any home medications as per the list. Denies any paralysis. Patient is somewhat poor historian. CT head and cervical spine showed multilevel cervical spondylitic changes. No fractures. Cerebral atrophy. No acute intercurrent abnormality. No significant change. Chest x-ray showed mild coarsening of the left lung markings could be mild pulmonary fibrosis. No significant change compatible exam. Laboratory data showed WBC 12.1 hemoglobin 13.2 and platelets 201 sodium 141 potassium 4.1 chloride 107 bicarb is 16 BUN 24 and creatinine 1.36 and blood sugar is 135 and lactic acid 4.7 Magnesium 2.4 AST 159 ALT 27 alk phos 79 CPK 02/13/2006 and troponin 0.047 TSH 3.199 urinalysis showed 2+ protein moderate blood large leukocyte esterase and elevated RBCs and WBCs. Coronavirus PCR not detected. CT of the abdomen and pelvis showed urinary bladder wall thickening is nonspecific. Follow-up recommended. Bladder tumor is possible. There is evidence of constipation. Minimal fibrotic changes and subsegmental atelectasis in the lung bases. CT angiogram of the chest showed large emboli in the right lower lobe pulmonary artery. 02/25/2022 Patient is currently in the MICU. Admitted to hospital due to large pulmonary embolism and right ventricular strain. Status post EKOS procedure today. Currently on room air. Does not require any pressor support. Otherwise patient is very confused and mumbling. Continued on alcohol withdrawal protocol. Laboratory data showed WBC 8.1 hemoglobin 10.1 and platelets 127 sodium 146 potassium 4.0 chloride 108 bicarb is 20 BUN 19 and creatinine 1.02 and calcium 7.9 lipase 68. 02/26/2022 Patient is currently in the MICU. Confused and lethargic and mumbling. Currently being continued alcohol withdrawal protocol. Anticoagulation with heparin will be changed to Eliquis. Otherwise patient is medically antibiotics now ceftriaxone for urinary tract infection. IV hydration with D5 water. Laboratory data showed WBC 9.2 hemoglobin 10.3 and platelets 144 Sodium 148 potassium 3.1 chloride 120 bicarb is 22 BUN 14 and creatinine 0.98 02/27/2022 Patient remains in the MICU. Patient is still confused and lethargic and not improving well. Neurology was consulted for evaluation. CT head was done which showed is related atrophic and chronic small vessel ischemic changes without acute p intracranial Process. Chest x-ray showed mild left perihilar and right basilar infiltrate. Laboratory data showed WBC 9.8 hemoglobin 10.1 and platelets 168 Sodium 148 potassium 3.6 chloride 122 bicarb is 20 BUN 11 creatinine 0.73 and calcium 8.1 albumin 3.4. Vitamin B12 is 342 and folate 13.6 within normal limits. Urine culture showed E. coli. Patient is being current antibiotics in the form of Zosyn. Also on anticoagulation changed to Eliquis via NG tube. 02/28/2022 Patient is currently in the MICU. Status post EKOS procedure. Patient is awake and is able to response with his name but unable to communicate. Patient was able to tolerate small quantity of oral diet today. Requiring oxygen at 2 L via nasal cannula. Chest x-ray today showed stable portable chest. Clinical correlation and follow-up until resolution is recommended. Patient is being current on anticoagulation with apixaban. Also on IV fluids w ith D5 water. Sodium level is 145, potassium 3.9 chloride 107 BUN 11 and creatinine 0.66 and calcium 8.0 Hemoglobin 10.9 platelets 187 MCV 104.6. Patient is being monitored for alcohol withdrawal symptoms Neurology and pulmonary is on board. 03/01/2022 Patient is in the intensive care unit..intake and easily arousable. Mentation did improve compared to yesterday.currently on oxygen at2 L via nasal cannula. Patient is status post EKOS procedure and is on oral anticoagulation with the Eliquis. patientis being continued onIV hydration. Not on any pressors support. No fever no chills. No nausea vomiting or diarrhea. Laboratory data showedWBC 6.4 hemoglobin 9.0 and platelets 2:30 Sodium 136 potassium 3.5 chloride 108 bicarb is 28 BUN 10 and creatinine 0.60 and calcium 7.4. EKG showed abnormal EEG due to mild background slowing, intermixed with faster frequency activity. Service 12 nonspecific generalized cerebral dysfunction as can be seen with encephalopathy or medication effect. Limited 2-D echocardiogram showed ejection fraction 55-60%. Normal pulmonary artery pressure. No pericardial effusion. Pulmonary and cardiology is on board. 03/02/2022 Patient is more awake and alert and able to answer simple questions. Tolerating oral diet. Currently transitioned to room air. No complaints of chest pain or shortness of breath. No headache or dizziness or lightheadedness. Not on any pressors support. No fever no chills.no cough or sputum production. Patient is on antibiotic , Zosyn.blood cultures have been negative and urine culture showed E. coli. Laboratory data reviewed. Patient is being transferred to medical floor today. Current medications reviewed. Objective - Vital Signs Vital signs: Vital Signs Temp 97.7 F 03/02/22 16:00 Pulse 97 03/02/22 16:00 Resp 18 03/02/22 16:00 BP 101/51 03/02/22 16:00 Pulse Ox 97 03/02/22 16:00 Intake & Output 03/02/22 03/02/22 03/03/22 06:59 18:59 06:59 Intake Total 500 450 Output Total 225 500 Balance 275 -50 Weight 83.2 kg 83.2 kg Intake: IV 500 450 Lactated Ringers 400 450 Piperacillin-Tazobactam 3 100 .375 gm In Sodium Chloride 0.9% 100 ml @ 25 mls/hr IVPB Q8H [facility] Rx#: [id number] Output: Urine 225 500 Other: Voiding Method Indwelling Catheter Indwelling Catheter - Exam PHYSICAL EXAMINATION: Patient is lying in the bed comfortably, no acute distress, awake alert and able to answer simple questions. HEENT: Normocephalic. Neck is supple. Pupils reactive. Nostrils clear. Oral cavity is moist. Neck reveals no JVD, carotid bruits, or thyromegaly. CHEST EXAMINATION: Trachea is central. Symmetrical expansion. Bibasilar diminished sounds. No wheezing. Otherwise Lung perez clear to auscultation and percussion. CARDIAC: Normal S1, S2 with no gallops. No murmurs ABDOMEN: Soft. Bowel sounds normal. No organomegaly. No abdominal bruits. Extremities: reveal no edema. No clubbing or cyanosis Neurologically awake, alert, oriented x2 with well-coordinated movements. No gross focal deficits noted Skin: No rash or skin lesions. Psychiatric: Cooperative. Could not be assessed at this time completely. Musculoskeletal: No joint swelling or deformity. Normal range of motion. - Labs CBC & Chem 7: 03/03/22 07:26 03/03/22 07:26 Labs: Microbiology - Last 24 Hours (Table) 02/23/22 22:00 Blood Culture - Final Blood No Growth after 144 hours 02/23/22 22:05 Blood Culture - Final Blood No Growth after 144 hours Assessment and Plan Assessment: Acute metabolic encephalopathy Acute right lower lobe large emboli/PE with right ventricular strain as per CT.. Status post EKOS on 02/25. Acute syncopal episode and hitting his head likely secondary to above Acute hypoxemic respiratory failure Mild troponin elevation Acute urinary tract infection with E. coli. Acute kidney injury with creatinine 1.36 on admission Acute rhabdomyolysis Dementia Severe alcohol abuse. Last drink was 4 days ago. Currently everyday smoker DVT prophylaxis. On heparin drip. Plan: Patient's mentation is improving.. Currently on room air. EEG showed encephalopathic like picture. Repeat 2-D echocardiogram showed normal ejection fraction. On admission 2D echocardiogram was ordered to rule out right ventricular strain. Status post EKOS procedure. Continue with antibiotics in the form of ceftriaxone and urine cultures showed E. coli.. Cardiology and pulmonary and neurology is following.. CT head showed no acute intracranial process. Age related to chronic ischemic changes. Monitor for alcohol withdrawal symptoms. Prognosis is guarded with multiple medical problems and comorbid conditions. Time with Patient: Greater than 30
--- NOTE | 2022-03-03 10:44 | P.PN ---
Subjective Progress Note Date: 03/03/22 Principal diagnosis: Sepsis. On 02/28/2022 patient seen in follow-up in intensive care unit, on today's exam neurologically he is more awake, responsive, he knows he is in hospital, he is in the CT report here, he knew the correct month, however started dozing off when we asked him who the president was. Appears to be breathing comfortably, no signs of any respiratory distress pulse ox is 96% on 2 L, vital signs are stable, afebrile, blood pressure stable, is currently on D5W at a rate of 50 ML per hour, he is on tube feedings of vital a rate of 20 ML per hour. He is sta tus pos EKOS on 02/23/2022, he remains on Apixaban 10 mg twice daily. Yesterday we requested neurology recommendations in view of his lethargy, confusion, and altered mental status. Brain CT showed age-related atrophic and chronic small vessel ischemic changes without acute intracranial process. Chest x-ray showed interstitial infiltrates, unchanged. Today's labs have been reviewed, white blood cell count is 8.6, hemoglobin is 10.9, platelet count is 187, sodium is improved today is down to 145, potassium is 3.9, chloride is 117, CO2 is 22, BUN is 11 and creatinine 0.66. LFTs are within normal limits, ammonia level is less than 9. NG tube is in place, for tube feedings. But now the patient is more awake he is also taken and some sips of water by mouth. No other acute events overnight, vital signs have been stable, and overall patient seems to be clinically improving, more awake and alert, following commands. On 03/01/2022 patient seen in follow-up in intensive care unit. He is a bit drowsy, but easily arousable, answers some simple questions, does not appear to be in any acute distress, breathing comfortably. On the 20 L of oxygen his pulse ox is 95-97%, his been afebrile, hemodynamically has been stable, he is in sinus mechanism with a rate of 75 BPM. He is on oral anticoagulation with an requests for recent history of pulmonary embolism with evidence of right vent ricular strain status post equals catheter placement and TPA thrombolysis. EEG was completed showing mild background slowing, intermixed with fast frequency activity suggestive of nonspecific generalized cerebral dysfunction as can be seen with encephalopathy, no epileptiform activity was seen. Patient remains on D5W at a rate of 50 ML per hour, NG tube is in place and he is receiving tube feedings with a vital AF at a rate of 50 with a goal of 60 and standard water flushes. No acute events overnight. No vasopressor support. No fever or chills overnight. White count is normal in today's labs at 6.4, hemoglobin is 9.0, platelet counts 230, sodium is 136, potassium is 3.5, chloride is 108, B1 is 10 and creatinine 0.62. Ammonia level was less than 9. CT of the brain from 02/27/2022 showed age-related atrophic and chronic small vessel ischemic changes without acute intracranial process. Patient was started on lactulose 20 mg twice a day yesterday for constipation. Abdomen is soft, nontender. he remains on Zosyn for antibiotic coverage, so far blood cultures are negative, urine culture was positive for E. coli. On 03/02/2022 patient seen in follow-up in the intensive care unit. Patient is much more awake, he is oriented to self, to month but not the year. He was disoriented to place, he thought he was in [place]. Easily reorients, , cooperative, breathing comfortable, room air pulse ox is 96%, hemodynamically stable, he is in sinus mechanism, rate is controlled. Blood pressure stable 108/55 this morning. Lung sounds are clear, no rhonchi or wheezing. NG tube has been removed for swallow evaluation yesterday, patient passed swallow evaluation without any difficulty, dysphagia diet was recommended and patient is tolerating it well. Room air pulse ox is 96%, no acute events overnight, no cognitive chest pain, no worsening dyspnea or cough. No fever or chills. Remains on Zosyn for pneumatic coverage. His urine culture showed E. coli, blood cultures have been negative. His labs showed a potassium of 3.6, today's labs are pending right now Progress note dated 03/03/2022. The patient is seen today in room 357. He was transferred out of the intensive care unit yesterday. The patient is much more awake and alert. He is currently on room air. His saturations are fine. His hemodynamics are stable. Laboratory data from today includes a white count of 7, hemoglobin 10, hematocrit 29.3, and a platelet count of 283,000. Sodium 136, potassium 3.8, chlorides 106, CO2 26, BUN 7, creatinine 0.66. Urine was positive for Escherichia coli. No recent chest x-ray to review. Objective - Vital Signs Vital signs: Vital Signs Temp 97.5 F L 03/03/22 08:00 Pulse 92 03/03/22 08:00 Resp 22 03/03/22 08:00 BP 105/60 03/03/22 08:00 Pulse Ox 96 03/03/22 08:00 Intake & Output 03/02/22 03/03/22 03/03/22 18:59 06:59 18:59 Intake Total 450 180 Output Total 500 1550 Balance -50 -1550 180 Weight 83.2 kg Intake: IV 450 Lactated Ringers 450 Oral 180 Output: Urine 500 1550 Uretheral ([place]reys) 500 Other: Voiding Method Indwelling Catheter Indwelling Catheter Indwelling Catheter # Bowel Movements 1 - Exam No acute distress, oriented 3. Currently on room air. Saturations are 96%. HEENT examination is grossly unremarkable. Neck supple. Full range of motion. No adenopathy thyromegaly or neck vein distention. Cardiovascular examination reveals regular rhythm rate. S1-S2 normal. No S3 or S4. No discernible murmur noted. Heart sounds are distant. Heart rate 92 bpm. Lungs reveal mostly clear breath sounds. Scattered rhonchi. No wheezes or crackles. Breath sounds equal bilaterally. Abdomen soft bowel sounds are heard. No masses or tenderness. Extremities are intact. No cyanosis clubbing or edema. Skin is without rash or lesion. Neurologic examination is brief but nonfocal. - Labs CBC & Chem 7: 03/03/22 07:26 03/03/22 07:26 Labs: Abnormal Lab Results - Last 24 Hours (Table) 03/03/22 03/03/22 Range/Units 07:26 07:26 RBC 3.00 L (4.30-5.90) m/uL Hgb 10.0 L (13.0-17.5) gm/dL Hct 29.3 L (39.0-53.0) % Sodium 136 L (137-145) mmol/L BUN 7 L (9-20) mg/dL Calcium 7.8 L (8.4-10.2) mg/dL Assessment and Plan Assessment: Syncope, likely secondary to pulmonary embolism. Acute hypoxemic respiratory failure secondary to PE, and possible aspiration pneumonia. Right ventricular strain secondary to pulmonary embolism, status post EKOS. Acute urinary tract infection secondary to Escherichia coli. History of alcohol abuse. Mental status changes, much improved. Acute kidney injury, resolved. Hypernatremia, resolved. Metabolic encephalopathy, improved. Plan: Plan dated 03/03/2022. The patient seems to be doing much better. He is currently on room air. Vital signs are stable. He's being treated for his Escherichia coli urinary tract infection. He is much more awake and alert. The patient was switched from Zosyn to Augmentin. We will continue to follow make recommendations where appropriate. The patient's overall prognosis remains guarded though. Time with Patient: Less than 30
[2022-03-04] MEDS: THIAMINE 100 MG TAB PO SCH ×2 (06:44→16:58)
[2022-03-04 06:54] LABS: Basophils % (A) 0 %; Eosinophils # (A) 0.1 k/uL (0-0.7); Eosinophils % (A) 1 %; Lymphocytes # (A) 0.8 k/uL (1.0-4.8); Lymphocytes % (A) 11 %; MCHC 32.1 g/dL (31.0-37.0); MCV 99.5 fL (80.0-100.0); Mean Platelet Volume 8.8; Monocytes # (A) 0.4 k/uL (0-1.0); Monocytes % (A) 6 %; Neutrophils # (A) 5.9 k/uL (1.3-7.7); Neutrophils % (A) 81 %; Platelet Count 292 k/uL (150-450); RBC 3.11 m/uL (4.30-5.90); RDW 13.3 % (11.5-15.5); WBC 7.3 k/uL (3.8-10.6)
[2022-03-04 07:02] LABS: African American GFR (CKD) >90 (>60 ml/min/1.73 sqM); Anion Gap 4 mmol/L; Blood Urea Nitrogen 8 mg/dL (9-20); Calcium 7.8 mg/dL (8.4-10.2); Carbon Dioxide 24 mmol/L (22-30); Chloride 105 mmol/L (98-107); Glucose 84 mg/dL (74-99); Non-African American GFR(CKD) >90 (>60 ml/min/1.73 sqM); Potassium 4.1 mmol/L (3.5-5.1); Sodium 133 mmol/L (137-145)
[2022-03-04] MEDS ORDERED: APIXABAN 5 MG TAB PO SCH (09:00)
[2022-03-04] MEDS: AMOXIC-POT CLAV 875-125MG 1 EACH TAB PO SCH ×2 (09:32→22:43)
[2022-03-04] MEDS: APIXABAN 5 MG TAB PO SCH ×2 (09:32→22:43)
[2022-03-04] MEDS: PANTOPRAZOLE 40 MG/10 ML VIAL IV SCH (09:33)
[2022-03-04] MEDS: LACTULOSE 20 GM/30 ML CUP PO SCH ×2 (09:33→22:43)
[2022-03-04] MEDS: CYANOCOBALAMIN 500 MCG TAB PO SCH (09:33)
--- NOTE | 2022-03-04 11:52 | P.PN ---
Subjective Progress Note Date: 03/04/22 Principal diagnosis: Sepsis. On 02/28/2022 patient seen in follow-up in intensive care unit, on today's exam neurologically he is more awake, responsive, he knows he is in hospital, he is in the CT report here, he knew the correct month, however started dozing off when we asked him who the president was. Appears to be breathing comfortably, no signs of any respiratory distress pulse ox is 96% on 2 L, vital signs are stable, afebrile, blood pressure stable, is currently on D5W at a rate of 50 ML per hour, he is on tube feedings of vital a rate of 20 ML per hour. He is sta tus pos EKOS on 02/23/2022, he remains on Apixaban 10 mg twice daily. Yesterday we requested neurology recommendations in view of his lethargy, confusion, and altered mental status. Brain CT showed age-related atrophic and chronic small vessel ischemic changes without acute intracranial process. Chest x-ray showed interstitial infiltrates, unchanged. Today's labs have been reviewed, white blood cell count is 8.6, hemoglobin is 10.9, platelet count is 187, sodium is improved today is down to 145, potassium is 3.9, chloride is 117, CO2 is 22, BUN is 11 and creatinine 0.66. LFTs are within normal limits, ammonia level is less than 9. NG tube is in place, for tube feedings. But now the patient is more awake he is also taken and some sips of water by mouth. No other acute events overnight, vital signs have been stable, and overall patient seems to be clinically improving, more awake and alert, following commands. On 03/01/2022 patient seen in follow-up in intensive care unit. He is a bit drowsy, but easily arousable, answers some simple questions, does not appear to be in any acute distress, breathing comfortably. On the 20 L of oxygen his pulse ox is 95-97%, his been afebrile, hemodynamically has been stable, he is in sinus mechanism with a rate of 75 BPM. He is on oral anticoagulation with an requests for recent history of pulmonary embolism with evidence of right vent ricular strain status post equals catheter placement and TPA thrombolysis. EEG was completed showing mild background slowing, intermixed with fast frequency activity suggestive of nonspecific generalized cerebral dysfunction as can be seen with encephalopathy, no epileptiform activity was seen. Patient remains on D5W at a rate of 50 ML per hour, NG tube is in place and he is receiving tube feedings with a vital AF at a rate of 50 with a goal of 60 and standard water flushes. No acute events overnight. No vasopressor support. No fever or chills overnight. White count is normal in today's labs at 6.4, hemoglobin is 9.0, platelet counts 230, sodium is 136, potassium is 3.5, chloride is 108, B1 is 10 and creatinine 0.62. Ammonia level was less than 9. CT of the brain from 02/27/2022 showed age-related atrophic and chronic small vessel ischemic changes without acute intracranial process. Patient was started on lactulose 20 mg twice a day yesterday for constipation. Abdomen is soft, nontender. he remains on Zosyn for antibiotic coverage, so far blood cultures are negative, urine culture was positive for E. coli. On 03/02/2022 patient seen in follow-up in the intensive care unit. Patient is much more awake, he is oriented to self, to month but not the year. He was disoriented to place, he thought he was in [place]. Easily reorients, , cooperative, breathing comfortable, room air pulse ox is 96%, hemodynamically stable, he is in sinus mechanism, rate is controlled. Blood pressure stable 108/55 this morning. Lung sounds are clear, no rhonchi or wheezing. NG tube has been removed for swallow evaluation yesterday, patient passed swallow evaluation without any difficulty, dysphagia diet was recommended and patient is tolerating it well. Room air pulse ox is 96%, no acute events overnight, no cognitive chest pain, no worsening dyspnea or cough. No fever or chills. Remains on Zosyn for pneumatic coverage. His urine culture showed E. coli, blood cultures have been negative. His labs showed a potassium of 3.6, today's labs are pending right now Progress note dated 03/03/2022. The patient is seen today in room 357. He was transferred out of the intensive care unit yesterday. The patient is much more awake and alert. He is currently on room air. His saturations are fine. His hemodynamics are stable. Laboratory data from today includes a white count of 7, hemoglobin 10, hematocrit 29.3, and a platelet count of 283,000. Sodium 136, potassium 3.8, chlorides 106, CO2 26, BUN 7, creatinine 0.66. Urine was positive for Escherichia coli. No recent chest x-ray to review. Progress note dated 03/04/2022. 82-year-old male, seen in room 357. The patient was transferred out of the intensive care unit couple days ago. His urine was positive for Escherichia coli. The patient is currently not receiving any supplemental oxygen. Is getting lactated Ringer's at 50 mL an hour. He appears to be relatively stable. White count 7.3, hemoglobin 10, hematocrit 31, and platelet count normal. Sodium 133, potassium 4.1, chlorides 105, CO2 24, BUN 8, and creatinine 0.61. Objective - Vital Signs Vital signs: Vital Signs Temp 97.5 F L 03/04/22 11:42 Pulse 92 03/04/22 11:42 Resp 18 03/04/22 11:42 BP 126/74 03/04/22 11:42 Pulse Ox 97 03/04/22 11:42 Intake & Output 03/03/22 03/04/22 03/04/22 18:59 06:59 18:59 Intake Total 720 540 Output Total 1100 1940 800 Balance -380 -1400 -800 Intake: Oral 720 540 Output: Urine 1100 1940 800 Other: Voiding Method Indwelling Catheter Indwelling Catheter Indwelling Catheter # Bowel Movements 1 - Exam No acute distress, oriented 3. Currently on room air. Saturations are 97 %. HEENT examination is grossly unremarkable. Neck supple. Full range of motion. No adenopathy thyromegaly or neck vein distention. Cardiovascular examination reveals regular rhythm rate. S1-S2 normal. No S3 or S4. No discernible murmur noted. Heart sounds are distant. Heart rate 88 bpm. Lungs reveal mostly clear breath sounds. Scattered rhonchi. No wheezes or crackles. Breath sounds equal bilaterally. Abdomen soft bowel sounds are heard. No masses or tenderness. Extremities are intact. No cyanosis clubbing or edema. Skin is without rash or lesion. Neurologic examination is brief but nonfocal. - Labs CBC & Chem 7: 03/04/22 05:27 03/04/22 05:27 Labs: Abnormal Lab Results - Last 24 Hours (Table) 03/04/22 03/04/22 Range/Units 05:27 05:27 RBC 3.11 L (4.30-5.90) m/uL Hgb 10.0 L (13.0-17.5) gm/dL Hct 31.0 L (39.0-53.0) % Lymphocytes # 0.8 L (1.0-4.8) k/uL Sodium 133 L (137-145) mmol/L BUN 8 L (9-20) mg/dL Creatinine 0.61 L (0.66-1.25) mg/dL Calcium 7.8 L (8.4-10.2) mg/dL Assessment and Plan Assessment: Syncope, likely secondary to pulmonary embolism. Acute hypoxemic respiratory failure secondary to PE, and possible aspiration pneumonia. Right ventricular strain secondary to pulmonary embolism, status post EKOS. Acute urinary tract infection secondary to Escherichia coli. History of alcohol abuse. Mental status changes, much improved. Acute kidney injury, resolved. Hypernatremia, resolved. Metabolic encephalopathy, improved. Plan: Plan dated 03/03/2022. The patient seems to be doing much better. He is currently on room air. Vital signs are stable. He's being treated for his Escherichia coli urinary tract infection. He is much more awake and alert. The patient was switched from Zosyn to Augmentin. We will continue to follow make recommendations where appropriate. The patient's overall prognosis remains guarded though. Plan dated 03/04/2022. The patient is doing much better. He's currently on room air. Labs, x-rays, and medications are all reviewed. He's currently on Augmentin. We will continue to follow the patient and make recommendations were appropriate. Prognosis is certainly guarded. Medications are reviewed. Time with Patient: Less than 30
[2022-03-04] MEDS: LACTATED RINGERS 1,000 ML IV SCH (16:59)
[2022-03-05] MEDS: THIAMINE 100 MG TAB PO SCH ×2 (07:05→17:10)
--- NOTE | 2022-03-05 09:44 | P.PN ---
Subjective Progress Note Date: 03/03/22 Patient is a 82-year-old male with a known history of dementia, history of CVA/TIA and currently everyday smoker and history of heavy alcohol abuse was brought to the hospital by EMS. Patient was found on the floor. Patient does not recall how long she was staying on there. Patient is also complaining of knee pain and back pain which is not significant as his usual level. No complaints of fever or chills. No chest pain but did have mild shortness of breath. Patient did have last alcohol drink about 4 days ago. Currently not on any home medications as per the list. Denies any paralysis. Patient is somewhat poor historian. CT head and cervical spine showed multilevel cervical spondylitic changes. No fractures. Cerebral atrophy. No acute intercurrent abnormality. No significant change. Chest x-ray showed mild coarsening of the left lung markings could be mild pulmonary fibrosis. No significant change compatible exam. Laboratory data showed WBC 12.1 hemoglobin 13.2 and platelets 201 sodium 141 potassium 4.1 chloride 107 bicarb is 16 BUN 24 and creatinine 1.36 and blood sugar is 135 and lactic acid 4.7 Magnesium 2.4 AST 159 ALT 27 alk phos 79 CPK 02/13/2006 and troponin 0.047 TSH 3.199 urinalysis showed 2+ protein moderate blood large leukocyte esterase and elevated RBCs and WBCs. Coronavirus PCR not detected. CT of the abdomen and pelvis showed urinary bladder wall thickening is nonspecific. Follow-up recommended. Bladder tumor is possible. There is evidence of constipation. Minimal fibrotic changes and subsegmental atelectasis in the lung bases. CT angiogram of the chest showed large emboli in the right lower lobe pulmonary artery. 02/25/2022 Patient is currently in the MICU. Admitted to hospital due to large pulmonary embolism and right ventricular strain. Status post EKOS procedure today. Currently on room air. Does not require any pressor support. Otherwise patient is very confused and mumbling. Continued on alcohol withdrawal protocol. Laboratory data showed WBC 8.1 hemoglobin 10.1 and platelets 127 sodium 146 potassium 4.0 chloride 108 bicarb is 20 BUN 19 and creatinine 1.02 and calcium 7.9 lipase 68. 02/26/2022 Patient is currently in the MICU. Confused and lethargic and mumbling. Currently being continued alcohol withdrawal protocol. Anticoagulation with heparin will be changed to Eliquis. Otherwise patient is medically antibiotics now ceftriaxone for urinary tract infection. IV hydration with D5 water. Laboratory data showed WBC 9.2 hemoglobin 10.3 and platelets 144 Sodium 148 potassium 3.1 chloride 120 bicarb is 22 BUN 14 and creatinine 0.98 02/27/2022 Patient remains in the MICU. Patient is still confused and lethargic and not improving well. Neurology was consulted for evaluation. CT head was done which showed is related atrophic and chronic small vessel ischemic changes without acute p intracranial Process. Chest x-ray showed mild left perihilar and right basilar infiltrate. Laboratory data showed WBC 9.8 hemoglobin 10.1 and platelets 168 Sodium 148 potassium 3.6 chloride 122 bicarb is 20 BUN 11 creatinine 0.73 and calcium 8.1 albumin 3.4. Vitamin B12 is 342 and folate 13.6 within normal limits. Urine culture showed E. coli. Patient is being current antibiotics in the form of Zosyn. Also on anticoagulation changed to Eliquis via NG tube. 02/28/2022 Patient is currently in the MICU. Status post EKOS procedure. Patient is awake and is able to response with his name but unable to communicate. Patient was able to tolerate small quantity of oral diet today. Requiring oxygen at 2 L via nasal cannula. Chest x-ray today showed stable portable chest. Clinical correlation and follow-up until resolution is recommended. Patient is being current on anticoagulation with apixaban. Also on IV fluids w ith D5 water. Sodium level is 145, potassium 3.9 chloride 107 BUN 11 and creatinine 0.66 and calcium 8.0 Hemoglobin 10.9 platelets 187 MCV 104.6. Patient is being monitored for alcohol withdrawal symptoms Neurology and pulmonary is on board. 03/01/2022 Patient is in the intensive care unit..intake and easily arousable. Mentation did improve compared to yesterday.currently on oxygen at2 L via nasal cannula. Patient is status post EKOS procedure and is on oral anticoagulation with the Eliquis. patientis being continued onIV hydration. Not on any pressors support. No fever no chills. No nausea vomiting or diarrhea. Laboratory data showedWBC 6.4 hemoglobin 9.0 and platelets 2:30 Sodium 136 potassium 3.5 chloride 108 bicarb is 28 BUN 10 and creatinine 0.60 and calcium 7.4. EKG showed abnormal EEG due to mild background slowing, intermixed with faster frequency activity. Service 12 nonspecific generalized cerebral dysfunction as can be seen with encephalopathy or medication effect. Limited 2-D echocardiogram showed ejection fraction 55-60%. Normal pulmonary artery pressure. No pericardial effusion. Pulmonary and cardiology is on board. 03/02/2022 Patient is more awake and alert and able to answer simple questions. Tolerating oral diet. Currently transitioned to room air. No complaints of chest pain or shortness of breath. No headache or dizziness or lightheadedness. Not on any pressors support. No fever no chills.no cough or sputum production. Patient is on antibiotic , Zosyn.blood cultures have been negative and urine culture showed E. coli. Laboratory data reviewed. Patient is being transferred to medical floor today. 03/03/2022 Patient is currently staying in bed. Admitted to hospital due to acute PE and right ventricular strain. Status post EKOs. Awake alert and mentation is much improved. Able to tolerate oral diet. No complaints of chest pain or shortness of breath. Otherwise patient is generally weak. PT OT was consulted. No complaints of chest pain or shortness of breath. No fever no chills. Remains on anticoagulation. Laboratory data showed WBC 7.0 hemoglobin 10.0) platelets 283 Sodium 136 potassium 3.8 chloride 106 BUN 7 and creatinine 0.66 and calcium 7.8 Current medications reviewed. Objective - Vital Signs Vital signs: Vital Signs Temp 98.3 F 03/03/22 12:00 Pulse 88 03/03/22 14:00 Resp 22 03/03/22 14:00 BP 130/70 03/03/22 12:00 Pulse Ox 96 03/03/22 12:00 Intake & Output 03/02/22 03/03/22 03/03/22 18:59 06:59 18:59 Intake Total 450 180 Output Total 500 1550 650 Balance -50 -1550 -470 Weight 83.2 kg Intake: IV 450 Lactated Ringers 450 Oral 180 Output: Urine 500 1550 650 Uretheral (Humphreys) 500 Other: Voiding Method Indwelling Catheter Indwelling Catheter Indwelling Catheter # Bowel Movements 1 - Exam PHYSICAL EXAMINATION: Patient is lying in the bed comfortably, no acute distress, awake alert and able to answer simple questions. HEENT: Normocephalic. Neck is supple. Pupils reactive. Nostrils clear. Oral cavity is moist. Neck reveals no JVD, carotid bruits, or thyromegaly. CHEST EXAMINATION: Trachea is central. Symmetrical expansion. Bibasilar diminished sounds. No wheezing. Otherwise Lung perez clear to auscultation and percussion. CARDIAC: Normal S1, S2 with no gallops. No murmurs ABDOMEN: Soft. Bowel sounds normal. No organomegaly. No abdominal bruits. Extremities: reveal no edema. No clubbing or cyanosis Neurologically awake, alert, oriented x2 with well-coordinated movements. No gross focal deficits noted Skin: No rash or skin lesions. Psychiatric: Cooperative. Could not be assessed at this time completely. Musculoskeletal: No joint swelling or deformity. Normal range of motion. - Labs CBC & Chem 7: 03/04/22 05:27 03/04/22 05:27 Labs: Abnormal Lab Results - Last 24 Hours (Table) 03/03/22 03/03/22 Range/Units 07:26 07:26 RBC 3.00 L (4.30-5.90) m/uL Hgb 10.0 L (13.0-17.5) gm/dL Hct 29.3 L (39.0-53.0) % Sodium 136 L (137-145) mmol/L BUN 7 L (9-20) mg/dL Calcium 7.8 L (8.4-10.2) mg/dL Assessment and Plan Assessment: Acute metabolic encephalopathy Acute right lower lobe large emboli/PE with right ventricular strain as per CT.. Status post EKOS on 02/25. Acute syncopal episode and hitting his head likely secondary to above Acute hypoxemic respiratory failure Mild troponin elevation Acute urinary tract infection with E. coli. Acute kidney injury with creatinine 1.36 on admission Acute rhabdomyolysis Dementia Severe alcohol abuse. Last drink was 4 days ago. Currently everyday smoker DVT prophylaxis. On heparin drip. Plan: Patient's mentation is improving.. Currently on room air. EEG showed encephalopathic like picture. Repeat 2-D echocardiogram showed normal ejection fraction. On admission 2D echocardiogram was ordered to rule out right ventricular strain. Status post EKOS procedure. Continue with antibiotics in the form of ceftriaxone and urine cultures showed E. coli.. Cardiology and pulmonary and neurology is following.. CT head showed no acute intracranial process. Age related to chronic ischemic changes. Monitor for alcohol withdrawal symptoms. Prognosis is guarded with multiple medical problems and comorbid conditions. PT OT was consulted and possible rehab transfer. Time with Patient: Greater than 30
[2022-03-05] MEDS: LACTULOSE 20 GM/30 ML CUP PO SCH (09:47)
[2022-03-05] MEDS: APIXABAN 5 MG TAB PO SCH ×2 (09:47→21:36)
[2022-03-05] MEDS: CYANOCOBALAMIN 500 MCG TAB PO SCH (09:47)
[2022-03-05] MEDS: AMOXIC-POT CLAV 875-125MG 1 EACH TAB PO SCH ×2 (09:47→21:36)
[2022-03-05] MEDS: PANTOPRAZOLE 40 MG/10 ML VIAL IV SCH (09:48)
--- NOTE | 2022-03-05 09:50 | P.PN ---
Subjective Progress Note Date: 03/04/22 Patient is a 82-year-old male with a known history of dementia, history of CVA/TIA and currently everyday smoker and history of heavy alcohol abuse was brought to the hospital by EMS. Patient was found on the floor. Patient does not recall how long she was staying on there. Patient is also complaining of knee pain and back pain which is not significant as his usual level. No complaints of fever or chills. No chest pain but did have mild shortness of breath. Patient did have last alcohol drink about 4 days ago. Currently not on any home medications as per the list. Denies any paralysis. Patient is somewhat poor historian. CT head and cervical spine showed multilevel cervical spondylitic changes. No fractures. Cerebral atrophy. No acute intercurrent abnormality. No significant change. Chest x-ray showed mild coarsening of the left lung markings could be mild pulmonary fibrosis. No significant change compatible exam. Laboratory data showed WBC 12.1 hemoglobin 13.2 and platelets 201 sodium 141 potassium 4.1 chloride 107 bicarb is 16 BUN 24 and creatinine 1.36 and blood sugar is 135 and lactic acid 4.7 Magnesium 2.4 AST 159 ALT 27 alk phos 79 CPK 02/13/2006 and troponin 0.047 TSH 3.199 urinalysis showed 2+ protein moderate blood large leukocyte esterase and elevated RBCs and WBCs. Coronavirus PCR not detected. CT of the abdomen and pelvis showed urinary bladder wall thickening is nonspecific. Follow-up recommended. Bladder tumor is possible. There is evidence of constipation. Minimal fibrotic changes and subsegmental atelectasis in the lung bases. CT angiogram of the chest showed large emboli in the right lower lobe pulmonary artery. 02/25/2022 Patient is currently in the MICU. Admitted to hospital due to large pulmonary embolism and right ventricular strain. Status post EKOS procedure today. Currently on room air. Does not require any pressor support. Otherwise patient is very confused and mumbling. Continued on alcohol withdrawal protocol. Laboratory data showed WBC 8.1 hemoglobin 10.1 and platelets 127 sodium 146 potassium 4.0 chloride 108 bicarb is 20 BUN 19 and creatinine 1.02 and calcium 7.9 lipase 68. 02/26/2022 Patient is currently in the MICU. Confused and lethargic and mumbling. Currently being continued alcohol withdrawal protocol. Anticoagulation with heparin will be changed to Eliquis. Otherwise patient is medically antibiotics now ceftriaxone for urinary tract infection. IV hydration with D5 water. Laboratory data showed WBC 9.2 hemoglobin 10.3 and platelets 144 Sodium 148 potassium 3.1 chloride 120 bicarb is 22 BUN 14 and creatinine 0.98 02/27/2022 Patient remains in the MICU. Patient is still confused and lethargic and not improving well. Neurology was consulted for evaluation. CT head was done which showed is related atrophic and chronic small vessel ischemic changes without acute p intracranial Process. Chest x-ray showed mild left perihilar and right basilar infiltrate. Laboratory data showed WBC 9.8 hemoglobin 10.1 and platelets 168 Sodium 148 potassium 3.6 chloride 122 bicarb is 20 BUN 11 creatinine 0.73 and calcium 8.1 albumin 3.4. Vitamin B12 is 342 and folate 13.6 within normal limits. Urine culture showed E. coli. Patient is being current antibiotics in the form of Zosyn. Also on anticoagulation changed to Eliquis via NG tube. 02/28/2022 Patient is currently in the MICU. Status post EKOS procedure. Patient is awake and is able to response with his name but unable to communicate. Patient was able to tolerate small quantity of oral diet today. Requiring oxygen at 2 L via nasal cannula. Chest x-ray today showed stable portable chest. Clinical correlation and follow-up until resolution is recommended. Patient is being current on anticoagulation with apixaban. Also on IV fluids w ith D5 water. Sodium level is 145, potassium 3.9 chloride 107 BUN 11 and creatinine 0.66 and calcium 8.0 Hemoglobin 10.9 platelets 187 MCV 104.6. Patient is being monitored for alcohol withdrawal symptoms Neurology and pulmonary is on board. 03/01/2022 Patient is in the intensive care unit..intake and easily arousable. Mentation did improve compared to yesterday.currently on oxygen at2 L via nasal cannula. Patient is status post EKOS procedure and is on oral anticoagulation with the Eliquis. patientis being continued onIV hydration. Not on any pressors support. No fever no chills. No nausea vomiting or diarrhea. Laboratory data showedWBC 6.4 hemoglobin 9.0 and platelets 2:30 Sodium 136 potassium 3.5 chloride 108 bicarb is 28 BUN 10 and creatinine 0.60 and calcium 7.4. EKG showed abnormal EEG due to mild background slowing, intermixed with faster frequency activity. Service 12 nonspecific generalized cerebral dysfunction as can be seen with encephalopathy or medication effect. Limited 2-D echocardiogram showed ejection fraction 55-60%. Normal pulmonary artery pressure. No pericardial effusion. Pulmonary and cardiology is on board. 03/02/2022 Patient is more awake and alert and able to answer simple questions. Tolerating oral diet. Currently transitioned to room air. No complaints of chest pain or shortness of breath. No headache or dizziness or lightheadedness. Not on any pressors support. No fever no chills.no cough or sputum production. Patient is on antibiotic , Zosyn.blood cultures have been negative and urine culture showed E. coli. Laboratory data reviewed. Patient is being transferred to medical floor today. 03/03/2022 Patient is currently staying in bed. Admitted to hospital due to acute PE and right ventricular strain. Status post EKOs. Awake alert and mentation is much improved. Able to tolerate oral diet. No complaints of chest pain or shortness of breath. Otherwise patient is generally weak. PT OT was consulted. No complaints of chest pain or shortness of breath. No fever no chills. Remains on anticoagulation. Laboratory data showed WBC 7.0 hemoglobin 10.0) platelets 283 Sodium 136 potassium 3.8 chloride 106 BUN 7 and creatinine 0.66 and calcium 7.8 03/04/2022 Patient is currently lying in the bed. Awake alert and oriented but poor historian. No complains of chest pain or shortness of breath. Tolerating oral diet. No fever no chills. No cough or sputum production. Laboratory data showed WBC 7.3 improved from 10.0 and platelets 292 Sodium 133 potassium 4.1 I bicarb is 24 BUN 18 creatinine 0.61 and calcium 7.8 Current medications reviewed. Objective - Vital Signs Vital signs: Vital Signs Temp 97.5 F L 03/04/22 20:00 Pulse 90 03/04/22 20:00 Resp 18 03/04/22 20:00 BP 127/77 03/04/22 20:00 Pulse Ox 94 L 03/04/22 20:00 Intake & Output 03/04/22 03/04/22 03/05/22 06:59 18:59 06:59 Intake Total 540 Output Total 1939 1899 325 Balance -1400 -1899 -325 Weight 83.2 kg Intake: Oral 540 Output: Urine 1939 1899 325 Other: Voiding Method Indwelling Catheter Indwelling Catheter Indwelling Catheter # Bowel Movements 1 - Exam PHYSICAL EXAMINATION: Patient is lying in the bed comfortably, no acute distress, awake alert and able to answer simple questions. HEENT: Normocephalic. Neck is supple. Pupils reactive. Nostrils clear. Oral cavi ty is moist. Neck reveals no JVD, carotid bruits, or thyromegaly. CHEST EXAMINATION: Trachea is central. Symmetrical expansion. Bibasilar diminished sounds. No wheezing. Otherwise Lung perez clear to auscultation and percussion. CARDIAC: Normal S1, S2 with no gallops. No murmurs ABDOMEN: Soft. Bowel sounds normal. No organomegaly. No abdominal bruits. Extremities: reveal no edema. No clubbing or cyanosis Neurologically awake, alert, oriented x2 with well-coordinated movements. No gross focal deficits noted Skin: No rash or skin lesions. Psychiatric: Cooperative. Could not be assessed at this time completely. Musculoskeletal: No joint swelling or deformity. Normal range of motion. - Labs CBC & Chem 7: 03/04/22 05:27 03/04/22 05:27 Labs: Abnormal Lab Results - Last 24 Hours (Table) 03/04/22 03/04/22 Range/Units 05:27 05:27 RBC 3.11 L (4.30-5.90) m/uL Hgb 10.0 L (13.0-17.5) gm/dL Hct 31.0 L (39.0-53.0) % Lymphocytes # 0.8 L (1.0-4.8) k/uL Sodium 133 L (137-145) mmol/L BUN 8 L (9-20) mg/dL Creatinine 0.61 L (0.66-1.25) mg/dL Calcium 7.8 L (8.4-10.2) mg/dL Assessment and Plan Assessment: Acute metabolic encephalopathy Acute right lower lobe large emboli/PE with right ventricular strain as per CT.. Status post EKOS on 02/25. Acute syncopal episode and hitting his head likely secondary to above Acute hypoxemic respiratory failure Mild troponin elevation Acute urinary tract infection with E. coli. Acute kidney injury with creatinine 1.36 on admission Acute rhabdomyolysis Dementia Severe alcohol abuse. Last drink was 4 days ago. Currently everyday smoker DVT prophylaxis. On heparin drip. Plan: Patient's mentation is improving.. Currently on room air. EEG showed encephalopathic like picture. Repeat 2-D echocardiogram showed normal ejection fraction. On admission 2D echocardiogram was ordered to rule out right ventricular strain. Status post EKOS procedure. Continue with antibiotics in the form of ceftriaxone and urine cultures showed E. coli.. Cardiology and pulmonary and neurology is following.. CT head showed no acute intracranial process. Age related to chronic ischemic changes. Monitor for alcohol withdrawal symptoms. Prognosis is guarded with multiple medical problems and comorbid conditions. PT OT was consulted and possible rehab transfer. Time with Patient: Greater than 30
[2022-03-05] MEDS: LACTATED RINGERS 1,000 ML IV SCH (17:10)
[2022-03-06] MEDS: THIAMINE 100 MG TAB PO SCH ×2 (07:28→17:02)
[2022-03-06] MEDS: LACTULOSE 20 GM/30 ML CUP PO SCH ×3 (07:29→20:19)
[2022-03-06] MEDS: PANTOPRAZOLE 40 MG/10 ML VIAL IV SCH (09:04)
[2022-03-06] MEDS: APIXABAN 5 MG TAB PO SCH ×2 (09:04→20:23)
[2022-03-06] MEDS: CYANOCOBALAMIN 500 MCG TAB PO SCH (09:04)
[2022-03-06] MEDS: AMOXIC-POT CLAV 875-125MG 1 EACH TAB PO SCH ×2 (09:05→20:23)
[2022-03-06] MEDS: LACTATED RINGERS 1,000 ML IV SCH ×2 (17:03→20:27)
--- NOTE | 2022-03-06 21:59 | P.PN ---
Subjective Progress Note Date: 03/06/22 Patient is a 82-year-old male with a known history of dementia, history of CVA/TIA and currently everyday smoker and history of heavy alcohol abuse was brought to the hospital by EMS. Patient was found on the floor. Patient does not recall how long she was staying on there. Patient is also complaining of knee pain and back pain which is not significant as his usual level. No complaints of fever or chills. No chest pain but did have mild shortness of breath. Patient did have last alcohol drink about 4 days ago. Currently not on any home medications as per the list. Denies any paralysis. Patient is somewhat poor historian. CT head and cervical spine showed multilevel cervical spondylitic changes. No fractures. Cerebral atrophy. No acute intercurrent abnormality. No significant change. Chest x-ray showed mild coarsening of the left lung markings could be mild pulmonary fibrosis. No significant change compatible exam. Laboratory data showed WBC 12.1 hemoglobin 13.2 and platelets 201 sodium 141 potassium 4.1 chloride 107 bicarb is 16 BUN 24 and creatinine 1.36 and blood sugar is 135 and lactic acid 4.7 Magnesium 2.4 AST 159 ALT 27 alk phos 79 CPK 02/13/2006 and troponin 0.047 TSH 3.199 urinalysis showed 2+ protein moderate blood large leukocyte esterase and elevated RBCs and WBCs. Coronavirus PCR not detected. CT of the abdomen and pelvis showed urinary bladder wall thickening is nonspecific. Follow-up recommended. Bladder tumor is possible. There is evidence of constipation. Minimal fibrotic changes and subsegmental atelectasis in the lung bases. CT angiogram of the chest showed large emboli in the right lower lobe pulmonary artery. 02/25/2022 Patient is currently in the MICU. Admitted to hospital due to large pulmonary embolism and right ventricular strain. Status post EKOS procedure today. Currently on room air. Does not require any pressor support. Otherwise patient is very confused and mumbling. Continued on alcohol withdrawal protocol. Laboratory data showed WBC 8.1 hemoglobin 10.1 and platelets 127 sodium 146 potassium 4.0 chloride 108 bicarb is 20 BUN 19 and creatinine 1.02 and calcium 7.9 lipase 68. 02/26/2022 Patient is currently in the MICU. Confused and lethargic and mumbling. Currently being continued alcohol withdrawal protocol. Anticoagulation with heparin will be changed to Eliquis. Otherwise patient is medically antibiotics now ceftriaxone for urinary tract infection. IV hydration with D5 water. Laboratory data showed WBC 9.2 hemoglobin 10.3 and platelets 144 Sodium 148 potassium 3.1 chloride 120 bicarb is 22 BUN 14 and creatinine 0.98 02/27/2022 Patient remains in the MICU. Patient is still confused and lethargic and not improving well. Neurology was consulted for evaluation. CT head was done which showed is related atrophic and chronic small vessel ischemic changes without acute p intracranial Process. Chest x-ray showed mild left perihilar and right basilar infiltrate. Laboratory data showed WBC 9.8 hemoglobin 10.1 and platelets 168 Sodium 148 potassium 3.6 chloride 122 bicarb is 20 BUN 11 creatinine 0.73 and calcium 8.1 albumin 3.4. Vitamin B12 is 342 and folate 13.6 within normal limits. Urine culture showed E. coli. Patient is being current antibiotics in the form of Zosyn. Also on anticoagulation changed to Eliquis via NG tube. 02/28/2022 Patient is currently in the MICU. Status post EKOS procedure. Patient is awake and is able to response with his name but unable to communicate. Patient was able to tolerate small quantity of oral diet today. Requiring oxygen at 2 L via nasal cannula. Chest x-ray today showed stable portable chest. Clinical correlation and follow-up until resolution is recommended. Patient is being current on anticoagulation with apixaban. Also on IV fluids w ith D5 water. Sodium level is 145, potassium 3.9 chloride 107 BUN 11 and creatinine 0.66 and calcium 8.0 Hemoglobin 10.9 platelets 187 MCV 104.6. Patient is being monitored for alcohol withdrawal symptoms Neurology and pulmonary is on board. 03/01/2022 Patient is in the intensive care unit..intake and easily arousable. Mentation did improve compared to yesterday.currently on oxygen at2 L via nasal cannula. Patient is status post EKOS procedure and is on oral anticoagulation with the Eliquis. patientis being continued onIV hydration. Not on any pressors support. No fever no chills. No nausea vomiting or diarrhea. Laboratory data showedWBC 6.4 hemoglobin 9.0 and platelets 2:30 Sodium 136 potassium 3.5 chloride 108 bicarb is 28 BUN 10 and creatinine 0.60 and calcium 7.4. EKG showed abnormal EEG due to mild background slowing, intermixed with faster frequency activity. Service 12 nonspecific generalized cerebral dysfunction as can be seen with encephalopathy or medication effect. Limited 2-D echocardiogram showed ejection fraction 55-60%. Normal pulmonary artery pressure. No pericardial effusion. Pulmonary and cardiology is on board. 03/02/2022 Patient is more awake and alert and able to answer simple questions. Tolerating oral diet. Currently transitioned to room air. No complaints of chest pain or shortness of breath. No headache or dizziness or lightheadedness. Not on any pressors support. No fever no chills.no cough or sputum production. Patient is on antibiotic , Zosyn.blood cultures have been negative and urine culture showed E. coli. Laboratory data reviewed. Patient is being transferred to medical floor today. 03/03/2022 Patient is currently staying in bed. Admitted to hospital due to acute PE and right ventricular strain. Status post EKOs. Awake alert and mentation is much improved. Able to tolerate oral diet. No complaints of chest pain or shortness of breath. Otherwise patient is generally weak. PT OT was consulted. No complaints of chest pain or shortness of breath. No fever no chills. Remains on anticoagulation. Laboratory data showed WBC 7.0 hemoglobin 10.0) platelets 283 Sodium 136 potassium 3.8 chloride 106 BUN 7 and creatinine 0.66 and calcium 7.8 03/04/2022 Patient is currently lying in the bed. Awake alert and oriented but poor historian. No complains of chest pain or shortness of breath. Tolerating oral diet. No fever no chills. No cough or sputum production. Laboratory data showed WBC 7.3 improved from 10.0 and platelets 292 Sodium 133 potassium 4.1 I bicarb is 24 BUN 18 creatinine 0.61 and calcium 7.8 03/05/2022 Patient is currently resting in bed. Awake alert and oriented. No complaints of chest pain or worsening shortness of breath. Patient is tolerating oral diet slowly. Otherwise patient is still very weak and unable to participate in physical therapy. No fever no chills. No cough or sputum production. Laboratory data reviewed. Patient is being continued on antibiotics in the form of Augmentin. Also on Eliquis due to acute PE with right ventricular strain. Patient denied any complaints of nausea or vomiting. No chest tightness or dizziness or lightheadedness. 03/06/2022 Patient was admitted to hospital due to acute PE with right ventricular strain. On anticoagulation with Eliquis. Patient is currently resting in the bed. Awake alert oriented x3. Tolerating oral diet. No complaints of chest pain or shortness of breath. No nausea vomiting or abdominal pain or diarrhea. Tolerating oral diet. Patient has been afebrile. No cough or sputum production. Patient is otherwise very weak and requiring PT OT. Anticipate discharge to rehab in the next 24 hours. Current medications reviewed. Objective - Vital Signs Vital signs: Vital Signs Temp 98.2 F 03/06/22 11:59 Pulse 92 03/06/22 11:59 Resp 18 03/06/22 11:59 BP 105/65 03/06/22 11:59 Pulse Ox 95 03/06/22 11:59 Intake & Output 03/05/22 03/06/22 03/06/22 18:59 06:59 18:59 Intake Total 240 Output Total 1525 2700 Balance -1285 -2700 Intake: Oral 240 Output: Urine 1525 2700 Other: Voiding Method Indwelling Catheter Indwelling Catheter Indwelling Catheter # Bowel Movements 1 - Exam PHYSICAL EXAMINATION: Patient is lying in the bed comfortably, no acute distress, awake alert and able to answer simple questions. HEENT: Normocephalic. Neck is supple. Pupils reactive. Nostrils clear. Oral cavity is moist. Neck reveals no JVD, carotid bruits, or thyromegaly. CHEST EXAMINATION: Trachea is central. Symmetrical expansion. Bibasilar d iminished sounds. No wheezing. Otherwise Lung perez clear to auscultation and percussion. CARDIAC: Normal S1, S2 with no gallops. No murmurs ABDOMEN: Soft. Bowel sounds normal. No organomegaly. No abdominal bruits. Extremities: reveal no edema. No clubbing or cyanosis Neurologically awake, alert, oriented x2 with well-coordinated movements. No gross focal deficits noted Skin: No rash or skin lesions. Psychiatric: Cooperative. Could not be assessed at this time completely. Musculoskeletal: No joint swelling or deformity. Normal range of motion. - Labs CBC & Chem 7: 03/04/22 05:27 03/04/22 05:27 Assessment and Plan Assessment: Acute metabolic encephalopathy. improved Acute right lower lobe large emboli/PE with right ventricular strain as per CT.. Status post EKOS on 02/25. Acute syncopal episode and hitting his head likely secondary to above Acute hypoxemic respiratory failure Mild troponin elevation Acute urinary tract infection with E. coli. Acute kidney injury with creatinine 1.36 on admission Acute rhabdomyolysis Dementia Severe alcohol abuse. Last drink was 4 days ago. Currently everyday smoker DVT prophylaxis. On heparin drip. Plan: Patient's mentation is improving.. Currently on room air. EEG showed encephalopathic like picture. Repeat 2-D echocardiogram showed normal ejection fraction. On admission 2D echocardiogram was ordered to rule out right ventricular strain. Status post EKOS procedure. Continue with antibiotics in the form of ceftriaxone and urine cultures showed E. coli.. Cardiology and pulmonary and neurology is following.. CT head showed no acute intracranial process. Age related to chronic ischemic changes. Monitor for alcohol withdrawal symptoms. Prognosis is guarded with multiple medical problems and comorbid conditions. PT OT was consulted and possible rehab transfer. Time with Patient: Greater than 30
[2022-03-07 08:25] LABS: Basophils % (A) 1 %; Eosinophils # (A) 0.1 k/uL (0-0.7); Eosinophils % (A) 1 %; HCT 28.4 % (39.0-53.0); HGB 9.4 gm/dL (13.0-17.5); Hypochromasia Slight; Lymphocytes # (A) 0.9 k/uL (1.0-4.8); Lymphocytes % (A) 14 %; MCH 32.3 pg (25.0-35.0); MCHC 33.2 g/dL (31.0-37.0); MCV 97.4 fL (80.0-100.0); Mean Platelet Volume 8.5; Monocytes # (A) 0.4 k/uL (0-1.0); Monocytes % (A) 7 %; Neutrophils # (A) 4.6 k/uL (1.3-7.7); Neutrophils % (A) 77 %; Platelet Count 382 k/uL (150-450); RBC 2.92 m/uL (4.30-5.90); RDW 13.2 % (11.5-15.5); WBC 6.1 k/uL (3.8-10.6)
[2022-03-07 08:47] LABS: African American GFR (CKD) >90 (>60 ml/min/1.73 sqM); Anion Gap 5 mmol/L; Blood Urea Nitrogen 11 mg/dL (9-20); Calcium 7.8 mg/dL (8.4-10.2); Carbon Dioxide 24 mmol/L (22-30); Chloride 103 mmol/L (98-107); Glucose 79 mg/dL (74-99); Non-African American GFR(CKD) 90 (>60 ml/min/1.73 sqM); Potassium 4.5 mmol/L (3.5-5.1); Sodium 132 mmol/L (137-145)
[2022-03-07] MEDS: APIXABAN 5 MG TAB PO SCH ×2 (11:41→22:04)
[2022-03-07] MEDS: CYANOCOBALAMIN 500 MCG TAB PO SCH (11:41)
[2022-03-07] MEDS: AMOXIC-POT CLAV 875-125MG 1 EACH TAB PO SCH (11:41)
[2022-03-07] MEDS: THIAMINE 100 MG TAB PO SCH ×2 (11:41→16:33)
[2022-03-07] MEDS: LACTULOSE 20 GM/30 ML CUP PO SCH ×2 (11:42→22:05)
[2022-03-07] MEDS: PANTOPRAZOLE 40 MG/10 ML VIAL IV SCH (11:42)
--- NOTE | 2022-03-07 14:46 | P.PN ---
Subjective Progress Note Date: 03/07/22 Patient is a 82-year-old male with a known history of dementia, history of CVA/TIA and currently everyday smoker and history of heavy alcohol abuse was brought to the hospital by EMS. Patient was found on the floor. Patient does not recall how long she was staying on there. Patient is also complaining of knee pain and back pain which is not significant as his usual level. No complaints of fever or chills. No chest pain but did have mild shortness of breath. Patient did have last alcohol drink about 4 days ago. Currently not on any home medications as per the list. Denies any paralysis. Patient is somewhat poor historian. CT head and cervical spine showed multilevel cervical spondylitic changes. No fractures. Cerebral atrophy. No acute intercurrent abnormality. No significant change. Chest x-ray showed mild coarsening of the left lung markings could be mild pulmonary fibrosis. No significant change compatible exam. Laboratory data showed WBC 12.1 hemoglobin 13.2 and platelets 201 sodium 141 potassium 4.1 chloride 107 bicarb is 16 BUN 24 and creatinine 1.36 and blood sugar is 135 and lactic acid 4.7 Magnesium 2.4 AST 159 ALT 27 alk phos 79 CPK 02/13/2006 and troponin 0.047 TSH 3.199 urinalysis showed 2+ protein moderate blood large leukocyte esterase and elevated RBCs and WBCs. Coronavirus PCR not detected. CT of the abdomen and pelvis showed urinary bladder wall thickening is nonspecific. Follow-up recommended. Bladder tumor is possible. There is evidence of constipation. Minimal fibrotic changes and subsegmental atelectasis in the lung bases. CT angiogram of the chest showed large emboli in the right lower lobe pulmonary artery. 02/25/2022 Patient is currently in the MICU. Admitted to hospital due to large pulmonary embolism and right ventricular strain. Status post EKOS procedure today. Currently on room air. Does not require any pressor support. Otherwise patient is very confused and mumbling. Continued on alcohol withdrawal protocol. Laboratory data showed WBC 8.1 hemoglobin 10.1 and platelets 127 sodium 146 potassium 4.0 chloride 108 bicarb is 20 BUN 19 and creatinine 1.02 and calcium 7.9 lipase 68. 02/26/2022 Patient is currently in the MICU. Confused and lethargic and mumbling. Currently being continued alcohol withdrawal protocol. Anticoagulation with heparin will be changed to Eliquis. Otherwise patient is medically antibiotics now ceftriaxone for urinary tract infection. IV hydration with D5 water. Laboratory data showed WBC 9.2 hemoglobin 10.3 and platelets 144 Sodium 148 potassium 3.1 chloride 120 bicarb is 22 BUN 14 and creatinine 0.98 02/27/2022 Patient remains in the MICU. Patient is still confused and lethargic and not improving well. Neurology was consulted for evaluation. CT head was done which showed is related atrophic and chronic small vessel ischemic changes without acute p intracranial Process. Chest x-ray showed mild left perihilar and right basilar infiltrate. Laboratory data showed WBC 9.8 hemoglobin 10.1 and platelets 168 Sodium 148 potassium 3.6 chloride 122 bicarb is 20 BUN 11 creatinine 0.73 and calcium 8.1 albumin 3.4. Vitamin B12 is 342 and folate 13.6 within normal limits. Urine culture showed E. coli. Patient is being current antibiotics in the form of Zosyn. Also on anticoagulation changed to Eliquis via NG tube. 02/28/2022 Patient is currently in the MICU. Status post EKOS procedure. Patient is awake and is able to response with his name but unable to communicate. Patient was able to tolerate small quantity of oral diet today. Requiring oxygen at 2 L via nasal cannula. Chest x-ray today showed stable portable chest. Clinical correlation and follow-up until resolution is recommended. Patient is being current on anticoagulation with apixaban. Also on IV fluids with D5 water. Sodium level is 145, potassium 3.9 chloride 107 BUN 11 and creatinine 0.66 and calcium 8.0 Hemoglobin 10.9 platelets 187 MCV 104.6. Patient is being monitored for alcohol withdrawal symptoms Neurology and pulmonary is on board. 03/01/2022 Patient is in the intensive care unit..intake and easily arousable. Mentation did improve compared to yesterday.currently on oxygen at2 L via nasal cannula. Patient is status post EKOS procedure and is on oral anticoagulation with the Eliquis. patientis being continued onIV hydration. Not on any pressors support. No fever no chills. No nausea vomiting or diarrhea. Laboratory data showedWBC 6.4 hemoglobin 9.0 and platelets 2:30 Sodium 136 potassium 3.5 chloride 108 bicarb is 28 BUN 10 and creatinine 0.60 and calcium 7.4. EKG showed abnormal EEG due to mild background slowing, intermixed with faster frequency activity. Service 12 nonspecific generalized cerebral dysfunction as can be seen with encephalopathy or medication effect. Limited 2-D echocardiogram showed ejection fraction 55-60%. Normal pulmonary artery pressure. No pericardial effusion. Pulmonary and cardiology is on board. 03/02/2022 Patient is more awake and alert and able to answer simple questions. Tolerating oral diet. Currently transitioned to room air. No complaints of chest pain or shortness of breath. No headache or dizziness or lightheadedness. Not on any pressors support. No fever no chills.no cough or sputum production. Patient is on antibiotic , Zosyn.blood cultures have been negative and urine culture showed E. coli. Laboratory data reviewed. Patient is being transferred to medical floor today. 03/03/2022 Patient is currently staying in bed. Admitted to hospital due to acute PE and right ventricular strain. Status post EKOs. Awake alert and mentation is much improved. Able to tolerate oral diet. No complaints of chest pain or shortness of breath. Otherwise patient is generally weak. PT OT was consulted. No complaints of chest pain or shortness of breath. No fever no chills. Remains on anticoagulation. Laboratory data showed WBC 7.0 hemoglobin 10.0) platelets 283 Sodium 136 potassium 3.8 chloride 106 BUN 7 and creatinine 0.66 and calcium 7.8 03/04/2022 Patient is currently lying in the bed. Awake alert and oriented but poor historian. No complains of chest pain or shortness of breath. Tolerating oral diet. No fever no chills. No cough or sputum production. Laboratory data showed WBC 7.3 improved from 10.0 and platelets 292 Sodium 133 potassium 4.1 I bicarb is 24 BUN 18 creatinine 0.61 and calcium 7.8 03/05/2022 Patient is currently resting in bed. Awake alert and oriented. No complaints of chest pain or worsening shortness of breath. Patient is tolerating oral diet slowly. Otherwise patient is still very weak and unable to participate in physical therapy. No fever no chills. No cough or sputum production. Laboratory data reviewed. Patient is being continued on antibiotics in the form of Augmentin. Also on Eliquis due to acute PE with right ventricular strain. Patient denied any complaints of nausea or vomiting. No chest tightness or dizziness or lightheadedness. 03/06/2022 Patient was admitted to hospital due to acute PE with right ventricular strain. On anticoagulation with Eliquis. Patient is currently resting in the bed. Awake alert oriented x3. Tolerating oral diet. No complaints of chest pain or shortness of breath. No nausea vomiting or abdominal pain or diarrhea. Tolerating oral diet. Patient has been afebrile. No cough or sputum production. Patient is otherwise very weak and requiring PT OT. Anticipate discharge to rehab in the next 24 hours. 03/07/2022 Patient is seen and evaluated and follow-up with no acute overnight issues noted. Patient continues on current medications as mentioned below and will continue. Patient with extreme weakness and awaiting updated physical therapy notes and patient will most likely need ECF once stabilized and discharged. Patient denies any chest pain or palpitations. Patient denies shortness of breath and is afebrile. Patient is off antibiotic therapy for his UTI with E. coli. Review of systems: Constitutional: No reports of fatigue, fever, or chills Cardiovascular: No reports of chest pain or palpitations Respiratory: No reports of shortness of breath or cough GI: No reports of nausea, vomiting, or diarrhea : No reports of dysuria or retention Neurovascular: reports of generalized weakness All medications have been reviewed Active Medications Acetaminophen (Acetaminophen Tab 325 Mg Tab) 650 mg PO Q6HR PRN PRN Reason: Mild Pain or Fever > 100.5 Last Admin: 03/02/22 22:25 Dose: 650 mg Documented by: Albuterol/Ipratropium (Ipratropium-Albuterol 3 Ml Neb) 3 ml INHALATION RT-Q4H PRN PRN Reason: Shortness Of Breath Or Wheezing Last Admin: 02/25/22 15:08 Dose: 3 ml Documented by: Apixaban (Apixaban 5 Mg Tab) 5 mg PO BID [facility]; Protocol Last Admin: 03/07/22 11:41 Dose: Not Given Documented by: Cyanocobalamin (Cyanocobalamin 500 Mcg Tab) 1,000 mcg PO DAILY [facility] Last Admin: 03/07/22 11:41 Dose: Not Given Documented by: Lactated Ringer's (Lactated Ringers) 1,000 mls @ 50 mls/hr IV .Q20H [facility] Last Admin: 03/06/22 20:27 Dose: 50 mls/hr Documented by: Lactulose (Lactulose 20 Gm/30 Ml Cup) 20 gm PO BID [facility] Last Admin: 03/07/22 11:42 Dose: Not Given Documented by: Miscellaneous Information (Pneumonia Protocol Utilized 1 Each [facility]) 1 each PO ONCE PRN PRN Reason: Per Protocol Miscellaneous Information (Potassium Replacement Protocol 1 Each [facility]) 1 each MISCELLANE DAILY PRN; Protocol PRN Reason: Per Protocol Naloxone HCl (Naloxone 0.4 Mg/Ml 1 Ml Vial) 0.2 mg IV Q2M PRN PRN Reason: Opioid Reversal Naloxone HCl (Naloxone 0.4 Mg/Ml 1 Ml Vial) 0.2 mg IV Q2M PRN PRN Reason: Opioid Reversal Ondansetron HCl (Ondansetron 4 Mg/2 Ml Vial) 4 mg IVP Q8HR PRN PRN Reason: Nausea And Vomiting Pantoprazole Sodium (Pantoprazole 40 Mg/10 Ml Vial) 40 mg IV DAILY [facility] Last Admin: 03/07/22 11:42 Dose: Not Given Documented by: Thiamine HCl (Thiamine 100 Mg Tab) 100 mg PO BID-W/MEALS [facility] Last Admin: 03/07/22 11:41 Dose: Not Given Documented by: PHYSICAL EXAMINATION: Patient is lying in the bed comfortably, no acute distress, awake alert and able to answer simple questions. HEENT: Normocephalic. Neck is supple. Pupils reactive. Nostrils clear. Oral cavity is moist. Neck reveals no JVD, carotid bruits, or thyromegaly. CHEST EXAMINATION: Trachea is central. Symmetrical expansion. Bibasilar diminished sounds. No wheezing. Otherwise Lung perez clear to auscultation and percussion. CARDIAC: Normal S1, S2 with no gallops. No murmurs ABDOMEN: Soft. Bowel sounds normal. No organomegaly. No abdominal bruits. Extremities: reveal no edema. No clubbing or cyanosis Neurologically awake, alert, oriented x2 with well-coordinated movements. No gross focal deficits noted Skin: No rash or skin lesions. Psychiatric: Cooperative. Could not be assessed at this time completely. Musculoskeletal: No joint swelling or deformity. Normal range of motion. Assessment: Acute metabolic encephalopathy. improved Acute right lower lobe large emboli/PE with right ventricular strain as per CT.. Status post EKOS on 02/25. Acute syncopal episode and hitting his head likely secondary to above Acute hypoxemic respiratory failure Mild troponin elevation Acute urinary tract infection with E. coli. Acute kidney injury with creatinine 1.36 on admission Acute rhabdomyolysis Dementia Severe alcohol abuse. Last drink was 4 days prior to admission. Currently everyday smoker DVT prophylaxis. On eliquis. GI prophylaxis Full code Plan: Patient's mentation is improving. Currently on room air. EEG showed encephalopathic like picture. Repeat 2-D echocardiogram showed normal ejection fraction. On admission 2D echocardiogram was ordered to rule out right ventricular strain. Status post EKOS procedure. Patient has been adequately treated with IV antibiotics in the form of ceftriaxone as urine cultures showed E. coli.. Cardiology and pulmonary and neurology is following.. CT head showed no acute intracranial process. Age related to chronic ischemic changes. Monitor for alcohol withdrawal symptoms. Prognosis is guarded with multiple medical problems and comorbid conditions. Awaiting PT/OT therapy notes and patient will be going to ECF once stabilized and discharged. Possible discharge in 24 hours. The impression and plan of care has been dictated by Shaunna Proctor, Nurse Practitioner as directed. Dr. Domitila MD I have performed a history and examination and MDM of this patient, discussed the same with the dictator, and agree with the dictator's assessment and plan as written ,documented as a scribe. Based on total visit time, I have performed more than 50% of the visit. Objective - Vital Signs Vital signs: Vital Signs Temp 98.8 F 03/07/22 00:00 Pulse 88 03/07/22 02:00 Resp 18 03/07/22 02:00 BP 110/67 03/07/22 00:00 Pulse Ox 94 L 03/07/22 00:00 Intake & Output 03/06/22 03/07/22 03/07/22 18:59 06:59 18:59 Intake Total 0 100 Output Total 3125 Balance -3125 100 Intake: Oral 0 100 Output: Urine 3125 Other: Voiding Method Indwelling Catheter Indwelling Catheter # Bowel Movements 0 - Labs CBC & Chem 7: 03/07/22 06:43 03/07/22 06:43 Labs: Abnormal Lab Results - Last 24 Hours (Table) 03/07/22 03/07/22 Range/Units 06:43 06:43 RBC 2.92 L (4.30-5.90) m/uL Hgb 9.4 L (13.0-17.5) gm/dL Hct 28.4 L (39.0-53.0) % Lymphocytes # 0.9 L (1.0-4.8) k/uL Sodium 132 L (137-145) mmol/L Calcium 7.8 L (8.4-10.2) mg/dL
[2022-03-07] MEDS: LACTATED RINGERS 1,000 ML IV SCH (16:33)
--- NOTE | 2022-03-08 05:30 | XR ---
EXAMINATION TYPE: XR chest 1V DATE OF EXAM: 03/08/2022 COMPARISON: 02/28/2022 HISTORY: Hypoxemia TECHNIQUE: FINDINGS: There is some blunting of the right costophrenic angle. There is mild pulmonary congestion. There is mild pleural thickening at the lung apices. Heart size is normal. There are chest leads. IMPRESSION: Mild pulmonary congestion and right pleural effusion could relate to some mild heart fail ure. Pulmonary congestion improved compared to old exam.
[2022-03-08] MEDS: PANTOPRAZOLE 40 MG/10 ML VIAL IV SCH (08:37)
[2022-03-08] MEDS: LACTULOSE 20 GM/30 ML CUP PO SCH ×2 (08:37→19:52)
[2022-03-08] MEDS: CYANOCOBALAMIN 500 MCG TAB PO SCH (08:38)
[2022-03-08] MEDS: THIAMINE 100 MG TAB PO SCH ×2 (08:38→17:46)
[2022-03-08] MEDS: APIXABAN 5 MG TAB PO SCH ×2 (08:38→19:52)
--- NOTE | 2022-03-08 13:06 | P.CN ---
Psychiatric Consult - . Consult date: 03/08/22 Consult:: 03/08/22 12:40 IDENTIFYING DATA: This patient is a 82-year-old male with a history of dementia who currently lives alone in a house has no kids and is . REASON FOR REFERRAL: Psychiatry was consulted for "confusion/competency" HISTORY OF PRESENT ILLNESS: The patient presented to the hospital initially on 02/23. Patient has a known history of CVAs and dementia. Patient apparently had a fall and blacked out apparently at home before coming into the hospital. Patient also was exhibiting significant weakness. Patient apparently had a UTI and was treated for antibiotics. Patient apparently was delirious earlier on and his hospital course however has been improving. Patient had a computed tomography scan of his head which showed no acute process. Discharge planning was geared towards transferring patient to [facility] for further care and monitoring. Pulp House Supervisor spoke with nurse practitioner over the phone taking care of patient who states that patient has been on and off confused at times and apparently not making good decisions. Patient was seen at the bedside today and agreeable to speak to software writer before lunchtime. Patient reports no acute concerns. He was mildly irritable with software writer however was fairly directable. She was oriented to his name only. He believes that his age was "in the high 60s". He believed that he was on a "psych meyer" and did not know today's date or the current president. Patient denies any changes in his mood or depression today. He states that his sleep and appetite are fair. He claims that he generally does not agree with doctor's decisions and is fairly indecisive about whether or not she wants to go to [facility] and believes that he may be able to care for his own by himself. At this time patient denies any suicidal or homical ideations, intent or plan. Patient denies any auditory, visual hallucinations. Patients admits to using cigarettes and drinks alcohol daily. Patient appears to have fair concentration however was fairly disinterested in the conversation with software writer. PAST PSYCHIATRIC HISTORY: Patient has a a history of dementia and alcohol use. Patient denies being on any psychiatric medications. Patient denies any previous psychiatric hospitalizations. Patient denies any psychiatric outpatient follow- up. Patient denies any history of suicide attempts in the past. Past Medical History: CVA/TIA, Dementia Additional Past Medical History / Comment(s): same day smoker. ALLERGIES: as per EMR. CHEMICAL DEPENDENCY HISTORY: as per HPI. FAMILY PSYCHIATRIC/SUBSTANCE USE HISTORY: denies SOCIAL HISTORY: Patient was born and raised in [place]. He states that he completed high school. He claims that he does not know what he did after high school and denies any work history. He states that he does not have any legal history. He denies having any kids. He currently lives alone in a house. He states that he is . MENTAL STATUS EXAM: General Appearance: Patient appears to be stated age is elderly, appears to be weak, alert, directable however somewhat irritable. Patient appears to have fair hygiene and grooming wearing hospital gown with poor eye contact. Behavior: Patient is calmly lying in bed without any agitated behavior. Directable. Irritable. Speech: Patient's speech is fluent and nonpressured. [place] Mood/Affect: Patient reports their mood is "fine", affect is congruent and constricted Suicidality/Homicidality: Patient denies having any suicidal or homicidal ideation intent or plan. Perceptions: Patient denies any visual hallucinations and denies any auditory hallucinations Though content/process: There is no evidence of any delusional thought content. [place]. Poverty of content. Memory and concentration: AOX1, fair attention span. Cannot spell "WORLD" backwards. Follow some commands. Judgment and insight: poor IMPRESSIONS: Major neurocognitive disorder nicotine dependence alcohol abuse PLAN: -At this time patient DOES NOT meet criteria for inpatient psychiatric admission. -Patient DOES NOT have decision making capacity at this time and is unable to reason through and communicate/appreciate the risks, benefits and alternatives to treatment and does not appear to have the ability to make decisions to care for his self. Patient may benefit from a gaurdian to help with general decisions and care. -Delirium precautions recommended with patient including - avoiding use of narcotics and RETAIL SHIFT MANAGER sedatives, limit anticholinergic medications when possible, frequent re-orientation, minimize use of restraints, open window shades during the day and close them at night -Would recommend the following medication changes/additions: added melatonin 3 mg qhs for sleep. Please avoid benzos and steroids as these may cause delirium or confusion. -Pulp House Supervisor spoke with patient about substance abuse and the harmful effects on medical and mental health, patient verbally understood and agreed. -Communicated plan to patient's nurse -Psychiatry will sign off at this time -Please contact with any questions.
--- NOTE | 2022-03-08 15:30 | P.PN ---
Subjective Progress Note Date: 03/08/22 Patient is a 82-year-old male with a known history of dementia, history of CVA/TIA and currently everyday smoker and history of heavy alcohol abuse was brought to the hospital by EMS. Patient was found on the floor. Patient does not recall how long she was staying on there. Patient is also complaining of knee pain and back pain which is not significant as his usual level. No complaints of fever or chills. No chest pain but did have mild shortness of breath. Patient did have last alcohol drink about 4 days ago. Currently not on any home medications as per the list. Denies any paralysis. Patient is somewhat poor historian. CT head and cervical spine showed multilevel cervical spondylitic changes. No fractures. Cerebral atrophy. No acute intercurrent abnormality. No significant change. Chest x-ray showed mild coarsening of the left lung markings could be mild pulmonary fibrosis. No significant change compatible exam. Laboratory data showed WBC 12.1 hemoglobin 13.2 and platelets 201 sodium 141 potassium 4.1 chloride 107 bicarb is 16 BUN 24 and creatinine 1.36 and blood sugar is 135 and lactic acid 4.7 Magnesium 2.4 AST 159 ALT 27 alk phos 79 CPK 02/13/2006 and troponin 0.047 TSH 3.199 urinalysis showed 2+ protein moderate blood large leukocyte esterase and elevated RBCs and WBCs. Coronavirus PCR not detected. CT of the abdomen and pelvis showed urinary bladder wall thickening is nonspecific. Follow-up recommended. Bladder tumor is possible. There is evidence of constipation. Minimal fibrotic changes and subsegmental atelectasis in the lung bases. CT angiogram of the chest showed large emboli in the right lower lobe pulmonary artery. 02/25/2022 Patient is currently in the MICU. Admitted to hospital due to large pulmonary embolism and right ventricular strain. Status post EKOS procedure today. Currently on room air. Does not require any pressor support. Otherwise patient is very confused and mumbling. Continued on alcohol withdrawal protocol. Laboratory data showed WBC 8.1 hemoglobin 10.1 and platelets 127 sodium 146 potassium 4.0 chloride 108 bicarb is 20 BUN 19 and creatinine 1.02 and calcium 7.9 lipase 68. 02/26/2022 Patient is currently in the MICU. Confused and lethargic and mumbling. Currently being continued alcohol withdrawal protocol. Anticoagulation with heparin will be changed to Eliquis. Otherwise patient is medically antibiotics now ceftriaxone for urinary tract infection. IV hydration with D5 water. Laboratory data showed WBC 9.2 hemoglobin 10.3 and platelets 144 Sodium 148 potassium 3.1 chloride 120 bicarb is 22 BUN 14 and creatinine 0.98 02/27/2022 Patient remains in the MICU. Patient is still confused and lethargic and not improving well. Neurology was consulted for evaluation. CT head was done which showed is related atrophic and chronic small vessel ischemic changes without acute p intracranial Process. Chest x-ray showed mild left perihilar and right basilar infiltrate. Laboratory data showed WBC 9.8 hemoglobin 10.1 and platelets 168 Sodium 148 potassium 3.6 chloride 122 bicarb is 20 BUN 11 creatinine 0.73 and calcium 8.1 albumin 3.4. Vitamin B12 is 342 and folate 13.6 within normal limits. Urine culture showed E. coli. Patient is being current antibiotics in the form of Zosyn. Also on anticoagulation changed to Eliquis via NG tube. 02/28/2022 Patient is currently in the MICU. Status post EKOS procedure. Patient is awake and is able to response with his name but unable to communicate. Patient was able to tolerate small quantity of oral diet today. Requiring oxygen at 2 L via nasal cannula. Chest x-ray today showed stable portable chest. Clinical correlation and follow-up until resolution is recommended. Patient is being current on anticoagulation with apixaban. Also on IV fluids with D5 water. Sodium level is 145, potassium 3.9 chloride 107 BUN 11 and creatinine 0.66 and calcium 8.0 Hemoglobin 10.9 platelets 187 MCV 104.6. Patient is being monitored for alcohol withdrawal symptoms Neurology and pulmonary is on board. 03/01/2022 Patient is in the intensive care unit..intake and easily arousable. Mentation did improve compared to yesterday.currently on oxygen at2 L via nasal cannula. Patient is status post EKOS procedure and is on oral anticoagulation with the Eliquis. patientis being continued onIV hydration. Not on any pressors support. No fever no chills. No nausea vomiting or diarrhea. Laboratory data showedWBC 6.4 hemoglobin 9.0 and platelets 2:30 Sodium 136 potassium 3.5 chloride 108 bicarb is 28 BUN 10 and creatinine 0.60 and calcium 7.4. EKG showed abnormal EEG due to mild background slowing, intermixed with faster frequency activity. Service 12 nonspecific generalized cerebral dysfunction as can be seen with encephalopathy or medication effect. Limited 2-D echocardiogram showed ejection fraction 55-60%. Normal pulmonary artery pressure. No pericardial effusion. Pulmonary and cardiology is on board. 03/02/2022 Patient is more awake and alert and able to answer simple questions. Tolerating oral diet. Currently transitioned to room air. No complaints of chest pain or shortness of breath. No headache or dizziness or lightheadedness. Not on any pressors support. No fever no chills.no cough or sputum production. Patient is on antibiotic , Zosyn.blood cultures have been negative and urine culture showed E. coli. Laboratory data reviewed. Patient is being transferred to medical floor today. 03/03/2022 Patient is currently staying in bed. Admitted to hospital due to acute PE and right ventricular strain. Status post EKOs. Awake alert and mentation is much improved. Able to tolerate oral diet. No complaints of chest pain or shortness of breath. Otherwise patient is generally weak. PT OT was consulted. No complaints of chest pain or shortness of breath. No fever no chills. Remains on anticoagulation. Laboratory data showed WBC 7.0 hemoglobin 10.0) platelets 283 Sodium 136 potassium 3.8 chloride 106 BUN 7 and creatinine 0.66 and calcium 7.8 03/04/2022 Patient is currently lying in the bed. Awake alert and oriented but poor historian. No complains of chest pain or shortness of breath. Tolerating oral diet. No fever no chills. No cough or sputum production. Laboratory data showed WBC 7.3 improved from 10.0 and platelets 292 Sodium 133 potassium 4.1 I bicarb is 24 BUN 18 creatinine 0.61 and calcium 7.8 03/05/2022 Patient is currently resting in bed. Awake alert and oriented. No complaints of chest pain or worsening shortness of breath. Patient is tolerating oral diet slowly. Otherwise patient is still very weak and unable to participate in physical therapy. No fever no chills. No cough or sputum production. Laboratory data reviewed. Patient is being continued on antibiotics in the form of Augmentin. Also on Eliquis due to acute PE with right ventricular strain. Patient denied any complaints of nausea or vomiting. No chest tightness or dizziness or lightheadedness. 03/06/2022 Patient was admitted to hospital due to acute PE with right ventricular strain. On anticoagulation with Eliquis. Patient is currently resting in the bed. Awake alert oriented x3. Tolerating oral diet. No complaints of chest pain or shortness of breath. No nausea vomiting or abdominal pain or diarrhea. Tolerating oral diet. Patient has been afebrile. No cough or sputum production. Patient is otherwise very weak and requiring PT OT. Anticipate discharge to rehab in the next 24 hours. 03/07/2022 Patient is seen and evaluated and follow-up with no acute overnight issues noted. Patient continues on current medications as mentioned below and will continue. Patient with extreme weakness and awaiting updated physical therapy notes and patient will most likely need ECF once stabilized and discharged. Patient denies any chest pain or palpitations. Patient denies shortness of breath and is afebrile. Patient is off antibiotic therapy for his UTI with E. coli. 03/08/2022 Patient is seen this morning lethargic and per nursing staff patient continues to sleep most of the day. Patient is scheduled for possible ECF although having social issues and social work is working on possible guardianship as patient does not appear safe to make his own decisions. Patient does have a past med [facility] history of EtOH abuse and dementia. Psychiatry to evaluate the patient. Patient also refusing meals and not eating very much and will add Megace and evaluate the patient. Review of systems: Unable to obtain as patient is lethargic All medications have been reviewed Active Medications Acetaminophen (Acetaminophen Tab 325 Mg Tab) 650 mg PO Q6HR PRN PRN Reason: Mild Pain or Fever > 100.5 Last Admin: 03/02/22 22:25 Dose: 650 mg Documented by: Albuterol/Ipratropium (Ipratropium-Albuterol 3 Ml Neb) 3 ml INHALATION RT-Q4H PRN PRN Reason: Shortness Of Breath Or Wheezing Last Admin: 02/25/22 15:08 Dose: 3 ml Documented by: Apixaban (Apixaban 5 Mg Tab) 5 mg PO BID [facility]; Protocol Last Admin: 03/08/22 08:38 Dose: 5 mg Documented by: Cyanocobalamin (Cyanocobalamin 500 Mcg Tab) 1,000 mcg PO DAILY [facility] Last Admin: 03/08/22 08:38 Dose: 1,000 mcg Documented by: Lactated Ringer's (Lactated Ringers) 1,000 mls @ 50 mls/hr IV .Q20H [facility] Last Admin: 03/07/22 16:33 Dose: 50 mls/hr Documented by: Lactulose (Lactulose 20 Gm/30 Ml Cup) 20 gm PO BID [facility] Last Admin: 03/08/22 08:37 Dose: 20 gm Documented by: Megestrol Acetate (Megestrol 40 Mg Tab) 80 mg PO DAILY [facility] Melatonin (Melatonin 3 Mg Tablet) 3 mg PO HS [facility] Miscellaneous Information (Pneumonia Protocol Utilized 1 [place] [facility] 1 each PO ONCE PRN PRN Reason: Per Protocol Miscellaneous Information (Potassium Replacement Protocol 1 [place] [facility] [place] 1 each MISCELLANE DAILY PRN; Protocol PRN Reason: Per Protocol Naloxone HCl (Naloxone 0.4 Mg/Ml 1 Ml Vial) 0.2 mg IV Q2M PRN PRN Reason: Opioid Reversal Naloxone HCl (Naloxone 0.4 Mg/Ml 1 Ml Vial) 0.2 mg IV Q2M PRN PRN Reason: Opioid Reversal Ondansetron HCl (Ondansetron 4 Mg/2 Ml Vial) 4 mg IVP Q8HR PRN PRN Reason: Nausea And Vomiting Pantoprazole Sodium (Pantoprazole 40 Mg/10 Ml Vial) 40 mg IV DAILY [facility] Last Admin: 03/08/22 08:37 Dose: 40 mg Documented by: Thiamine HCl (Thiamine 100 Mg Tab) 100 mg PO BID-W/MEALS [facility] Last Admin: 03/08/22 08:38 Dose: 100 mg Documented by: PHYSICAL EXAMINATION: Patient is lying in the bed comfortably, no acute distress, asleep and lethargic although arouses easily and able to answer simple questions. HEENT: Normocephalic. Neck is supple. Pupils reactive. Nostrils clear. Oral cavity is moist. Neck reveals no JVD, carotid bruits, or thyromegaly. CHEST EXAMINATION: Trachea is central. Symmetrical expansion. Bibasilar diminished sounds. No wheezing. Otherwise Lung perez clear to auscultation and percussion. CARDIAC: Normal S1, S2 with no gallops. No murmurs ABDOMEN: Soft. Bowel sounds normal. No organomegaly. No abdominal bruits. Extremities: reveal no edema. No clubbing or cyanosis Neurologically awake, alert, oriented x2 with well-coordinated movements. No gross focal deficits noted, diffuse weakness Skin: No rash or skin lesions. Psychiatric: Cooperative. Lethargic Musculoskeletal: No joint swelling or deformity. Normal range of motion. Assessment: Acute metabolic encephalopathy. improved Acute right lower lobe large emboli/PE with right ventricular strain as per CT.. Status post EKOS on 02/25. Acute syncopal episode and hitting his head likely secondary to above Acute hypoxemic respiratory failure Mild troponin elevation Acute urinary tract infection with E. coli. Acute kidney injury with creatinine 1.36 on admission Acute rhabdomyolysis Dementia Severe alcohol abuse. Last drink was 4 days prior to admission. Currently everyday smoker DVT prophylaxis. On eliquis. GI prophylaxis Full code Plan: Patient's mentation is improving. Currently on room air. EEG showed encephalopathic like picture. Repeat 2-D echocardiogram showed normal ejection fraction. On admission 2D echocardiogram was ordered to rule out right ventricular strain. Status post EKOS procedure. Patient is continued on oral anticoagulation in the form of eliquis. Patient has been adequately treated with IV antibiotics in the form of ceftriaxone as urine cultures showed E. coli.. Cardiology and pulmonary and neurology is following.. CT head showed no acute intracranial process. Age related to chronic ischemic changes. Monitor for alcohol withdrawal symptoms. Prognosis is guarded with multiple medical problems and comorbid conditions. Patient may likely need a guardian appointed to him as he is confused at times with history of dementia and EtOH abuse and unable to make sound medical decisions for himself. Patient with continued weakness and will be going to ECF and social work also following working on possible guardianship and will place psychiatric evaluation consultation to assess medical ability to make decisions. The impression and plan of care has been dictated by Shaunna Proctor, Nurse Practitioner as directed. Dr. Domitila MD I have performed a history and examination and MDM of this patient, discussed the same with the dictator, and agree with the dictator's assessment and plan as written ,documented as a scribe. Based on total visit time, I have performed more than 50% of the visit. Objective - Vital Signs Vital signs: Vital Signs Temp 99.6 F 03/08/22 04:30 Pulse 87 03/08/22 12:00 Resp 16 03/08/22 12:00 BP 112/58 03/08/22 12:00 Pulse Ox 96 03/08/22 12:00 Intake & Output 03/07/22 03/08/22 03/08/22 18:59 06:59 18:59 Intake Total 0 60 Output Total 1700 1740 375 Balance -2422 -700 -893 Weight 83.2 kg Intake: Oral 0 60 Output: Urine 1700 1740 375 Other: Voiding Method Indwelling Catheter Indwelling Catheter Indwelling Catheter - Labs CBC & Chem 7: 03/07/22 06:43 03/07/22 06:43
[2022-03-08] MEDS: MEGESTROL 40 MG TAB PO SCH (18:57)
[2022-03-08] MEDS: MELATONIN 3 MG TABLET PO SCH (19:51)
[2022-03-09] MEDS: THIAMINE 100 MG TAB PO SCH ×2 (06:18→19:07)
[2022-03-09] MEDS: APIXABAN 5 MG TAB PO SCH ×2 (08:32→20:20)
[2022-03-09] MEDS: LACTULOSE 20 GM/30 ML CUP PO SCH ×2 (08:32→20:20)
[2022-03-09] MEDS: CYANOCOBALAMIN 500 MCG TAB PO SCH (08:32)
[2022-03-09] MEDS: LACTATED RINGERS 1,000 ML IV SCH (12:11)
[2022-03-09] MEDS: MEGESTROL 40 MG TAB PO SCH (12:14)
[2022-03-09] MEDS: PANTOPRAZOLE 40 MG/10 ML VIAL IV SCH (12:14)
--- NOTE | 2022-03-09 14:44 | P.PN ---
Subjective Progress Note Date: 03/09/22 Patient is a 82-year-old male with a known history of dementia, history of CVA/TIA and currently everyday smoker and history of heavy alcohol abuse was brought to the hospital by EMS. Patient was found on the floor. Patient does not recall how long she was staying on there. Patient is also complaining of knee pain and back pain which is not significant as his usual level. No complaints of fever or chills. No chest pain but did have mild shortness of breath. Patient did have last alcohol drink about 4 days ago. Currently not on any home medications as per the list. Denies any paralysis. Patient is somewhat poor historian. CT head and cervical spine showed multilevel cervical spondylitic changes. No fractures. Cerebral atrophy. No acute intercurrent abnormality. No significant change. Chest x-ray showed mild coarsening of the left lung markings could be mild pulmonary fibrosis. No significant change compatible exam. Laboratory data showed WBC 12.1 hemoglobin 13.2 and platelets 201 sodium 141 potassium 4.1 chloride 107 bicarb is 16 BUN 24 and creatinine 1.36 and blood sugar is 135 and lactic acid 4.7 Magnesium 2.4 AST 159 ALT 27 alk phos 79 CPK 02/13/2006 and troponin 0.047 TSH 3.199 urinalysis showed 2+ protein moderate blood large leukocyte esterase and elevated RBCs and WBCs. Coronavirus PCR not detected. CT of the abdomen and pelvis showed urinary bladder wall thickening is nonspecific. Follow-up recommended. Bladder tumor is possible. There is evidence of constipation. Minimal fibrotic changes and subsegmental atelectasis in the lung bases. CT angiogram of the chest showed large emboli in the right lower lobe pulmonary artery. 02/25/2022 Patient is currently in the MICU. Admitted to hospital due to large pulmonary embolism and right ventricular strain. Status post EKOS procedure today. Currently on room air. Does not require any pressor support. Otherwise patient is very confused and mumbling. Continued on alcohol withdrawal protocol. Laboratory data showed WBC 8.1 hemoglobin 10.1 and platelets 127 sodium 146 potassium 4.0 chloride 108 bicarb is 20 BUN 19 and creatinine 1.02 and calcium 7.9 lipase 68. 02/26/2022 Patient is currently in the MICU. Confused and lethargic and mumbling. Currently being continued alcohol withdrawal protocol. Anticoagulation with heparin will be changed to Eliquis. Otherwise patient is medically antibiotics now ceftriaxone for urinary tract infection. IV hydration with D5 water. Laboratory data showed WBC 9.2 hemoglobin 10.3 and platelets 144 Sodium 148 potassium 3.1 chloride 120 bicarb is 22 BUN 14 and creatinine 0.98 02/27/2022 Patient remains in the MICU. Patient is still confused and lethargic and not improving well. Neurology was consulted for evaluation. CT head was done which showed is related atrophic and chronic small vessel ischemic changes without acute p intracranial Process. Chest x-ray showed mild left perihilar and right basilar infiltrate. Laboratory data showed WBC 9.8 hemoglobin 10.1 and platelets 168 Sodium 148 potassium 3.6 chloride 122 bicarb is 20 BUN 11 creatinine 0.73 and calcium 8.1 albumin 3.4. Vitamin B12 is 342 and folate 13.6 within normal limits. Urine culture showed E. coli. Patient is being current antibiotics in the form of Zosyn. Also on anticoagulation changed to Eliquis via NG tube. 02/28/2022 Patient is currently in the MICU. Status post EKOS procedure. Patient is awake and is able to response with his name but unable to communicate. Patient was able to tolerate small quantity of oral diet today. Requiring oxygen at 2 L via nasal cannula. Chest x-ray today showed stable portable chest. Clinical correlation and follow-up until resolution is recommended. Patient is being current on anticoagulation with apixaban. Also on IV fluids with D5 water. Sodium level is 145, potassium 3.9 chloride 107 BUN 11 and creatinine 0.66 and calcium 8.0 Hemoglobin 10.9 platelets 187 MCV 104.6. Patient is being monitored for alcohol withdrawal symptoms Neurology and pulmonary is on board. 03/01/2022 Patient is in the intensive care unit..intake and easily arousable. Mentation did improve compared to yesterday.currently on oxygen at2 L via nasal cannula. Patient is status post EKOS procedure and is on oral anticoagulation with the Eliquis. patientis being continued onIV hydration. Not on any pressors support. No fever no chills. No nausea vomiting or diarrhea. Laboratory data showedWBC 6.4 hemoglobin 9.0 and platelets 2:30 Sodium 136 potassium 3.5 chloride 108 bicarb is 28 BUN 10 and creatinine 0.60 and calcium 7.4. EKG showed abnormal EEG due to mild background slowing, intermixed with faster frequency activity. Service 12 nonspecific generalized cerebral dysfunction as can be seen with encephalopathy or medication effect. Limited 2-D echocardiogram showed ejection fraction 55-60%. Normal pulmonary artery pressure. No pericardial effusion. Pulmonary and cardiology is on board. 03/02/2022 Patient is more awake and alert and able to answer simple questions. Tolerating oral diet. Currently transitioned to room air. No complaints of chest pain or shortness of breath. No headache or dizziness or lightheadedness. Not on any pressors support. No fever no chills.no cough or sputum production. Patient is on antibiotic , Zosyn.blood cultures have been negative and urine culture showed E. coli. Laboratory data reviewed. Patient is being transferred to medical floor today. 03/03/2022 Patient is currently staying in bed. Admitted to hospital due to acute PE and right ventricular strain. Status post EKOs. Awake alert and mentation is much improved. Able to tolerate oral diet. No complaints of chest pain or shortness of breath. Otherwise patient is generally weak. PT OT was consulted. No complaints of chest pain or shortness of breath. No fever no chills. Remains on anticoagulation. Laboratory data showed WBC 7.0 hemoglobin 10.0) platelets 283 Sodium 136 potassium 3.8 chloride 106 BUN 7 and creatinine 0.66 and calcium 7.8 03/04/2022 Patient is currently lying in the bed. Awake alert and oriented but poor historian. No complains of chest pain or shortness of breath. Tolerating oral diet. No fever no chills. No cough or sputum production. Laboratory data showed WBC 7.3 improved from 10.0 and platelets 292 Sodium 133 potassium 4.1 I bicarb is 24 BUN 18 creatinine 0.61 and calcium 7.8 03/05/2022 Patient is currently resting in bed. Awake alert and oriented. No complaints of chest pain or worsening shortness of breath. Patient is tolerating oral diet slowly. Otherwise patient is still very weak and unable to participate in physical therapy. No fever no chills. No cough or sputum production. Laboratory data reviewed. Patient is being continued on antibiotics in the form of Augmentin. Also on Eliquis due to acute PE with right ventricular strain. Patient denied any complaints of nausea or vomiting. No chest tightness or dizziness or lightheadedness. 03/06/2022 Patient was admitted to hospital due to acute PE with right ventricular strain. On anticoagulation with Eliquis. Patient is currently resting in the bed. Awake alert oriented x3. Tolerating oral diet. No complaints of chest pain or shortness of breath. No nausea vomiting or abdominal pain or diarrhea. Tolerating oral diet. Patient has been afebrile. No cough or sputum production. Patient is otherwise very weak and requiring PT OT. Anticipate discharge to rehab in the next 24 hours. 03/07/2022 Patient is seen and evaluated and follow-up with no acute overnight issues noted. Patient continues on current medications as mentioned below and will continue. Patient with extreme weakness and awaiting updated physical therapy notes and patient will most likely need ECF once stabilized and discharged. Patient denies any chest pain or palpitations. Patient denies shortness of breath and is afebrile. Patient is off antibiotic therapy for his UTI with E. coli. 03/08/2022 Patient is seen this morning lethargic and per nursing staff patient continues to sleep most of the day. Patient is scheduled for possible ECF although having social issues and social work is working on possible guardianship as patient does not appear safe to make his own decisions. Patient does have a past [facility] history of EtOH abuse and dementia. Psychiatry to evaluate the patient. Patient also refusing meals and not eating very much and will add Megace and evaluate the patient. 03/09/2022 Patient is seen and evaluated in follow-up today asleep although arousable able to communicate a little more before falling asleep. Patient continues with poor oral intake and discussed with the patient about the importance of eating each meal small portions and continuing with ensure shakes. Megace was added. Patient also to be evaluated by physical therapy daily. Encouraged increased activity. Patient was evaluated by psychiatry currently unable to make decisions medically for himself and will require a guardian. Case management and social work following and patient was petitioned for guardianship. We'll need to secure a guardian for safe discharge plan on going to ECF. This was discussed with case management along with social work today. There is a court hearing scheduled for March 14. Patient denies any chest pain, shortness of breath, or palpitations. Patient is afebrile. Patient denies any nausea or vomiting and reports to no appetite at this time. Again encouraged oral intake. Review of systems: Unable to obtain as patient is lethargic All medications have been reviewed Active Medications Acetaminophen (Acetaminophen Tab 325 Mg Tab) 650 mg PO Q6HR PRN PRN Reason: Mild Pain or Fever > 100.5 Last Admin: 03/02/22 22:25 Dose: 650 mg Documented by: Albuterol/Ipratropium (Ipratropium-Albuterol 3 Ml Neb) 3 ml INHALATION RT-Q4H PRN PRN Reason: Shortness Of Breath Or Wheezing Last Admin: 02/25/22 15:08 Dose: 3 ml Documented by: Apixaban (Apixaban 5 Mg Tab) 5 mg PO BID [facility]; Protocol Last Admin: 03/09/22 08:32 Dose: 5 mg Documented by: Cyanocobalamin (Cyanocobalamin 500 Mcg Tab) 1,000 mcg PO DAILY [facility] Last Admin: 03/09/22 08:32 Dose: 1,000 mcg Documented by: Lactated Ringer's (Lactated Ringers) 1,000 mls @ 50 mls/hr IV .Q20H [facility] Last Admin: 03/09/22 12:11 Dose: Not Given Documented by: Lactulose (Lactulose 20 Gm/30 Ml Cup) 20 gm PO BID [facility] Last Admin: 03/09/22 08:32 Dose: 20 gm Documented by: Megestrol Acetate (Megestrol 40 Mg Tab) 80 mg PO DAILY [facility] Last Admin: 03/09/22 12:14 Dose: 80 mg Documented by: Melatonin (Melatonin 3 Mg Tablet) 3 mg PO HS [facility] Last Admin: 03/08/22 19:51 Dose: 3 mg Documented by: Miscellaneous Information (Pneumonia Protocol Utilized 1 Each Mis) 1 each PO ONCE PRN PRN Reason: Per Protocol Miscellaneous Information (Potassium Replacement Protocol 1 Each Mis) 1 each MISCELLANE DAILY PRN; Protocol PRN Reason: Per Protocol Naloxone HCl (Naloxone 0.4 Mg/Ml 1 Ml Vial) 0.2 mg IV Q2M PRN PRN Reason: Opioid Reversal Naloxone HCl (Naloxone 0.4 Mg/Ml 1 Ml Vial) 0.2 mg IV Q2M PRN PRN Reason: Opioid Reversal Ondansetron HCl (Ondansetron 4 Mg/2 Ml Vial) 4 mg IVP Q8HR PRN PRN Reason: Nausea And Vomiting Pantoprazole Sodium (Pantoprazole 40 Mg/10 Ml Vial) 40 mg IV DAILY [facility] Last Admin: 03/09/22 12:14 Dose: 40 mg Documented by: Thiamine HCl (Thiamine 100 Mg Tab) 100 mg PO BID-W/MEALS [facility] Last Admin: 03/09/22 06:18 Dose: 100 mg Documented by: PHYSICAL EXAMINATION: Patient is lying in the bed comfortably, no acute distress, asleep and lethargic although arouses easily and able to answer simple questions. HEENT: Normocephalic. Neck is supple. Pupils reactive. Nostrils clear. Oral cavity is moist. Neck reveals no JVD, carotid bruits, or thyromegaly. CHEST EXAMINATION: Trachea is central. Symmetrical expansion. Bibasilar diminished sounds. No wheezing. Otherwise Lung perez clear to auscultation and percussion. CARDIAC: Normal S1, S2 with no gallops. No murmurs ABDOMEN: Soft. Bowel sounds normal. No organomegaly. No abdominal bruits. Extremities: reveal no edema. No clubbing or cyanosis Neurologically awake, alert, oriented x2 with well-coordinated movements. No gross focal deficits noted, diffuse weakness Skin: No rash or skin lesions. Psychiatric: Cooperative. Lethargic Musculoskeletal: No joint swelling or deformity. Normal range of motion. Assessment: Acute metabolic encephalopathy. improved Acute right lower lobe large emboli/PE with right ventricular strain as per CT.. Status post EKOS on 02/25. Acute syncopal episode and hitting his head likely secondary to above Acute hypoxemic respiratory failure Mild troponin elevation Acute urinary tract infection with E. coli. Acute kidney injury with creatinine 1.36 on admission Acute rhabdomyolysis Dementia Severe alcohol abuse. Last drink was 4 days prior to admission. Currently everyday smoker DVT prophylaxis. On eliquis. GI prophylaxis Full code Plan: Patient's mentation is improving. Currently on room air. EEG showed encephalopathic like picture. Repeat 2-D echocardiogram showed normal ejection fraction. On admission 2D echocardiogram was ordered to rule out right ventricular strain. Status post EKOS procedure. Patient is continued on oral anticoagulation in the form of eliquis. Patient has been adequately treated with IV antibiotics in the form of ceftriaxone as urine cultures showed E. coli.. Cardiology and pulmonary and neurology were following and are as needed.. CT head showed no acute intracranial process. Age related to chronic ischemic changes. Monitor for alcohol withdrawal symptoms. Patient is not exhibiting any symptoms of withdrawal at this time. Patient with poor oral intake and needs encouragement with meals and have added Megace with dietitian following. Prognosis is guarded with multiple medical problems and comorbid conditions. Patient was petitioned to obtain guardianship by social work and a court hearing is counseled for March 14. Patient was evaluated by psychiatry and is unable to make medical decisions for himself. Patient continues with extreme weakness and will need ECF and also looking into possible long-term facility. Case management and social work are following. The impression and plan of care has been dictated by Shaunna Proctor, Nurse Practitioner as directed. Dr. Ludin MD I have performed a history and examination and MDM of this patient, discussed the same with the dictator, and agree with the dictator's assessment and plan as written ,documented as a scribe. Based on total visit time, I have performed more than 50% of the visit. Objective - Vital Signs Vital signs: Vital Signs Temp 98.9 F 03/08/22 22:55 Pulse 84 03/09/22 08:00 Resp 16 03/09/22 08:00 BP 99/55 03/09/22 08:00 Pulse Ox 95 03/09/22 08:00 Intake & Output 03/08/22 03/09/22 03/09/22 18:59 06:59 18:59 Intake Total 420 240 Output Total 6341 874 8827 Balance -1430 -300 -760 Weight 83.2 kg Intake: Oral 420 240 Output: Urine 7615 996 1095 Other: Voiding Method Indwelling Catheter Indwelling Catheter - Labs CBC & Chem 7: 03/07/22 06:43 03/07/22 06:43
[2022-03-09] MEDS: MELATONIN 3 MG TABLET PO SCH (20:20)
[2022-03-10] MEDS: THIAMINE 100 MG TAB PO SCH ×2 (06:02→16:52)
[2022-03-10] MEDS: LACTULOSE 20 GM/30 ML CUP PO SCH ×2 (08:09→20:25)
[2022-03-10] MEDS: APIXABAN 5 MG TAB PO SCH ×2 (08:09→20:23)
[2022-03-10] MEDS: CYANOCOBALAMIN 500 MCG TAB PO SCH (08:09)
[2022-03-10] MEDS: MEGESTROL 40 MG TAB PO SCH (08:10)
[2022-03-10] MEDS: PANTOPRAZOLE 40 MG/10 ML VIAL IV SCH (08:10)
--- NOTE | 2022-03-10 11:30 | P.PN ---
Subjective Progress Note Date: 03/10/22 Patient is a 82-year-old male with a known history of dementia, history of CVA/TIA and currently everyday smoker and history of heavy alcohol abuse was brought to the hospital by EMS. Patient was found on the floor. Patient does not recall how long she was staying on there. Patient is also complaining of knee pain and back pain which is not significant as his usual level. No complaints of fever or chills. No chest pain but did have mild shortness of breath. Patient did have last alcohol drink about 4 days ago. Currently not on any home medications as per the list. Denies any paralysis. Patient is somewhat poor historian. CT head and cervical spine showed multilevel cervical spondylitic changes. No fractures. Cerebral atrophy. No acute intercurrent abnormality. No significant change. Chest x-ray showed mild coarsening of the left lung markings could be mild pulmonary fibrosis. No significant change compatible exam. Laboratory data showed WBC 12.1 hemoglobin 13.2 and platelets 201 sodium 141 potassium 4.1 chloride 107 bicarb is 16 BUN 24 and creatinine 1.36 and blood sugar is 135 and lactic acid 4.7 Magnesium 2.4 AST 159 ALT 27 alk phos 79 CPK 02/13/2006 and troponin 0.047 TSH 3.199 urinalysis showed 2+ protein moderate blood large leukocyte esterase and elevated RBCs and WBCs. Coronavirus PCR not detected. CT of the abdomen and pelvis showed urinary bladder wall thickening is nonspecific. Follow-up recommended. Bladder tumor is possible. There is evidence of constipation. Minimal fibrotic changes and subsegmental atelectasis in the lung bases. CT angiogram of the chest showed large emboli in the right lower lobe pulmonary artery. 02/25/2022 Patient is currently in the MICU. Admitted to hospital due to large pulmonary embolism and right ventricular strain. Status post EKOS procedure today. Currently on room air. Does not require any pressor support. Otherwise patient is very confused and mumbling. Continued on alcohol withdrawal protocol. Laboratory data showed WBC 8.1 hemoglobin 10.1 and platelets 127 sodium 146 potassium 4.0 chloride 108 bicarb is 20 BUN 19 and creatinine 1.02 and calcium 7.9 lipase 68. 02/26/2022 Patient is currently in the MICU. Confused and lethargic and mumbling. Currently being continued alcohol withdrawal protocol. Anticoagulation with heparin will be changed to Eliquis. Otherwise patient is medically antibiotics now ceftriaxone for urinary tract infection. IV hydration with D5 water. Laboratory data showed WBC 9.2 hemoglobin 10.3 and platelets 144 Sodium 148 potassium 3.1 chloride 120 bicarb is 22 BUN 14 and creatinine 0.98 02/27/2022 Patient remains in the MICU. Patient is still confused and lethargic and not improving well. Neurology was consulted for evaluation. CT head was done which showed is related atrophic and chronic small vessel ischemic changes without acute p intracranial Process. Chest x-ray showed mild left perihilar and right basilar infiltrate. Laboratory data showed WBC 9.8 hemoglobin 10.1 and platelets 168 Sodium 148 potassium 3.6 chloride 122 bicarb is 20 BUN 11 creatinine 0.73 and calcium 8.1 albumin 3.4. Vitamin B12 is 342 and folate 13.6 within normal limits. Urine culture showed E. coli. Patient is being current antibiotics in the form of Zosyn. Also on anticoagulation changed to Eliquis via NG tube. 02/28/2022 Patient is currently in the MICU. Status post EKOS procedure. Patient is awake and is able to response with his name but unable to communicate. Patient was able to tolerate small quantity of oral diet today. Requiring oxygen at 2 L via nasal cannula. Chest x-ray today showed stable portable chest. Clinical correlation and follow-up until resolution is recommended. Patient is being current on anticoagulation with apixaban. Also on IV fluids with D5 water. Sodium level is 145, potassium 3.9 chloride 107 BUN 11 and creatinine 0.66 and calcium 8.0 Hemoglobin 10.9 platelets 187 MCV 104.6. Patient is being monitored for alcohol withdrawal symptoms Neurology and pulmonary is on board. 03/01/2022 Patient is in the intensive care unit..intake and easily arousable. Mentation did improve compared to yesterday.currently on oxygen at2 L via nasal cannula. Patient is status post EKOS procedure and is on oral anticoagulation with the Eliquis. patientis being continued onIV hydration. Not on any pressors support. No fever no chills. No nausea vomiting or diarrhea. Laboratory data showedWBC 6.4 hemoglobin 9.0 and platelets 2:30 Sodium 136 potassium 3.5 chloride 108 bicarb is 28 BUN 10 and creatinine 0.60 and calcium 7.4. EKG showed abnormal EEG due to mild background slowing, intermixed with faster frequency activity. Service 12 nonspecific generalized cerebral dysfunction as can be seen with encephalopathy or medication effect. Limited 2-D echocardiogram showed ejection fraction 55-60%. Normal pulmonary artery pressure. No pericardial effusion. Pulmonary and cardiology is on board. 03/02/2022 Patient is more awake and alert and able to answer simple questions. Tolerating oral diet. Currently transitioned to room air. No complaints of chest pain or shortness of breath. No headache or dizziness or lightheadedness. Not on any pressors support. No fever no chills.no cough or sputum production. Patient is on antibiotic , Zosyn.blood cultures have been negative and urine culture showed E. coli. Laboratory data reviewed. Patient is being transferred to medical floor today. 03/03/2022 Patient is currently staying in bed. Admitted to hospital due to acute PE and right ventricular strain. Status post EKOs. Awake alert and mentation is much improved. Able to tolerate oral diet. No complaints of chest pain or shortness of breath. Otherwise patient is generally weak. PT OT was consulted. No complaints of chest pain or shortness of breath. No fever no chills. Remains on anticoagulation. Laboratory data showed WBC 7.0 hemoglobin 10.0) platelets 283 Sodium 136 potassium 3.8 chloride 106 BUN 7 and creatinine 0.66 and calcium 7.8 03/04/2022 Patient is currently lying in the bed. Awake alert and oriented but poor historian. No complains of chest pain or shortness of breath. Tolerating oral diet. No fever no chills. No cough or sputum production. Laboratory data showed WBC 7.3 improved from 10.0 and platelets 292 Sodium 133 potassium 4.1 I bicarb is 24 BUN 18 creatinine 0.61 and calcium 7.8 03/05/2022 Patient is currently resting in bed. Awake alert and oriented. No complaints of chest pain or worsening shortness of breath. Patient is tolerating oral diet slowly. Otherwise patient is still very weak and unable to participate in physical therapy. No fever no chills. No cough or sputum production. Laboratory data reviewed. Patient is being continued on antibiotics in the form of Augmentin. Also on Eliquis due to acute PE with right ventricular strain. Patient denied any complaints of nausea or vomiting. No chest tightness or dizziness or lightheadedness. 03/06/2022 Patient was admitted to hospital due to acute PE with right ventricular strain. On anticoagulation with Eliquis. Patient is currently resting in the bed. Awake alert oriented x3. Tolerating oral diet. No complaints of chest pain or shortness of breath. No nausea vomiting or abdominal pain or diarrhea. Tolerating oral diet. Patient has been afebrile. No cough or sputum production. Patient is otherwise very weak and requiring PT OT. Anticipate discharge to rehab in the next 24 hours. 03/07/2022 Patient is seen and evaluated and follow-up with no acute overnight issues noted. Patient continues on current medications as mentioned below and will continue. Patient with extreme weakness and awaiting updated physical therapy notes and patient will most likely need ECF once stabilized and discharged. Patient denies any chest pain or palpitations. Patient denies shortness of breath and is afebrile. Patient is off antibiotic therapy for his UTI with E. coli. 03/08/2022 Patient is seen this morning lethargic and per nursing staff patient continues to sleep most of the day. Patient is scheduled for possible ECF although having social issues and social work is working on possible guardianship as patient does not appear safe to make his own decisions. Patient does have a past [facility] history of EtOH abuse and dementia. Psychiatry to evaluate the patient. Patient also refusing meals and not eating very much and will add Megace and evaluate the patient. 03/09/2022 Patient is seen and evaluated in follow-up today asleep although arousable able to communicate a little more before falling asleep. Patient continues with poor oral intake and discussed with the patient about the importance of eating each meal small portions and continuing with ensure shakes. Megace was added. Patient also to be evaluated by physical therapy daily. Encouraged increased activity. Patient was evaluated by psychiatry currently unable to make decisions medically for himself and will require a guardian. Case management and social work following and patient was petitioned for guardianship. We'll need to secure a guardian for safe discharge plan on going to ECF. This was discussed with case management along with social work today. There is a court hearing scheduled for March 14. Patient denies any chest pain, shortness of breath, or palpitations. Patient is afebrile. Patient denies any nausea or vomiting and reports to no appetite at this time. Again encouraged oral intake. 03/10/2022 Patient evaluated today and awake although extremely lethargic. Patient able to have simple conversation and follow commands appropriately. Patient reports to having chronic back and leg pain and has not been moving much. Discussed with nursing staff about having physical therapy work with the patient daily and have the patient get up out of the bed and increase activity as tolerated. Patient requires almost maximum assistance. Also discussed with the patient again at length about encouraging oral intake and have added an appetite stimulant and reports to eating slightly more along with nursing staff reporting this as well. Patient reports to just wanting to sleep. Patient is scheduled for a court hearing for guardianship early next week with social work following. Awaiting ECF for long-term after that point. She remains afebrile and will add repeat labs for the morning. Vital signs are stable and patient remains with an oxygen saturation of 98% on room air. Patient with gentle IV hydration and will continue as patient is not eating much. Also discussed with nursing staff about increasing oral intake and encouraging meals. Patient denies chest pain or shortness of breath. Review of systems: Unable to obtain as patient is lethargic All medications have been reviewed Active Medications Acetaminophen (Acetaminophen Tab 325 Mg Tab) 650 mg PO Q6HR PRN PRN Reason: Mild Pain or Fever > 100.5 Last Admin: 03/02/22 22:25 Dose: 650 mg Documented by: Albuterol/Ipratropium (Ipratropium-Albuterol 3 Ml Neb) 3 ml INHALATION RT-Q4H PRN PRN Reason: Shortness Of Breath Or Wheezing Last Admin: 02/25/22 15:08 Dose: 3 ml Documented by: Apixaban (Apixaban 5 Mg Tab) 5 mg PO BID [facility]; Protocol Last Admin: 03/10/22 08:09 Dose: 5 mg Documented by: Cyanocobalamin (Cyanocobalamin 500 Mcg Tab) 1,000 mcg PO DAILY [facility] Last Admin: 03/10/22 08:09 Dose: 1,000 mcg Documented by: Lactated Ringer's (Lactated Ringers) 1,000 mls @ 50 mls/hr IV .Q20H [facility] Last Admin: 03/09/22 12:11 Dose: Not Given Documented by: Lactulose (Lactulose 20 Gm/30 Ml Cup) 20 gm PO BID [facility] Last Admin: 03/10/22 08:09 Dose: 20 gm Documented by: Megestrol Acetate (Megestrol 40 Mg Tab) 80 mg PO DAILY [facility] Last Admin: 03/10/22 08:10 Dose: 80 mg Documented by: Melatonin (Melatonin 3 Mg Tablet) 3 mg PO HS [facility] Last Admin: 03/09/22 20:20 Dose: 3 mg Documented by: Miscellaneous Information (Pneumonia Protocol Utilized 1 Each Misc) 1 each PO ONCE PRN PRN Reason: Per Protocol Miscellaneous Information (Potassium Replacement Protocol 1 Each [facility] [place]) 1 each MISCELLANE DAILY PRN; Protocol PRN Reason: Per Protocol Naloxone HCl (Naloxone 0.4 Mg/Ml 1 Ml Vial) 0.2 mg IV Q2M PRN PRN Reason: Opioid Reversal Naloxone HCl (Naloxone 0.4 Mg/Ml 1 Ml Vial) 0.2 mg IV Q2M PRN PRN Reason: Opioid Reversal Ondansetron HCl (Ondansetron 4 Mg/2 Ml Vial) 4 mg IVP Q8HR PRN PRN Reason: Nausea And Vomiting Pantoprazole Sodium (Pantoprazole 40 Mg/10 Ml Vial) 40 mg IV DAILY [facility] Last Admin: 03/10/22 08:10 Dose: 40 mg Documented by: Thiamine HCl (Thiamine 100 Mg Tab) 100 mg PO BID-W/MEALS [facility] Last Admin: 03/10/22 06:02 Dose: Not Given Documented by: PHYSICAL EXAMINATION: Patient is lying in the bed, no acute distress, asleep and lethargic although arouses easily and able to answer simple questions. HEENT: Normocephalic. Neck is supple. Pupils reactive. Nostrils clear. Oral cavity is moist. Neck reveals no JVD, carotid bruits, or thyromegaly. CHEST EXAMINATION: Trachea is central. Symmetrical expansion. Bibasilar diminished sounds. No wheezing. Otherwise Lung perez clear to auscultation and percussion. CARDIAC: Normal S1, S2 with no gallops. No murmurs ABDOMEN: Soft. Bowel sounds normal. No organomegaly. No abdominal bruits. Extremities: reveal no edema. No clubbing or cyanosis Neurologically awake, alert, oriented x2 with well-coordinated movements. No gross focal deficits noted, diffuse weakness Skin: No rash or skin lesions. Psychiatric: Cooperative. Lethargic Musculoskeletal: No joint swelling or deformity. Normal range of motion. Assessment: Acute metabolic encephalopathy. improved Acute right lower lobe large emboli/PE with right ventricular strain as per CT.. Status post EKOS on 02/25. Acute syncopal episode and hitting his head likely secondary to above Acute hypoxemic respiratory failure Mild troponin elevation Acute urinary tract infection with E. coli. Acute kidney injury with creatinine 1.36 on admission Acute rhabdomyolysis Dementia Severe alcohol abuse. Last drink was 4 days prior to admission. Currently everyday smoker DVT prophylaxis. On eliquis. GI prophylaxis Full code Plan: This is a pleasant 82-year-old male with a history of severe alcohol abuse and dementia and is status post EKOS on 02/25/2022 for right lower lobe large emboli PE with right ventricular strain and has been on oral anti-Coag in the form of Eliquis and will be continued. Patient also had an acute urinary tract infection showing E. coli which has been treated adequately and patient is maintained off IV antibiotics. Patient remains afebrile with no recent labs and will repeat labs to monitor CBC as well as BMP. Patient continues with poor oral intake although per nursing staff and patient reports eating slightly more after adding an appetite stimulant. We'll continue to monitor closely and encourage oral intake. Patient with extreme weakness and fatigue mostly lying in bed and discuss with nursing staff about having physical therapy evaluate the patient work with the patient daily and have the patient up out of the bed more often. Social work and case management following as patient will be required to have a guardian and there is a court hearing scheduled for March 14. Social work also working on ECF or possible long-term facilities once discharged. Given multiple medical comorbidities with complex medical issues, prognosis is guarded. Further recommendations to follow based on the clinical course the patient. Follow-up on repeat labs ordered in the morning. The impression and plan of care has been dictated by Shaunna Proctor, Nurse Practitioner as directed. Dr. Ludin MD I have performed a history and examination and MDM of this patient, discussed the same with the dictator, and agree with the dictator's assessment and plan as written ,documented as a scribe. Based on total visit time, I have performed more than 50% of the visit. Objective - Vital Signs Vital signs: Vital Signs Temp 98.4 F 03/10/22 08:13 Pulse 78 03/10/22 08:13 Resp 18 03/10/22 08:13 BP 124/78 03/10/22 08:13 Pulse Ox 98 03/10/22 08:13 Intake & Output 03/09/22 03/10/22 03/10/22 18:59 06:59 18:59 Intake Total 240 Output Total 1500 600 Balance -1260 -600 Intake: Oral 240 Output: Urine 1500 600 Other: Voiding Method Indwelling Catheter Indwelling Catheter - Labs CBC & Chem 7: 03/07/22 06:43 03/07/22 06:43
[2022-03-10] MEDS: MULTIVITAMINS, THERA LIQUID 237 ML BOTTLE PO SCH (16:52)
[2022-03-10] MEDS: LACTATED RINGERS 1,000 ML IV SCH ×2 (17:25→17:26)
[2022-03-10 17:33] LABS: Basophils % (A) 0 %; Eosinophils % (A) 1 %; HCT 30.8 % (39.0-53.0); HGB 9.8 gm/dL (13.0-17.5); Hypochromasia Slight; Lymphocytes # (A) 0.9 k/uL (1.0-4.8); Lymphocytes % (A) 12 %; MCH 30.8 pg (25.0-35.0); MCHC 31.9 g/dL (31.0-37.0); MCV 96.6 fL (80.0-100.0); Mean Platelet Volume 8.1; Monocytes # (A) 0.4 k/uL (0-1.0); Monocytes % (A) 5 %; Neutrophils # (A) 6.2 k/uL (1.3-7.7); Neutrophils % (A) 80 %; Platelet Count 530 k/uL (150-450); RBC 3.19 m/uL (4.30-5.90); RDW 13.8 % (11.5-15.5); WBC 7.7 k/uL (3.8-10.6)
[2022-03-10 17:37] LABS: Appearance,Urine Turbid (Clear); Bacteria,Urine Rare /hpf; Bilirubin,Urine Negative (Negative); Blood,Urine Small (Negative); Color,Urine Yellow; Glucose,Urine (UA) Negative (Negative); Ketones,Urine Negative (Negative); Leukocyte Esterase,Urine Large (Negative); Mucus,Urine Few /hpf; Nitrite,Urine Positive (Negative); Protein,Urine 1+ (Negative); RBC,Urine 35 /hpf (0-5); Specific Gravity,Urine 1.019 (1.001-1.035); Squamous Epithelial Cell,Urine 44 /hpf (0-4); WBC,Urine >182 /hpf (0-5)
[2022-03-10 18:11] LABS: African American GFR (CKD) >90 (>60 ml/min/1.73 sqM); Anion Gap 6 mmol/L; Blood Urea Nitrogen 14 mg/dL (9-20); Calcium 8.3 mg/dL (8.4-10.2); Carbon Dioxide 27 mmol/L (22-30); Chloride 99 mmol/L (98-107); Glucose 98 mg/dL (74-99); Magnesium 2.1 mg/dL (1.6-2.3); Non-African American GFR(CKD) 89 (>60 ml/min/1.73 sqM); Potassium 4.3 mmol/L (3.5-5.1); Sodium 132 mmol/L (137-145)
[2022-03-10] MEDS: MELATONIN 3 MG TABLET PO SCH (20:23)
[2022-03-11] MEDS: THIAMINE 100 MG TAB PO SCH ×2 (06:21→16:40)
[2022-03-11 06:55] LABS: African American GFR (CKD) >90 (>60 ml/min/1.73 sqM); Anion Gap 6 mmol/L; Blood Urea Nitrogen 11 mg/dL (9-20); Calcium 8.5 mg/dL (8.4-10.2); Carbon Dioxide 27 mmol/L (22-30); Chloride 102 mmol/L (98-107); Glucose 93 mg/dL (74-99); Non-African American GFR(CKD) >90 (>60 ml/min/1.73 sqM); Potassium 4.3 mmol/L (3.5-5.1); Sodium 135 mmol/L (137-145)
[2022-03-11 07:18] LABS: Basophils % (A) 1 %; Eosinophils # (A) 0.1 k/uL (0-0.7); Eosinophils % (A) 1 %; HCT 30.8 % (39.0-53.0); HGB 9.9 gm/dL (13.0-17.5); Hypochromasia Slight; Lymphocytes % (A) 16 %; MCH 31.1 pg (25.0-35.0); MCHC 32.1 g/dL (31.0-37.0); MCV 96.9 fL (80.0-100.0); Mean Platelet Volume 9.2; Monocytes # (A) 0.6 k/uL (0-1.0); Monocytes % (A) 9 %; Neutrophils # (A) 4.4 k/uL (1.3-7.7); Neutrophils % (A) 72 %; Platelet Count 408 k/uL (150-450); RBC 3.18 m/uL (4.30-5.90); RDW 13.8 % (11.5-15.5); WBC 6.1 k/uL (3.8-10.6)
[2022-03-11] MEDS: APIXABAN 5 MG TAB PO SCH ×2 (08:12→21:01)
[2022-03-11] MEDS: CYANOCOBALAMIN 500 MCG TAB PO SCH (08:12)
[2022-03-11] MEDS: LACTATED RINGERS 1,000 ML IV SCH (08:12)
[2022-03-11] MEDS: MEGESTROL 40 MG TAB PO SCH (08:12)
[2022-03-11] MEDS: LACTULOSE 20 GM/30 ML CUP PO SCH ×2 (08:12→21:01)
[2022-03-11] MEDS: MULTIVITAMINS, THERA LIQUID 237 ML BOTTLE PO SCH (08:13)
[2022-03-11] MEDS: PANTOPRAZOLE 40 MG/10 ML VIAL IV SCH (08:13)
[2022-03-11] MEDS ORDERED: CEFEPIME 1 GM in SODIUM CHLORIDE 0.9% 100 ML IVPB SCH (11:45)
--- NOTE | 2022-03-11 11:46 | P.PN ---
Subjective Patient is a 82-year-old male with a known history of dementia, history of CVA/TIA and currently everyday smoker and history of heavy alcohol abuse was brought to the hospital by EMS. Patient was found on the floor. Patient does not recall how long she was staying on there. Patient is also complaining of knee pain and back pain which is not significant as his usual level. No complaints of fever or chills. No chest pain but did have mild shortness of breath. Patient did have last alcohol drink about 4 days ago. Currently not on any home medications as per the list. Denies any paralysis. Patient is somewhat poor historian. CT head and cervical spine showed multilevel cervical spondylitic changes. No fractures. Cerebral atrophy. No acute intercurrent abnormality. No significant change. Chest x-ray showed mild coarsening of the left lung markings could be mild pulmonary fibrosis. No significant change compatible exam. Laboratory data showed WBC 12.1 hemoglobin 13.2 and platelets 201 sodium 141 potassium 4.1 chloride 107 bicarb is 16 BUN 24 and creatinine 1.36 and blood sugar is 135 and lactic acid 4.7 Magnesium 2.4 AST 159 ALT 27 alk phos 79 CPK 02/13/2006 and troponin 0.047 TSH 3.199 urinalysis showed 2+ protein moderate blood large leukocyte esterase and elevated RBCs and WBCs. Coronavirus PCR not detected. CT of the abdomen and pelvis showed urinary bladder wall thickening is nonspecific. Follow-up recommended. Bladder tumor is possible. There is evidence of constipation. Minimal fibrotic changes and subsegmental atelectasis in the lung bases. CT angiogram of the chest showed large emboli in the right lower lobe pulmonary artery. 02/25/2022 Patient is currently in the MICU. Admitted to hospital due to large pulmonary embolism and right ventricular strain. Status post EKOS procedure today. Currently on room air. Does not require any pressor support. Otherwise patient is very confused and mumbling. Continued on alcohol withdrawal protocol. Laboratory data showed WBC 8.1 hemoglobin 10.1 and platelets 127 sodium 146 potassium 4.0 chloride 108 bicarb is 20 BUN 19 and creatinine 1.02 and calcium 7.9 lipase 68. 02/26/2022 Patient is currently in the MICU. Confused and lethargic and mumbling. C urrently being continued alcohol withdrawal protocol. Anticoagulation with heparin will be changed to Eliquis. Otherwise patient is medically antibiotics now ceftriaxone for urinary tract infection. IV hydration with D5 water. Laboratory data showed WBC 9.2 hemoglobin 10.3 and platelets 144 Sodium 148 potassium 3.1 chloride 120 bicarb is 22 BUN 14 and creatinine 0.98 02/27/2022 Patient remains in the MICU. Patient is still confused and lethargic and not improving well. Neurology was consulted for evaluation. CT head was done which showed is related atrophic and chronic small vessel ischemic changes without acute p intracranial Process. Chest x-ray showed mild left perihilar and right basilar infiltrate. Laboratory data showed WBC 9.8 hemoglobin 10.1 and platelets 168 Sodium 148 potassium 3.6 chloride 122 bicarb is 20 BUN 11 creatinine 0.73 and calcium 8.1 albumin 3.4. Vitamin B12 is 342 and folate 13.6 within normal limits. Urine culture showed E. coli. Patient is being current antibiotics in the form of Zosyn. Also on anticoagulation changed to Eliquis via NG tube. 02/28/2022 Patient is currently in the MICU. Status post EKOS procedure. Patient is awake and is able to response with his name but unable to communicate. Patient was able to tolerate small quantity of oral diet today. Requiring oxygen at 2 L via nasal cannula. Chest x-ray today showed stable portable chest. Clinical correlation and follow-up until resolution is recommended. Patient is being current on anticoagulation with apixaban. Also on IV fluids with D5 water. Sodium level is 145, potassium 3.9 chloride 107 BUN 11 and creatinine 0.66 and calcium 8.0 Hemoglobin 10.9 platelets 187 MCV 104.6. Patient is being monitored for alcohol withdrawal symptoms Neurology and pulmonary is on board. 03/01/2022 Patient is in the intensive care unit..intake and easily arousable. Mentation did improve compared to yesterday.currently on oxygen at2 L via nasal cannula. Patient is status post EKOS procedure and is on oral anticoagulation with the Eliquis. patientis being continued onIV hydration. Not on any pressors support. No fever no chills. No nausea vomiting or diarrhea. Laboratory data showedWBC 6.4 hemoglobin 9.0 and platelets 2:30 Sodium 136 potassium 3.5 chloride 108 bicarb is 28 BUN 10 and creatinine 0.60 and calcium 7.4. EKG showed abnormal EEG due to mild background slowing, intermixed with faster frequency activity. Service 12 nonspecific generalized cerebral dysfunction as can be seen with encephalopathy or medication effect. Limited 2-D echocardiogram showed ejection fraction 55-60%. Normal pulmonary artery pressure. No pericardial effusion. Pulmonary and cardiology is on board. 03/02/2022 Patient is more awake and alert and able to answer simple questions. Tolerating oral diet. Currently transitioned to room air. No complaints of chest pain or shortness of breath. No headache or dizziness or lightheadedness. Not on any pressors support. No fever no chills.no cough or sputum production. Patient is on antibiotic , Zosyn.blood cultures have been negative and urine culture showed E. coli. Laboratory data reviewed. Patient is being transferred to medical floor today. 03/03/2022 Patient is currently staying in bed. Admitted to hospital due to acute PE and right ventricular strain. Status post EKOs. Awake alert and mentation is much improved. Able to tolerate oral diet. No complaints of chest pain or shortness of breath. Otherwise patient is generally weak. PT OT was consulted. No complaints of chest pain or shortness of breath. No fever no chills. Remains on anticoagulation. Laboratory data showed WBC 7.0 hemoglobin 10.0) platelets 283 Sodium 136 potassium 3.8 chloride 106 BUN 7 and creatinine 0.66 and calcium 7.8 03/04/2022 Patient is currently lying in the bed. Awake alert and oriented but poor historian. No complains of chest pain or shortness of breath. Tolerating oral diet. No fever no chills. No cough or sputum production. Laboratory data showed WBC 7.3 improved from 10.0 and platelets 292 Sodium 133 potassium 4.1 I bicarb is 24 BUN 18 creatinine 0.61 and calcium 7.8 03/05/2022 Patient is currently resting in bed. Awake alert and oriented. No complaints of chest pain or worsening shortness of breath. Patient is tolerating oral diet slowly. Otherwise patient is still very weak and unable to participate in physical therapy. No fever no chills. No cough or sputum production. Laboratory data reviewed. Patient is being continued on antibiotics in the form of Augmentin. Also on Eliquis due to acute PE with right ventricular strain. Patient denied any complaints of nausea or vomiting. No chest tightness or dizziness or lightheadedness. 03/06/2022 Patient was admitted to hospital due to acute PE with right ventricular strain. On anticoagulation with Eliquis. Patient is currently resting in the bed. Awake alert oriented x3. Tolerating oral diet. No complaints of chest pain or shortness of breath. No nausea vomiting or abdominal pain or diarrhea. Tolerating oral diet. Patient has been afebrile. No cough or sputum production. Patient is otherwise very weak and requiring PT OT. Anticipate discharge to rehab in the next 24 hours. 03/07/2022 Patient is seen and evaluated and follow-up with no acute overnight issues noted. Patient continues on current medications as mentioned below and will continue. Patient with extreme weakness and awaiting updated physical therapy notes and patient will most likely need ECF once stabilized and discharged. Patient denies any chest pain or palpitations. Patient denies shortness of breath and is afebrile. Patient is off antibiotic therapy for his UTI with E. coli. 03/08/2022 Patient is seen this morning lethargic and per nursing staff patient continues to sleep most of the day. Patient is scheduled for possible ECF although having social issues and social work is working on possible guardianship as patient does not appear safe to make his own decisions. Patient does have a past medical history of EtOH abuse and dementia. Psychiatry to evaluate the patient. Patient also refusing meals and not eating very much and will add Megace and evaluate the patient. 03/09/2022 Patient is seen and evaluated in follow-up today asleep although arousable able to communicate a little more before falling asleep. Patient continues with poor oral intake and discussed with the patient about the importance of eating each meal small portions and continuing with ensure shakes. Megace was added. Patient also to be evaluated by physical therapy daily. Encouraged increased activity. Patient was evaluated by psychiatry currently unable to make decisions medically for himself and will require a guardian. Case management and social work following and patient was petitioned for guardianship. We'll need to secure a guardian for safe discharge plan on going to ECF. This was discussed with case management along with social work today. There is a court hearing scheduled for March 14. Patient denies any chest pain, shortness of b reath, or palpitations. Patient is afebrile. Patient denies any nausea or vomiting and reports to no appetite at this time. Again encouraged oral intake. 03/10/2022 Patient evaluated today and awake although extremely lethargic. Patient able to have simple conversation and follow commands appropriately. Patient reports to having chronic back and leg pain and has not been moving much. Discussed with nursing staff about having physical therapy work with the patient daily and have the patient get up out of the bed and increase activity as tolerated. Patient requires almost maximum assistance. Also discussed with the patient again at length about encouraging oral intake and have added an appetite stimulant and reports to eating slightly more along with nursing staff reporting this as well. Patient reports to just wanting to sleep. Patient is scheduled for a court hearing for guardianship early next week with social work following. Awaiting ECF for long-term after that point. She remains afebrile and will add repeat labs for the morning. Vital signs are stable and patient remains with an oxygen saturation of 98% on room air. Patient with gentle IV hydration and will dougie nue as patient is not eating much. Also discussed with nursing staff about increasing oral intake and encouraging meals. Patient denies chest pain or shortness of breath. 03/11/2022 Patient is more confused, he is not eating. Urine analysis possible UTI. Urine culture is pending. Parted on ceftriaxone. We will take the Humphreys catheter out but he has possible urinary bladder mass. We will keep close eye on it. Infectious disease consult. Objective - Vital Signs Vital signs: Vital Signs Temp 98.7 F 03/11/22 08:11 Pulse 87 03/11/22 08:11 Resp 18 03/11/22 08:11 BP 96/60 03/11/22 08:11 Pulse Ox 93 L 03/11/22 08:11 Intake & Output 03/10/22 03/11/22 03/11/22 18:59 06:59 18:59 Intake Total 360 0 Output Total 500 750 Balance -140 -750 0 Intake: Oral 360 0 Output: Urine 500 750 Other: Voiding Method Indwelling Catheter Indwelling Catheter Indwelling Catheter - Exam -Gen.: Patient is confused, does not follow commands. Not in distress. HEENT: Normocephalic. Neck is supple. Pupils reactive. Nostrils clear. Oral cavity is moist. Neck reveals no JVD, carotid bruits, or thyromegaly. CHEST EXAMINATION: Trachea is central. Symmetrical expansion. Bibasilar diminished sounds. No wheezing. Otherwise Lung perez clear to auscultation and percussion. CARDIAC: Normal S1, S2 with no gallops. No murmurs -ABDOMEN: Soft. Bowel sounds normal. No organomegaly. No abdominal bruits. Humphreys catheter in place Extremities: reveal no edema. No clubbing or cyanosis Neurologically awake, alert, oriented x2 with well-coordinated movements. No gross focal deficits noted, diffuse weakness Skin: No rash or skin lesions. Psychiatric: Cooperative. Lethargic Musculoskeletal: No joint swelling or deformity. Normal range of motion. - Labs CBC & Chem 7: 03/11/22 05:56 03/11/22 05:56 Labs: Abnormal Lab Results - Last 24 Hours (Table) 03/10/22 03/10/22 03/10/22 Range/Units 16:46 16:46 17:22 RBC 3.19 L (4.30-5.90) m/uL Hgb 9.8 L (13.0-17.5) gm/dL Hct 30.8 L (39.0-53.0) % Plt Count 530 H (150-450) k/uL Lymphocytes # 0.9 L (1.0-4.8) k/uL Sodium 132 L (137-145) mmol/L Creatinine (0.66-1.25) mg/dL Calcium 8.3 L (8.4-10.2) mg/dL Urine Protein 1+ H (Negative) Urine Blood Small H (Negative) Ur Leukocyte Esterase Large H (Negative) Urine RBC 35 H (0-5) /hpf Urine WBC >182 H (0-5) /hpf Urine WBC Clumps Many H (None) /hpf Ur Squamous Epith Cells 44 H (0-4) /hpf Urine Bacteria Rare H (None) /hpf Urine Mucus Few H (None) /hpf 03/11/22 03/11/22 Range/Units 05:56 05:56 RBC 3.18 L (4.30-5.90) m/uL Hgb 9.9 L (13.0-17.5) gm/dL Hct 30.8 L (39.0-53.0) % Plt Count (150-450) k/uL Lymphocytes # (1.0-4.8) k/uL Sodium 135 L (137-145) mmol/L Creatinine 0.60 L (0.66-1.25) mg/dL Calcium (8.4-10.2) mg/dL Urine Protein (Negative) Urine Blood (Negative) Ur Leukocyte Esterase (Negative) Urine RBC (0-5) /hpf Urine WBC (0-5) /hpf Urine WBC Clumps (None) /hpf Ur Squamous Epith Cells (0-4) /hpf Urine Bacteria (None) /hpf Urine Mucus (None) /hpf Microbiology - Last 24 Hours (Table) 03/10/22 17:22 Urine Culture - Preliminary Urine,Voided Assessment and Plan Assessment: Urinary tract infection associated with Humphreys catheter Acute metabolic encephalopathy. improved Acute right lower lobe large emboli/PE with right ventricular strain as per CT.. Status post EKOS on 02/25. Acute syncopal episode and hitting his head likely secondary to above Acute hypoxemic respiratory failure Mild troponin elevation Acute urinary tract infection with E. coli. Acute kidney injury with creatinine 1.36 on admission Acute rhabdomyolysis Dementia Severe alcohol abuse. Last drink was 4 days prior to admission. Currently everyday smoker DVT prophylaxis. On eliquis. GI prophylaxis Full code Plan: This is a pleasant 82 years old male with altered mental status related to his dementia and worsening mentation. 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 Physical tears and not eating therefore workup showing UTI and was started on cefepime, gentle hydration, we will consult infectious disease team. Follow-up urine culture. He will not close follow-up as an outpatient with urologist for possible cystoscopy Labs and medication were reviewed.. Continue same treatment. Continue with symptomatic treatment. Resume home medication. Monitor lytes and vitals. DVT and GI prophylaxis. Further recommendationsas per clinical course of the patient DVT prophylaxis: Eliquis GI Prophylaxis: Ppi Prognosis is guarded
--- NOTE | 2022-03-11 12:12 | XR ---
EXAMINATION TYPE: XR chest 1V DATE OF EXAM: 03/11/2022 CLINICAL HISTORY: Difficulty breathing progress study. TECHNIQUE: Single AP portable semiupright view of the chest is obtained. COMPARISON: Chest x-ray from 3 days earlier FINDINGS: Osseous structures are demineralized. Right greater than left bibasilar opacities redemons trated on background chronic parenchymal changes. Cardiac silhouette size stable and within normal li mits. Moderate right greater than left biapical pleural thickening redemonstrated. IMPRESSION: Persistent right greater than left bibasilar acute infiltrate and/or atelectasis and susp ected tiny bilateral pleural effusions.
[2022-03-11] MEDS: CEFEPIME 1 GM in SODIUM CHLORIDE 0.9% 50 ML IVPB SCH ×2 (12:17→21:00)
[2022-03-11] MEDS: MELATONIN 3 MG TABLET PO SCH (21:01)
[2022-03-11] MEDS ORDERED: CEFEPIME 2 GM in SODIUM CHLORIDE 0.9% 50 ML IVPB SCH (22:05)
[2022-03-12] MEDS: CEFEPIME 2 GM in SODIUM CHLORIDE 0.9% 100 ML IVPB SCH ×4 (00:51→22:40)
--- NOTE | 2022-03-12 04:15 | P.CONS ---
History of Present Illness - Reason for Consult Consult date: 03/11/22 UTI with a Humphreys Requesting physician: Thierry E Sheet - Chief Complaint weakness x few days - History of Present Illness Patient is 82-year-old male presented to the hospital about 2 weeks ago after apparently the patient had a fall and this patient was complaining of some abdominal pain patient did have a CT of abdominal pelvis which did show some urinary bladder wall thickening bladder tumor is possible patient subsequently has been evaluated by urology services who recommended outpatient cystoscopy patient did have a positive UA on admission with repeat UA completed yesterday which shows large leukocyte esterase and moderate only 2 WBC patient did have normal white count patient kidney function has been normal infectious disease was consulted today regarding UTI patient urine culture positive on 413 with an E. coli which was a sensitive pathogen repeat urine culture done 03/10/22 is showing a gram-negative bacilli patient has been started on cefepime pending culture result Review of Systems Positive point has been mentioned in the HPI rest of the systems are negative Past Medical History Past Medical History: CVA/TIA, Dementia Additional Past Medical History / Comment(s): same day smoker. History of Any Multi-Drug Resistant Organisms: None Reported Past Surgical History: Tonsillectomy Additional Past Surgical History / Comment(s): Vasectomy, bilateral inguinal hernia repair Past Anesthesia/Blood Transfusion Reactions: No Reported Reaction Past Psychological History: No Psychological Hx Reported Smoking Status: Current every day smoker Past Alcohol Use History: Abuse, Daily, Heavy Past Drug Use History: None Reported - Past Family History Father Family Medical History: CVA/TIA Mother Family Medical History: Dementia Medications and Allergies Home Medications Medication Instructions Recorded Confirmed Type No Known Home Medications 02/23/22 02/23/22 History Allergies Allergy/AdvReac Type Severity Reaction Status Date / Time No Known Allergies Allergy Verified 02/23/22 21:13 Physical Exam Vitals: Vital Signs Temp Pulse Resp BP Pulse Ox 03/11/22 12:19 98.0 F 82 18 115/70 97 03/11/22 08:11 98.7 F 87 18 96/60 93 L 03/11/22 03:48 97.4 F L 75 19 102/62 97 03/11/22 00:00 98 F 81 17 127/76 90 L 03/10/22 20:00 18 03/10/22 19:53 97.6 F 82 18 119/64 98 03/10/22 15:50 97.8 F 91 20 115/67 98 Intake and Output 03/10/22 03/11/22 03/11/22 22:59 06:59 14:59 Intake Total 120 0 Output Total 850 400 375 Balance -730 -400 -375 Intake: Oral 120 0 Output: Urine 850 400 375 Other: Voiding Method Indwelling Catheter Indwelling Catheter Indwelling Catheter Weight 83.2 kg GENERAL DESCRIPTION: Elderly male lying in bed, no distress. No tachypnea or accessory muscle of respiration use. HEENT: Shows Pallor , no scleral icterus. Oral mucous membrane is dry. No pharyngeal erythema or thrush NECK: Trachea central, no thyromegaly. LUNGS: Unlabored breathing. Clear to auscultation anteriorly. No wheeze or crackle. HEART: S1, S2, regular rate and rhythm. No loud murmur ABDOMEN: Soft, no tenderness , guarding or rigidity, no organomegaly EXTREMITIES: No edema of feet. SKIN: No rash, no masses palpable. NEUROLOGICAL: The patient is awake, alert, oriented x3, mood and affect normal. Results CBC & Chem 7: 03/11/22 05:56 03/11/22 05:56 Labs: Abnormal Lab Results - Last 24 Hours (Table) 03/10/22 03/10/22 03/10/22 Range/Units 16:46 16:46 17:22 RBC 3.19 L (4.30-5.90) m/uL Hgb 9.8 L (13.0-17.5) gm/dL Hct 30.8 L (39.0-53.0) % Plt Count 530 H (150-450) k/uL Lymphocytes # 0.9 L (1.0-4.8) k/uL Sodium 132 L (137-145) mmol/L Creatinine (0.66-1.25) mg/dL Calcium 8.3 L (8.4-10.2) mg/dL Urine Protein 1+ H (Negative) Urine Blood Small H (Negative) Ur Leukocyte Esterase Large H (Negative) Urine RBC 35 H (0-5) /hpf Urine WBC >182 H (0-5) /hpf Urine WBC Clumps Many H (None) /hpf Ur Squamous Epith Cells 44 H (0-4) /hpf Urine Bacteria Rare H (None) /hpf Urine Mucus Few H (None) /hpf 03/11/22 03/11/22 Range/Units 05:56 05:56 RBC 3.18 L (4.30-5.90) m/uL Hgb 9.9 L (13.0-17.5) gm/dL Hct 30.8 L (39.0-53.0) % Plt Count (150-450) k/uL Lymphocytes # (1.0-4.8) k/uL Sodium 135 L (137-145) mmol/L Creatinine 0.60 L (0.66-1.25) mg/dL Calcium (8.4-10.2) mg/dL Urine Protein (Negative) Urine Blood (Negative) Ur Leukocyte Esterase (Negative) Urine RBC (0-5) /hpf Urine WBC (0-5) /hpf Urine WBC Clumps (None) /hpf Ur Squamous Epith Cells (0-4) /hpf Urine Bacteria (None) /hpf Urine Mucus (None) /hpf Microbiology - Last 24 Hours (Table) 03/10/22 17:22 Urine Culture - Preliminary Urine,Voided Assessment and Plan (1) UTI (urinary tract infection) Current Visit: Yes Status: Acute Code(s): N39.0 - URINARY TRACT INFECTION, SITE NOT SPECIFIED SNOMED Code(s): 51746862 Plan: 1patient presented to hospital with weakness and falls in this patient noticed to have thickening of the bladder wall on the CT he did have a positive UA on admission which was an E. coli now with repeated UA completed yesterday is still positive and urine is showing a gram-negative could be the same E. coli or a different pathogen. 2continue with the cefepime while waiting for the culture to finalize. 3discharge antibiotics on the basis of these culture. We will follow on clinical condition and cultures to further adjust medication if needed Thank you for this consultation will follow this patient along with you Time with Patient: Greater than 30
[2022-03-12] MEDS: THIAMINE 100 MG TAB PO SCH ×2 (06:56→17:00)
[2022-03-12] MEDS: LACTATED RINGERS 1,000 ML IV SCH (07:01)
[2022-03-12] MEDS: PANTOPRAZOLE 40 MG/10 ML VIAL IV SCH (08:08)
[2022-03-12] MEDS: MULTIVITAMINS, THERA LIQUID 237 ML BOTTLE PO SCH (08:08)
[2022-03-12] MEDS: CYANOCOBALAMIN 500 MCG TAB PO SCH (08:08)
[2022-03-12] MEDS: LACTULOSE 20 GM/30 ML CUP PO SCH ×2 (08:08→20:27)
[2022-03-12] MEDS: APIXABAN 5 MG TAB PO SCH ×2 (08:08→20:27)
[2022-03-12] MEDS: MEGESTROL 40 MG TAB PO SCH (08:08)
--- NOTE | 2022-03-12 16:11 | P.PN ---
Subjective Patient is a 82-year-old male with a known history of dementia, history of CVA/TIA and currently everyday smoker and history of heavy alcohol abuse was brought to the hospital by EMS. Patient was found on the floor. Patient does not recall how long she was staying on there. Patient is also complaining of knee pain and back pain which is not significant as his usual level. No complaints of fever or chills. No chest pain but did have mild shortness of breath. Patient did have last alcohol drink about 4 days ago. Currently not on any home medications as per the list. Denies any paralysis. Patient is somewhat poor historian. CT head and cervical spine showed multilevel cervical spondylitic changes. No fractures. Cerebral atrophy. No acute intercurrent abnormality. No significant change. Chest x-ray showed mild coarsening of the left lung markings could be mild pulmonary fibrosis. No significant change compatible exam. Laboratory data showed WBC 12.1 hemoglobin 13.2 and platelets 201 sodium 141 potassium 4.1 chloride 107 bicarb is 16 BUN 24 and creatinine 1.36 and blood sugar is 135 and lactic acid 4.7 Magnesium 2.4 AST 159 ALT 27 alk phos 79 CPK 02/13/2006 and troponin 0.047 TSH 3.199 urinalysis showed 2+ protein moderate blood large leukocyte esterase and elevated RBCs and WBCs. Coronavirus PCR not detected. CT of the abdomen and pelvis showed urinary bladder wall thickening is nonspecific. Follow-up recommended. Bladder tumor is possible. There is evidence of constipation. Minimal fibrotic changes and subsegmental atelectasis in the lung bases. CT angiogram of the chest showed large emboli in the right lower lobe pulmonary artery. 02/25/2022 Patient is currently in the MICU. Admitted to hospital due to large pulmonary embolism and right ventricular strain. Status post EKOS procedure today. Currently on room air. Does not require any pressor support. Otherwise patient is very confused and mumbling. Continued on alcohol withdrawal protocol. Laboratory data showed WBC 8.1 hemoglobin 10.1 and platelets 127 sodium 146 potassium 4.0 chloride 108 bicarb is 20 BUN 19 and creatinine 1.02 and calcium 7.9 lipase 68. 02/26/2022 Patient is currently in the MICU. Confused and lethargic and mumbling. C urrently being continued alcohol withdrawal protocol. Anticoagulation with heparin will be changed to Eliquis. Otherwise patient is medically antibiotics now ceftriaxone for urinary tract infection. IV hydration with D5 water. Laboratory data showed WBC 9.2 hemoglobin 10.3 and platelets 144 Sodium 148 potassium 3.1 chloride 120 bicarb is 22 BUN 14 and creatinine 0.98 02/27/2022 Patient remains in the MICU. Patient is still confused and lethargic and not improving well. Neurology was consulted for evaluation. CT head was done which showed is related atrophic and chronic small vessel ischemic changes without acute p intracranial Process. Chest x-ray showed mild left perihilar and right basilar infiltrate. Laboratory data showed WBC 9.8 hemoglobin 10.1 and platelets 168 Sodium 148 potassium 3.6 chloride 122 bicarb is 20 BUN 11 creatinine 0.73 and calcium 8.1 albumin 3.4. Vitamin B12 is 342 and folate 13.6 within normal limits. Urine culture showed E. coli. Patient is being current antibiotics in the form of Zosyn. Also on anticoagulation changed to Eliquis via NG tube. 02/28/2022 Patient is currently in the MICU. Status post EKOS procedure. Patient is awake and is able to response with his name but unable to communicate. Patient was able to tolerate small quantity of oral diet today. Requiring oxygen at 2 L via nasal cannula. Chest x-ray today showed stable portable chest. Clinical correlation and follow-up until resolution is recommended. Patient is being current on anticoagulation with apixaban. Also on IV fluids with D5 water. Sodium level is 145, potassium 3.9 chloride 107 BUN 11 and creatinine 0.66 and calcium 8.0 Hemoglobin 10.9 platelets 187 MCV 104.6. Patient is being monitored for alcohol withdrawal symptoms Neurology and pulmonary is on board. 03/01/2022 Patient is in the intensive care unit..intake and easily arousable. Mentation did improve compared to yesterday.currently on oxygen at2 L via nasal cannula. Patient is status post EKOS procedure and is on oral anticoagulation with the Eliquis. patientis being continued onIV hydration. Not on any pressors support. No fever no chills. No nausea vomiting or diarrhea. Laboratory data showedWBC 6.4 hemoglobin 9.0 and platelets 2:30 Sodium 136 potassium 3.5 chloride 108 bicarb is 28 BUN 10 and creatinine 0.60 and calcium 7.4. EKG showed abnormal EEG due to mild background slowing, intermixed with faster frequency activity. Service 12 nonspecific generalized cerebral dysfunction as can be seen with encephalopathy or medication effect. Limited 2-D echocardiogram showed ejection fraction 55-60%. Normal pulmonary artery pressure. No pericardial effusion. Pulmonary and cardiology is on board. 03/02/2022 Patient is more awake and alert and able to answer simple questions. Tolerating oral diet. Currently transitioned to room air. No complaints of chest pain or shortness of breath. No headache or dizziness or lightheadedness. Not on any pressors support. No fever no chills.no cough or sputum production. Patient is on antibiotic , Zosyn.blood cultures have been negative and urine culture showed E. coli. Laboratory data reviewed. Patient is being transferred to medical floor today. 03/03/2022 Patient is currently staying in bed. Admitted to hospital due to acute PE and right ventricular strain. Status post EKOs. Awake alert and mentation is much improved. Able to tolerate oral diet. No complaints of chest pain or shortness of breath. Otherwise patient is generally weak. PT OT was consulted. No complaints of chest pain or shortness of breath. No fever no chills. Remains on anticoagulation. Laboratory data showed WBC 7.0 hemoglobin 10.0) platelets 283 Sodium 136 potassium 3.8 chloride 106 BUN 7 and creatinine 0.66 and calcium 7.8 03/04/2022 Patient is currently lying in the bed. Awake alert and oriented but poor historian. No complains of chest pain or shortness of breath. Tolerating oral diet. No fever no chills. No cough or sputum production. Laboratory data showed WBC 7.3 improved from 10.0 and platelets 292 Sodium 133 potassium 4.1 I bicarb is 24 BUN 18 creatinine 0.61 and calcium 7.8 03/05/2022 Patient is currently resting in bed. Awake alert and oriented. No complaints of chest pain or worsening shortness of breath. Patient is tolerating oral diet slowly. Otherwise patient is still very weak and unable to participate in physical therapy. No fever no chills. No cough or sputum production. Laboratory data reviewed. Patient is being continued on antibiotics in the form of Augmentin. Also on Eliquis due to acute PE with right ventricular strain. Patient denied any complaints of nausea or vomiting. No chest tightness or dizziness or lightheadedness. 03/06/2022 Patient was admitted to hospital due to acute PE with right ventricular strain. On anticoagulation with Eliquis. Patient is currently resting in the bed. Awake alert oriented x3. Tolerating oral diet. No complaints of chest pain or shortness of breath. No nausea vomiting or abdominal pain or diarrhea. Tolerating oral diet. Patient has been afebrile. No cough or sputum production. Patient is otherwise very weak and requiring PT OT. Anticipate discharge to rehab in the next 24 hours. 03/07/2022 Patient is seen and evaluated and follow-up with no acute overnight issues noted. Patient continues on current medications as mentioned below and will continue. Patient with extreme weakness and awaiting updated physical therapy notes and patient will most likely need ECF once stabilized and discharged. Patient denies any chest pain or palpitations. Patient denies shortness of breath and is afebrile. Patient is off antibiotic therapy for his UTI with E. coli. 03/08/2022 Patient is seen this morning lethargic and per nursing staff patient continues to sleep most of the day. Patient is scheduled for possible ECF although having social issues and social work is working on possible guardianship as patient does not appear safe to make his own decisions. Patient does have a past medical history of EtOH abuse and dementia. Psychiatry to evaluate the patient. Patient also refusing meals and not eating very much and will add Megace and evaluate the patient. 03/09/2022 Patient is seen and evaluated in follow-up today asleep although arousable able to communicate a little more before falling asleep. Patient continues with poor oral intake and discussed with the patient about the importance of eating each meal small portions and continuing with ensure shakes. Megace was added. Patient also to be evaluated by physical therapy daily. Encouraged increased activity. Patient was evaluated by psychiatry currently unable to make decisions medically for himself and will require a guardian. Case management and social work following and patient was petitioned for guardianship. We'll need to secure a guardian for safe discharge plan on going to ECF. This was discussed with case management along with social work today. There is a court hearing scheduled for March 14. Patient denies any chest pain, shortness of b reath, or palpitations. Patient is afebrile. Patient denies any nausea or vomiting and reports to no appetite at this time. Again encouraged oral intake. 03/10/2022 Patient evaluated today and awake although extremely lethargic. Patient able to have simple conversation and follow commands appropriately. Patient reports to having chronic back and leg pain and has not been moving much. Discussed with nursing staff about having physical therapy work with the patient daily and have the patient get up out of the bed and increase activity as tolerated. Patient requires almost maximum assistance. Also discussed with the patient again at length about encouraging oral intake and have added an appetite stimulant and reports to eating slightly more along with nursing staff reporting this as well. Patient reports to just wanting to sleep. Patient is scheduled for a court hearing for guardianship early next week with social work following. Awaiting ECF for long-term after that point. She remains afebrile and will add repeat labs for the morning. Vital signs are stable and patient remains with an oxygen saturation of 98% on room air. Patient with gentle IV hydration and will dougie nue as patient is not eating much. Also discussed with nursing staff about increasing oral intake and encouraging meals. Patient denies chest pain or shortness of breath. 03/11/2022 Patient is more confused, he is not eating. Urine analysis possible UTI. Urine culture is pending. Parted on ceftriaxone. We will take the Humphreys catheter out but he has possible urinary bladder mass. We will keep close eye on it. Infectious disease consult. 03/12/2022 Patient is still confused but he looks better than the last 2-3 days, as the date is the first time he could tell me he is at [facility]. Also this morning he was able to eat and drink some ensure. However he thinks it's 1998 and he could not tell the name of the president. Other than that he looks calm and follow commands appropriately. No fever, no leukocytosis. Looks like he has UTI with urine culture growing gram-negative bacilli also there is some suspicion of bilateral pneumonia which is persistent and acute with right more than left. Currently he is placed on cefepime with ID team on the case. Also is getting a ringer lactate 50 mL/h and Eliquis 5 mg Objective - Vital Signs Vital signs: Vital Signs Temp 97.8 F 03/12/22 11:30 Pulse 71 03/12/22 11:30 Resp 18 03/12/22 11:30 BP 116/71 03/12/22 11:30 Pulse Ox 97 03/12/22 11:30 Intake & Output 03/11/22 03/12/2222 18:59 06:59 18:59 Intake Total 0 120 Output Total 375 900 Balance -375 -900 120 Weight 83.2 kg Intake: Oral 0 120 Output: Urine 375 900 Stool 0 0 Urine/Stool Mix 0 Other: Voiding Method Indwelling Catheter Indwelling Catheter Indwelling Catheter # Voids 0 # Bowel Movements 0 - Exam -Gen.: Patient is confused AA01 to place, follows simple commands. Not in distress. HEENT: Normocephalic. Neck is supple. Pupils reactive. Nostrils clear. Oral c avity is moist. Neck reveals no JVD, carotid bruits, or thyromegaly. CHEST EXAMINATION: Trachea is central. Symmetrical expansion. Bibasilar diminished sounds. No wheezing. Otherwise Lung perez clear to auscultation and percussion. CARDIAC: Normal S1, S2 with no gallops. No murmurs -ABDOMEN: Soft. Bowel sounds normal. No organomegaly. No abdominal bruits. Humphreys catheter in place Extremities: reveal no edema. No clubbing or cyanosis Neurologically awake, alert, oriented x2 with well-coordinated movements. No gross focal deficits noted, diffuse weakness Skin: No rash or skin lesions. Psychiatric: Cooperative. Lethargic Musculoskeletal: No joint swelling or deformity. Normal range of motion. - Labs CBC & Chem 7: 03/11/22 05:56 03/11/22 05:56 Labs: Microbiology - Last 24 Hours (Table) 03/10/22 17:22 Urine Culture - Preliminary Urine,Voided Gram Neg Bacilli Assessment and Plan Assessment: Recurrent Urinary tract infection associated with Humphreys catheter Possible bilateral pneumonia worsening mentation most likely encephalopathy on the top of his dementia Acute metabolic encephalopathy. improving Acute right lower lobe large emboli/PE with right ventricular strain as per CT.. Status post EKOS on 02/25. Acute syncopal episode and hitting his head likely secondary to above Acute hypoxemic respiratory failure Mild troponin elevation Acute urinary tract infection with E. coli. Acute kidney injury with creatinine 1.36 on admission Acute rhabdomyolysis Dementia Severe alcohol abuse. Last drink was 4 days prior to admission. Currently everyday smoker DVT prophylaxis. On eliquis. GI prophylaxis Full code Plan: This is a pleasant 82 years old male with altered mental status related to his dementia and worsening mentation. 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 Continue with cefepime and gentle hydration Consult with infectious disease team. Follow-up urine culture. He will not close follow-up as an outpatient with urologist for possible cystoscopy Labs and medication were reviewed.. Continue same treatment. Continue with symptomatic treatment. Resume home medication. Monitor lytes and vitals. DVT and GI prophylaxis. Further s per clinical course of the patient DVT prophylaxis: Eliquis GI Prophylaxis: Ppi Prognosis is guarded
[2022-03-12] MEDS: MELATONIN 3 MG TABLET PO SCH (20:27)
[2022-03-13] MEDS: LACTATED RINGERS 1,000 ML IV SCH ×2 (03:36→21:34)
[2022-03-13] MEDS: ACETAMINOPHEN TAB 325 MG TAB PO PRN (03:36)
[2022-03-13] MEDS: CEFEPIME 2 GM in SODIUM CHLORIDE 0.9% 100 ML IVPB SCH ×3 (05:09→21:34)
[2022-03-13] MEDS: THIAMINE 100 MG TAB PO SCH ×2 (07:33→17:07)
[2022-03-13] MEDS: CYANOCOBALAMIN 500 MCG TAB PO SCH (07:33)
[2022-03-13] MEDS: APIXABAN 5 MG TAB PO SCH ×2 (07:33→21:34)
[2022-03-13] MEDS: PANTOPRAZOLE 40 MG/10 ML VIAL IV SCH (07:34)
[2022-03-13] MEDS: LACTULOSE 20 GM/30 ML CUP PO SCH ×2 (07:34→21:34)
[2022-03-13] MEDS: MEGESTROL 40 MG TAB PO SCH (08:43)
[2022-03-13] MEDS: MULTIVITAMINS, THERA LIQUID 237 ML BOTTLE PO SCH (08:43)
--- NOTE | 2022-03-13 12:35 | P.PN ---
Subjective Patient is a 82-year-old male with a known history of dementia, history of CVA/TIA and currently everyday smoker and history of heavy alcohol abuse was brought to the hospital by EMS. Patient was found on the floor. Patient does not recall how long she was staying on there. Patient is also complaining of knee pain and back pain which is not significant as his usual level. No complaints of fever or chills. No chest pain but did have mild shortness of breath. Patient did have last alcohol drink about 4 days ago. Currently not on any home medications as per the list. Denies any paralysis. Patient is somewhat poor historian. CT head and cervical spine showed multilevel cervical spondylitic changes. No fractures. Cerebral atrophy. No acute intercurrent abnormality. No significant change. Chest x-ray showed mild coarsening of the left lung markings could be mild pulmonary fibrosis. No significant change compatible exam. Laboratory data showed WBC 12.1 hemoglobin 13.2 and platelets 201 sodium 141 potassium 4.1 chloride 107 bicarb is 16 BUN 24 and creatinine 1.36 and blood sugar is 135 and lactic acid 4.7 Magnesium 2.4 AST 159 ALT 27 alk phos 79 CPK 02/13/2006 and troponin 0.047 TSH 3.199 urinalysis showed 2+ protein moderate blood large leukocyte esterase and elevated RBCs and WBCs. Coronavirus PCR not detected. CT of the abdomen and pelvis showed urinary bladder wall thickening is nonspecific. Follow-up recommended. Bladder tumor is possible. There is evidence of constipation. Minimal fibrotic changes and subsegmental atelectasis in the lung bases. CT angiogram of the chest showed large emboli in the right lower lobe pulmonary artery. 02/25/2022 Patient is currently in the MICU. Admitted to hospital due to large pulmonary embolism and right ventricular strain. Status post EKOS procedure today. Currently on room air. Does not require any pressor support. Otherwise patient is very confused and mumbling. Continued on alcohol withdrawal protocol. Laboratory data showed WBC 8.1 hemoglobin 10.1 and platelets 127 sodium 146 potassium 4.0 chloride 108 bicarb is 20 BUN 19 and creatinine 1.02 and calcium 7.9 lipase 68. 02/26/2022 Patient is currently in the MICU. Confused and lethargic and mumbling. C urrently being continued alcohol withdrawal protocol. Anticoagulation with heparin will be changed to Eliquis. Otherwise patient is medically antibiotics now ceftriaxone for urinary tract infection. IV hydration with D5 water. Laboratory data showed WBC 9.2 hemoglobin 10.3 and platelets 144 Sodium 148 potassium 3.1 chloride 120 bicarb is 22 BUN 14 and creatinine 0.98 02/27/2022 Patient remains in the MICU. Patient is still confused and lethargic and not improving well. Neurology was consulted for evaluation. CT head was done which showed is related atrophic and chronic small vessel ischemic changes without acute p intracranial Process. Chest x-ray showed mild left perihilar and right basilar infiltrate. Laboratory data showed WBC 9.8 hemoglobin 10.1 and platelets 168 Sodium 148 potassium 3.6 chloride 122 bicarb is 20 BUN 11 creatinine 0.73 and calcium 8.1 albumin 3.4. Vitamin B12 is 342 and folate 13.6 within normal limits. Urine culture showed E. coli. Patient is being current antibiotics in the form of Zosyn. Also on anticoagulation changed to Eliquis via NG tube. 02/28/2022 Patient is currently in the MICU. Status post EKOS procedure. Patient is awake and is able to response with his name but unable to communicate. Patient was able to tolerate small quantity of oral diet today. Requiring oxygen at 2 L via nasal cannula. Chest x-ray today showed stable portable chest. Clinical correlation and follow-up until resolution is recommended. Patient is being current on anticoagulation with apixaban. Also on IV fluids with D5 water. Sodium level is 145, potassium 3.9 chloride 107 BUN 11 and creatinine 0.66 and calcium 8.0 Hemoglobin 10.9 platelets 187 MCV 104.6. Patient is being monitored for alcohol withdrawal symptoms Neurology and pulmonary is on board. 03/01/2022 Patient is in the intensive care unit..intake and easily arousable. Mentation did improve compared to yesterday.currently on oxygen at2 L via nasal cannula. Patient is status post EKOS procedure and is on oral anticoagulation with the Eliquis. patientis being continued onIV hydration. Not on any pressors support. No fever no chills. No nausea vomiting or diarrhea. Laboratory data showedWBC 6.4 hemoglobin 9.0 and platelets 2:30 Sodium 136 potassium 3.5 chloride 108 bicarb is 28 BUN 10 and creatinine 0.60 and calcium 7.4. EKG showed abnormal EEG due to mild background slowing, intermixed with faster frequency activity. Service 12 nonspecific generalized cerebral dysfunction as can be seen with encephalopathy or medication effect. Limited 2-D echocardiogram showed ejection fraction 55-60%. Normal pulmonary artery pressure. No pericardial effusion. Pulmonary and cardiology is on board. 03/02/2022 Patient is more awake and alert and able to answer simple questions. Tolerating oral diet. Currently transitioned to room air. No complaints of chest pain or shortness of breath. No headache or dizziness or lightheadedness. Not on any pressors support. No fever no chills.no cough or sputum production. Patient is on antibiotic , Zosyn.blood cultures have been negative and urine culture showed E. coli. Laboratory data reviewed. Patient is being transferred to medical floor today. 03/03/2022 Patient is currently staying in bed. Admitted to hospital due to acute PE and right ventricular strain. Status post EKOs. Awake alert and mentation is much improved. Able to tolerate oral diet. No complaints of chest pain or shortness of breath. Otherwise patient is generally weak. PT OT was consulted. No complaints of chest pain or shortness of breath. No fever no chills. Remains on anticoagulation. Laboratory data showed WBC 7.0 hemoglobin 10.0) platelets 283 Sodium 136 potassium 3.8 chloride 106 BUN 7 and creatinine 0.66 and calcium 7.8 03/04/2022 Patient is currently lying in the bed. Awake alert and oriented but poor historian. No complains of chest pain or shortness of breath. Tolerating oral diet. No fever no chills. No cough or sputum production. Laboratory data showed WBC 7.3 improved from 10.0 and platelets 292 Sodium 133 potassium 4.1 I bicarb is 24 BUN 18 creatinine 0.61 and calcium 7.8 03/05/2022 Patient is currently resting in bed. Awake alert and oriented. No complaints of chest pain or worsening shortness of breath. Patient is tolerating oral diet slowly. Otherwise patient is still very weak and unable to participate in physical therapy. No fever no chills. No cough or sputum production. Laboratory data reviewed. Patient is being continued on antibiotics in the form of Augmentin. Also on Eliquis due to acute PE with right ventricular strain. Patient denied any complaints of nausea or vomiting. No chest tightness or dizziness or lightheadedness. 03/06/2022 Patient was admitted to hospital due to acute PE with right ventricular strain. On anticoagulation with Eliquis. Patient is currently resting in the bed. Awake alert oriented x3. Tolerating oral diet. No complaints of chest pain or shortness of breath. No nausea vomiting or abdominal pain or diarrhea. Tolerating oral diet. Patient has been afebrile. No cough or sputum production. Patient is otherwise very weak and requiring PT OT. Anticipate discharge to rehab in the next 24 hours. 03/07/2022 Patient is seen and evaluated and follow-up with no acute overnight issues noted. Patient continues on current medications as mentioned below and will continue. Patient with extreme weakness and awaiting updated physical therapy notes and patient will most likely need ECF once stabilized and discharged. Patient denies any chest pain or palpitations. Patient denies shortness of breath and is afebrile. Patient is off antibiotic therapy for his UTI with E. coli. 03/08/2022 Patient is seen this morning lethargic and per nursing staff patient continues to sleep most of the day. Patient is scheduled for possible ECF although having social issues and social work is working on possible guardianship as patient does not appear safe to make his own decisions. Patient does have a past medical history of EtOH abuse and dementia. Psychiatry to evaluate the patient. Patient also refusing meals and not eating very much and will add Megace and evaluate the patient. 03/09/2022 Patient is seen and evaluated in follow-up today asleep although arousable able to communicate a little more before falling asleep. Patient continues with poor oral intake and discussed with the patient about the importance of eating each meal small portions and continuing with ensure shakes. Megace was added. Patient also to be evaluated by physical therapy daily. Encouraged increased activity. Patient was evaluated by psychiatry currently unable to make decisions medically for himself and will require a guardian. Case management and social work following and patient was petitioned for guardianship. We'll need to secure a guardian for safe discharge plan on going to ECF. This was discussed with case management along with social work today. There is a court hearing scheduled for March 14. Patient denies any chest pain, shortness of b reath, or palpitations. Patient is afebrile. Patient denies any nausea or vomiting and reports to no appetite at this time. Again encouraged oral intake. 03/10/2022 Patient evaluated today and awake although extremely lethargic. Patient able to have simple conversation and follow commands appropriately. Patient reports to having chronic back and leg pain and has not been moving much. Discussed with nursing staff about having physical therapy work with the patient daily and have the patient get up out of the bed and increase activity as tolerated. Patient requires almost maximum assistance. Also discussed with the patient again at length about encouraging oral intake and have added an appetite stimulant and reports to eating slightly more along with nursing staff reporting this as well. Patient reports to just wanting to sleep. Patient is scheduled for a court hearing for guardianship early next week with social work following. Awaiting ECF for long-term after that point. She remains afebrile and will add repeat labs for the morning. Vital signs are stable and patient remains with an oxygen saturation of 98% on room air. Patient with gentle IV hydration and will dougie nue as patient is not eating much. Also discussed with nursing staff about increasing oral intake and encouraging meals. Patient denies chest pain or shortness of breath. 03/11/2022 Patient is more confused, he is not eating. Urine analysis possible UTI. Urine culture is pending. Parted on ceftriaxone. We will take the Humphreys catheter out but he has possible urinary bladder mass. We will keep close eye on it. Infectious disease consult. 03/12/2022 Patient is still confused but he looks better than the last 2-3 days, as the date is the first time he could tell me he is at [facility]. Also this morning he was able to eat and drink some ensure. However he thinks it's 1998 and he could not tell the name of the president. Other than that he looks calm and follow commands appropriately. No fever, no leukocytosis. Looks like he has UTI with urine culture growing gram-negative bacilli also there is some suspicion of bilateral pneumonia which is persistent and acute with right more than left. Currently he is placed on cefepime with ID team on the case. Also is getting a ringer lactate 50 mL/h and Eliquis 5 mg 03/13/2022 Patient mentation improved yesterday and it looks similar to today. He knows he is in the hospital but he is disoriented to time and person, he follows commands and looks calm. His other problem is poor appetite he is consuming mainly ensure in detail of his diet, patient was encouraged to eat but he got agitated. Vitals are stable. His urine culture is growing Pseudomonas and he is currently covered with cefepime. Also his Humphreys catheter was changed 2 days ago. Objective - Vital Signs Vital signs: Vital Signs Temp 97.6 F 03/13/22 08:00 Pulse 77 03/13/22 08:00 Resp 17 03/13/22 08:15 BP 107/66 03/13/22 08:00 Pulse Ox 95 03/13/22 08:00 Intake & Output 03/12/22 03/13/22 03/13/22 18:59 06:59 18:59 Intake Total 240 Output Total 600 700 0 Balance -360 -700 0 Intake: Oral 240 Output: Urine 600 700 Stool 0 0 Other: Voiding Method Indwelling Catheter Indwelling Catheter Indwelling Catheter - Exam -Gen.: Patient is confused AA01 to place, follows simple commands. Not in distress. HEENT: Normocephalic. Neck is supple. Pupils reactive. Nostrils clear. Oral cavity is moist. Neck reveals no JVD, carotid bruits, or thyromegaly. CHEST EXAMINATION: Trachea is central. Symmetrical expansion. Bibasilar diminished sounds. No wheezing. Otherwise Lung perez clear to auscultation and percussion. CARDIAC: Normal S1, S2 with no gallops. No murmurs -ABDOMEN: Soft. Bowel sounds normal. No organomegaly. No abdominal bruits. Humphreys catheter in place Extremities: reveal no edema. No clubbing or cyanosis Neurologically awake, alert, oriented x2 with well-coordinated movements. No gross focal deficits noted, diffuse weakness Skin: No rash or skin lesions. Psychiatric: Cooperative. Lethargic Musculoskeletal: No joint swelling or deformity. Normal range of motion. - Labs CBC & Chem 7: 03/11/22 05:56 03/11/22 05:56 Labs: Microbiology - Last 24 Hours (Table) 03/10/22 17:22 Urine Culture - Final Urine,Voided Pseudomonas aeruginosa Assessment and Plan Assessment: Recurrent Urinary tract infection associated with Humphreys catheter. Secondary to Pseudomonas worsening mentation most likely encephalopathy on the top of his dementia Acute metabolic encephalopathy. improving Acute right lower lobe large emboli/PE with right ventricular strain as per CT.. Status post EKOS on 02/25. Acute syncopal episode and hitting his head likely secondary to above Acute hypoxemic respiratory failure Mild troponin elevation Acute urinary tract infection with E. coli. Acute kidney injury with creatinine 1.36 on admission Acute rhabdomyolysis Dementia Severe alcohol abuse. Last drink was 4 days prior to admission. Currently everyday smoker DVT prophylaxis. On eliquis. GI prophylaxis Full code Plan: This is a pleasant 82 years old male with altered mental status related to his dementia and worsening mentation. 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 Continue with cefepime and gentle hydration Consult with infectious disease team. He will need close follow-up as an outpatient with urologist for possible cystoscopy Labs and medication were reviewed.. Continue same treatment. Continue with symptomatic treatment. Resume home medication. Monitor lytes and vitals. DVT and GI prophylaxis. Further s per clinical course of the patient DVT prophylaxis: Eliquis GI Prophylaxis: Ppi Prognosis is guarded
[2022-03-13] MEDS: MELATONIN 3 MG TABLET PO SCH (21:34)
--- NOTE | 2022-03-13 23:49 | P.PN ---
Subjective Progress Note Date: 03/12/22 Principal diagnosis: Gram-negative urinary tract infection Patient is a 82 year old male presenting to the hospital after pending the patient did have a fall complaining of some abdominal pain CT abdominal pelvis tissues below THE clinical setting for tumor did have a positive UA treated for UTI repeat urine was positive for the patient is currently being treated with cefepime. On today's evaluation that is 03/12/2022, the patient denies having any fever or any chills, the patient is breathing comfortably, denies having any chest pain shortness of breath or cough no abdominal pain and no diarrhea Objective - Vital Signs Vital signs: Vital Signs Temp 97.8 F 03/12/22 11:30 Pulse 71 03/12/22 11:30 Resp 18 03/12/22 11:30 BP 116/71 03/12/22 11:30 Pulse Ox 97 03/12/22 11:30 Intake & Output 03/11/22 03/12/22 03/12/22 18:59 06:59 18:59 Intake Total 0 120 Output Total 375 900 Balance -375 -900 120 Weight 83.2 kg Intake: Oral 0 120 Output: Urine 375 900 Stool 0 0 Urine/Stool Mix 0 Other: Voiding Method Indwelling Catheter Indwelling Catheter Indwelling Catheter # Voids 0 # Bowel Movements 0 - Exam GENERAL DESCRIPTION: An elderly male lying in bed in no distress RESPIRATORY SYSTEM: Unlabored breathing , decreased breath sounds at bases HEART: S1 S2 regular rate and rhythm , ABDOMEN: Soft , no tenderness EXTREMITIES: No edema feet - Labs CBC & Chem 7: 03/11/22 05:56 03/11/22 05:56 Labs: Microbiology - Last 24 Hours (Table) 03/10/22 17:22 Urine Culture - Preliminary Urine,Voided Gram Neg Bacilli Assessment and Plan (1) UTI (urinary tract infection) Current Visit: Yes Status: Acute Code(s): N39.0 - URINARY TRACT INFECTION, SITE NOT SPECIFIED SNOMED Code(s): 89971069 Plan: 1patient presented to hospital with weakness and falls in this patient noticed to have thickening of the bladder wall on the CT he did have a positive UA on admission which was an E. coli now with repeated UA completed yesterday is still positive and urine is showing a gram-negative could be the same E. coli or a different pathogen. 2patient to continue with the cefepime while waiting for the culture to finalize. Time with Patient: Less than 30
--- NOTE | 2022-03-13 23:50 | P.PN ---
Subjective Progress Note Date: 03/13/22 Principal diagnosis: Gram-negative urinary tract infection Patient is a 82 year old male presenting to the hospital after pending the patient did have a fall complaining of some abdominal pain CT abdominal pelvis tissues below THE clinical setting for tumor did have a positive UA treated for UTI repeat urine was positive for the patient is currently being treated with cefepime. On today's evaluation that is and 2021, the patient remains to be afebrile, the patient is breathing comfortably, the patient denies having any chest pain shortness of breath , the patient complaining of some dry cough, no abdominal pain and no diarrhea Objective - Vital Signs Vital signs: Vital Signs Temp 97.9 F 03/13/22 14:00 Pulse 61 03/13/22 14:00 Resp 17 03/13/22 08:15 BP 107/63 03/13/22 14:00 Pulse Ox 92 L 03/13/22 14:00 Intake & Output 03/12/22 03/13/22 03/13/22 18:59 06:59 18:59 Intake Total 240 Output Total 600 700 0 Balance -360 -700 0 Intake: Oral 240 Output: Urine 600 700 Stool 0 0 Other: Voiding Method Indwelling Catheter Indwelling Catheter Indwelling Catheter - Exam GENERAL DESCRIPTION: An elderly male lying in bed in no distress RESPIRATORY SYSTEM: Unlabored breathing , decreased breath sounds at bases HEART: S1 S2 regular rate and rhythm , ABDOMEN: Soft , no tenderness EXTREMITIES: No edema feet - Labs CBC & Chem 7: 03/11/22 05:56 03/11/22 05:56 Labs: Microbiology - Last 24 Hours (Table) 03/10/22 17:22 Urine Culture - Final Urine,Voided Pseudomonas aeruginosa Assessment and Plan (1) UTI (urinary tract infection) Current Visit: Yes Status: Acute Code(s): N39.0 - URINARY TRACT INFECTION, SITE NOT SPECIFIED SNOMED Code(s): 96421385 Plan: 1patient presented to hospital with weakness and falls in this patient noticed to have thickening of the bladder wall on the CT he did have a positive UA on admission which was an E. coli now with repeated UA completed yesterday is still positive and urine is showing a gram-negative could be the same E. coli or a different pathogen. 2patient urine has been finalized with Pseudomonas which is sensitive to cefepime which will be continued while inpatient finishing therapy with oral Cipro 7 days Time with Patient: Less than 30
[2022-03-14] MEDS: CEFEPIME 2 GM in SODIUM CHLORIDE 0.9% 100 ML IVPB SCH ×3 (05:38→20:49)
[2022-03-14] MEDS: PANTOPRAZOLE 40 MG/10 ML VIAL IV SCH (08:22)
[2022-03-14] MEDS: CYANOCOBALAMIN 500 MCG TAB PO SCH (09:54)
[2022-03-14] MEDS: APIXABAN 5 MG TAB PO SCH ×2 (09:54→20:21)
[2022-03-14] MEDS: THIAMINE 100 MG TAB PO SCH ×2 (09:54→17:31)
[2022-03-14] MEDS: MEGESTROL 40 MG TAB PO SCH (09:54)
[2022-03-14] MEDS: LACTULOSE 20 GM/30 ML CUP PO SCH ×2 (09:54→20:21)
[2022-03-14] MEDS: MULTIVITAMINS, THERA LIQUID 237 ML BOTTLE PO SCH (09:56)
[2022-03-14] MEDS: LACTATED RINGERS 1,000 ML IV SCH (17:36)
[2022-03-14] MEDS: MELATONIN 3 MG TABLET PO SCH (20:21)
--- NOTE | 2022-03-14 23:28 | P.PN ---
Subjective Progress Note Date: 03/14/22 Principal diagnosis: Gram-negative urinary tract infection Patient is a 82 year old male presenting to the hospital after pending the patient did have a fall complaining of some abdominal pain CT abdominal pelvis tissues below THE clinical setting for tumor did have a positive UA treated for UTI repeat urine was positive for the patient is currently being treated with cefepime. On today's evaluation that is 03/14/2022, the patient continues to be afebrile, the patient is breathing comfortably, the patient is slightly sleepy and lethargic today and did not provide any history no vomiting or diarrhea has been reported Objective - Vital Signs Vital signs: Vital Signs Temp 97.7 F 03/14/22 07:01 Pulse 75 03/14/22 07:45 Resp 18 03/14/22 07:45 BP 92/62 03/14/22 07:01 Pulse Ox 94 L 03/14/22 07:01 Intake & Output 03/13/22 03/14/22 03/14/22 18:59 06:59 18:59 Intake Total 630 Output Total 800 1100 0 Balance -800 -470 0 Intake: Oral 630 Output: Urine 800 1100 Stool 0 0 0 Other: Voiding Method Indwelling Catheter Indwelling Catheter Indwelling Catheter # Bowel Movements 0 - Exam GENERAL DESCRIPTION: An elderly male lying in bed in no distress RESPIRATORY SYSTEM: Unlabored breathing , decreased breath sounds at bases HEART: S1 S2 regular rate and rhythm , ABDOMEN: Soft , no tenderness EXTREMITIES: No edema feet - Labs CBC & Chem 7: 03/11/22 05:56 03/11/22 05:56 Assessment and Plan (1) UTI (urinary tract infection) Current Visit: Yes Status: Acute Code(s): N39.0 - URINARY TRACT INFECTION, SITE NOT SPECIFIED SNOMED Code(s): 12455157 Plan: 1patient presented to hospital with weakness and falls in this patient noticed to have thickening of the bladder wall on the CT he did have a positive UA on admission which was an E. coli now with repeated UA completed yesterday is still positive and urine is showing a gram-negative could be the same E. coli or a different pathogen. 2patient urine has been finalized with Pseudomonas which is sensitive to cefepime which will be continued while inpatient however the patient will be able to finish therapy with oral Cipro 7 days on discharge Time with Patient: Less than 30
--- NOTE | 2022-03-15 00:04 | P.PN ---
Subjective Progress Note Date: 03/14/22 Patient is a 82-year-old male with a known history of dementia, history of CVA/TIA and currently everyday smoker and history of heavy alcohol abuse was brought to the hospital by EMS. Patient was found on the floor. Patient does not recall how long she was staying on there. Patient is also complaining of knee pain and back pain which is not significant as his usual level. No complaints of fever or chills. No chest pain but did have mild shortness of breath. Patient did have last alcohol drink about 4 days ago. Currently not on any home medications as per the list. Denies any paralysis. Patient is somewhat poor historian. CT head and cervical spine showed multilevel cervical spondylitic changes. No fractures. Cerebral atrophy. No acute intercurrent abnormality. No significant change. Chest x-ray showed mild coarsening of the left lung markings could be mild pulmonary fibrosis. No significant change compatible exam. Laboratory data showed WBC 12.1 hemoglobin 13.2 and platelets 201 sodium 141 potassium 4.1 chloride 107 bicarb is 16 BUN 24 and creatinine 1.36 and blood sugar is 135 and lactic acid 4.7 Magnesium 2.4 AST 159 ALT 27 alk phos 79 CPK 02/13/2006 and troponin 0.047 TSH 3.199 urinalysis showed 2+ protein moderate blood large leukocyte esterase and elevated RBCs and WBCs. Coronavirus PCR not detected. CT of the abdomen and pelvis showed urinary bladder wall thickening is nonspecific. Follow-up recommended. Bladder tumor is possible. There is evidence of constipation. Minimal fibrotic changes and subsegmental atelectasis in the lung bases. CT angiogram of the chest showed large emboli in the right lower lobe pulmonary artery. 02/25/2022 Patient is currently in the MICU. Admitted to hospital due to large pulmonary embolism and right ventricular strain. Status post EKOS procedure today. Currently on room air. Does not require any pressor support. Otherwise patient is very confused and mumbling. Continued on alcohol withdrawal protocol. Laboratory data showed WBC 8.1 hemoglobin 10.1 and platelets 127 sodium 146 potassium 4.0 chloride 108 bicarb is 20 BUN 19 and creatinine 1.02 and calcium 7.9 lipase 68. 02/26/2022 Patient is currently in the MICU. Confused and lethargic and mumbling. Currently being continued alcohol withdrawal protocol. Anticoagulation with heparin will be changed to Eliquis. Otherwise patient is medically antibiotics now ceftriaxone for urinary tract infection. IV hydration with D5 water. Laboratory data showed WBC 9.2 hemoglobin 10.3 and platelets 144 Sodium 148 potassium 3.1 chloride 120 bicarb is 22 BUN 14 and creatinine 0.98 03/10/2022 Patient evaluated today and awake although extremely lethargic. Patient able to have simple conversation and follow commands appropriately. Patient reports to having chronic back and leg pain and has not been moving much. Discussed with nursing staff about having physical therapy work with the patient daily and have the patient get up out of the bed and increase activity as tolerated. Patient requires almost maximum assistance. Also discussed with the patient again at length about encouraging oral intake and have added an appetite stimulant and reports to eating slightly more along with nursing staff reporting this as well. Patient reports to just wanting to sleep. Patient is scheduled for a court hearing for guardianship early next week with social work following. Awaiting ECF for long-term after that point. She remains afebrile and will add repeat labs for the morning. Vital signs are stable and patient remains with an oxygen saturation of 98% on room air. Patient with gentle IV hydration and will continue as patient is not eating much. Also discussed with nursing staff about increasing oral intake and encouraging meals. Patient denies chest pain or shortness of breath. 03/14/2022 Patient is seen this morning and is sitting up in the chair. Patient is awake and able to have minimal conversation and fatigues easily. Strongly encouraged oral intake and also discussed with staff about encouraging oral intake and continuing with supplements. Patient continues on IV antibiotics in the form of cefepime for uti with cultures finalized showing pseudomonas. This is a repeat urinalysis after berger was exchanged. ID following. Patient is afebrile. This is most likely recurrent related to berger catheter as patient initial urine culture on admission grew ecoli and was treated adequately with ceftriaxone and zosyn and had been off IV antibiotics. Will continue with cipro for one week on discharge. Patient will continue with indwelling berger on discharge and will have urology follow up outpatient for cystoscopy and further evaluation. Patient has received a legal guardian with case management and social work following. Patient is afebrile. Patient denies chest pain and shortness of breath. Review of systems: Unable to obtain as patient is lethargic All medications have been reviewed Active Medications Acetaminophen (Acetaminophen Tab 325 Mg Tab) 650 mg PO Q6HR PRN PRN Reason: Mild Pain or Fever > 100.5 Last Admin: 03/13/22 03:36 Dose: 650 mg Documented by: Albuterol/Ipratropium (Ipratropium-Albuterol 3 Ml Neb) 3 ml INHALATION RT-Q4H PRN PRN Reason: Shortness Of Breath Or Wheezing Last Admin: 02/25/22 15:08 Dose: 3 ml Documented by: Apixaban (Apixaban 5 Mg Tab) 5 mg PO BID [facility]; Protocol Last Admin: 03/14/22 09:54 Dose: 5 mg Documented by: Cyanocobalamin (Cyanocobalamin 500 Mcg Tab) 1,000 mcg PO DAILY [facility] Last Admin: 03/14/22 09:54 Dose: 1,000 mcg Documented by: Lactated Ringer's (Lactated Ringers) 1,000 mls @ 50 mls/hr IV .Q20H [facility] Last Admin: 03/13/22 21:34 Dose: Not Given Documented by: Cefepime HCl 2 gm/ Sodium (Chloride) 100 mls @ 25 mls/hr IVPB Q8H [facility] Last Admin: 03/14/22 14:44 Dose: 25 mls/hr Documented by: Iron/Minerals/Multivitamins (Multivitamins, Thera Liquid 237 Ml Bottle) 15 ml PO DAILY [facility] Last Admin: 03/14/22 09:56 Dose: 15 ml Documented by: Lactulose (Lactulose 20 Gm/30 Ml Cup) 20 gm PO BID [facility] Last Admin: 03/14/22 09:54 Dose: 20 gm Documented by: Megestrol Acetate (Megestrol 40 Mg Tab) 80 mg PO DAILY [facility] Last Admin: 03/14/22 09:54 Dose: 80 mg Documented by: Melatonin (Melatonin 3 Mg Tablet) 3 mg PO HS [facility] Last Admin: 03/13/22 21:34 Dose: 3 mg Documented by: Miscellaneous Information (Pneumonia Protocol Utilized 1 Each Misc) 1 each PO ONCE PRN PRN Reason: Per Protocol Miscellaneous Information (Potassium Replacement Protocol 1 Each Misc) 1 each MISCELLANE DAILY PRN; Protocol PRN Reason: Per Protocol Naloxone HCl (Naloxone 0.4 Mg/Ml 1 Ml Vial) 0.2 mg IV Q2M PRN PRN Reason: Opioid Reversal Naloxone HCl (Naloxone 0.4 Mg/Ml 1 Ml Vial) 0.2 mg IV Q2M PRN PRN Reason: Opioid Reversal Ondansetron HCl (Ondansetron 4 Mg/2 Ml Vial) 4 mg IVP Q8HR PRN PRN Reason: Nausea And Vomiting Pantoprazole Sodium (Pantoprazole 40 Mg/10 Ml Vial) 40 mg IV DAILY [facility] Last Admin: 03/14/22 08:22 Dose: 40 mg Documented by: Thiamine HCl (Thiamine 100 Mg Tab) 100 mg PO BID-W/MEALS [facility] Last Admin: 03/14/22 09:54 Dose: 100 mg Documented by: PHYSICAL EXAMINATION: Patient is lying in the bed, no acute distress, asleep and lethargic although arouses easily and able to answer simple questions. HEENT: Normocephalic. Neck is supple. Pupils reactive. Nostrils clear. Oral cavity is moist. Neck reveals no JVD, carotid bruits, or thyromegaly. CHEST EXAMINATION: Trachea is central. Symmetrical expansion. Bibasilar diminished sounds. No wheezing. Otherwise Lung perez clear to auscultation and percussion. CARDIAC: Normal S1, S2 with no gallops. No murmurs ABDOMEN: Soft. Bowel sounds normal. No organomegaly. No abdominal bruits. Extremities: reveal no edema. No clubbing or cyanosis Neurologically awake, alert, oriented x2 with well-coordinated movements. No gross focal deficits noted, diffuse weakness Skin: No rash or skin lesions. Psychiatric: Cooperative. Lethargic Musculoskeletal: No joint swelling or deformity. Normal range of motion. Assessment: Acute metabolic encephalopathy. improved Acute right lower lobe large emboli/PE with right ventricular strain as per CT.. Status post EKOS on 02/25. Acute syncopal episode and hitting his head likely secondary to above worsening mentation most likely encephalopathy on the top of his dementia Acute hypoxemic respiratory failure Acute urinary tract infection with E. coli, present on admission. Treated adequately with IV antibiotics and was off antibiotic therapy Recurrent UTI secondary to indwelling berger catheter. Just replaced two days prior and new culture from 03/10 now growing pseudomonas Acute kidney injury with creatinine 1.36 on admission, improved Acute rhabdomyolysis Dementia Severe alcohol abuse. Last drink was 4 days prior to admission. Currently everyday smoker DVT prophylaxis. On eliquis. GI prophylaxis Full code Plan: This is a pleasant 82-year-old male with a history of severe alcohol abuse and dementia and is status post EKOS on 02/25/2022 for right lower lobe large emboli PE with right ventricular strain and has been on oral anti-Coag in the form of Eliquis and will be continued. Patient also had an acute urinary tract infection showing E. coli which has been treated adequately and patient was maintained off IV antibiotics. Urine appeared abnormal and berger catheter was exchanged and now shows pseudomonas and ID now following and now remains on IV cefepime and will transition to oral cipro for one week on discharge. Patient remains afebrile. Patient continues with poor oral intake and have added enhancer Megase with no real improvement. Will continue to monitor closely and encourage oral intake. Patient with extreme weakness and fatigue mostly lying in bed and discuss with nursing staff about having physical therapy evaluate the patient work with the patient daily and have the patient up out of the bed more often. Social work and case management following as patient has received a legal guardian today. Social work also working on ECF or possible long-term facilities once discharged. [facility] accepted the patient. Given multiple medical comorbidities with complex medical issues, prognosis is guarded. Further recommendations to follow based on the clinical course the patient. Possible discharge in 24 hours. The impression and plan of care has been dictated by Shaunna Proctor, Nurse Practitioner as directed. Dr. Domitila MD I have performed a history and examination and MDM of this patient, discussed the same with the dictator, and agree with the dictator's assessment and plan as written ,documented as a scribe. Based on total visit time, I have performed more than 50% of the visit. Objective - Vital Signs Vital signs: Vital Signs Temp 98.4 F 03/14/22 14:07 Pulse 82 03/14/22 14:07 Resp 18 03/14/22 14:07 BP 105/61 03/14/22 14:07 Pulse Ox 95 03/14/22 14:07 Intake & Output 03/13/22 03/14/22 03/14/22 18:59 06:59 18:59 Intake Total 630 Output Total 800 1100 0 Balance -800 -470 0 Weight 83.2 kg Intake: Oral 630 Output: Urine 800 1100 Stool 0 0 0 Other: Voiding Method Indwelling Catheter Indwelling Catheter Indwelling Catheter # Bowel Movements 0 - Labs CBC & Chem 7: 03/11/22 05:56 03/11/22 05:56
[2022-03-15] MEDS: ACETAMINOPHEN TAB 325 MG TAB PO PRN (02:15)
[2022-03-15] MEDS: CEFEPIME 2 GM in SODIUM CHLORIDE 0.9% 100 ML IVPB SCH ×3 (05:19→20:55)
[2022-03-15] MEDS: PANTOPRAZOLE 40 MG/10 ML VIAL IV SCH (08:28)
[2022-03-15] MEDS: THIAMINE 100 MG TAB PO SCH ×3 (08:28→21:01)
[2022-03-15] MEDS: APIXABAN 5 MG TAB PO SCH ×2 (08:28→20:55)
[2022-03-15] MEDS: LACTULOSE 20 GM/30 ML CUP PO SCH ×2 (08:28→20:54)
[2022-03-15] MEDS: CYANOCOBALAMIN 500 MCG TAB PO SCH (08:28)
[2022-03-15] MEDS: MEGESTROL 40 MG TAB PO SCH (08:29)
[2022-03-15] MEDS: MULTIVITAMINS, THERA LIQUID 237 ML BOTTLE PO SCH (08:34)
[2022-03-15] MEDS: LACTATED RINGERS 1,000 ML IV SCH (14:01)
[2022-03-15] MEDS: MELATONIN 3 MG TABLET PO SCH (20:55)
--- NOTE | 2022-03-15 23:12 | P.PN ---
Subjective Progress Note Date: 03/15/22 Patient is a 82-year-old male with a known history of dementia, history of CVA/TIA and currently everyday smoker and history of heavy alcohol abuse was brought to the hospital by EMS. Patient was found on the floor. Patient does not recall how long she was staying on there. Patient is also complaining of knee pain and back pain which is not significant as his usual level. No complaints of fever or chills. No chest pain but did have mild shortness of breath. Patient did have last alcohol drink about 4 days ago. Currently not on any home medications as per the list. Denies any paralysis. Patient is somewhat poor historian. CT head and cervical spine showed multilevel cervical spondylitic changes. No fractures. Cerebral atrophy. No acute intercurrent abnormality. No significant change. Chest x-ray showed mild coarsening of the left lung markings could be mild pulmonary fibrosis. No significant change compatible exam. Laboratory data showed WBC 12.1 hemoglobin 13.2 and platelets 201 sodium 141 potassium 4.1 chloride 107 bicarb is 16 BUN 24 and creatinine 1.36 and blood sugar is 135 and lactic acid 4.7 Magnesium 2.4 AST 159 ALT 27 alk phos 79 CPK 02/13/2006 and troponin 0.047 TSH 3.199 urinalysis showed 2+ protein moderate blood large leukocyte esterase and elevated RBCs and WBCs. Coronavirus PCR not detected. CT of the abdomen and pelvis showed urinary bladder wall thickening is nonspecific. Follow-up recommended. Bladder tumor is possible. There is evidence of constipation. Minimal fibrotic changes and subsegmental atelectasis in the lung bases. CT angiogram of the chest showed large emboli in the right lower lobe pulmonary artery. 02/25/2022 Patient is currently in the MICU. Admitted to hospital due to large pulmonary embolism and right ventricular strain. Status post EKOS procedure today. Currently on room air. Does not require any pressor support. Otherwise patient is very confused and mumbling. Continued on alcohol withdrawal protocol. Laboratory data showed WBC 8.1 hemoglobin 10.1 and platelets 127 sodium 146 potassium 4.0 chloride 108 bicarb is 20 BUN 19 and creatinine 1.02 and calcium 7.9 lipase 68. 02/26/2022 Patient is currently in the MICU. Confused and lethargic and mumbling. Currently being continued alcohol withdrawal protocol. Anticoagulation with heparin will be changed to Eliquis. Otherwise patient is medically antibiotics now ceftriaxone for urinary tract infection. IV hydration with D5 water. Laboratory data showed WBC 9.2 hemoglobin 10.3 and platelets 144 Sodium 148 potassium 3.1 chloride 120 bicarb is 22 BUN 14 and creatinine 0.98 03/10/2022 Patient evaluated today and awake although extremely lethargic. Patient able to have simple conversation and follow commands appropriately. Patient reports to having chronic back and leg pain and has not been moving much. Discussed with nursing staff about having physical therapy work with the patient daily and have the patient get up out of the bed and increase activity as tolerated. Patient requires almost maximum assistance. Also discussed with the patient again at length about encouraging oral intake and have added an appetite stimulant and reports to eating slightly more along with nursing staff reporting this as well. Patient reports to just wanting to sleep. Patient is scheduled for a court hearing for guardianship early next week with social work following. Awaiting ECF for long-term after that point. She remains afebrile and will add repeat labs for the morning. Vital signs are stable and patient remains with an oxygen saturation of 98% on room air. Patient with gentle IV hydration and will continue as patient is not eating much. Also discussed with nursing staff about increasing oral intake and encouraging meals. Patient denies chest pain or shortness of breath. 03/14/2022 Patient is seen this morning and is sitting up in the chair. Patient is awake and able to have minimal conversation and fatigues easily. Strongly encouraged oral intake and also discussed with staff about encouraging oral intake and continuing with supplements. Patient continues on IV antibiotics in the form of cefepime for uti with cultures finalized showing pseudomonas. This is a repeat urinalysis after berger was exchanged. ID following. Patient is afebrile. This is most likely recurrent related to berger catheter as patient initial urine culture on admission grew ecoli and was treated adequately with ceftriaxone and zosyn and had been off IV antibiotics. Will continue with cipro for one week on discharge. Patient will continue with indwelling berger on discharge and will have urology follow up outpatient for cystoscopy and further evaluation. Patient has received a legal guardian with case management and social work following. Patient is afebrile. Patient denies chest pain and shortness of breath. 03/15/2022 Patient is evaluated today in follow up and continues to sleep most of the day. Patient denies any chest pain or palpitations. Patient is afebrile. Patient continues with poor oral intake and gets frustrated when encouraged to eat. Patient with extreme weakness and will be going to ECF for continued PT/OT therapy. Patient also with a component of worsening dementia. continue Megase and encourage oral intake. Continue with ensure supplements. Patient is maintained on IV antibiotics with ID following and will transition to oral on discharge. Case management following and awaiting insurance authorization at this time. Review of systems: Unable to obtain as patient is lethargic All medications have been reviewed Active Medications Acetaminophen (Acetaminophen Tab 325 Mg Tab) 650 mg PO Q6HR PRN PRN Reason: Mild Pain or Fever > 100.5 Last Admin: 03/15/22 02:15 Dose: 650 mg Documented by: Albuterol/Ipratropium (Ipratropium-Albuterol 3 Ml Neb) 3 ml INHALATION RT-Q4H PRN PRN Reason: Shortness Of Breath Or Wheezing Last Admin: 02/25/22 15:08 Dose: 3 ml Documented by: Apixaban (Apixaban 5 Mg Tab) 5 mg PO BID [facility]; Protocol Last Admin: 03/15/22 20:55 Dose: 5 mg Documented by: Cyanocobalamin (Cyanocobalamin 500 Mcg Tab) 1,000 mcg PO DAILY [facility] Last Admin: 03/15/22 08:28 Dose: 1,000 mcg Documented by: Lactated Ringer's (Lactated Ringers) 1,000 mls @ 50 mls/hr IV .Q20H [facility] Last Admin: 03/15/22 14:01 Dose: Not Given Documented by: Cefepime HCl 2 gm/ Sodium (Chloride) 100 mls @ 25 mls/hr IVPB Q8H [facility] Last Admin: 03/15/22 20:55 Dose: 25 mls/hr Documented by: Iron/Minerals/Multivitamins (Multivitamins, Thera Liquid 237 Ml Bottle) 15 ml PO DAILY [facility] Last Admin: 03/15/22 08:34 Dose: 15 ml Documented by: Lactulose (Lactulose 20 Gm/30 Ml Cup) 20 gm PO BID [facility] Last Admin: 03/15/22 20:54 Dose: 20 gm Documented by: Megestrol Acetate (Megestrol 40 Mg Tab) 80 mg PO DAILY [facility] Last Admin: 03/15/22 08:29 Dose: 80 mg Documented by: Melatonin (Melatonin 3 Mg Tablet) 3 mg PO HS [facility] Last Admin: 03/15/22 20:55 Dose: 3 mg Documented by: Miscellaneous Information (Pneumonia Protocol Utilized 1 Each [facility] 1 each PO ONCE PRN PRN Reason: Per Protocol Miscellaneous Information (Potassium Replacement Protocol 1 Each [facility]) 1 each MISCELLANE DAILY PRN; Protocol PRN Reason: Per Protocol Naloxone HCl (Naloxone 0.4 Mg/Ml 1 Ml Vial) 0.2 mg IV Q2M PRN PRN Reason: Opioid Reversal Ondansetron HCl (Ondansetron 4 Mg/2 Ml Vial) 4 mg IVP Q8HR PRN PRN Reason: Nausea And Vomiting Pantoprazole Sodium (Pantoprazole 40 Mg/10 Ml Vial) 40 mg IV DAILY [facility] Last Admin: 03/15/22 08:28 Dose: 40 mg Documented by: Thiamine HCl (Thiamine 100 Mg Tab) 100 mg PO BID-W/MEALS [facility] Last Admin: 03/15/22 21:01 Dose: 100 mg Documented by: PHYSICAL EXAMINATION: Patient is lying in the bed, no acute distress, asleep and lethargic although arouses easily and able to answer simple questions. HEENT: Normocephalic. Neck is supple. Pupils reactive. Nostrils clear. Oral cavity is moist. Neck reveals no JVD, carotid bruits, or thyromegaly. CHEST EXAMINATION: Trachea is central. Symmetrical expansion. Bibasilar diminished sounds. No wheezing. Otherwise Lung perez clear to auscultation and percussion. CARDIAC: Normal S1, S2 with no gallops. No murmurs ABDOMEN: Soft. Bowel sounds normal. No organomegaly. No abdominal bruits. Extremities: reveal no edema. No clubbing or cyanosis Neurologically awake, alert, oriented x2 with well-coordinated movements. No gross focal deficits noted, diffuse weakness Skin: No rash or skin lesions. Psychiatric: Cooperative. Lethargic Musculoskeletal: No joint swelling or deformity. Normal range of motion. Assessment: Acute metabolic encephalopathy. improved Acute right lower lobe large emboli/PE with right ventricular strain as per CT.. Status post EKOS on 02/25. Acute syncopal episode and hitting his head likely secondary to above worsening mentation most likely encephalopathy on the top of his dementia Acute hypoxemic respiratory failure Acute urinary tract infection with E. coli, present on admission. Treated adequately with IV antibiotics and was off antibiotic therapy Recurrent UTI secondary to indwelling berger catheter. Just replaced two days prior and new culture from 03/10 now growing pseudomonas Acute kidney injury with creatinine 1.36 on admission, improved Acute rhabdomyolysis Dementia Severe alcohol abuse. Last drink was 4 days prior to admission. Currently everyday smoker DVT prophylaxis. On eliquis. GI prophylaxis Full code Plan: This is a pleasant 82-year-old male with a history of severe alcohol abuse and dementia and is status post EKOS on 02/25/2022 for right lower lobe large emboli PE with right ventricular strain and has been on oral anti-Coag in the form of Eliquis and will be continued. Patient also had an acute urinary tract infection showing E. coli which has been treated adequately and patient was maintained off IV antibiotics. Urine appeared abnormal and berger catheter was exchanged and now shows pseudomonas and ID now following and now remains on IV cefepime and will transition to oral cipro for one week on discharge. Patient remains afebrile. Patient continues with poor oral intake and have added enhancer Megase with no real improvement. Will continue to monitor closely and encourage oral intake. Patient becomes agitated when encouraging oral intake and reports that he is eating and drinking. Patient with extreme weakness and fatig ue mostly lying in bed and discussed with nursing staff about having physical therapy evaluate the patient work with the patient daily and have the patient up out of the bed more often. Social work and case management following as patient has received a legal guardian . Social work also working on insurance authorization. [facility] accepted the patient. Given multiple medical comorbidities with complex medical issues, prognosis is guarded. Further recommendations to follow based on the clinical course the patient. Possible discharge in 24 hours. The impression and plan of care has been dictated by Shaunna Proctor, Nurse Practitioner as directed. Dr. Domitila MD I have performed a history and examination and MDM of this patient, discussed the same with the dictator, and agree with the dictator's assessment and plan as written ,documented as a scribe. Based on total visit time, I have performed more than 50% of the visit. Objective - Vital Signs Vital signs: Vital Signs Temp 97.5 F L 03/15/22 07:10 Pulse 79 03/15/22 07:10 Resp 18 03/15/22 07:10 BP 121/70 03/15/22 07:10 Pulse Ox 97 03/15/22 07:10 Intake & Output 03/14/22 03/15/22 03/15/22 18:59 06:59 18:59 Intake Total 450 1182 Output Total 0 2150 Balance 450 -968 Weight 83.2 kg Intake: Oral 450 1182 Output: Urine 2150 Stool 0 0 Other: Voiding Method Indwelling Catheter Indwelling Catheter Indwelling Catheter - Labs CBC & Chem 7: 03/11/22 05:56 03/11/22 05:56
[2022-03-16] MEDS: CEFEPIME 2 GM in SODIUM CHLORIDE 0.9% 100 ML IVPB SCH (05:09)
[2022-03-16 07:47] VITALS: BP 153/70; PULSE 81; RESP 18; TEMP 98.7
[2022-03-16] MEDS: APIXABAN 5 MG TAB PO SCH (08:03)
[2022-03-16] MEDS: PANTOPRAZOLE 40 MG/10 ML VIAL IV SCH (08:03)
[2022-03-16] MEDS: MEGESTROL 40 MG TAB PO SCH (08:03)
[2022-03-16] MEDS: LACTULOSE 20 GM/30 ML CUP PO SCH (08:03)
[2022-03-16] MEDS: CYANOCOBALAMIN 500 MCG TAB PO SCH (08:03)
[2022-03-16] MEDS: LACTATED RINGERS 1,000 ML IV SCH (08:04)
[2022-03-16] MEDS: THIAMINE 100 MG TAB PO SCH (08:04)
[2022-03-16] MEDS: MULTIVITAMINS, THERA LIQUID 237 ML BOTTLE PO SCH (10:12)
--- NOTE | 2022-03-16 11:03 | P.DS ---
Providers Date of admission: 02/23/22 21:08 Attending physician: Mariela Baumann Consults: 02/24/22 00:25 Consult Physician Stat Consulting Provider: Christina Noel Consult Reason/Comments: Severe sepsis, pulmonary embolism, rhabdomyolysis, pneumonia/UTI Do you want consulting provider notified?: Already Contacted 02/24/22 14:44 Consult Physician Routine Consulting Provider: Eric Holland Consult Reason/Comments: Questionable bladder mass Do you want consulting provider notified?: Yes 02/27/22 09:18 Consult Physician Urgent Consulting Provider: Casey Storey Consult Reason/Comments: altered mental status Do you want consulting provider notified?: Yes 03/08/22 10:26 Consult Physician Routine Consulting Provider: Psychiatry - [facility] Psychiatry Consult Reason/Comments: confusion/competancy Do you want consulting provider notified?: Yes 03/11/22 11:41 Consult Physician Urgent Consulting Provider: Juan Manuel Romero Consult Reason/Comments: uri with berger and possible baldder mass Do you want consulting provider notified?: Yes Primary care physician: Stated None Hospital Course: diagnoses: Recurrent Urinary tract infection associated with Berger catheter. Secondary to Pseudomonas worsening mentation most likely encephalopathy on the top of his dementia Acute metabolic encephalopathy. improving Acute right lower lobe large emboli/PE with right ventricular strain as per CT.. Status post EKOS on 02/25. Acute syncopal episode and hitting his head likely secondary to above Acute hypoxemic respiratory failure Mild troponin elevation Acute urinary tract infection with E. coli. Acute kidney injury with creatinine 1.36 on admission Acute rhabdomyolysis Dementia Severe alcohol abuse. Last drink was 4 days prior to admission. Currently everyday smoker DVT prophylaxis. On eliquis. GI prophylaxis Full code Hospital course: Patient is a 82-year-old male with a known history of dementia, history of CVA/TIA and currently everyday smoker and history of heavy alcohol abuse was brought to the hospital by EMS. Patient was found on the floor. Patient does not recall how long she was staying on there. Patient found to have right lower lobe pulmonary embolism status post EKG OS on 02/25. Patient has been evaluated by security chief museum will clear him for discharge already. Patient currently kept on Eliquis 5 mg twice a day. Also he has evidence of urinary bladder mass suspected and he has urinary retention felt voiding trial more than once and currently he has indwelling Berger catheter. Also he has evidence of UTI secondary to Pseudomonas related to his Berger catheter. Patient treated with cefepime under ID team guidance. Patient will be discharged on Cipro 7 days. 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 Patient has a to make decision and irrigation was obtained. Currently his been stable medically his alert and awake and oriented to place only. But not to time or person. He follows simple commands. Sleeps a lot. He has average appetite. He denies any chest pain or dyspnea or abdominal pain. No nausea vomiting. Berger catheter in place. No leg pain. Patient was cleared for discharge by all consultants clear the pulmonary and infectious disease and psychiatrist. Problems and management plan were discussed with the patient and he verbalized understanding and acceptance Patient was found stable and can be discharged to ECF in guarded prognosis however he needs follow-up as an outpatient. Patient was instructed to follow up with PCP within one week and patient agrees Patient was started to follow up with security chief museum Dr. Lazo in 1-2 weeks Patient also instructed to follow up with urologist Dr. Holland in 2 weeks (patient will need cystoscopy) Staff tried to obtain an appointment for patient with Dr. Holland, but his office informed that they will contact patient for time and date of appointment Physical exam -Gen: patient is a AAOx1 to place only, no distress CVS: S1-S2, RRR, no murmur Lungs: B/L CTA, no wheezing -Abdomen: soft, no distention, no tenderness, positive bowel sounds. Berger catheter is in place Extremity: no leg edema or induration Time spent more than 35 minutes Patient Condition at Discharge: Fair Plan - Discharge Summary Discharge Rx Participant: No New Discharge Prescriptions: New Ciprofloxacin HCl [Cipro] 500 mg PO Q12HR 7 Days #14 tab Ipratropium-Albuterol Nebulize [Duoneb 0.5 mg-3 mg/3 ml Soln] 3 ml INHALATION RT-Q4H PRN ml PRN Reason: Shortness Of Breath Or Wheezing Apixaban [Eliquis] 5 mg PO BID tab Omeprazole Magnesium [PriLOSEC] 20 mg PO DAILY 30 Days tab Thiamine [Vitamin B-1] 100 mg PO BID-W/MEALS tab Lactulose [Cephulac] 20 gm PO BID ml Megestrol [Megace] 80 mg PO DAILY tab Melatonin 3 mg PO HS tablet Multivitamins, Thera Liquid [Theragran Liquid (formulary)] 15 ml PO DAILY ml Acetaminophen Tab [Tylenol] 650 mg PO Q6HR PRN tab PRN Reason: Mild Pain Or Fever > 100.5 Cyanocobalamin [Vitamin B-12] 1,000 mcg PO DAILY tab Ensure 1 can PO TID-W/MEALS #18 Discharge Medication List Acetaminophen Tab [Tylenol] 650 mg PO Q6HR PRN tab 03/16/22 [Rx] Apixaban [Eliquis] 5 mg PO BID tab 03/16/22 [Rx] Ciprofloxacin HCl [Cipro] 500 mg PO Q12HR 7 Days #14 tab 03/16/22 [Rx] Cyanocobalamin [Vitamin B-12] 1,000 mcg PO DAILY tab 03/16/22 [Rx] Ensure 1 can PO TID-W/MEALS #18 03/16/22 [Rx] Ipratropium-Albuterol Nebulize [Duoneb 0.5 mg-3 mg/3 ml Soln] 3 ml INHALATION RT-Q4H PRN ml 03/16/22 [Rx] Lactulose [Cephulac] 20 gm PO BID ml 03/16/22 [Rx] Megestrol [Megace] 80 mg PO DAILY tab 03/16/22 [Rx] Melatonin 3 mg PO HS tablet 03/16/22 [Rx] Multivitamins, Thera Liquid [Theragran Liquid (formulary)] 15 ml PO DAILY ml 03/16/22 [Rx] Omeprazole Magnesium [PriLOSEC] 20 mg PO DAILY 30 Days tab 03/16/22 [Rx] Thiamine [Vitamin B-1] 100 mg PO BID-W/MEALS tab 03/16/22 [Rx] Follow up Appointment(s)/Referral(s): Christina Noel MD [STAFF PHYSICIAN] - 03/30/22 3:00 pm (appt with [facility]) None,Stated [Primary Care Provider] - 1-2 days Eric Holland MD [STAFF PHYSICIAN] - 2 Weeks (office will call patient with a date and time for appointment ) Activity/Diet/Wound Care/Special Instructions: At time of discharge, schedule F/U with Dr. Holland in 2 weeks for office cystoscopy. diet : Dysphagia level III: Chopped diet. May have Breads
== END 2022-03-16 14:05 | DRG 166 ==
LOC: EC 18:39 → 2SICU 21:08 → EEVIPCON 21:08 → 2SICU 02-24 18:32 → 3SCARD 03-02 17:15 → 4SSUR 03-12 19:14
PROVIDERS: ADMIT Internal Medicine; ATTEND Internal Medicine
PROC: 02HV33Z Insertion of Infusion Device into Superior Vena Cava, Percutaneous Approach (ICD-10-PCS; 2022-02-23)
PROC: 3E043XZ Introduction of Vasopressor into Central Vein, Percutaneous Approach (ICD-10-PCS; 2022-02-24)
PROC: 4A023N6 Measurement of Cardiac Sampling and Pressure, Right Heart, Percutaneous Approach (ICD-10-PCS; principal; 2022-02-24 18:50)
PROC: 3E04317 Introduction of Other Thrombolytic into Central Vein, Percutaneous Approach (ICD-10-PCS; principal; 2022-02-24 18:50)
PROC: 02FQ3Z0 Fragmentation of Right Pulmonary Artery, Percutaneous Approach, Ultrasonic (ICD-10-PCS; principal; 2022-02-24 18:50)
DX: I26.99 Other pulmonary embolism without acute cor pulmonale (principal); J96.01 Acute respiratory failure with hypoxia; T83.511A Infection and inflammatory reaction due to indwelling urethral catheter, initial encounter; G92.8 Other toxic encephalopathy; J69.0 Pneumonitis due to inhalation of food and vomit; A41.51 Sepsis due to Escherichia coli [E. coli]; R65.21 Severe sepsis with septic shock; N39.0 Urinary tract infection, site not specified; J44.0 Chronic obstructive pulmonary disease with (acute) lower respiratory infection; J98.11 Atelectasis; F10.239 Alcohol dependence with withdrawal, unspecified; E87.0 Hyperosmolality and hypernatremia; G93.1 Anoxic brain damage, not elsewhere classified; N17.9 Acute kidney failure, unspecified; M62.82 Rhabdomyolysis; R64 Cachexia; I27.20 Pulmonary hypertension, unspecified; L89.90 Pressure ulcer of unspecified site, unspecified stage; G93.89 Other specified disorders of brain; Z28.310 Unvaccinated for COVID-19; G30.9 Alzheimer's disease, unspecified; Z20.822 Contact with and (suspected) exposure to COVID-19; B96.20 Unspecified Escherichia coli [E. coli] as the cause of diseases classified elsewhere; F02.80 Dementia in other diseases classified elsewhere, unspecified severity, without behavioral disturbance, psychotic disturbance, mood disturbance, and anxiety; F10.229 Alcohol dependence with intoxication, unspecified; E86.0 Dehydration; F41.9 Anxiety disorder, unspecified; G89.29 Other chronic pain; I07.1 Rheumatic tricuspid insufficiency; M21.371 Foot drop, right foot; M21.372 Foot drop, left foot; N28.1 Cyst of kidney, acquired; N32.9 Bladder disorder, unspecified; S00.81XA Abrasion of other part of head, initial encounter; T21.11XA Burn of first degree of chest wall, initial encounter; I49.3 Ventricular premature depolarization; B96.89 Other specified bacterial agents as the cause of diseases classified elsewhere; E87.70 Fluid overload, unspecified; W19.XXXA Unspecified fall, initial encounter; Y84.6 Urinary catheterization as the cause of abnormal reaction of the patient, or of later complication, without mention of misadventure at the time of the procedure; Z59.00 Homelessness unspecified; F17.210 Nicotine dependence, cigarettes, uncomplicated; R77.8 Other specified abnormalities of plasma proteins; K59.00 Constipation, unspecified; M47.812 Spondylosis without myelopathy or radiculopathy, cervical region; Z79.01 Long term (current) use of anticoagulants; Z82.3 Family history of stroke; Z86.711 Personal history of pulmonary embolism; Z86.73 Personal history of transient ischemic attack (TIA), and cerebral infarction without residual deficits; Z87.440 Personal history of urinary (tract) infections; Z68.23 Body mass index [BMI] 23.0-23.9, adult; Z91.81 History of falling; Z90.89 Acquired absence of other organs; Z98.890 Other specified postprocedural states
CPT/HCPCS: 36415; 36556; 36600; 37211; 70450; 71045; 71275; 72125; 72170; 74018; 74177; 80048; 80053; 81001; 82140; 82550; 82607; 82746; 82805; 83605; 83615; 83690; 83735; 84100; 84132; 84443; 84484; 85025; 85384; 85610; 85730; 87040; 87077; 87086; 87186; 87635; 93005; 93306; 93308; 94640; 95816; 96361; 96365; 96366; 96367; 96368; 96372; 96375; 99291

== ENCOUNTER 2022-08-11 17:09 | Emergency (ER) | payer MEDICARE ==
[2022-08-11 17:20] VITALS: RESP 15; TEMP 98.1
[2022-08-11] MEDS ORDERED: SODIUM CHLORIDE 0.9% 1,000 ML IV STA (18:07)
[2022-08-11 19:15] LABS: Basophils # (A) 0.1 k/uL (0-0.2); Basophils % (A) 1 %; Eosinophils # (A) 0.2 k/uL (0-0.7); Eosinophils % (A) 2 %; HCT 32.6 % (39.0-53.0); HGB 10.3 gm/dL (13.0-17.5); Lymphocytes # (A) 1.2 k/uL (1.0-4.8); Lymphocytes % (A) 13 %; MCH 28.2 pg (25.0-35.0); MCHC 31.8 g/dL (31.0-37.0); MCV 88.8 fL (80.0-100.0); Monocytes # (A) 0.7 k/uL (0-1.0); Monocytes % (A) 7 %; Neutrophils # (A) 6.9 k/uL (1.3-7.7); Neutrophils % (A) 76 %; Platelet Count 267 k/uL (150-450); RBC 3.67 m/uL (4.30-5.90); RDW 15.7 % (11.5-15.5); WBC 9.1 k/uL (3.8-10.6)
--- NOTE | 2022-08-11 19:15 | ED ---
General Adult HPI - General Chief complaint: Neuro Symptoms/Deficit Stated complaint: neuro issue Time Seen by Provider: 08/11/22 17:54 Source: patient, EMS Mode of arrival: EMS Limitations: no limitations - History of Present Illness Initial comments: Patient is an 82-year-old male presenting for evaluation of syncope. According to staff at [facility] patient became unresponsive while they were transferring him in the left around 16:15. Patient is currently ANO 4 and has no complaints. When asked why he was brought to the ER he reports he is unsure. Patient told nursing staff that he was awoken from his sleep while in the lift. Denies any chest pain, shortness of breath, fever, chills, nausea, vomiting, abdominal pain, cough, headache, vision or hearing changes, neck pain. Patient has had previous CVA and has slight residual deficit. - Related Data Home Medications Medication Instructions Recorded Confirmed Cyanocobalamin (Vitamin B-12) 1,000 mcg PO DAILY 08/11/22 08/11/22 [Vitamin B-12] Escitalopram [Lexapro] 5 mg PO DAILY@0700 08/11/22 08/11/22 Multivitamins, Thera [Multivitamin 1 tab PO DAILY 08/11/22 08/11/22 (formulary)] Omeprazole Magnesium [PriLOSEC] 20 mg PO HS 08/11/22 08/11/22 Previous Rx's Medication Instructions Recorded Acetaminophen Tab [Tylenol] 650 mg PO Q6HR PRN tab 03/16/22 Apixaban [Eliquis] 5 mg PO BID tab 03/16/22 Ipratropium-Albuterol Nebulize 3 ml INHALATION RT-Q4H PRN ml 03/16/22 [Duoneb 0.5 mg-3 mg/3 ml Soln] Lactulose [Cephulac] 20 gm PO BID ml 03/16/22 Megestrol [Megace] 80 mg PO DAILY tab 03/16/22 Melatonin 3 mg PO HS tablet 03/16/22 Thiamine [Vitamin B-1] 100 mg PO BID-W/MEALS tab 03/16/22 Sulfamethox-Tmp 800-160Mg [Bactrim 1 tab PO Q12HR 10 Days #20 tab 08/12/22 DS 800-160 mg] Allergies Allergy/AdvReac Type Severity Reaction Status Date / Time No Known Allergies Allergy Verified 08/11/22 21:07 Review of Systems ROS Statement: Those systems with pertinent positive or pertinent negative responses have been documented in the HPI. ROS Other: All systems not noted in ROS Statement are negative. Past Medical History Past Medical History: CVA/TIA, Dementia Additional Past Medical History / Comment(s): same day smoker. EtOH abuse (sober since 2019) History of Any Multi-Drug Resistant Organisms: None Reported Past Surgical History: Tonsillectomy Additional Past Surgical History / Comment(s): Vasectomy, bilateral inguinal hernia repair Past Anesthesia/Blood Transfusion Reactions: No Reported Reaction Past Psychological History: No Psychological Hx Reported Smoking Status: Current every day smoker Past Alcohol Use History: None Reported Past Drug Use History: None Reported - Past Family History Father Family Medical History: CVA/TIA Mother Family Medical History: Dementia General Exam Limitations: no limitations General appearance: alert, in no apparent distress Head exam: Present: atraumatic, normocephalic, normal inspection Eye exam: Present: normal appearance, PERRL, EOMI. Absent: scleral icterus, conjunctival injection, periorbital swelling Pupils: Present: normal accommodation Neck exam: Present: normal inspection Respiratory exam: Present: normal lung sounds bilaterally. Absent: respiratory distress, wheezes, rales, rhonchi, stridor Cardiovascular Exam: Present: regular rate, normal rhythm, normal heart sounds. Absent: systolic murmur, diastolic murmur, rubs, gallop, clicks Neurological exam: Present: alert, oriented X3, CN II-XII intact Psychiatric exam: Present: normal affect, normal mood Skin exam: Present: warm, dry, intact, normal color. Absent: rash Course Vital Signs 08/11/22 17:15 Temperature 98.1 F Pulse Rate 69 Respiratory 15 Rate Blood Pressure 112/67 O2 Sat by Pulse 96 Oximetry EKG Findings - EKG Comments: EKG Findings:: Sinus rhythm with first-degree AV block rate of 66. Normal axis. CT interval 2:15. QRS duration 93. QT/QTC 392/406. No ST deviation. Medical Decision Making - Medical Decision Making Patient is an 82-year-old male residing for evaluation of potential syncope while last [place]. HOME RESTORATION SERVICE SUPERVISOR states that she was moving and using the lift when he was unresponsive briefly. Patient states that he recalls them waking him up from his sleep to take a shower. Patient is asymptomatic at this time. Physical examination is WNL. NIH score is 0 lab work shows no leukocytosis, hemoglobin 10.3, consistent with baseline. Troponin is less than 0.012. UA shows signs of UTI, the patient is given dose of Rocephin, urine sent for culture. Chest x-ray shows improved atelectasis from previous image. CT of the brain shows no acute process. Patient will be discharged with Bactrim DS twice a day for 10 days. Follow-up with PCP. Report back to ER with any new or worsening symptoms. Discussed return parameters and answered all questions. Patient conveyed verbal understanding and agreed to the plan. I discussed this case in detail with my attending Dr. Subramanian - Lab Data Result diagrams: 08/11/22 18:48 08/11/22 18:48 Lab Results 08/11/22 08/11/22 08/11/22 Range/Units 18:48 18:48 18:48 WBC 9.1 (3.8-10.6) k/uL RBC 3.67 L (4.30-5.90) m/uL Hgb 10.3 L (13.0-17.5) gm/dL Hct 32.6 L (39.0-53.0) % MCV 88.8 (80.0-100.0) fL MCH 28.2 (25.0-35.0) pg MCHC 31.8 (31.0-37.0) g/dL RDW 15.7 H (11.5-15.5) % Plt Count 267 (150-450) k/uL MPV 9.0 Neutrophils % 76 % Lymphocytes % 13 % Monocytes % 7 % Eosinophils % 2 % Basophils % 1 % Neutrophils # 6.9 (1.3-7.7) k/uL Lymphocytes # 1.2 (1.0-4.8) k/uL Monocytes # 0.7 (0-1.0) k/uL Eosinophils # 0.2 (0-0.7) k/uL Basophils # 0.1 (0-0.2) k/uL PT 10.9 (9.0-12.0) sec INR 1.0 (<1.2) APTT 25.5 (22.0-30.0) sec Sodium 139 (137-145) mmol/L Potassium 4.4 (3.5-5.1) mmol/L Chloride 101 (98-107) mmol/L Carbon Dioxide 25 (22-30) mmol/L Anion Gap 13 mmol/L BUN 19 (9-20) mg/dL Creatinine 0.56 L (0.66-1.25) mg/dL Est GFR (CKD-EPI)AfAm >90 (>60 ml/min/1.73 sqM) Est GFR (CKD-EPI)NonAf >90 (>60 ml/min/1.73 sqM) Glucose 106 H (74-99) mg/dL Calcium 9.5 (8.4-10.2) mg/dL Magnesium 2.0 (1.6-2.3) mg/dL Total Bilirubin 0.4 (0.2-1.3) mg/dL AST 19 (17-59) U/L ALT 6 (4-49) U/L Alkaline Phosphatase 72 (38-126) U/L Troponin I (0.000-0.034) ng/mL Total Protein 7.2 (6.3-8.2) g/dL Albumin 3.5 (3.5-5.0) g/dL Urine Color Urine Appearance (Clear) Urine pH (5.0-8.0) Ur Specific Emerson (1.001-1.035) Urine Protein (Negative) Urine Glucose (UA) (Negative) Urine Ketones (Negative) Urine Blood (Negative) Urine Nitrite (Negative) Urine Bilirubin (Negative) Urine Urobilinogen (<2.0) mg/dL Ur Leukocyte Esterase (Negative) Urine RBC (0-5) /hpf Urine WBC (0-5) /hpf Urine WBC Clumps (None) /hpf Ur Squamous Epith Cells (0-4) /hpf Amorphous Sediment (None) /hpf Urine Bacteria (None) /hpf Urine Mucus (None) /hpf 08/11/22 08/11/22 Range/Units 18:48 22:31 WBC (3.8-10.6) k/uL RBC (4.30-5.90) m/uL Hgb (13.0-17.5) gm/dL Hct (39.0-53.0) % MCV (80.0-100.0) fL MCH (25.0-35.0) pg MCHC (31.0-37.0) g/dL RDW (11.5-15.5) % Plt Count (150-450) k/uL MPV Neutrophils % % Lymphocytes % % Monocytes % % Eosinophils % % Basophils % % Neutrophils # (1.3-7.7) k/uL Lymphocytes # (1.0-4.8) k/uL Monocytes # (0-1.0) k/uL Eosinophils # (0-0.7) k/uL Basophils # (0-0.2) k/uL PT (9.0-12.0) sec INR (<1.2) APTT (22.0-30.0) sec Sodium (137-145) mmol/L Potassium (3.5-5.1) mmol/L Chloride (98-107) mmol/L Carbon Dioxide (22-30) mmol/L Anion Gap mmol/L BUN (9-20) mg/dL Creatinine (0.66-1.25) mg/dL Est GFR (CKD-EPI)AfAm (>60 ml/min/1.73 sqM) Est GFR (CKD-EPI)NonAf (>60 ml/min/1.73 sqM) Glucose (74-99) mg/dL Calcium (8.4-10.2) mg/dL Magnesium (1.6-2.3) mg/dL Total Bilirubin (0.2-1.3) mg/dL AST (17-59) U/L ALT (4-49) U/L Alkaline Phosphatase (38-126) U/L Troponin I <0.012 (0.000-0.034) ng/mL Total Protein (6.3-8.2) g/dL Albumin (3.5-5.0) g/dL Urine Color Yellow Urine Appearance Turbid (Clear) Urine pH 6.5 (5.0-8.0) Ur Specific Emerson 1.023 (1.001-1.035) Urine Protein 2+ H (Negative) Urine Glucose (UA) Negative (Negative) Urine Ketones Negative (Negative) Urine Blood Small H (Negative) Urine Nitrite Positive (Negative) Urine Bilirubin Negative (Negative) Urine Urobilinogen <2.0 (<2.0) mg/dL Ur Leukocyte Esterase Large H (Negative) Urine RBC 80 H (0-5) /hpf Urine WBC >182 H (0-5) /hpf Urine WBC Clumps Few H (None) /hpf Ur Squamous Epith Cells 9 H (0-4) /hpf Amorphous Sediment Rare H (None) /hpf Urine Bacteria Occasional H (None) /hpf Urine Mucus Rare H (None) /hpf Disposition Clinical Impression: UTI (urinary tract infection) Disposition: HOME SELF-CARE Condition: Good Instructions (If sedation given, give patient instructions): Urinary Tract Infection in Men (ED) Additional Instructions: Follow-up with PCP. Report back to ER with any new or worsening symptoms. Take medication as prescribed: Bactrim DS one tablet twice a day for 10 days. Prescriptions: Sulfamethox-Tmp 800-160Mg [Bactrim DS 800-160 mg] 1 tab PO Q12HR 10 Days #20 tab Is patient prescribed a controlled substance at d/c from ED?: No Referrals: Frankie Badillo DO [Primary Care Provider] - 1-2 days Time of Disposition: 00:15
[2022-08-11 19:17] LABS: ALT 6 U/L (4-49); AST 19 U/L (17-59); African American GFR (CKD) >90 (>60 ml/min/1.73 sqM); Albumin 3.5 g/dL (3.5-5.0); Alkaline Phosphatase 72 U/L (38-126); Anion Gap 13 mmol/L; Blood Urea Nitrogen 19 mg/dL (9-20); Calcium 9.5 mg/dL (8.4-10.2); Carbon Dioxide 25 mmol/L (22-30); Chloride 101 mmol/L (98-107); Glucose 106 mg/dL (74-99); Non-African American GFR(CKD) >90 (>60 ml/min/1.73 sqM); Potassium 4.4 mmol/L (3.5-5.1); Sodium 139 mmol/L (137-145); Total Bilirubin 0.4 mg/dL (0.2-1.3); Total Protein 7.2 g/dL (6.3-8.2)
[2022-08-11 19:21] LABS: Partial Thromboplastin Time 25.5 sec (22.0-30.0); Prothrombin Time 10.9 sec (9.0-12.0)
--- NOTE | 2022-08-11 20:12 | CT ---
EXAMINATION TYPE: CT brain wo con DATE OF EXAM: 08/11/2022 HISTORY: syncope CT DLP: 1182.4 mGycm. Automated Exposure Control for Dose Reduction was Utilized. TECHNIQUE: CT scan of the head is performed without contrast. COMPARISON: None. FINDINGS: There is no acute intracranial hemorrhage or midline shift identified. There is diffuse v entricular and sulcal prominence consistent with diffuse age-related cerebral atrophy. There is low- attenuation in the periventricular white matter consistent with chronic small vessel ischemic change. The globes are intact and the visualized sinuses are clear. IMPRESSION: No acute intracranial hemorrhage or midline shift. There is diffuse age-related cerebra l atrophy and chronic small vessel ischemic change noted.
--- NOTE | 2022-08-11 22:32 | XR ---
EXAMINATION TYPE: XR chest 2V DATE OF EXAM: 08/11/2022 COMPARISON: 03/11/2022 HISTORY: Syncope TECHNIQUE: FINDINGS: Heart is normal. There is mild subsegmental atelectasis at the lung bases. No heart failure . Thoracic aorta is atheromatous. The bony thorax is intact. IMPRESSION: There is some mild interstitial infiltrate and atelectasis at the lung bases which is imp roved compared to old exam. No heart failure seen.
[2022-08-12 00:05] LABS: Amorphous Sediment,Urine Rare /hpf; Appearance,Urine Turbid (Clear); Bacteria,Urine Occasional /hpf; Bilirubin,Urine Negative (Negative); Blood,Urine Small (Negative); Color,Urine Yellow; Glucose,Urine (UA) Negative (Negative); Ketones,Urine Negative (Negative); Leukocyte Esterase,Urine Large (Negative); Mucus,Urine Rare /hpf; Nitrite,Urine Positive (Negative); PH, Urine 6.5 (5.0-8.0); Protein,Urine 2+ (Negative); RBC,Urine 80 /hpf (0-5); Specific Gravity,Urine 1.023 (1.001-1.035); Squamous Epithelial Cell,Urine 9 /hpf (0-4); Urobilinogen,Urine <2.0 mg/dL (<2.0)
[2022-08-12 00:09] LABS: WBC,Urine >182 /hpf (0-5)
[2022-08-12] MEDS ORDERED: cefTRIAXone IN SWFI 1,000 MG/10 ML SYRINGE IVP STA (00:12)
[2022-08-12 01:40] VITALS: BP 118/65; PULSE 74
== END 2022-08-12 01:56 | disposition home or self-care (01) ==
LOC: EC 17:09
DX: N39.0 Urinary tract infection, site not specified (principal); F17.200 Nicotine dependence, unspecified, uncomplicated; I44.0 Atrioventricular block, first degree; Z79.01 Long term (current) use of anticoagulants; Z86.73 Personal history of transient ischemic attack (TIA), and cerebral infarction without residual deficits
CPT/HCPCS: 36415; 80053; 83735; 84484; 85025; 85610; 85730; 81001; 87086; 87077; 87186; 71046; 70450; 99285; 96361; 96374; J0696

== ENCOUNTER 2023-05-23 22:48 | Inpatient (IN) | payer MEDICARE ==
[2023-05-23] MEDS ORDERED: SODIUM CHLORIDE 0.9% 1,000 ML IV STA (22:56)
[2023-05-23] MEDS ORDERED: KETOROLAC 15 MG/ML 1 ML VIAL IVP STA (22:56)
--- NOTE | 2023-05-23 23:03 | ED ---
General Adult HPI - General Chief complaint: Fever Stated complaint: UTI Time Seen by Provider: 05/23/23 22:50 Source: patient, EMS, RN notes reviewed, old records reviewed Mode of arrival: EMS Limitations: altered mental status - History of Present Illness Initial comments: Patient is an 83-year-old male who presents from [facility] for UTI. Has a history of dementia, PE on eliquis, chronic indwelling Humphreys catheter. Patient has been having fevers at the facility, as well as some discoloration in his Humphreys bag with solids in the urine. Due to concern for UTI. Patient is alert and oriented 2 at baseline and he is at his baseline. Had some softer blood pressures with systolics in the 90s which are improving and fluids. Denies any nausea or vomiting. Doesn't endorse some lower abdominal pain. Denies any back pain. Denies chest pain or shortness of breath. Denies any coughing. His no other acute complaints at this time. Presents for further evaluation at this time. Appears to be at his neurological baseline.Apparently patient was more lethargic at the [facility] and more tired and had a fever for 2 hours 102F. Patient received Tylenol prior to arrival. Currently afebrile. - Related Data Home Medications Medication Instructions Recorded Confirmed Cyanocobalamin (Vitamin B-12) 1,000 mcg PO DAILY 08/11/22 05/24/23 [Vitamin B-12] Escitalopram [Lexapro] 10 mg PO DAILY@0700 08/11/22 05/24/23 Multivitamins, Thera [Multivitamin 1 tab PO DAILY 08/11/22 05/24/23 (formulary)] Omeprazole Magnesium [PriLOSEC] 20 mg PO HS 08/11/22 05/24/23 Lactulose [Cephulac] 30 gm PO BID 05/24/23 05/24/23 Previous Rx's Medication Instructions Recorded Acetaminophen Tab [Tylenol] 650 mg PO Q6HR PRN tab 03/16/22 Apixaban [Eliquis] 5 mg PO BID tab 03/16/22 Melatonin 3 mg PO HS tablet 03/16/22 Thiamine [Vitamin B-1] 100 mg PO BID-W/MEALS tab 03/16/22 Sulfamethox-Tmp 800-160Mg [Bactrim 1 tab PO Q12HR 10 Days #20 tab 08/12/22 DS 800-160 mg] Allergies Allergy/AdvReac Type Severity Reaction Status Date / Time No Known Allergies Allergy Verified 08/11/22 21:07 Review of Systems ROS Statement: Those systems with pertinent positive or pertinent negative responses have been documented in the HPI. Review of Systems: CONST: Endorses fever EYES: Denies blurry vision ENT: Denies nasal congestion C/V: Denies Chest pain RESP: Denies shortness of breath GI: Endorses abdominal pain : Denies dysuria SKIN: Denies rash. MSK: Denies joint pain. NEURO: Denies headache ROS Other: All systems not noted in ROS Statement are negative. Past Medical History Past Medical History: CVA/TIA, Dementia Additional Past Medical History / Comment(s): same day smoker. EtOH abuse (sober since 2019) History of Any Multi-Drug Resistant Organisms: None Reported Past Surgical History: Tonsillectomy Additional Past Surgical History / Comment(s): Vasectomy, bilateral inguinal hernia repair Past Anesthesia/Blood Transfusion Reactions: No Reported Reaction Past Psychological History: No Psychological Hx Reported Smoking Status: Current every day smoker Past Alcohol Use History: None Reported Past Drug Use History: None Reported - Past Family History Father Family Medical History: CVA/TIA Mother Family Medical History: Dementia General Exam - General Exam Comments Initial Comments: General: Appears in no acute distress. Currently afebrile. HEAD: Normal with no signs of head trauma. EYES: EOMI ENT: Hearing grossly intact, normal oropharynx. Dry mucus membranes. RESPIRATORY: Clear breath sounds bilaterally. No wheezes, rales, or rhonchi. C/V: Regular rate and rhythm. S1 and S2 auscultated, no edema, peripheral pulses 2+ and intact throughout ABD: Soft, some distention. Tender to palpation over bilateral lower quadrants and suprapubic region. No guarding. No rebound tenderness. No peritoneal signs. EXT: Normal range of motion, no obvious deformity SKIN: No rashes or lesions observed on exposed skin. NEURO: Alert and oriented 2 which is baseline. Able to move all 4 extremities without issue. No obvious focal neurological deficits. Limitations: altered mental status Course Vital Signs 05/23/23 05/24/23 05/24/23 22:49 01:00 02:19 Temperature 97.3 F L Pulse Rate 90 80 77 Respiratory 18 15 20 Rate Blood Pressure 112/85 112/62 102/62 O2 Sat by Pulse 96 96 96 Oximetry Medical Decision Making - Medical Decision Making Was pt. sent in by a medical professional or institution ([facility], PARACHUTE REPAIRER, urgent care, hospital, or [facility]...) When possible be specific @ -No Did you speak to anyone other than the patient for history (EMS, parent, family, police, friend...)? What history was obtained from this source @ -EMS provided the patient's history to me. Did you review nursing and triage notes (agree or disagree)? Why? @ -I reviewed and agree with nursing and triage notes Were old charts reviewed (outside hosp., previous admission, EMS record, old EKG, old radiological studies, urgent care reports/EKG's, [facility] records)? Report findings @ -Charts reviewed from nursing facility. Differential Diagnosis (chest pain, altered mental status, abdominal pain women, abdominal pain men, vaginal bleeding, weakness, fever, dyspnea, syncope, headache, dizziness, GI bleed, back pain, seizure, CVA, palpatations, mental health, musculoskeletal)? @ -Differential Fever: Pneumonia, viral URI, endocarditis, myocarditis, pericarditis, otitis, sinusitis, peritonsillar Abscess, retropharyngeal Abscess, epiglottitis, peritonitis, appendicitis, Rhiannon cystitis, diverticulitis, hepatitis, colitis, UTI, PID, TOA, pyelonephritis, prostatitis, epididymitis, meningitis, encephalitis, pulmonary embolism, CVA, thyroid storm, pancreatitis, adrenal crisis, cavernous sinus thrombosis, this is not meant to be an all-inclusive list. Differential Abdominal Pain Men: Appendicitis, cholecystitis, diverticulosis, ischemic bowel, pancreatitis, hepatitis, UTI, gastroenteritis, AAA, incarcerated hernia, bowel obstruction, constipation, inflammatory bowel, hepatitis, peptic ulcer disease, splenic infarction, perforated viscus, testicular torsion, this is not meant to be an all-inclusive list EKG interpreted by me (3pts min.). @ -As above X-rays interpreted by me (1pt min.). @ -Chest x-ray shows what appears to be distention of the large bowel. CT interpreted by me (1pt min.). 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 min.). @ -None done What testing was considered but not performed or refused? (CT, X-rays, U/S, labs)? Why? @ -None What meds were considered but not given or refused? Why? @ -None Did you discuss the management of the patient with other professionals (professionals i.e. , PA, PARACHUTE REPAIRER, lab, RT, psych nurse, social contact worker, meat process worker, teacher, job placement officer, case finisher)? Give summary @ -Discussed with the admitting physician Dr. Quiroga who accepted the patient. Was smoking cessation discussed for >3mins.? @ -No Was critical care preformed (if so, how long)? @ -No Were there social determinants of health that impacted care today? How? (Homelessness, low income, unemployed, alcoholism, drug addiction, transportation, low edu. Level, literacy, decrease access to med. care, assisted, rehab)? @ -No Was there de-escalation of care discussed even if they declined (Discuss DNR or withdrawal of care, Hospice)? DNR status @ -No What co-morbidities impacted this encounter? (DM, HTN, Smoking, COPD, CAD, Cancer, CVA, ARF, Chemo, Hep., AIDS, mental health diagnosis, sleep apnea, morbid obesity)? @ -None Was patient admitted / discharged? Hospital course, mention meds given and route, prescriptions, significant lab abnormalities, going to OR and other pertinent info. @ -Based on the patient's presentation and physical exam, I am concerned for febrile illness for the patient. Had a high fever at the nursing facility prior to arrival. Obvious source would be a UTI from his chronic indwelling Humphreys but we will obtain broad workup including he has lower abdominal pain of unknown etiology as well. We'll replace his Humphreys catheter and obtain a urinalysis. Blood cultures will be obtained. He will be given an additional 1 L fluid bolus after the initial 1 L fluid bolus from EMS. Already has received Tylenol for fever. Denies any nausea. He will be given Toradol for belly pain. He was in agreement this plan. Vital signs are within acceptable limits at this time. He is at his baseline mental status. 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 Patient's laboratory studies were reviewed and were remarkable for a leukocytosis of 13.6. Hypokalemia at 3.8, normal lactic acid. Urinalysis is significant for UTI. Blood cultures were sent. Urine culture was sent. These are still pending. Patient empirically started on Rocephin. Patient's dehydration he was apparently given 2 L of fluid and started on maintenance infusion. Patient's blood pressure remained stable. Vital signs otherwise were within acceptable limits. He'll be admitted to the hospital at this time. He was in agreement this plan. I begin potassium replenishment with oral potassium as well as IV potassium. Due to his [place] syndrome, we will consult Gen. surgery, Dr. Ayon and patient is made nothing by mouth. He is resting comfortably at this time, with no nausea, and we'll defer an NG tube at this time. We'll continue with IV fluid hydration. Conservative management at this time. Spoke with the admitting physician Dr. Quiroga who accepted the patient. Patient admitted in serious condition with UTI and [place] syndrome. Undiagnosed new problem with uncertain prognosis? @ -No Drug Therapy requiring intensive monitoring for toxicity (Heparin, Nitro, Insulin, Cardizem)? @ -No Were any procedures done? @ -No Diagnosis/symptom? @ -UTI, [place] syndrome, dehydration, hypokalemia Acute, or Chronic, or Acute on Chronic? @ -Acute Uncomplicated (without systemic symptoms) or Complicated (systemic symptoms)? @ -complicated Side effects of treatment? @ -none Exacerbation, Progression, or Severe Exacerbation] @ -no Poses a threat to life or bodily function? @ -yes Diagnosis/symptom? @ -Dementia Acute, or Chronic, or Acute on Chronic? @ -Chronic Uncomplicated (without systemic symptoms) or Complicated (systemic symptoms)? @ -Complicated Side effects of treatment? @ -none. Exacerbation, Progression, or Severe Exacerbation] @ -no Poses a threat to life or bodily function? @ -no - Lab Data Result diagrams: 05/23/23 23:12 05/23/23 23:12 Lab Results 05/23/23 05/23/23 05/23/23 Range/Units 23:12 23:12 23:12 WBC 13.6 H (3.8-10.6) k/uL RBC 3.87 L (4.30-5.90) m/uL Hgb 11.5 L (13.0-17.5) gm/dL Hct 35.0 L (39.0-53.0) % MCV 90.2 (80.0-100.0) fL MCH 29.6 (25.0-35.0) pg MCHC 32.8 (31.0-37.0) g/dL RDW 14.4 (11.5-15.5) % Plt Count 155 (150-450) k/uL MPV 9.5 Neutrophils % 87 % Lymphocytes % 4 % Monocytes % 7 % Eosinophils % 1 % Basophils % 0 % Neutrophils # 11.8 H (1.3-7.7) k/uL Lymphocytes # 0.6 L (1.0-4.8) k/uL Monocytes # 1.0 (0-1.0) k/uL Eosinophils # 0.1 (0-0.7) k/uL Basophils # 0.0 (0-0.2) k/uL Sodium 141 (137-145) mmol/L Potassium 2.8 L (3.5-5.1) mmol/L Chloride 107 (98-107) mmol/L Carbon Dioxide 26 (22-30) mmol/L Anion Gap 8 mmol/L BUN 14 (9-20) mg/dL Creatinine 0.54 L (0.66-1.25) mg/dL Est GFR (CKD-EPI)AfAm >90 (>60 ml/min/1.73 sqM) Est GFR (CKD-EPI)NonAf >90 (>60 ml/min/1.73 sqM) Glucose 121 H (74-99) mg/dL Plasma Lactic Acid Ugo (0.7-2.0) mmol/L Calcium 8.3 L (8.4-10.2) mg/dL Magnesium (1.6-2.3) mg/dL Total Bilirubin 1.3 (0.2-1.3) mg/dL AST 28 (17-59) U/L ALT 13 (4-49) U/L Alkaline Phosphatase 76 (38-126) U/L Total Protein 6.9 (6.3-8.2) g/dL Albumin 3.5 (3.5-5.0) g/dL Amylase 35 (30-110) U/L Lipase 15 L (23-300) U/L Urine Color Yellow Urine Appearance Turbid (Clear) Urine pH 5.5 (5.0-8.0) Ur Specific [place] 1.016 (1.001-1.035) Urine Protein 2+ H (Negative) Urine Glucose (UA) Negative (Negative) Urine Ketones Trace H (Negative) Urine Blood Large H (Negative) Urine Nitrite Positive (Negative) Urine Bilirubin Negative (Negative) Urine Urobilinogen <2.0 (<2.0) mg/dL Ur Leukocyte Esterase Large H (Negative) Urine RBC 129 H (0-5) /hpf Urine WBC >182 H (0-5) /hpf Ur Squamous Epith Cells 6 H (0-4) /hpf Calcium Oxalate Crystal Occasional H (None) /hpf Amorphous Sediment Moderate H (None) /hpf Urine Bacteria Many H (None) /hpf Hyaline Casts 22 H (0-2) /lpf Urine Mucus Many H (None) /hpf Influenza Type A (PCR) (Not Detectd) Influenza Type B (PCR) (Not Detectd) RSV (PCR) (Not Detectd) SARS-CoV-2 (PCR) (Not Detectd) 05/23/23 05/23/23 05/24/23 Range/Units 23:12 23:35 00:00 WBC (3.8-10.6) k/uL RBC (4.30-5.90) m/uL Hgb (13.0-17.5) gm/dL Hct (39.0-53.0) % MCV (80.0-100.0) fL MCH (25.0-35.0) pg MCHC (31.0-37.0) g/dL RDW (11.5-15.5) % Plt Count (150-450) k/uL MPV Neutrophils % % Lymphocytes % % Monocytes % % Eosinophils % % Basophils % % Neutrophils # (1.3-7.7) k/uL Lymphocytes # (1.0-4.8) k/uL Monocytes # (0-1.0) k/uL Eosinophils # (0-0.7) k/uL Basophils # (0-0.2) k/uL Sodium (137-145) mmol/L Potassium (3.5-5.1) mmol/L Chloride (98-107) mmol/L Carbon Dioxide (22-30) mmol/L Anion Gap mmol/L BUN (9-20) mg/dL Creatinine (0.66-1.25) mg/dL Est GFR (CKD-EPI)AfAm (>60 ml/min/1.73 sqM) Est GFR (CKD-EPI)NonAf (>60 ml/min/1.73 sqM) Glucose (74-99) mg/dL Plasma Lactic Acid Ugo 1.2 (0.7-2.0) mmol/L Calcium (8.4-10.2) mg/dL Magnesium 2.0 (1.6-2.3) mg/dL Total Bilirubin (0.2-1.3) mg/dL AST (17-59) U/L ALT (4-49) U/L Alkaline Phosphatase (38-126) U/L Total Protein (6.3-8.2) g/dL Albumin (3.5-5.0) g/dL Amylase (30-110) U/L Lipase (23-300) U/L Urine Color Urine Appearance (Clear) Urine pH (5.0-8.0) Ur Specific [place] (1.001-1.035) Urine Protein (Negative) Urine Glucose (UA) (Negative) Urine Ketones (Negative) Urine Blood (Negative) Urine Nitrite (Negative) Urine Bilirubin (Negative) Urine Urobilinogen (<2.0) mg/dL Ur Leukocyte Esterase (Negative) Urine RBC (0-5) /hpf Urine WBC (0-5) /hpf Ur Squamous Epith Cells (0-4) /hpf Calcium Oxalate Crystal (None) /hpf Amorphous Sediment (None) /hpf Urine Bacteria (None) /hpf Hyaline Casts (0-2) /lpf Urine Mucus (None) /hpf Influenza Type A (PCR) Not Detected (Not Detectd) Influenza Type B (PCR) Not Detected (Not Detectd) RSV (PCR) Not Detected (Not Detectd) SARS-CoV-2 (PCR) Not Detected (Not Detectd) - EKG Data -: EKG Interpreted by Me EKG Comments: 12-lead Electrocardiogram Interpretation Note EKG was reviewed and interpreted by myself. 12-lead ECG performed at 2305 is interpreted by me as revealing normal sinus rhythm at a rate of 87 beats per minute. [place] is normal. QRS ration is 103 ms, QTc is 405 ms.. There were no ST or T wave abnormalities to suggest myocardial ischemia or injury. R wave progression across the precordium was satisfactory. By my interpretation this EKG is non-diagnostic for acute ischemia. Disposition Clinical Impression: UTI (urinary tract infection), Shannan syndrome, Dehydration, Hypokalemia, Dementia Disposition: ADMITTED IP TO THIS HOSP Condition: Stable Time of Disposition: 01:33
[2023-05-23 23:38] LABS: Basophils % (A) 0 %; Eosinophils # (A) 0.1 k/uL (0-0.7); Eosinophils % (A) 1 %; HGB 11.5 gm/dL (13.0-17.5); Lymphocytes # (A) 0.6 k/uL (1.0-4.8); Lymphocytes % (A) 4 %; MCH 29.6 pg (25.0-35.0); MCHC 32.8 g/dL (31.0-37.0); MCV 90.2 fL (80.0-100.0); Mean Platelet Volume 9.5; Monocytes % (A) 7 %; Neutrophils # (A) 11.8 k/uL (1.3-7.7); Neutrophils % (A) 87 %; Platelet Count 155 k/uL (150-450); RBC 3.87 m/uL (4.30-5.90); RDW 14.4 % (11.5-15.5); WBC 13.6 k/uL (3.8-10.6)
[2023-05-23 23:40] LABS: ALT 13 U/L (4-49); AST 28 U/L (17-59); African American GFR (CKD) >90 (>60 ml/min/1.73 sqM); Albumin 3.5 g/dL (3.5-5.0); Alkaline Phosphatase 76 U/L (38-126); Amylase 35 U/L (30-110); Anion Gap 8 mmol/L; Blood Urea Nitrogen 14 mg/dL (9-20); Calcium 8.3 mg/dL (8.4-10.2); Carbon Dioxide 26 mmol/L (22-30); Chloride 107 mmol/L (98-107); Glucose 121 mg/dL (74-99); Lipase 15 U/L (23-300); Non-African American GFR(CKD) >90 (>60 ml/min/1.73 sqM); Potassium 2.8 mmol/L (3.5-5.1); Sodium 141 mmol/L (137-145); Total Bilirubin 1.3 mg/dL (0.2-1.3); Total Protein 6.9 g/dL (6.3-8.2)
[2023-05-24] LABS: Amorphous Sediment,Urine Moderate /hpf; Appearance,Urine Turbid (Clear); Bacteria,Urine Many /hpf; Bilirubin,Urine Negative (Negative); Blood,Urine Large (Negative); Calcium Oxalate Crystals,Urine Occasional /hpf; Color,Urine Yellow; Glucose,Urine (UA) Negative (Negative); Hyaline Casts,Urine 22 /lpf (0-2); Ketones,Urine Trace (Negative); Leukocyte Esterase,Urine Large (Negative); Mucus,Urine Many /hpf; Nitrite,Urine Positive (Negative); PH, Urine 5.5 (5.0-8.0); Protein,Urine 2+ (Negative); RBC,Urine 129 /hpf (0-5); Specific Gravity,Urine 1.016 (1.001-1.035); Squamous Epithelial Cell,Urine 6 /hpf (0-4); Urobilinogen,Urine <2.0 mg/dL (<2.0); WBC,Urine >182 /hpf (0-5)
--- NOTE | 2023-05-24 00:19 | CT ---
EXAM: CT Abdomen and Pelvis Without Intravenous Contrast CLINICAL HISTORY: ITS.REASON CT Reason: abdominal pain TECHNIQUE: Axial computed tomography images of the abdomen and pelvis without intravenous contrast. CTDI is 7.4 mGy and DLP is 511.3 mGy-cm. This CT exam was performed using one or more of the following dose reduction techniques: automated exposure control, adjustment of the mA and/or kV according to patient size, and/or use of iterative reconstruction technique. COMPARISON: No relevant prior studies available. FINDINGS: Pleural space: Trace pleural effusions. ABDOMEN: Liver: Unremarkable. Gallbladder and bile ducts: Unremarkable. Pancreas: Unremarkable. Spleen: Unremarkable. Adrenals: Unremarkable. Kidneys and ureters: Unremarkable. No obstructing stones. No hydronephrosis. Stomach and bowel: Gaseous distention of the colon. No transition points. [place]'s can have this appearance. PELVIS: Appendix: No findings to suggest acute appendicitis. Bladder: Mucosal thickening in the bladder. Few calcifications within the bladder. Humphreys catheter in the bladder. Reproductive: Unremarkable as visualized. ABDOMEN and PELVIS: Intraperitoneal space: Unremarkable. No free air. No significant fluid collection. Bones/joints: No acute fracture. Soft tissues: Unremarkable. Vasculature: Unremarkable. Lymph nodes: Unremarkable. IMPRESSION: 1. Gaseous distention of the colon. No transition points. [place]rose's can have this appearance. 2. Trace pleural effusions. 3. Mucosal thickening in the bladder. Few calcifications within the bladder.
[2023-05-24] MEDS ORDERED: POTASSIUM CHLORIDE ER 20 MEQ TAB.ER PO STA ×2 (00:25→17:51)
[2023-05-24] MEDS ORDERED: SODIUM CHLORIDE 0.9% 1,000 ML IV STA ×2 (00:25→00:36)
[2023-05-24] MEDS: POTASSIUM CHLORIDE 10 MEQ in WATER FOR INJECTION 1 100ML.BAG IVPB SCH ×2 (00:38→01:42)
[2023-05-24] MEDS ORDERED: KETOROLAC 15 MG/ML 1 ML VIAL IVP PRN (01:33)
[2023-05-24] MEDS ORDERED: NALOXONE 0.4 MG/ML 1 ML VIAL IV PRN (01:33)
[2023-05-24] MEDS ORDERED: ONDANSETRON 4 MG/2 ML VIAL IVP PRN (01:33)
[2023-05-24] MEDS ORDERED: SODIUM CHLORIDE 0.9% 500 ML 500 ML IV ONE (02:12)
--- NOTE | 2023-05-24 02:25 | XR ---
EXAM: XR Chest, 1 View CLINICAL HISTORY: ITS.REASON XR Reason: abdominal pain TECHNIQUE: Frontal view of the chest. COMPARISON: Chest x-ray 08/11/2022 FINDINGS: Lungs: Interstitial and airspace opacities in the lungs. Pleural space: No pleural effusion. No pneumothorax. Heart: Unremarkable. No cardiomegaly. Upper abdomen: Gaseous distention of the colon. IMPRESSION: 1. Interstitial and airspace opacities in the lungs. Edema or infection could cause this appearance. 2. Gaseous distention of the colon.
[2023-05-24] MEDS ORDERED: ASPIRIN 325 MG TAB PO STA (09:24)
[2023-05-24] MEDS: APIXABAN 5 MG TAB PO SCH ×2 (09:28→21:57)
[2023-05-24] MEDS ORDERED: ESCITALOPRAM 10 MG TAB PO SCH (11:00)
[2023-05-24] MEDS: CYANOCOBALAMIN 500 MCG TAB PO SCH (11:13)
[2023-05-24] MEDS: MULTIVITAMINS, THERA 1 EACH TAB PO SCH (11:13)
[2023-05-24] MEDS: LACTULOSE 20 GM/30 ML CUP PO SCH ×2 (11:13→21:59)
[2023-05-24] MEDS: THIAMINE 100 MG TAB PO SCH ×2 (11:14→17:01)
[2023-05-24] MEDS ORDERED: NON FORMULARY DRUG (Healthshake 1 DOSE) PO SCH (12:30)
[2023-05-24 12:39] VITALS: BMI 24.4
--- NOTE | 2023-05-24 12:51 | P.CRDCN ---
History of Present Illness Consult date: 05/24/23 Consult reason: chest pain History of present illness: History of present illness: This is an 83-year-old male with past medical history of dementia, pulmonary emboli on eliquis status post EKOS procedure, chronic Humphreys catheter, history of alcohol abuse. Patient is a poor historian and unable to give any history. Patient presented to the emergency center due concern for a urinary tract infection. We have been asked to evaluate the patient for chest pain. Patient's nurse states that he developed an episode of shaking and was complaining of chest pain and stated that he was going to . At this time, patient denies having any chest pain at all. No shortness of breath. EKG sinus rhythm Chest x-ray: Interstitial and airspace opacities in the lungs. Edema or infection could cause this appearance. Gaseous distention of the colon. CAT scan of the abdomen and pelvis revealed gaseous distention of colon. No transition points. [place] in appearance. Trace pleural effusions. Mucosal thickening in the bladder. Few calcifications within the bladder. WBC 13.6, hemoglobin 11.5, platelet count 155. Sodium 141, potassium 2.8, chloride 107, CO2 26, BUN 14 creatinine 0.54. Magnesium 2.0. Troponin negative 1. Lipase 15. Liver function tests normal. Urinalysis positive for infection. Influenza A, influenza B, RSV, Covid 1930. Home cardiac medications: Eliquis 5 mg twice daily. Echocardiogram 02/2022 revealed EF 55-60% with borderline concentric left ventricular hypertrophy, mild aortic regurgitation, mild mitral regurgitation, moderate tricuspid regurgitation, severe pulmonary hypertension, RVSP 59.6. Review Of Systems: At the time of my evaluation: Constitutional: No fever, no chills. EENT: No headache. Lungs: No shortness of breath, cough. No wheezing. Cardiovascular: No chest pain, no lower extremity edema. No syncopal episodes. Abdominal: No abdominal pain. Musculoskeletal: No myalgias. No muscle weakness, no frequent falls. Neurologic: No aphasia. No facial droop. No change in mentation. No head injury. No headache. Physical examination: Gen: This is an 83-year-old male. Resting in bed and appears to be comfortable VS: reviewed HEENT: Head is atraumatic, normocephalic. Pupils equal, round. Sclerae is anicteric. NECK: Supple. No JVD. LUNGS: Clear to auscultation. No wheezes or rhonchi. No intercostal retractions. HEART: Regular rate and rhythm. No murmur. ABDOMEN: Soft EXTREMITIES: No pedal edema. No calf tenderness. NEUROLOGICAL: Patient is awake. Assessment: Chest pain, atypical Acute urinary tract infection Dementia History of pulmonary emboli Plan: Continue patient on eliquis Obtain repeat troponins Obtain 2-D echocardiogram and Doppler study to assess cardiac structure and function Further recommendations to follow based upon clinical course Thank you kindly for this consultation. Nurse practitioner note has been reviewed, I agree with documented findings and plan of care. Patient was seen and examined. Past Medical History Past Medical History: CVA/TIA, Dementia Additional Past Medical History / Comment(s): same day smoker. EtOH abuse (sober since 2019) History of Any Multi-Drug Resistant Organisms: None Reported Past Surgical History: Tonsillectomy Additional Past Surgical History / Comment(s): Vasectomy, bilateral inguinal hernia repair Past Anesthesia/Blood Transfusion Reactions: No Reported Reaction Past Psychological History: No Psychological Hx Reported Smoking Status: Current every day smoker Past Alcohol Use History: None Reported Past Drug Use History: None Reported - Past Family History Father Family Medical History: CVA/TIA Mother Family Medical History: Dementia Additional Family Medical History / Comment(s): hypokalemia, falls, PTSD, u rogenital implants, late onset Alzheimers Medications and Allergies Home Medications Medication Instructions Recorded Confirmed Type Acetaminophen Tab [Tylenol] 650 mg PO Q6HR PRN tab 03/16/22 05/24/23 Rx Apixaban [Eliquis] 5 mg PO BID tab 03/16/22 05/24/23 Rx Melatonin 3 mg PO HS tablet 03/16/22 05/24/23 Rx Thiamine [Vitamin B-1] 100 mg PO BID-W/MEALS tab 03/16/22 05/24/23 Rx Cyanocobalamin (Vitamin B-12) 1,000 mcg PO DAILY 08/11/22 05/24/23 History [Vitamin B-12] Multivitamins, Thera [Multivitamin 1 tab PO DAILY 08/11/22 05/24/23 History (formulary)] Omeprazole Magnesium [PriLOSEC] 20 mg PO HS 08/11/22 05/24/23 History Escitalopram [Lexapro] 10 mg PO DAILY 05/24/23 05/24/23 History Healthshake 1 dose PO TID-W/MEALS 05/24/23 05/24/23 History Lactulose [Cephulac] 30 gm PO BID 05/24/23 05/24/23 History Potassium Chloride [Klor-Con 10 ER] 10 meq PO DAILY@1400 05/24/23 05/24/23 History Allergies Allergy/AdvReac Type Severity Reaction Status Date / Time No Known Allergies Allergy Verified 05/24/23 07:23 Physical Exam Vitals: Vital Signs Temp Pulse Pulse Resp BP BP Pulse Ox 05/24/23 09:00 79 18 121/73 98 05/24/23 07:00 98.1 F 68 16 88/53 98 05/24/23 02:19 77 20 102/62 96 05/24/23 01:00 80 15 112/62 96 05/23/23 22:49 97.3 F L 90 18 112/85 96 Intake and Output 05/23/23 05/24/23 05/24/23 22:59 06:59 14:59 Other: # Voids 0 Weight 83.915 kg 83.915 kg Results 05/23/23 23:12 05/23/23 23:12 Cardiac Enzymes 05/23/23 05/24/23 Range/Units 23:12 09:35 AST 28 (17-59) U/L Troponin I <0.012 (0.000-0.034) ng/mL CBC 05/23/23 Range/Units 23:12 WBC 13.6 H (3.8-10.6) k/uL RBC 3.87 L (4.30-5.90) m/uL Hgb 11.5 L (13.0-17.5) gm/dL Hct 35.0 L (39.0-53.0) % Plt Count 155 (150-450) k/uL Comprehensive Metabolic Panel 05/23/23 Range/Units 23:12 Sodium 141 (137-145) mmol/L Potassium 2.8 L (3.5-5.1) mmol/L Chloride 107 (98-107) mmol/L Carbon Dioxide 26 (22-30) mmol/L BUN 14 (9-20) mg/dL Creatinine 0.54 L (0.66-1.25) mg/dL Glucose 121 H (74-99) mg/dL Calcium 8.3 L (8.4-10.2) mg/dL AST 28 (17-59) U/L ALT 13 (4-49) U/L Alkaline Phosphatase 76 (38-126) U/L Total Protein 6.9 (6.3-8.2) g/dL Albumin 3.5 (3.5-5.0) g/dL Current Medications Generic Name Dose Route Start Last Admin Trade Name Freq PRN Reason Stop Dose Admin Acetaminophen 650 mg 05/24/23 10:18 Acetaminophen Tab 325 Mg Tab PO Q6HR PRN Mild Pain or Fever > 100.5 Apixaban 5 mg 05/24/23 09:00 05/24/23 09:28 Apixaban 5 Mg Tab PO 5 mg BID [facility] Administration Protocol Cyanocobalamin 1,000 mcg 05/24/23 10:30 Cyanocobalamin 500 Mcg Tab PO DAILY [facility] Escitalopram Oxalate 10 mg 05/24/23 11:00 Escitalopram 10 Mg Tab PO DAILY [facility] Ceftriaxone Sodium 1 gm/ 50 mls @ 100 mls/hr 05/24/23 01:00 05/24/23 00:37 Sodium Chloride IVPB 100 mls/hr Q24H [facility] Administration Protocol Ketorolac Tromethamine 15 mg 05/24/23 01:33 05/24/23 03:24 Ketorolac 15 Mg/Ml 1 Ml Vial IVP 05/27/23 01:37 15 mg Q6HR PRN Administration Moderate Pain (Scale 4 to 6) Lactulose 30 gm 05/24/23 10:30 Lactulose 20 Gm/30 Ml Cup PO BID [facility] Melatonin 3 mg 05/24/23 21:00 Melatonin 3 Mg Tablet PO HS [facility] Multivitamins 1 each 05/24/23 10:30 Multivitamins, Thera 1 Each Tab PO DAILY [facility] Naloxone HCl 0.2 mg 05/24/23 01:33 Naloxone 0.4 Mg/Ml 1 Ml Vial IV Q2M PRN Opioid Reversal Ondansetron HCl 4 mg 05/24/23 01:33 05/24/23 09:29 Ondansetron 4 Mg/2 Ml Vial IVP 4 mg Q8HR PRN Administration Nausea And Vomiting Pantoprazole Sodium 40 mg 05/24/23 21:00 Pantoprazole 40 Mg Tablet PO HS [facility] Thiamine HCl 100 mg 05/24/23 10:30 Thiamine 100 Mg Tab PO BID-W/MEALS ANG Intake and Output 05/23/23 05/24/23 05/24/23 22:59 06:59 14:59 Other: # Voids 0 Weight 83.915 kg 83.915 kg 05/23/23 23:12 05/23/23 23:12
[2023-05-24] MEDS: LACTATED RINGERS 1,000 ML IV SCH (13:58)
--- NOTE | 2023-05-24 14:16 | P.GSCN ---
History of Present Illness Consult date: 05/24/23 History of present illness: CHIEF COMPLAINT: Fever HISTORY OF PRESENT ILLNESS: This is a 83-year-old male who presented to the hospital with complaints of fever and cloudy urine and concerns for UTI. Patient had been having nausea. He denies any abdominal pain. He is complaining of chest pain this morning. Medicine service has ordered a cardiology consult and EKG. [facility]. Computed tomography scan abdomen and pelvis completed showing gaseous distention of the colon. No transition points. Shannan's can have this appearance. Patient is currently nothing by mouth. Patient does have a known history of PE and is on Eliquis. Patient's abdomen is distended. Patient's past surgical history does include bilateral inguinal hernia repair. Patient did have hypokalemia and has received potassium supplement. 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 PAST MEDICAL HISTORY: CVA, dementia, PAST SURGICAL HISTORY: Vasectomy, bilateral inguinal hernia repair, tonsillectomy MEDICATIONS: See below ALLERGIES: See below SOCIAL HISTORY: No illicit drug use. EtOH abuse (sober since 2019) REVIEW OF SYSTEMS: CONSTITUTIONAL: Denies fever or chills. HEENT: Denies blurred vision, vision changes, or eye pain. Denies hemoptysis CARDIOVASCULAR: Denies chest pain or pressure. RESPIRATORY: No shortness of breath. GASTROINTESTINAL: See HPI for pertinent findings HEMATOLOGIC: Denies bleeding disorders. GENITOURINARY: Denies any blood in urine or increased urinary frequency. SKIN: Denies pruitis. Denies rash. PHYSICAL EXAM: VITAL SIGNS: Reviewed GENERAL: Well-developed in no acute distress. HEENT: No sclera icterus. Extraocular movements grossly intact. Moist buccal mucosa. Head is atraumatic, normocephalic. No nasal drainage. ABDOMEN: Mildly Distended. Nontender. NEUROLOGIC: Alert and oriented times name and place LABORATORY DATA: WBC 13.6 Hgb 11.5 platelets 155 Sodium 141 potassium is 2.8 creatinine 0.54 Lactic acid 1.2 Magnesium 2.0 LFTs normal lipase 15 Troponin negative influenza RSV and COVID-19 not detected IMAGING: computed tomography scan abdomen and pelvis shows gaseous distention of the colon. No transition points. [place]'s can have this appearance. Trace pleural effusions. Mucosal thickening in the bladder. Few calcifications within the bladder. Chest x-ray interstitial and airspace opacities in the lungs. Edema or infectious causes. Since. Gaseous distention of the colon. ASSESSMENT: 1. 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 Hypokalemia 3. Chest pain being evaluated by cardiology 4. Possible UTI 5. History of PE on Eliquis PLAN: -Add Reglan -Discussed with medicine service. Lexapro discontinued due to its interaction with Reglan -Advance diet to clear liquids -Continue to monitor -Continue to correct electrolyte as needed -Continue supportive care Thank you for this consultation [employer] note has been reviewed by physician. Signing provider agrees with the documented findings, assessment, and plan of care. Past Medical History Past Medical History: CVA/TIA, Dementia Additional Past Medical History / Comment(s): same day smoker. EtOH abuse (sober since 2019) History of Any Multi-Drug Resistant Organisms: None Reported Past Surgical History: Tonsillectomy Additional Past Surgical History / Comment(s): Vasectomy, bilateral inguinal hernia repair Past Anesthesia/Blood Transfusion Reactions: No Reported Reaction Past Psychological History: No Psychological Hx Reported Smoking Status: Current every day smoker Past Alcohol Use History: None Reported Past Drug Use History: None Reported - Past Family History Father Family Medical History: CVA/TIA Mother Family Medical History: Dementia Additional Family Medical History / Comment(s): hypokalemia, falls, PTSD, urogenital implants, late onset Alzheimers Medications and Allergies Home Medications Medication Instructions Recorded Confirmed Type Acetaminophen Tab [Tylenol] 650 mg PO Q6HR PRN tab 03/16/22 05/24/23 Rx Apixaban [Eliquis] 5 mg PO BID tab 03/16/22 05/24/23 Rx Melatonin 3 mg PO HS tablet 03/16/22 05/24/23 Rx Thiamine [Vitamin B-1] 100 mg PO BID-W/MEALS tab 03/16/22 05/24/23 Rx Cyanocobalamin (Vitamin B-12) 1,000 mcg PO DAILY 08/11/22 05/24/23 History [Vitamin B-12] Multivitamins, Thera [Multivitamin 1 tab PO DAILY 08/11/22 05/24/23 History (formulary)] Omeprazole Magnesium [PriLOSEC] 20 mg PO HS 08/11/22 05/24/23 History Escitalopram [Lexapro] 10 mg PO DAILY 05/24/23 05/24/23 History Healthshake 1 dose PO TID-W/MEALS 05/24/23 05/24/23 History Lactulose [Cephulac] 30 gm PO BID 05/24/23 05/24/23 History Potassium Chloride [Klor-Con 10 ER] 10 meq PO DAILY@1400 05/24/23 05/24/23 History Allergies Allergy/AdvReac Type Severity Reaction Status Date / Time No Known Allergies Allergy Verified 05/24/23 07:23 Surgical - Exam Vital Signs Temp Pulse Resp BP Pulse Ox 97.3 F L 90 18 112/85 96 05/23/23 22:49 05/23/23 22:49 05/23/23 22:49 05/23/23 22:49 05/23/23 22:49 Results - Labs 05/23/23 23:12 05/23/23 23:12 Abnormal Lab Results - Last 24 Hours (Table) 05/23/23 05/23/23 05/23/23 Range/Units 23:12 23:12 23:12 WBC 13.6 H (3.8-10.6) k/uL RBC 3.87 L (4.30-5.90) m/uL Hgb 11.5 L (13.0-17.5) gm/dL Hct 35.0 L (39.0-53.0) % Neutrophils # 11.8 H (1.3-7.7) k/uL Lymphocytes # 0.6 L (1.0-4.8) k/uL Potassium 2.8 L (3.5-5.1) mmol/L Creatinine 0.54 L (0.66-1.25) mg/dL Glucose 121 H (74-99) mg/dL Calcium 8.3 L (8.4-10.2) mg/dL Lipase 15 L (23-300) U/L Urine Protein 2+ H (Negative) Urine Ketones Trace H (Negative) Urine Blood Large H (Negative) Ur Leukocyte Esterase Large H (Negative) Urine RBC 129 H (0-5) /hpf Urine WBC >182 H (0-5) /hpf Ur Squamous Epith Cells 6 H (0-4) /hpf Calcium Oxalate Crystal Occasional H (None) /hpf Amorphous Sediment Moderate H (None) /hpf Urine Bacteria Many H (None) /hpf Hyaline Casts 22 H (0-2) /lpf Urine Mucus Many H (None) /hpf Diabetes panel 05/23/23 Range/Units 23:12 Sodium 141 (137-145) mmol/L Potassium 2.8 L (3.5-5.1) mmol/L Chloride 107 (98-107) mmol/L Carbon Dioxide 26 (22-30) mmol/L BUN 14 (9-20) mg/dL Creatinine 0.54 L (0.66-1.25) mg/dL Glucose 121 H (74-99) mg/dL Calcium 8.3 L (8.4-10.2) mg/dL AST 28 (17-59) U/L ALT 13 (4-49) U/L Alkaline Phosphatase 76 (38-126) U/L Total Protein 6.9 (6.3-8.2) g/dL Albumin 3.5 (3.5-5.0) g/dL Calcium panel 05/23/23 Range/Units 23:12 Calcium 8.3 L (8.4-10.2) mg/dL Albumin 3.5 (3.5-5.0) g/dL Pituitary panel 05/23/23 Range/Units 23:12 Sodium 141 (137-145) mmol/L Potassium 2.8 L (3.5-5.1) mmol/L Chloride 107 (98-107) mmol/L Carbon Dioxide 26 (22-30) mmol/L BUN 14 (9-20) mg/dL Creatinine 0.54 L (0.66-1.25) mg/dL Glucose 121 H (74-99) mg/dL Calcium 8.3 L (8.4-10.2) mg/dL Adrenal panel 05/23/23 Range/Units 23:12 Sodium 141 (137-145) mmol/L Potassium 2.8 L (3.5-5.1) mmol/L Chloride 107 (98-107) mmol/L Carbon Dioxide 26 (22-30) mmol/L BUN 14 (9-20) mg/dL Creatinine 0.54 L (0.66-1.25) mg/dL Glucose 121 H (74-99) mg/dL Calcium 8.3 L (8.4-10.2) mg/dL Total Bilirubin 1.3 (0.2-1.3) mg/dL AST 28 (17-59) U/L ALT 13 (4-49) U/L Alkaline Phosphatase 76 (38-126) U/L Total Protein 6.9 (6.3-8.2) g/dL Albumin 3.5 (3.5-5.0) g/dL
[2023-05-24] MEDS: METOCLOPRAMIDE 5 MG/ML 2 ML VIAL IVP SCH ×2 (15:23→18:02)
--- NOTE | 2023-05-24 15:40 | XR ---
EXAMINATION TYPE: XR abdomen 2V DATE OF EXAM: 05/24/2023 3:18 PM INDICATION: Patient age:Male; 83 years old; Reason for study: ileus; PHH. COMPARISON: 05/23/2023. TECHNIQUE: Two views of the abdomen were obtained. FINDINGS/IMPRESSION: Gaseous dilation of multiple loops of bowel throughout the abdomen. Findings are not significantly ch anged from CT given differences in technique. Continued attention on follow-up imaging.
--- NOTE | 2023-05-24 17:02 | P.HPIM ---
History of Present Illness H&P Date: 05/24/23 Chief Complaint: Fever This is a 83-year-old patient, resident of [facility]. Follows with Dr. Badillo. Per the EMS report: Patient developed a fever to 102.8. Became hypotensive. Was started on IV fluids before EMS arrived. Because of dementia patient can o nly answer some simple questions. Did complain of some mild lower abdominal and lower back pain. Humphreys catheter present. Patient has decreased appetite. Some distention of the abdomen. Does not really ambulate. Pending much is bedbound. Review of systems: GEN.: Febrile, decreased appetite EYES: None HEENT: None NECK: None RESPIRATORY: None CARDIOVASCULAR: None GASTROINTESTINAL: None GENITOURINARY: Humphreys catheter] MUSCULOSKELETAL: None LYMPHATICS: None HEMATOLOGICAL: None PSYCHIATRY: Forgetful NEUROLOGICAL: None Past medical history to include: TIA/stroke, dementia, history of severe alcohol abuse and smoker. History of large pulmonary embolism withEKOS in 2014. Social history: Currently at [facility]. History of alcohol abuse and smoker. Physical examination: VITAL SIGNS: 98.1, 68, 16, 88/53, 98% room air GENERAL: BMI 24.4, reclining in bed awake tired. EYES: Pupils equal. Conjunctiva normal. HEENT: External appearance of nose and ears normal, oral cavity grossly normal. NECK: JVD not raised; masses not palpable. HEART: First and second heart sounds are normal; no edema. LUNGS: Respiratory rate normal; trees breath sounds. ABDOMEN: Soft, some distention,, liver spleen not palpable, no masses palpable. Humphreys catheter PSYCH: [Patient is able to answer simple questions.. MUSCULOSKELETAL:No Clubbing/cyanosis;muscles-grossly intact NEUROLOGICAL: Cranial nerves grossly intact; no facial asymmetry, power and sensation grossly intact. Able to move all 4 limbs. LYMPHATICS: No lymph nodes palpable in the axilla and neck INVESTIGATIONS, reviewed in the clinical context: White count 13.6 hemoglobin 11.5 platelets 155 sodium 141 potassium 2.8 BUN 14 creatinine 0.5 for Troponin I less than 0.012 line UA positive for blood, leukoesterase, WBC, Influenza type A, B, RSV, COVID-19: Not detected EKG tracing personally reviewed by me-normal sinus rhythm. Nonspecific T-wave changes. Chest x-ray film personally reviewed by me-possible infiltrate. Dilated loops of bowel. CT abdomen pelvis: Gases distention of the colon. Assessment and plan: -Pneumonia, suspected gram-negative organism. Infiltrates on the check stat x- ray. Causing sepsis IV ceftriaxone. Fluids -Sepsis secondary to pneumonia IV ceftriaxone. IV fluids -Severe cognitive impairment, from dementia secondary to probably alcoholism -Significant colonic distention. Keep patient nothing by mouth. Except medications. -Depression Lexapro -Vitamin B-12 deficiency B12 supplement -GERD Prilosec -This point unclear why patient is on eliquis. We will look into the same. Medications only. Nothing by mouth. IV fluids. IV ceftriaxone. Past Medical History Past Medical History: CVA/TIA, Dementia Additional Past Medical History / Comment(s): same day smoker. EtOH abuse (sober since 2019) History of Any Multi-Drug Resistant Organisms: None Reported Past Surgical History: Tonsillectomy Additional Past Surgical History / Comment(s): Vasectomy, bilateral inguinal hernia repair Past Anesthesia/Blood Transfusion Reactions: No Reported Reaction Past Psychological History: No Psychological Hx Reported Smoking Status: Current every day smoker Past Alcohol Use History: None Reported Past Drug Use History: None Reported - Past Family History Father Family Medical History: CVA/TIA Mother Family Medical History: Dementia Additional Family Medical History / Comment(s): hypokalemia, falls, PTSD, urogenital implants, late onset Alzheimers Medications and Allergies Home Medications Medication Instructions Recorded Confirmed Type Acetaminophen Tab [Tylenol] 650 mg PO Q6HR PRN tab 03/16/22 05/24/23 Rx Apixaban [Eliquis] 5 mg PO BID tab 03/16/22 05/24/23 Rx Melatonin 3 mg PO HS tablet 03/16/22 05/24/23 Rx Thiamine [Vitamin B-1] 100 mg PO BID-W/MEALS tab 03/16/22 05/24/23 Rx Cyanocobalamin (Vitamin B-12) 1,000 mcg PO DAILY 08/11/22 05/24/23 History [Vitamin B-12] Multivitamins, Thera [Multivitamin 1 tab PO DAILY 08/11/22 05/24/23 History (formulary)] Omeprazole Magnesium [PriLOSEC] 20 mg PO HS 08/11/22 05/24/23 History Escitalopram [Lexapro] 10 mg PO DAILY 05/24/23 05/24/23 History Healthshake 1 dose PO TID-W/MEALS 05/24/23 05/24/23 History Lactulose [Cephulac] 30 gm PO BID 05/24/23 05/24/23 History Potassium Chloride [Klor-Con 10 ER] 10 meq PO DAILY@1400 05/24/23 05/24/23 History Allergies Allergy/AdvReac Type Severity Reaction Status Date / Time No Known Allergies Allergy Verified 05/24/23 07:23 Physical Exam Vitals: Vital Signs Temp Pulse Pulse Resp BP BP Pulse Ox 05/24/23 09:00 79 18 121/73 98 05/24/23 07:00 98.1 F 68 16 88/53 98 05/24/23 02:19 77 20 102/62 96 05/24/23 01:00 80 15 112/62 96 05/23/23 22:49 97.3 F L 90 18 112/85 96 Intake and Output 05/23/23 05/24/23 05/24/23 22:59 06:59 14:59 Other: # Voids 0 Weight 83.915 kg 83.915 kg Results CBC & Chem 7: 05/23/23 23:12 05/23/23 23:12 Labs: Abnormal Lab Results - Last 24 Hours (Table) 05/23/23 05/23/23 05/23/23 Range/Units 23:12 23:12 23:12 WBC 13.6 H (3.8-10.6) k/uL RBC 3.87 L (4.30-5.90) m/uL Hgb 11.5 L (13.0-17.5) gm/dL Hct 35.0 L (39.0-53.0) % Neutrophils # 11.8 H (1.3-7.7) k/uL Lymphocytes # 0.6 L (1.0-4.8) k/uL Potassium 2.8 L (3.5-5.1) mmol/L Creatinine 0.54 L (0.66-1.25) mg/dL Glucose 121 H (74-99) mg/dL Calcium 8.3 L (8.4-10.2) mg/dL Lipase 15 L (23-300) U/L Urine Protein 2+ H (Negative) Urine Ketones Trace H (Negative) Urine Blood Large H (Negative) Ur Leukocyte Esterase Large H (Negative) Urine RBC 129 H (0-5) /hpf Urine WBC >182 H (0-5) /hpf Ur Squamous Epith Cells 6 H (0-4) /hpf Calcium Oxalate Crystal Occasional H (None) /hpf Amorphous Sediment Moderate H (None) /hpf Urine Bacteria Many H (None) /hpf Hyaline Casts 22 H (0-2) /lpf Urine Mucus Many H (None) /hpf Thrombosis Risk Factor Assmnt - Choose All That Apply Any of the Below Risk Factors Present?: No Other Risk Factors: Yes Each Risk Factor Represents 3 Points: Age 75 years or older Thrombosis Risk Factor Assessment Total Risk Factor Score: 3 Thrombosis Risk Factor Assessment Level: Moderate Risk
[2023-05-24 17:17] LABS: African American GFR (CKD) >90 (>60 ml/min/1.73 sqM); Anion Gap 7 mmol/L; Blood Urea Nitrogen 13 mg/dL (9-20); Calcium 8.6 mg/dL (8.4-10.2); Carbon Dioxide 22 mmol/L (22-30); Chloride 112 mmol/L (98-107); Glucose 100 mg/dL (74-99); Non-African American GFR(CKD) >90 (>60 ml/min/1.73 sqM); Sodium 141 mmol/L (137-145)
[2023-05-24] MEDS: PANTOPRAZOLE 40 MG TABLET PO SCH (21:57)
[2023-05-24] MEDS: MELATONIN 3 MG TABLET PO SCH (21:57)
[2023-05-25] MEDS: METOCLOPRAMIDE 5 MG/ML 2 ML VIAL IVP SCH ×4 (00:49→18:07)
[2023-05-25] MEDS: LACTATED RINGERS 1,000 ML IV SCH ×3 (00:49→18:53)
[2023-05-25] MEDS: THIAMINE 100 MG TAB PO SCH ×2 (06:44→18:07)
[2023-05-25] MEDS: LACTULOSE 20 GM/30 ML CUP PO SCH ×2 (09:22→21:33)
[2023-05-25] MEDS: APIXABAN 5 MG TAB PO SCH ×2 (09:27→21:33)
[2023-05-25] MEDS: MULTIVITAMINS, THERA 1 EACH TAB PO SCH (09:27)
[2023-05-25] MEDS: CYANOCOBALAMIN 500 MCG TAB PO SCH (09:27)
[2023-05-25 11:11] LABS: Basophils # (A) 0.02 X 10*3/uL (0.00-0.10); Basophils % (A) 0.3 %; Eosinophils # (A) 0.01 X 10*3/uL (0.04-0.35); Eosinophils % (A) 0.1 %; HCT 29.8 % (39.6-50.0); HGB 9.4 d/dL (12.0-15.0); Lymphocytes # (A) 0.91 X 10*3/uL (0.90-5.00); Lymphocytes % (A) 12.7 %; MCHC 31.5 d/dL (32.0-37.0); Mean Platelet Volume 12.6 FL (9.5-12.2); Monocytes # (A) 1.04 X 10*3/uL (0.20-1.00); Monocytes % (A) 14.6 %; NRBC Per 100 WBC 0 X 10*3/uL (0.00-0.01); Neutrophils # (A) 5.14 X 10*3/uL (1.80-7.70); Platelet Count 116 X 10*3/uL (140-440); RBC 3.24 X 10*6/uL (4.40-5.60); RDW 15.5 % (11.5-14.5); WBC 7.14 X 10*3/uL (4.50-10.00)
--- NOTE | 2023-05-25 11:20 | P.PN ---
Subjective Progress Note Date: 05/25/23 History of present illness: This is an 83-year-old male with past medical history of dementia, pulmonary e mboli on eliquis status post EKOS procedure, chronic Humphreys catheter, history of alcohol abuse. Patient is a poor historian and unable to give any history. Patient presented to the emergency center due concern for a urinary tract infection. We have been asked to evaluate the patient for chest pain. Patient's nurse states that he developed an episode of shaking and was complaining of chest pain and stated that he was going to . At this time, patient denies having any chest pain at all. No shortness of breath. EKG sinus rhythm Chest x-ray: Interstitial and airspace opacities in the lungs. Edema or infection could cause this appearance. Gaseous distention of the colon. CAT scan of the abdomen and pelvis revealed gaseous distention of colon. No transition points. Shannan's in appearance. Trace pleural effusions. Mucosal thickening in the bladder. Few calcifications within the bladder. WBC 13.6, hemoglobin 11.5, platelet count 155. Sodium 141, potassium 2.8, chloride 107, CO2 26, BUN 14 creatinine 0.54. Magnesium 2.0. Troponin negative 1. Lipase 15. Liver function tests normal. Urinalysis positive for infection. Influenza A, influenza B, RSV, Covid 1930. Home cardiac medications: Eliquis 5 mg twice daily. Echocardiogram 02/2022 revealed EF 55-60% with borderline concentric left ventricular hypertrophy, mild aortic regurgitation, mild mitral regurgitation, moderate tricuspid regurgitation, severe pulmonary hypertension, RVSP 59.6. 05/25 Patient is seen today in follow-up. He is more awake and alert today. No shaking episodes according to his nurse. He denies having any chest pain. However patient has been febrile during the night of 102.3. Blood pressure is now 106/93, heart rate 67, pulse ox 93% on room air. Repeat blood work reveals WBC 7.1, hemoglobin 9.4, platelet count 116. Troponins have been negative 3 draws. Echocardiogram is pending. Physical examination: Gen: This is an 83-year-old male. Resting in bed and appears to be comfortable VS: reviewed HEENT: Head is atraumatic, normocephalic. Pupils equal, round. Sclerae is anicteric. NECK: Supple. No JVD. LUNGS: Clear to auscultation. No wheezes or rhonchi. No intercostal retractions. HEART: Regular rate and rhythm. No murmur. ABDOMEN: Soft EXTREMITIES: No pedal edema. No calf tenderness. NEUROLOGICAL: Patient is awake, alert. Assessment: Chest pain, atypical Acute urinary tract infection Dementia History of pulmonary emboli Plan: Continue patient on eliquis Obtain 2-D echocardiogram and Doppler study to assess cardiac structure and function Further recommendations to follow based upon clinical course Nurse practitioner note has been reviewed, I agree with documented findings and plan of care. Patient was seen and examined. Objective - Vital Signs Vital signs: Vital Signs Temp 97.9 F 05/25/23 07:58 Pulse 67 05/25/23 07:58 Resp 20 05/25/23 07:58 BP 106/93 05/25/23 07:58 Pulse Ox 93 L 05/25/23 07:58 FiO2 Intake & Output 05/24/23 05/25/23 05/25/23 18:59 06:59 18:59 Output Total 450 350 Balance -450 -350 Weight 83.915 kg Output: Urine 450 350 Other: Voiding Method Indwelling Catheter Indwelling Catheter # Bowel Movements 2 - Labs CBC & Chem 7: 05/25/23 06:37 05/24/23 14:41 Labs: Abnormal Lab Results - Last 24 Hours (Table) 05/24/23 Range/Units 14:41 Potassium 3.0 L (3.5-5.1) mmol/L Chloride 112 H (98-107) mmol/L Creatinine 0.59 L (0.66-1.25) mg/dL Glucose 100 H (74-99) mg/dL Microbiology - Last 24 Hours (Table) 05/23/23 23:12 Blood Culture - Preliminary Blood 05/23/23 23:12 Blood Culture - Preliminary Blood
[2023-05-25 11:22] LABS: BUN/Creat Ratio 17.33 Ratio (12.00-20.00); Blood Urea Nitrogen 10.4 mg/dL (9.0-27.0); Calcium 8.4 mg/dL (8.7-10.3); Carbon Dioxide 23.6 mmol/L (21.6-31.8); Chloride 111 mmol/L (96-109); Glucose 96 mg/dL (70-110); Potassium 3.3 mmol/L (3.5-5.5); Sodium 143 mmol/L (135-145)
[2023-05-25] MEDS ORDERED: POTASSIUM CHLORIDE ER 20 MEQ TAB.ER PO STA (11:59)
--- NOTE | 2023-05-25 12:39 | P.PN ---
Subjective Progress Note Date: 05/25/23 CHIEF COMPLAINT: [place] syndrome HISTORY OF PRESENT ILLNESS: Patient sitting up in bed comfortably. He denies any abdominal pain. He is tolerating clear liquid diet. He did have 2 bowel movements yesterday. Denies any nausea or vomiting. Patient did have a temp of 102.3 at 1 AM. WBC is 7. 14HP9.4 platelets 116 symptoms 143 potassium 3.3 creatinine 0.6 patient seen by cardiology for chest pain abdominal x-ray from yesterday gaseous dilation of multiple loops of bowel throughout the abdomen. Findings are not significant change from CT given differences in technique. PHYSICAL EXAM: VITAL SIGNS: Reviewed. GENERAL: Well-developed in no acute distress. HEENT: No sclera icterus. Extraocular movements grossly intact. Moist buccal mucosa. Head is atraumatic, normocephalic. ABDOMEN: Softer today. Mildly distended. Nontender NEUROLOGIC: Awake and alert ASSESSMENT: 1. 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 Hypokalemia 3. Chest pain evaluated by cardiology 4. Possible UTI 5. History of PE on Eliquis PLAN: -Continue Reglan -Continue current liquid diet -Continue to replace potassium -Continue supportive care Physician Official Greeter note has been reviewed by physician. Signing provider agrees with the documented findings, assessment, and plan of care. Objective - Vital Signs Vital signs: Vital Signs Temp 97.9 F 05/25/23 07:58 Pulse 67 05/25/23 07:58 Resp 20 05/25/23 07:58 BP 106/93 05/25/23 07:58 Pulse Ox 93 L 05/25/23 07:58 FiO2 Intake & Output 05/24/23 05/25/23 05/25/23 18:59 06:59 18:59 Output Total 450 350 Balance -450 -350 Weight 83.915 kg Output: Urine 450 350 Other: Voiding Method Indwelling Catheter Indwelling Catheter Indwelling Catheter # Bowel Movements 2 - Labs CBC & Chem 7: 05/25/23 06:37 05/25/23 06:37 Labs: Abnormal Lab Results - Last 24 Hours (Table) 05/24/23 05/25/23 05/25/23 Range/Units 14:41 06:37 06:37 RBC 3.24 L (4.40-5.60) X 10*6/uL Hgb 9.4 L (12.0-15.0) d/dL Hct 29.8 L (39.6-50.0) % MCHC 31.5 L (32.0-37.0) d/dL RDW 15.5 H (11.5-14.5) % Plt Count 116 L (140-440) X 10*3/uL MPV 12.6 H (9.5-12.2) FL Monocytes # 1.04 H (0.20-1.00) X 10*3/uL Eosinophils # 0.01 L (0.04-0.35) X 10*3/uL Potassium 3.0 L 3.3 L (3.5-5.1) mmol/L Chloride 112 H 111 H (98-107) mmol/L Creatinine 0.59 L (0.66-1.25) mg/dL Glucose 100 H (74-99) mg/dL Calcium 8.4 L (8.7-10.3) mg/dL Microbiology - Last 24 Hours (Table) 05/23/23 23:12 Blood Culture - Preliminary Blood 05/23/23 23:12 Blood Culture - Preliminary Blood
--- NOTE | 2023-05-25 20:28 | P.PN ---
Progress Note - Text Progress Note Date: 05/25/23 Chief Complaint: Fever This is a 83-year-old patient, resident of [facility]. Follows with Dr. Badillo. Per the EMS report: Patient developed a fever to 102.8. Became hypotensive. Was started on IV fluids before EMS arrived. Because of dementia patient can only answer some simple questions. Did complain of some mild lower abdominal and lower back pain. Humphreys catheter present. Patient has decreased appetite. Some distention of the abdomen. Does not really ambulate. Pending much is bedbound. Admitted with pneumonia, colonic distention. May 25: Abdomen still somewhat distended. No nausea vomiting. Nothing by mouth. IV ceftriaxone. IV fluids. Spiked a fever during the night Active Medications Acetaminophen (Acetaminophen Tab 325 Mg Tab) 650 mg PO Q6HR PRN PRN Reason: Mild Pain or Fever > 100.5 Apixaban (Apixaban 5 Mg Tab) 5 mg PO BID [facility]; Protocol Last Admin: 05/25/23 09:27 Dose: 5 mg Cyanocobalamin (Cyanocobalamin 500 Mcg Tab) 1,000 mcg PO DAILY [facility] Last Admin: 05/25/23 09:27 Dose: 1,000 mcg Ceftriaxone Sodium 1 gm/ (Sodium Chloride) 50 mls @ 100 mls/hr IVPB Q12HR [facility]; Protocol Last Admin: 05/25/23 09:03 Dose: 100 mls/hr Lactated Ringer's (Lactated Ringers) 1,000 mls @ 100 mls/hr IV .Q10H [facility] Last Admin: 05/25/23 18:53 Dose: 100 mls/hr Ketorolac Tromethamine (Ketorolac 15 Mg/Ml 1 Ml Vial) 15 mg IVP Q6HR PRN PRN Reason: Moderate Pain (Scale 4 to 6) Stop: 05/27/23 01:37 Last Admin: 05/24/23 03:24 Dose: 15 mg Lactulose (Lactulose 20 Gm/30 Ml Cup) 30 gm PO BID [facility] Last Admin: 05/25/23 09:22 Dose: Not Given Melatonin (Melatonin 3 Mg Tablet) 3 mg PO HS [facility] Last Admin: 05/24/23 21:57 Dose: 3 mg Metoclopramide HCl (Metoclopramide 5 Mg/Ml 2 Ml Vial) 10 mg IVP Q6HR [facility] Last Admin: 05/25/23 18:07 Dose: 10 mg Multivitamins (Multivitamins, Thera 1 Each Tab) 1 each PO DAILY [facility] Last Admin: 05/25/23 09:27 Dose: 1 each Naloxone HCl (Naloxone 0.4 Mg/Ml 1 Ml Vial) 0.2 mg IV Q2M PRN PRN Reason: Opioid Reversal Ondansetron HCl (Ondansetron 4 Mg/2 Ml Vial) 4 mg IVP Q8HR PRN PRN Reason: Nausea And Vomiting Last Admin: 05/24/23 09:29 Dose: 4 mg Pantoprazole Sodium (Pantoprazole 40 Mg Tablet) 40 mg PO HS [facility] Last Admin: 05/24/23 21:57 Dose: 40 mg Thiamine HCl (Thiamine 100 Mg Tab) 100 mg PO BID-W/MEALS [facility] Last Admin: 05/25/23 18:07 Dose: 100 mg Past medical history to include: TIA/stroke, dementia, history of severe alcohol abuse and smoker. History of large pulmonary embolism withEKOS in 2014. Social history: Currently at [facility]. History of alcohol abuse and smoker. Physical examination: VITAL SIGNS: T-max 12.3, 96, 18, 105/61, 94% room air GENERAL: BMI 24.4, reclining in bed awake tired. EYES: Pupils equal. Conjunctiva normal. HEENT: External appearance of nose and ears normal, oral cavity grossly normal. NECK: JVD not raised; masses not palpable. HEART: First and second heart sounds are normal; no edema. LUNGS: Respiratory rate normal; trees breath sounds. ABDOMEN: Soft, some distention,, liver spleen not palpable, no masses palpable. Humphreys catheter PSYCH: [Patient is able to answer simple questions.. MUSCULOSKELETAL:No Clubbing/cyanosis;muscles-grossly intact NEUROLOGICAL: Cranial nerves grossly intact; no facial asymmetry, power and sensation grossly intact. Able to move all 4 limbs. LYMPHATICS: No lymph nodes palpable in the axilla and neck INVESTIGATIONS, reviewed in the clinical context: White count 13.6 hemoglobin 11.5 platelets 155 sodium 141 potassium 2.8 BUN 14 creatinine 0.5 for Troponin I less than 0.012 line UA positive for blood, leukoesterase, WBC, Influenza type A, B, RSV, COVID-19: Not detected EKG tracing personally reviewed by me-normal sinus rhythm. Nonspecific T-wave changes. Chest x-ray film personally reviewed by me-possible infiltrate. Dilated loops of bowel. CT abdomen pelvis: Gases distention of the colon. Assessment and plan: -Pneumonia, suspected gram-negative organism. Infiltrates on the check stat x- ray. Causing sepsis: Slow to respond IV ceftriaxone. Fluids -Sepsis secondary to pneumonia" respond IV ceftriaxone. IV fluids -Severe cognitive impairment, from dementia secondary to probably alcoholism -Significant colonic distention: Not improving. Keep patient nothing by mouth. Except medications. -Depression Lexapro -Vitamin B-12 deficiency B12 supplement -GERD Prilosec -Chronic pulmonary embolism Eliquis Continue nothing by mouth. IV ceftriaxone. Following the surgery.
[2023-05-25] MEDS: MELATONIN 3 MG TABLET PO SCH (21:33)
[2023-05-25] MEDS: PANTOPRAZOLE 40 MG TABLET PO SCH (21:33)
[2023-05-26] MEDS: METOCLOPRAMIDE 5 MG/ML 2 ML VIAL IVP SCH ×4 (04:01→17:34)
[2023-05-26 05:24] LABS: Basophils % (A) 0 %; Eosinophils # (A) 0.1 k/uL (0-0.7); Eosinophils % (A) 1 %; HCT 32.5 % (39.0-53.0); HGB 11.1 gm/dL (13.0-17.5); Lymphocytes # (A) 0.6 k/uL (1.0-4.8); Lymphocytes % (A) 17 %; MCH 30.6 pg (25.0-35.0); MCHC 34.2 g/dL (31.0-37.0); MCV 89.5 fL (80.0-100.0); Mean Platelet Volume 9.7; Monocytes # (A) 0.4 k/uL (0-1.0); Monocytes % (A) 11 %; Neutrophils # (A) 2.5 k/uL (1.3-7.7); Neutrophils % (A) 68 %; Platelet Count 110 k/uL (150-450); RBC 3.64 m/uL (4.30-5.90); RDW 14.7 % (11.5-15.5); WBC 3.7 k/uL (3.8-10.6)
[2023-05-26 05:29] LABS: African American GFR (CKD) >90 (>60 ml/min/1.73 sqM); Anion Gap 6 mmol/L; Blood Urea Nitrogen 6 mg/dL (9-20); Calcium 7.8 mg/dL (8.4-10.2); Carbon Dioxide 24 mmol/L (22-30); Chloride 107 mmol/L (98-107); Glucose 89 mg/dL (74-99); Non-African American GFR(CKD) >90 (>60 ml/min/1.73 sqM); Sodium 137 mmol/L (137-145)
[2023-05-26] MEDS: LACTATED RINGERS 1,000 ML IV SCH ×2 (06:28→20:27)
[2023-05-26] MEDS: THIAMINE 100 MG TAB PO SCH ×2 (06:30→17:34)
[2023-05-26 06:52] LABS: Potassium 2.5 mmol/L (3.5-5.1)
[2023-05-26] MEDS: CYANOCOBALAMIN 500 MCG TAB PO SCH (08:41)
[2023-05-26] MEDS: MULTIVITAMINS, THERA 1 EACH TAB PO SCH (08:41)
[2023-05-26] MEDS: APIXABAN 5 MG TAB PO SCH ×2 (08:41→20:22)
[2023-05-26] MEDS: LACTULOSE 20 GM/30 ML CUP PO SCH ×2 (09:15→20:26)
[2023-05-26] MEDS ORDERED: Potassium Replacement Protocol 1 EACH MISC MISCELLANE PRN (09:52)
[2023-05-26] MEDS: POTASSIUM CHLORIDE ER 20 MEQ TAB.ER PO SCH ×6 (10:23→20:22)
[2023-05-26] MEDS: POTASSIUM CHLORIDE 20 MEQ in WATER FOR INJECTION 1 100ML.BAG IVPB SCH ×2 (11:09→15:33)
--- NOTE | 2023-05-26 11:10 | CA ---
Transthoracic Echo Report Name: Ernesto La Age: 83 Gender: M : 1940 Exam Date: 05/26/2023 08:40 Exam Location: [facility] Ht (in): 73 Wt (lb): 185 Ordering Physician: Vangie Hernandez Attending/Referring Phys: [id number], David [employer] Die Repair Manager Arvin Cueto Procedure CPT: Indications: LVF Cardiac Hx: Technical Quality: Fair Contrast 1: Total Dose (mL): Contrast 2: Total Dose (mL): MEASUREMENTS (Male / Female) Normal Values 2D ECHO LV Diastolic Diameter PLAX 3.1 cm 4.2 - 5.9 / 3.9 - 5.3 cm LV Systolic Diameter PLAX 2.0 cm IVS Diastolic Thickness 1.0 cm 0.6 - 1.0 / 0.6 - 0.9 cm LVPW Diastolic Thickness 0.8 cm 0.6 - 1.0 / 0.6 - 0.9 cm LV Relative Wall Thickness 0.6 RV Internal Dim ED PLAX 2.7 cm LVOT Diameter 2.0 cm Aortic Root Diameter 3.3 cm LA Systolic Diameter LX 1.7 cm 3.0 - 4.0 / 2.7 - 3.8 cm LV Diastolic Volume MOD BP 47.8 cm??? 67 - 155 / 56 - 104 cm??? LV Systolic Volume MOD BP 18.4 cm??? 22 - 58 / 19 - 49 cm??? LV Ejection Fraction MOD BP 61.5 % >= 55 % LV Diastolic Volume MOD 4C 58.1 cm??? LV Systolic Volume MOD 4C 21.9 cm??? LV Ejection Fraction MOD 4C 62.3 % LV Diastolic Length 4C 7.1 cm LV Systolic Length 4C 6.2 cm LV Diastolic Volume MOD 2C 37.1 cm??? LV Systolic Volume MOD 2C 14.1 cm??? LV Ejection Fraction MOD 2C 62.0 % LV Diastolic Length 2C 6.7 cm LV Systolic Length 2C 5.6 cm LA Volume 34.5 cm??? 18 - 58 / 22 - 52 cm??? DOPPLER AV Peak Velocity 171.8 cm/s AV Peak Gradient 11.8 mmHg AI Peak Velocity 324.5 cm/s AI Peak Gradient 42.1 mmHg AI Pressure Half Time 510.8 ms LVOT Peak Velocity 116.3 cm/s LVOT Peak Gradient 5.4 mmHg AV Area Cont Eq pk 2.2 cm??? MV Peak Velocity 108.5 cm/s MV Peak Gradient 4.7 mmHg MV Mean Velocity 58.0 cm/s MV Mean Gradient 1.6 mmHg MV Velocity Time Integral 44.5 cm MR Peak Velocity 340.1 cm/s MR Peak Gradient 46.3 mmHg Mitral E Point Velocity 81.6 cm/s Mitral A Point Velocity 93.7 cm/s Mitral E to A Ratio 0.9 MV Deceleration Time 210.6 ms TR Peak Velocity 229.9 cm/s TR Peak Gradient 21.1 mmHg Right Ventricular Systolic Press 26.1 mmHg FINDINGS Left Ventricle Normal LV size and wall thickness. Left ventricular ejection fraction is estimated at 50-55 %. Right Ventricle Normal right ventricular size. RVSP= 26mmhg. Right Atrium Normal right atrial size. Left Atrium Normal left atrial size. Mitral Valve Structurally normal mitral valve. Mild to moderate AV calcification. Mild MR. Aortic Valve Aortic valve not well visualized. Mild AI. Tricuspid Valve Tricuspid valve not well visualized. Mild TR. Pulmonic Valve Pulmonic valve not well visualized. No pulmonic regurgitation. Pericardium Not well visualized. Aorta Normal size aortic root and proximal ascending aorta. CONCLUSIONS Normal LV function Mild mitral regurgitation Mild aortic regurgitation Previewed by: Obi Hutchison MD Dr. Suresh Tumma MD (Electronically Signed) Final Date: 26 May 2023 11:10
--- NOTE | 2023-05-26 11:30 | XR ---
EXAMINATION TYPE: XR abdomen 2V DATE OF EXAM: 05/26/2023 COMPARISON: 05/24/2023 HISTORY: Distention TECHNIQUE: Upright supine views of the abdomen were obtained FINDINGS: There is abundant colonic bowel gas present. Prominent air-filled loops of bowel are presen t. Some nondilated small bowel loops containing air within the left lower quadrant. No free air is id entified. No differential air-fluid levels are evident. Findings appear stable from the comparison st udy. Psoas margins are normal. Phleboliths within the pelvis. Organomegaly is not evident. Note is made of left seventh rib fracture IMPRESSION: 1. Prominent air-filled loops of colon with some nondilated small bowel loops with air in the left l ower quadrant. No obstruction evident. 2. Left seventh lateral rib fracture
--- NOTE | 2023-05-26 12:17 | P.PN ---
Subjective Progress Note Date: 05/26/23 History of present illness: This is an 83-year-old male with past medical history of dementia, pulmonary e mboli on eliquis status post EKOS procedure, chronic Humphreys catheter, history of alcohol abuse. Patient is a poor historian and unable to give any history. Patient presented to the emergency center due concern for a urinary tract infection. We have been asked to evaluate the patient for chest pain. Patient's nurse states that he developed an episode of shaking and was complaining of chest pain and stated that he was going to . At this time, patient denies having any chest pain at all. No shortness of breath. EKG sinus rhythm Chest x-ray: Interstitial and airspace opacities in the lungs. Edema or infection could cause this appearance. Gaseous distention of the colon. CAT scan of the abdomen and pelvis revealed gaseous distention of colon. No transition points. Shannan's in appearance. Trace pleural effusions. Mucosal thickening in the bladder. Few calcifications within the bladder. WBC 13.6, hemoglobin 11.5, platelet count 155. Sodium 141, potassium 2.8, chloride 107, CO2 26, BUN 14 creatinine 0.54. Magnesium 2.0. Troponin negative 1. Lipase 15. Liver function tests normal. Urinalysis positive for infection. Influenza A, influenza B, RSV, Covid 1930. Home cardiac medications: Eliquis 5 mg twice daily. Echocardiogram 02/2022 revealed EF 55-60% with borderline concentric left ventricular hypertrophy, mild aortic regurgitation, mild mitral regurgitation, moderate tricuspid regurgitation, severe pulmonary hypertension, RVSP 59.6. 05/25 Patient is seen today in follow-up. He is more awake and alert today. No shaking episodes according to his nurse. He denies having any chest pain. However patient has been febrile during the night of 102.3. Blood pressure is now 106/93, heart rate 67, pulse ox 93% on room air. Repeat blood work reveals WBC 7.1, hemoglobin 9.4, platelet count 116. Troponins have been negative 3 draws. Echocardiogram is pending. 05/26 Patient is seen today in follow-up. No new concerns. He continues on IV antibiotics for UTI. Echocardiogram reveals normal LV function, mild mitral regurgitation, mild aortic regurgitation. blood pressure 130/70, heart rate in the 60s and 70s. Pulse ox 96% on room air. repeat blood work reveals potassium 2.5 will be replaced. WBC 3.7, hemoglobin 11.1. BUN 6 and creatinine 0.4. Physical examination: Gen: This is an 83-year-old male. Resting in bed and appears to be comfortable VS: reviewed HEENT: Head is atraumatic, normocephalic. Pupils equal, round. Sclerae is anicteric. NECK: Supple. No JVD. LUNGS: Clear to auscultation. No wheezes or rhonchi. No intercostal retr actions. HEART: Regular rate and rhythm. No murmur. ABDOMEN: Soft EXTREMITIES: No pedal edema. No calf tenderness. NEUROLOGICAL: Patient is awake, alert. Assessment: Chest pain, atypical Acute urinary tract infection Dementia History of pulmonary emboli Plan: Continue patient on eliquis No further cardiac workup at this time Cardiology we will sign off and follow on an as-needed basis. Please reconsult for any new concerns. Nurse practitioner note has been reviewed, I agree with documented findings and plan of care. Patient was seen and examined. Objective - Vital Signs Vital signs: Vital Signs Temp 98.7 F 05/26/23 06:58 Pulse 69 05/26/23 06:58 Resp 19 05/26/23 06:58 BP 130/70 05/26/23 06:58 Pulse Ox 96 05/26/23 06:58 FiO2 Intake & Output 05/25/23 05/26/23 05/26/23 18:59 06:59 18:59 Output Total 350 300 Balance -350 -300 Weight 83.915 kg Output: Urine 350 300 Other: Voiding Method Indwelling Catheter # Bowel Movements 1 1 - Labs CBC & Chem 7: 05/26/23 04:43 05/26/23 04:43 Labs: Abnormal Lab Results - Last 24 Hours (Table) 05/25/23 05/25/23 05/26/23 Range/Units 06:37 06:37 04:43 WBC 3.7 L (3.8-10.6) k/uL RBC 3.24 L 3.64 L (4.40-5.60) X 10*6/uL Hgb 9.4 L 11.1 L (12.0-15.0) d/dL Hct 29.8 L 32.5 L (39.6-50.0) % MCHC 31.5 L (32.0-37.0) d/dL RDW 15.5 H (11.5-14.5) % Plt Count 116 L 110 L (140-440) X 10*3/uL MPV 12.6 H (9.5-12.2) FL Lymphocytes # 0.6 L (1.0-4.8) k/uL Monocytes # 1.04 H (0.20-1.00) X 10*3/uL Eosinophils # 0.01 L (0.04-0.35) X 10*3/uL Potassium 3.3 L (3.5-5.5) mmol/L Chloride 111 H (96-109) mmol/L BUN (9-20) mg/dL Creatinine (0.66-1.25) mg/dL Calcium 8.4 L (8.7-10.3) mg/dL 05/26/23 Range/Units 04:43 WBC (3.8-10.6) k/uL RBC (4.40-5.60) X 10*6/uL Hgb (12.0-15.0) d/dL Hct (39.6-50.0) % MCHC (32.0-37.0) d/dL RDW (11.5-14.5) % Plt Count (140-440) X 10*3/uL MPV (9.5-12.2) FL Lymphocytes # (1.0-4.8) k/uL Monocytes # (0.20-1.00) X 10*3/uL Eosinophils # (0.04-0.35) X 10*3/uL Potassium 2.5 L* (3.5-5.5) mmol/L Chloride (96-109) mmol/L BUN 6 L (9-20) mg/dL Creatinine 0.40 L (0.66-1.25) mg/dL Calcium 7.8 L (8.7-10.3) mg/dL Microbiology - Last 24 Hours (Table) 05/23/23 23:12 Blood Culture - Preliminary Blood 05/23/23 23:12 Blood Culture - Preliminary Blood 05/23/23 23:12 Urine Culture - Preliminary Urine,Voided Gram Neg Bacilli
--- NOTE | 2023-05-26 13:25 | P.PN ---
Subjective Progress Note Date: 05/26/23 CHIEF COMPLAINT: [place] syndrome HISTORY OF PRESENT ILLNESS: Patient lying in bed comfortably. Denies any abdominal pain. He is having bowel movements. Afebrile. WBC 3.7 Hgb 11.1 platelets 110 potassium 2.5 PHYSICAL EXAM: VITAL SIGNS: Reviewed. GENERAL: Well-developed in no acute distress. ABDOMEN: Soft mildly distended. Nontender NEUROLOGIC: Awake and alert ASSESSMENT: 1. Possible [place]'s syndrome with Gaseous distention of the colon noted on CT 2. Hypokalemia 3. Chest pain evaluated by cardiology 4. Possible UTI 5. History of PE on Eliquis PLAN: -Advance diet to full liquids -Continue to replace potassium -Continue Reglan -Continue lactulose -Continue supportive care Physician Multimedia Assistant note has been reviewed by physician. Signing provider agrees with the documented findings, assessment, and plan of care. Objective - Vital Signs Vital signs: Vital Signs Temp 98.7 F 05/26/23 06:58 Pulse 69 05/26/23 06:58 Resp 19 05/26/23 06:58 BP 130/70 05/26/23 06:58 Pulse Ox 96 05/26/23 06:58 FiO2 Intake & Output 05/25/23 05/26/23 05/26/23 18:59 06:59 18:59 Output Total 350 300 500 Balance -350 -300 -500 Weight 83.915 kg Output: Urine 350 300 500 Other: Voiding Method Indwelling Catheter Indwelling Catheter # Bowel Movements 1 1 1 - Labs CBC & Chem 7: 05/26/23 04:43 05/26/23 04:43 Labs: Abnormal Lab Results - Last 24 Hours (Table) 05/26/23 05/26/23 Range/Units 04:43 04:43 WBC 3.7 L (3.8-10.6) k/uL RBC 3.64 L (4.30-5.90) m/uL Hgb 11.1 L (13.0-17.5) gm/dL Hct 32.5 L (39.0-53.0) % Plt Count 110 L (150-450) k/uL Lymphocytes # 0.6 L (1.0-4.8) k/uL Potassium 2.5 L* (3.5-5.1) mmol/L BUN 6 L (9-20) mg/dL Creatinine 0.40 L (0.66-1.25) mg/dL Calcium 7.8 L (8.4-10.2) mg/dL Microbiology - Last 24 Hours (Table) 05/23/23 23:12 Urine Culture - Final Urine,Voided Escherichia coli 05/23/23 23:12 Blood Culture - Preliminary Blood 05/23/23 23:12 Blood Culture - Preliminary Blood
[2023-05-26] MEDS ORDERED: POTASSIUM CHLORIDE ER 20 MEQ TAB.ER PO STA (20:15)
--- NOTE | 2023-05-26 20:16 | P.PN ---
Progress Note - Text Progress Note Date: 05/26/23 Chief Complaint: Fever This is a 83-year-old patient, resident of [facility]. Follows with Dr. Badillo. Per the EMS report: Patient developed a fever to 102.8. Became hypotensive. Was started on IV fluids before EMS arrived. Because of dementia patient can only answer some simple questions. Did complain of some mild lower abdominal and lower back pain. Humphreys catheter present. Patient has decreased appetite. Some distention of the abdomen. Does not really ambulate. Pending much is bedbound. Admitted with pneumonia, colonic distention. May 25: Abdomen still somewhat distended. No nausea vomiting. Nothing by mouth. IV ceftriaxone. IV fluids. Spiked a fever during the night May 26: Patient had some liquid stools overnight. Abdomen slightly less distended. Clear liquids. IV ceftriaxone. No further fever. X-ray reviewed shows a fairly loops of colon. Active Medications Acetaminophen (Acetaminophen Tab 325 Mg Tab) 650 mg PO Q6HR PRN PRN Reason: Mild Pain or Fever > 100.5 Apixaban (Apixaban 5 Mg Tab) 5 mg PO BID [facility]; Protocol Last Admin: 05/26/23 08:41 Dose: 5 mg Cyanocobalamin (Cyanocobalamin 500 Mcg Tab) 1,000 mcg PO DAILY [facility] Last Admin: 05/26/23 08:41 Dose: 1,000 mcg Ceftriaxone Sodium 1 gm/ (Sodium Chloride) 50 mls @ 100 mls/hr IVPB Q12HR [facility]; Protocol Last Admin: 05/26/23 08:31 Dose: 100 mls/hr Lactated Ringer's (Lactated Ringers) 1,000 mls @ 100 mls/hr IV .Q10H [facility] Last Admin: 05/26/23 06:28 Dose: 100 mls/hr Ketorolac Tromethamine (Ketorolac 15 Mg/Ml 1 Ml Vial) 15 mg IVP Q6HR PRN PRN Reason: Moderate Pain (Scale 4 to 6) Stop: 05/27/23 01:37 Last Admin: 05/24/23 03:24 Dose: 15 mg Lactulose (Lactulose 20 Gm/30 Ml Cup) 30 gm PO BID [facility] Last Admin: 05/26/23 09:15 Dose: Not Given Melatonin (Melatonin 3 Mg Tablet) 3 mg PO HS [facility] Last Admin: 05/25/23 21:33 Dose: 3 mg Metoclopramide HCl (Metoclopramide 5 Mg/Ml 2 Ml Vial) 10 mg IVP Q6HR [facility] Last Admin: 05/26/23 17:34 Dose: 10 mg Miscellaneous Information (Potassium Replacement Protocol 1 Each Misc) 1 each MISCELLANE DAILY PRN; Protocol PRN Reason: Per Protocol Multivitamins (Multivitamins, Thera 1 Each Tab) 1 each PO DAILY [facility] Last Admin: 05/26/23 08:41 Dose: 1 each Naloxone HCl (Naloxone 0.4 Mg/Ml 1 Ml Vial) 0.2 mg IV Q2M PRN PRN Reason: Opioid Reversal Ondansetron HCl (Ondansetron 4 Mg/2 Ml Vial) 4 mg IVP Q8HR PRN PRN Reason: Nausea And Vomiting Last Admin: 05/24/23 09:29 Dose: 4 mg Pantoprazole Sodium (Pantoprazole 40 Mg Tablet) 40 mg PO HS [facility] Last Admin: 05/25/23 21:33 Dose: 40 mg Thiamine HCl (Thiamine 100 Mg Tab) 100 mg PO BID-W/MEALS [facility] Last Admin: 05/26/23 17:34 Dose: 100 mg Past medical history to include: TIA/stroke, dementia, history of severe alcohol abuse and smoker. History of large pulmonary embolism withEKOS in 2014. Social history: Currently at [facility]. History of alcohol abuse and smoker. Physical examination: VITAL SIGNS: 98.8, 64, 18, 133/72, 95% room air GENERAL: Laying in bed, tired EYES: Pupils equal. Conjunctiva normal. HEENT: External appearance of nose and ears normal, oral cavity grossly normal. NECK: JVD not raised; masses not palpable. HEART: First and second heart sounds are normal; no edema. LUNGS: Respiratory rate normal; trees breath sounds. ABDOMEN: Soft, some distention,, liver spleen not palpable, no masses palpable. Humphreys catheter . Hyperactive bowel sounds PSYCH: [Patient is able to answer simple questions.. MUSCULOSKELETAL:No Clubbing/cyanosis;muscles-grossly intact. OA INVESTIGATIONS, reviewed in the clinical context: May 26: White count 3.7 hemoglobin 11.1 platelets 110 potassium 2.5 BUN 6 creatinine 0.4 White count 13.6 hemoglobin 11.5 platelets 155 sodium 141 potassium 2.8 BUN 14 creatinine 0.5 for Troponin I less than 0.012 line UA positive for blood, leukoesterase, WBC, Influenza type A, B, RSV, COVID-19: Not detected EKG tracing personally reviewed by me-normal sinus rhythm. Nonspecific T-wave changes. Chest x-ray film personally reviewed by me-possible infiltrate. Dilated loops of bowel. CT abdomen pelvis: Gases distention of the colon. Assessment and plan: -Pneumonia, suspected gram-negative organism. Infiltrates on the check stat x- ray. Causing sepsis: Improving IV ceftriaxone. Fluids -Sepsis secondary to pneumonia" : Better IV ceftriaxone. IV fluids -Severe cognitive impairment, from dementia secondary to probably alcoholism -Significant colonic distention: No improvement Full liquids. Except medications. -Depression Lexapro -Vitamin B-12 deficiency B12 supplement -GERD Prilosec -Chronic pulmonary embolism Eliquis Diet advanced to full liquids with surgery. Patient had significant loose stool yesterday. Replace potassium.
[2023-05-26] MEDS: MELATONIN 3 MG TABLET PO SCH (20:22)
[2023-05-26] MEDS: PANTOPRAZOLE 40 MG TABLET PO SCH (20:22)
[2023-05-26 21:46] LABS: African American GFR (CKD) >90 (>60 ml/min/1.73 sqM); Anion Gap 6 mmol/L; Blood Urea Nitrogen 3 mg/dL (9-20); Calcium 8.2 mg/dL (8.4-10.2); Carbon Dioxide 26 mmol/L (22-30); Chloride 107 mmol/L (98-107); Glucose 88 mg/dL (74-99); Non-African American GFR(CKD) >90 (>60 ml/min/1.73 sqM); Potassium 2.9 mmol/L (3.5-5.1); Sodium 139 mmol/L (137-145)
[2023-05-27] MEDS: POTASSIUM CHLORIDE ER 20 MEQ TAB.ER PO SCH ×3 (00:11→02:24)
[2023-05-27] MEDS: METOCLOPRAMIDE 5 MG/ML 2 ML VIAL IVP SCH ×6 (00:12→23:58)
[2023-05-27 06:07] LABS: African American GFR (CKD) >90 (>60 ml/min/1.73 sqM); Anion Gap 5 mmol/L; Blood Urea Nitrogen <2 mg/dL (9-20); Calcium 8.2 mg/dL (8.4-10.2); Carbon Dioxide 22 mmol/L (22-30); Chloride 112 mmol/L (98-107); Glucose 83 mg/dL (74-99); Non-African American GFR(CKD) >90 (>60 ml/min/1.73 sqM); Potassium 4.4 mmol/L (3.5-5.1); Sodium 139 mmol/L (137-145)
[2023-05-27] MEDS: THIAMINE 100 MG TAB PO SCH ×2 (06:42→17:29)
[2023-05-27] MEDS: LACTULOSE 20 GM/30 ML CUP PO SCH ×2 (08:53→20:35)
[2023-05-27] MEDS: CYANOCOBALAMIN 500 MCG TAB PO SCH (09:06)
[2023-05-27] MEDS: APIXABAN 5 MG TAB PO SCH ×2 (09:06→20:20)
[2023-05-27] MEDS: MULTIVITAMINS, THERA 1 EACH TAB PO SCH (09:06)
[2023-05-27] MEDS: LACTATED RINGERS 1,000 ML IV SCH ×2 (11:39→17:28)
--- NOTE | 2023-05-27 16:50 | P.PN ---
Subjective Progress Note Date: 05/27/23 CHIEF COMPLAINT: Ileus with pseudo obstruction HISTORY OF PRESENT ILLNESS: The patient is a 83-year-old male with recent ileus and pseudo obstruction. He is having bowel movements and tolerating full liquid diet. He denies abdominal pain. REVIEW OF ORGAN SYSTEMS: CONSTITUTIONAL: No reports of fevers or chills. GI: Denies any blood in stools or constipation. PHYSICAL EXAM: VITAL SIGNS: Stable GENERAL: Well-developed pleasant and in no acute distress. HEENT: No scleral icterus. Extraocular movements grossly intact. Moist buccal mucosa. Poor dentition NECK: Supple without lymphadenopathy. CHEST: Unlabored respirations. Equal bilateral excursions. CARDIOVASCULAR: Regular rate and rhythm. Distal 2+ pulses. ABDOMEN: No peritonitis. Non-distended MUSCULOSKELETAL: No clubbing, cyanosis, or edema. LABS: Reviewed. Potassium up 2.8 to 4.4 ASSESSMENT: 1. Ileus PLAN: 1. Advance diet to chopped diet due to poor dentition Objective - Vital Signs Vital signs: Vital Signs Temp 98.7 F 05/27/23 13:08 Pulse 76 05/27/23 13:08 Resp 18 05/27/23 13:08 BP 123/80 05/27/23 13:08 Pulse Ox 100 05/27/23 13:08 FiO2 Intake & Output 05/26/23 05/27/23 05/27/23 18:59 06:59 18:59 Output Total 1700 1400 3401 Balance -1700 -1400 -3401 Weight 83.915 kg Output: Urine 1700 1400 3400 Stool 1 Other: Voiding Method Indwelling Catheter Indwelling Catheter Indwelling Catheter # Bowel Movements 1 1 - Labs CBC & Chem 7: 05/26/23 04:43 05/27/23 05:36 Labs: Abnormal Lab Results - Last 24 Hours (Table) 05/26/23 05/26/23 05/27/23 Range/Units 16:05 20:55 05:36 Potassium 3.0 L 2.9 L (3.5-5.1) mmol/L Chloride 112 H (98-107) mmol/L BUN 3 L <2 L (9-20) mg/dL Creatinine 0.39 L 0.35 L (0.66-1.25) mg/dL Calcium 8.2 L 8.2 L (8.4-10.2) mg/dL Microbiology - Last 24 Hours (Table) 05/23/23 23:12 Blood Culture - Preliminary Blood 05/23/23 23:12 Blood Culture - Preliminary Blood
[2023-05-27] MEDS: MELATONIN 3 MG TABLET PO SCH (20:19)
[2023-05-27] MEDS: PANTOPRAZOLE 40 MG TABLET PO SCH (20:19)
--- NOTE | 2023-05-27 20:39 | P.PN ---
Progress Note - Text Progress Note Date: 05/27/23 Chief Complaint: Fever This is a 83-year-old patient, resident of [facility]. Follows with Dr. Badillo. Per the EMS report: Patient developed a fever to 102.8. Became hypotensive. Was started on IV fluids before EMS arrived. Because of dementia patient can only answer some simple questions. Did complain of some mild lower abdominal and lower back pain. Humphreys catheter present. Patient has decreased appetite. Some distention of the abdomen. Does not really ambulate. Pending much is bedbound. Admitted with pneumonia, colonic distention. May 25: Abdomen still somewhat distended. No nausea vomiting. Nothing by mouth. IV ceftriaxone. IV fluids. Spiked a fever during the night May 26: Patient had some liquid stools overnight. Abdomen slightly less distended. Clear liquids. IV ceftriaxone. No further fever. X-ray reviewed shows a fairly loops of colon. May 27: Patient remains on full liquid diet. Has some stool yesterday and this morning. Less distended. No pain. She is pretty symptoms still stable. We'll change to oral Omnicef. Active Medications Acetaminophen (Acetaminophen Tab 325 Mg Tab) 650 mg PO Q6HR PRN PRN Reason: Mild Pain or Fever > 100.5 Apixaban (Apixaban 5 Mg Tab) 5 mg PO BID [facility]; Protocol Last Admin: 05/27/23 20:20 Dose: 5 mg Cyanocobalamin (Cyanocobalamin 500 Mcg Tab) 1,000 mcg PO DAILY [facility] Last Admin: 05/27/23 09:06 Dose: 1,000 mcg Ceftriaxone Sodium 1 gm/ (Sodium Chloride) 50 mls @ 100 mls/hr IVPB Q12HR [facility]; Protocol Last Admin: 05/27/23 20:20 Dose: 100 mls/hr Lactated Ringer's (Lactated Ringers) 1,000 mls @ 100 mls/hr IV .Q10H [facility] Last Admin: 05/27/23 17:28 Dose: 100 mls/hr Lactulose (Lactulose 20 Gm/30 Ml Cup) 30 gm PO BID [facility] Last Admin: 05/27/23 20:35 Dose: Not Given Melatonin (Melatonin 3 Mg Tablet) 3 mg PO HS [facility] Last Admin: 05/27/23 20:19 Dose: 3 mg Metoclopramide HCl (Metoclopramide 5 Mg/Ml 2 Ml Vial) 10 mg IVP Q6HR [facility] Last Admin: 05/27/23 17:29 Dose: 10 mg Miscellaneous Information (Potassium Replacement Protocol 1 Each Misc) 1 each MISCELLANE DAILY PRN; Protocol PRN Reason: Per Protocol Multivitamins (Multivitamins, Thera 1 Each Tab) 1 each PO DAILY [facility] Last Admin: 05/27/23 09:06 Dose: 1 each Naloxone HCl (Naloxone 0.4 Mg/Ml 1 Ml Vial) 0.2 mg IV Q2M PRN PRN Reason: Opioid Reversal Ondansetron HCl (Ondansetron 4 Mg/2 Ml Vial) 4 mg IVP Q8HR PRN PRN Reason: Nausea And Vomiting Last Admin: 05/24/23 09:29 Dose: 4 mg Pantoprazole Sodium (Pantoprazole 40 Mg Tablet) 40 mg PO HS [facility] Last Admin: 05/27/23 20:19 Dose: 40 mg Thiamine HCl (Thiamine 100 Mg Tab) 100 mg PO BID-W/MEALS [facility] Last Admin: 05/27/23 17:29 Dose: 100 mg Past medical history to include: TIA/stroke, dementia, history of severe alcohol abuse and smoker. History of large pulmonary embolism withEKOS in 2014. Social history: Currently at [facility]. History of alcohol abuse and smoker. Physical examination: VITAL SIGNS: 98.3, 73, 16, 1:30/64, 96% room air GENERAL: Laying in bed, appears better EYES: Pupils equal. Conjunctiva normal. HEENT: External appearance of nose and ears normal, oral cavity grossly normal. NECK: JVD not raised; masses not palpable. HEART: First and second heart sounds are normal; no edema. LUNGS: Respiratory rate normal; trees breath sounds. ABDOMEN: Soft, some distention,, liver spleen not palpable, no masses palpable. Humphreys catheter . Hyperactive bowel sounds PSYCH: Answering simple questions.. MUSCULOSKELETAL:No Clubbing/cyanosis;muscles-grossly intact. OA INVESTIGATIONS, reviewed in the clinical context: May 27: Potassium 4.4 May 26: White count 3.7 hemoglobin 11.1 platelets 110 potassium 2.5 BUN 6 creatinine 0.4 White count 13.6 hemoglobin 11.5 platelets 155 sodium 141 potassium 2.8 BUN 14 creatinine 0.5 for Troponin I less than 0.012 line UA positive for blood, leukoesterase, WBC, Influenza type A, B, RSV, COVID-19: Not detected EKG tracing personally reviewed by me-normal sinus rhythm. Nonspecific T-wave changes. Chest x-ray film personally reviewed by me-possible infiltrate. Dilated loops of bowel. CT abdomen pelvis: Gases distention of the colon. Assessment and plan: -Pneumonia, suspected gram-negative organism. Infiltrates on the check stat x- ray. Causing sepsis: Improving IV ceftriaxone. Fluids -Sepsis secondary to pneumonia" : Improved IV ceftriaxone. IV fluids -Severe cognitive impairment, from dementia secondary to probably alcoholism -Significant colonic distention: No improvement Full liquids. Except medications. -Depression Lexapro -Vitamin B-12 deficiency B12 supplement -GERD Prilosec -Chronic pulmonary embolism Eliquis Change antibiotic to by mouth Omnicef. Patient looking better. Repeat abdominal x-ray in the morning. Keep on full liquid diet.
[2023-05-27] MEDS: CEFDINIR 300 MG CAP PO SCH (21:54)
[2023-05-28] MEDS: METOCLOPRAMIDE 5 MG/ML 2 ML VIAL IVP SCH ×4 (06:07→23:56)
[2023-05-28] MEDS: THIAMINE 100 MG TAB PO SCH ×2 (06:50→17:11)
--- NOTE | 2023-05-28 08:13 | XR ---
Abdomen. HISTORY: Colonic distention COMPARISON: 05/26/2023. TECHNIQUE: Upright and supine view the abdomen was obtained FINDINGS: There is continued marked distention of small and large bowel with gas consistent with ileus. There i s no free air beneath the diaphragm. Note is again made of a minimally displaced fracture of one of the left lower ribs otherwise the osse ous structures are intact. IMPRESSION: No change in the diffuse bowel gas consistent with ileus.
[2023-05-28] MEDS: LACTATED RINGERS 1,000 ML IV SCH ×3 (09:22→17:14)
[2023-05-28] MEDS: CEFDINIR 300 MG CAP PO SCH ×2 (10:21→21:08)
[2023-05-28] MEDS: CYANOCOBALAMIN 500 MCG TAB PO SCH (10:21)
[2023-05-28] MEDS: MULTIVITAMINS, THERA 1 EACH TAB PO SCH (10:21)
[2023-05-28] MEDS: APIXABAN 5 MG TAB PO SCH ×2 (10:21→21:07)
[2023-05-28] MEDS: LACTULOSE 20 GM/30 ML CUP PO SCH ×2 (10:21→21:08)
--- NOTE | 2023-05-28 15:05 | P.PN ---
Subjective Progress Note Date: 05/28/23 CHIEF COMPLAINT: Ileus with pseudo obstruction HISTORY OF PRESENT ILLNESS: The patient is a 83-year-old male with recent ileus and pseudo obstruction. He is resting comfortably. No new complaints overnight. No reports of GI bleed. REVIEW OF ORGAN SYSTEMS: CONSTITUTIONAL: No reports of fevers or chills. GI: No blood in stools or constipation. PHYSICAL EXAM: VITAL SIGNS: Stable GENERAL: Well-developed pleasant and in no acute distress. HEENT: No scleral icterus. Extraocular movements grossly intact. Moist buccal mucosa. Poor dentition NECK: Supple without lymphadenopathy. CHEST: Unlabored respirations. Equal bilateral excursions. CARDIOVASCULAR: Regular rate and rhythm. Distal 2+ pulses. ABDOMEN: No peritonitis. Non-distended MUSCULOSKELETAL: No clubbing, cyanosis, or edema. LABS: Reviewed. ASSESSMENT: 1. Ileus PLAN: 1. Diet as tolerated Objective - Vital Signs Vital signs: Vital Signs Temp 96.7 F L 05/28/23 08:21 Pulse 72 05/28/23 08:21 Resp 18 05/28/23 08:21 BP 134/80 05/28/23 08:21 Pulse Ox 97 05/28/23 08:21 FiO2 Intake & Output 05/27/23 05/28/23 05/28/23 18:59 06:59 18:59 Intake Total 1000 Output Total 3401 1700 1300 Balance -2401 -1700 -1300 Intake: IV 1000 Lactated Ringers 1,000 ml 1000 @ 100 mls/hr IV .Q10H [facility] Rx#:[id number] Output: Urine 3400 1700 1300 Uretheral (Humphreys) 700 Stool 1 Other: Voiding Method Indwelling Catheter Indwelling Catheter Indwelling Catheter # Voids 1 # Bowel Movements 1 1 - Labs CBC & Chem 7: 05/26/23 04:43 05/27/23 05:36 Labs: Abnormal Lab Results - Last 24 Hours (Table) 05/28/23 Range/Units 04:25 Procalcitonin 0.17 H (0.02-0.09) ng/mL
--- NOTE | 2023-05-28 16:55 | P.PN ---
Progress Note - Text Progress Note Date: 05/28/23 Chief Complaint: Fever This is a 83-year-old patient, resident of [facility]. Follows with Dr. Badillo. Per the EMS report: Patient developed a fever to 102.8. Became hypotensive. Was started on IV fluids before EMS arrived. Because of dementia patient can only answer some simple questions. Did complain of some mild lower abdominal and lower back pain. Humphreys catheter present. Patient has decreased appetite. Some distention of the abdomen. Does not really ambulate. Pending much is bedbound. Admitted with pneumonia, colonic distention. May 25: Abdomen still somewhat distended. No nausea vomiting. Nothing by mouth. IV ceftriaxone. IV fluids. Spiked a fever during the night May 26: Patient had some liquid stools overnight. Abdomen slightly less distended. Clear liquids. IV ceftriaxone. No further fever. X-ray reviewed shows a fairly loops of colon. May 27: Patient remains on full liquid diet. Has some stool yesterday and this morning. Less distended. No pain. She is pretty symptoms still stable. We'll change to oral Omnicef. May 28: Patient had some stools last evening and also this morning. X-ray still showing some mild distention. Diet has been advanced per Dr. Salgado. Repeat x-ray in the morning. Active Medications Acetaminophen (Acetaminophen Tab 325 Mg Tab) 650 mg PO Q6HR PRN PRN Reason: Mild Pain or Fever > 100.5 Apixaban (Apixaban 5 Mg Tab) 5 mg PO BID [facility]; Protocol Last Admin: 05/27/23 20:20 Dose: 5 mg Cyanocobalamin (Cyanocobalamin 500 Mcg Tab) 1,000 mcg PO DAILY [facility] Last Admin: 05/27/23 09:06 Dose: 1,000 mcg Ceftriaxone Sodium 1 gm/ (Sodium Chloride) 50 mls @ 100 mls/hr IVPB Q12HR [facility]; Protocol Last Admin: 05/27/23 20:20 Dose: 100 mls/hr Lactated Ringer's (Lactated Ringers) 1,000 mls @ 100 mls/hr IV .Q10H [facility] Last Admin: 05/27/23 17:28 Dose: 100 mls/hr Lactulose (Lactulose 20 Gm/30 Ml Cup) 30 gm PO BID [facility] Last Admin: 05/27/23 20:35 Dose: Not Given Melatonin (Melatonin 3 Mg Tablet) 3 mg PO HS [facility] Last Admin: 05/27/23 20:19 Dose: 3 mg Metoclopramide HCl (Metoclopramide 5 Mg/Ml 2 Ml Vial) 10 mg IVP Q6HR [facility] Last Admin: 05/27/23 17:29 Dose: 10 mg Miscellaneous Information (Potassium Replacement Protocol 1 Each Misc) 1 each MISCELLANE DAILY PRN; Protocol PRN Reason: Per Protocol Multivitamins (Multivitamins, Thera 1 Each Tab) 1 each PO DAILY [facility] Last Admin: 05/27/23 09:06 Dose: 1 each Naloxone HCl (Naloxone 0.4 Mg/Ml 1 Ml Vial) 0.2 mg IV Q2M PRN PRN Reason: Opioid Reversal Ondansetron HCl (Ondansetron 4 Mg/2 Ml Vial) 4 mg IVP Q8HR PRN PRN Reason: Nausea And Vomiting Last Admin: 05/24/23 09:29 Dose: 4 mg Pantoprazole Sodium (Pantoprazole 40 Mg Tablet) 40 mg PO [facility] Last Admin: 05/27/23 20:19 Dose: 40 mg Thiamine HCl (Thiamine 100 Mg Tab) 100 mg PO BID-W/MEALS [facility] Last Admin: 05/27/23 17:29 Dose: 100 mg Past medical history to include: TIA/stroke, dementia, history of severe alcohol abuse and smoker. History of large pulmonary embolism withEKOS in 2014. Social history: Currently at [facility]. History of alcohol abuse and smoker. Physical examination: VITAL SIGNS: 98.3, 73, 16, 1:30/64, 96% room air GENERAL: Laying in bed, appears better EYES: Pupils equal. Conjunctiva normal. HEENT: External appearance of nose and ears normal, oral cavity grossly normal. NECK: JVD not raised; masses not palpable. HEART: First and second heart sounds are normal; no edema. LUNGS: Respiratory rate normal; trees breath sounds. ABDOMEN: Soft, some distention,, liver spleen not palpable, no masses palpable. Humphreys catheter . Hyperactive bowel sounds PSYCH: Answering simple questions.. MUSCULOSKELETAL:No Clubbing/cyanosis;muscles-grossly intact. OA INVESTIGATIONS, reviewed in the clinical context: May 27: Potassium 4.4 May 26: White count 3.7 hemoglobin 11.1 platelets 110 potassium 2.5 BUN 6 creatinine 0.4 White count 13.6 hemoglobin 11.5 platelets 155 sodium 141 potassium 2.8 BUN 14 creatinine 0.5 for Troponin I less than 0.012 line UA positive for blood, leukoesterase, WBC, Influenza type A, B, RSV, COVID-19: Not detected EKG tracing personally reviewed by me-normal sinus rhythm. Nonspecific T-wave changes. Chest x-ray film personally reviewed by me-possible infiltrate. Dilated loops of bowel. CT abdomen pelvis: Gases distention of the colon. Assessment and plan: -Pneumonia, suspected gram-negative organism. Infiltrates on the check stat x- ray. Causing sepsis: Improving IV ceftriaxone. Fluids -Sepsis secondary to pneumonia" : Improved IV ceftriaxone. IV fluids -Severe cognitive impairment, from dementia secondary to probably alcoholism -Significant colonic distention: No improvement Full liquids. Except medications. -Depression Lexapro -Vitamin B-12 deficiency B12 supplement -GERD Prilosec -Chronic pulmonary embolism Eliquis Change antibiotic to by mouth Omnicef. Patient looking better. Repeat abdominal x-ray in the morning. Keep on full liquid diet.
[2023-05-28] MEDS: ACETAMINOPHEN TAB 325 MG TAB PO PRN ×2 (17:14→17:18)
[2023-05-28] MEDS: MELATONIN 3 MG TABLET PO SCH (21:06)
[2023-05-28] MEDS: PANTOPRAZOLE 40 MG TABLET PO SCH (21:07)
[2023-05-29] MEDS: LACTATED RINGERS 1,000 ML IV SCH ×2 (05:20→17:37)
[2023-05-29] MEDS: METOCLOPRAMIDE 5 MG/ML 2 ML VIAL IVP SCH ×4 (05:20→23:55)
[2023-05-29] MEDS: THIAMINE 100 MG TAB PO SCH ×2 (06:39→17:32)
[2023-05-29 07:01] LABS: African American GFR (CKD) >90 (>60 ml/min/1.73 sqM); Anion Gap 5 mmol/L; Blood Urea Nitrogen <2 mg/dL (9-20); Calcium 8.1 mg/dL (8.4-10.2); Carbon Dioxide 32 mmol/L (22-30); Chloride 107 mmol/L (98-107); Glucose 84 mg/dL (74-99); Magnesium 1.7 mg/dL (1.6-2.3); Non-African American GFR(CKD) >90 (>60 ml/min/1.73 sqM); Sodium 144 mmol/L (137-145)
[2023-05-29] MEDS: LACTULOSE 20 GM/30 ML CUP PO SCH ×3 (08:25→21:24)
[2023-05-29] MEDS: POTASSIUM CHLORIDE ER 20 MEQ TAB.ER PO SCH ×5 (08:25→22:09)
[2023-05-29] MEDS: MULTIVITAMINS, THERA 1 EACH TAB PO SCH (08:25)
[2023-05-29] MEDS: APIXABAN 5 MG TAB PO SCH ×2 (08:25→21:03)
[2023-05-29] MEDS: CEFDINIR 300 MG CAP PO SCH ×2 (08:26→21:03)
[2023-05-29] MEDS: CYANOCOBALAMIN 500 MCG TAB PO SCH (08:26)
--- NOTE | 2023-05-29 09:33 | XR ---
EXAMINATION TYPE: XR abdomen 2V DATE OF EXAM: 05/29/2023 6:33 AM INDICATION: Patient age:Male; 83 years old; Reason for study: Follow-up: Bowel distention; COMPARISON: 05/28/2023 TECHNIQUE: Two views of the abdomen were obtained. FINDINGS: Persistent gaseous distention of bowel loops and stomach in the upper abdomen. There is tho ught to be a decrease in gaseous dilation compared to immediate prior on 05/28/2023. There is air with in the rectum. Multiple pelvic phleboliths are present. Degeneration changes of the hips and spine. N o acute fracture. IMPRESSION: Minimally improved gaseous dilation of bowel throughout the abdomen.
--- NOTE | 2023-05-29 10:39 | P.PN ---
Subjective Progress Note Date: 05/30/23 CHIEF COMPLAINT: Orgas syndrome HISTORY OF PRESENT ILLNESS: Patient lying in bed comfortably. Denies any abdominal pain. He is having bowel movements. Afebrile. WBC 144 potassium 3.0 cr 0.48 abdominal x-ray report states minimally improved gaseous dilation of bowel throughout the abdomen. PHYSICAL EXAM: VITAL SIGNS: Reviewed. GENERAL: Well-developed in no acute distress. ABDOMEN: Soft. mildly distended. Nontender NEUROLOGIC: Awake and alert ASSESSMENT: 1. 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 Hypokalemia PLAN: -Continue ground diet -Continue to replace potassium -Continue Reglan -Continue lactulose -Continue supportive care Physician Md Physician Dermatologist note has been reviewed by physician. Signing provider agrees with the documented findings, assessment, and plan of care. Objective - Vital Signs Vital signs: Vital Signs Temp 97.5 F L 05/29/23 07:39 Pulse 70 05/29/23 07:39 Resp 18 05/29/23 07:39 BP 136/78 05/29/23 07:39 Pulse Ox 95 05/29/23 07:39 FiO2 Intake & Output 05/28/23 05/29/23 05/29/23 18:59 06:59 18:59 Intake Total 900 900 Output Total 2000 1700 Balance -1100 -800 Intake: IV 900 Lactated Ringers 1,000 ml 900 @ 75 mls/hr IV .[id number] ANG Rx#:[id number] Intake, IV Titration 900 Amount Lactated Ringers 1,000 ml 900 @ 75 mls/hr IV .[id number] ANG Rx#:[id number] Output: Urine 1999 1700 Other: Voiding Method Indwelling Catheter Indwelling Catheter Indwelling Catheter # Bowel Movements 1 1 - Labs CBC & Chem 7: 05/26/23 04:43 05/29/23 05:30 Labs: Abnormal Lab Results - Last 24 Hours (Table) 05/29/23 Range/Units 05:30 Potassium 3.0 L (3.5-5.1) mmol/L Carbon Dioxide 32 H (22-30) mmol/L BUN <2 L (9-20) mg/dL Creatinine 0.48 L (0.66-1.25) mg/dL Calcium 8.1 L (8.4-10.2) mg/dL Microbiology - Last 24 Hours (Table) 05/23/23 23:12 Blood Culture - Final Blood 05/23/23 23:12 Blood Culture - Final Blood
[2023-05-29] MEDS: MELATONIN 3 MG TABLET PO SCH (21:03)
[2023-05-29] MEDS: PANTOPRAZOLE 40 MG TABLET PO SCH (21:03)
[2023-05-30] MEDS: LACTATED RINGERS 1,000 ML IV SCH (05:24)
[2023-05-30] MEDS: METOCLOPRAMIDE 5 MG/ML 2 ML VIAL IVP SCH ×3 (05:24→17:15)
[2023-05-30] MEDS: CYANOCOBALAMIN 500 MCG TAB PO SCH (07:13)
[2023-05-30] MEDS: LACTULOSE 20 GM/30 ML CUP PO SCH ×2 (07:13→20:50)
[2023-05-30] MEDS: CEFDINIR 300 MG CAP PO SCH ×2 (07:13→20:51)
[2023-05-30] MEDS: THIAMINE 100 MG TAB PO SCH ×2 (07:13→16:52)
[2023-05-30] MEDS: MULTIVITAMINS, THERA 1 EACH TAB PO SCH (07:14)
[2023-05-30] MEDS: APIXABAN 5 MG TAB PO SCH ×2 (07:14→20:51)
[2023-05-30 08:52] LABS: Basophils # (A) 0.03 X 10*3/uL (0.00-0.10); Basophils % (A) 0.4 %; Eosinophils # (A) 0.21 X 10*3/uL (0.04-0.35); Eosinophils % (A) 2.7 %; HCT 32.6 % (39.6-50.0); HGB 10.7 d/dL (12.0-15.0); Lymphocytes % (A) 11.6 %; MCH 28.8 pg (27.0-32.0); MCHC 32.8 d/dL (32.0-37.0); MCV 87.9 FL (80.0-97.0); Mean Platelet Volume 11.9 FL (9.5-12.2); Monocytes # (A) 0.68 X 10*3/uL (0.20-1.00); Monocytes % (A) 8.8 %; NRBC Per 100 WBC 0 X 10*3/uL (0.00-0.01); Neutrophils # (A) 5.88 X 10*3/uL (1.80-7.70); Platelet Count 241 X 10*3/uL (140-440); RBC 3.71 X 10*6/uL (4.40-5.60); RDW 15.3 % (11.5-14.5); WBC 7.74 X 10*3/uL (4.50-10.00)
[2023-05-30 09:36] LABS: BUN/Creat Ratio <8.75 Ratio (12.00-20.00); Blood Urea Nitrogen <3.5 mg/dL (9.0-27.0); Calcium 8.5 mg/dL (8.7-10.3); Carbon Dioxide 25.9 mmol/L (21.6-31.8); Chloride 106 mmol/L (96-109); Glucose 84 mg/dL (70-110); Potassium 3.6 mmol/L (3.5-5.5); Sodium 142 mmol/L (135-145)
[2023-05-30] MEDS ORDERED: POTASSIUM CHLORIDE ER 20 MEQ TAB.ER PO STA (11:12)
[2023-05-30] MEDS: PANTOPRAZOLE 40 MG TABLET PO SCH (20:51)
[2023-05-30] MEDS: MELATONIN 3 MG TABLET PO SCH (20:51)
[2023-05-31] MEDS: METOCLOPRAMIDE 5 MG/ML 2 ML VIAL IVP SCH ×4 (00:58→17:33)
--- NOTE | 2023-05-31 01:53 | P.PN ---
Subjective Progress Note Date: 05/29/23 This is a 83-year-old patient, resident of [facility]. Follows with Dr. Badillo. Per the EMS report: Patient developed a fever to 102.8. Became hypotensive. Was started on IV fluids before EMS arrived. Because of dementia patient can only answer some simple questions. Did complain of some mild lower abdominal and lower back pain. Humphreys catheter present. Patient has decreased appetite. Some distention of the abdomen. Does not really ambulate. Pending much is bedbound. Admitted with pneumonia, colonic distention. May 25: Abdomen still somewhat distended. No nausea vomiting. Nothing by mouth. IV ceftriaxone. IV fluids. Spiked a fever during the night May 26: Patient had some liquid stools overnight. Abdomen slightly less distended. Clear liquids. IV ceftriaxone. No further fever. X-ray reviewed shows a fairly loops of colon. May 27: Patient remains on full liquid diet. Has some stool yesterday and this morning. Less distended. No pain. She is pretty symptoms still stable. We'll change to oral Omnicef. May 28: Patient had some stools last evening and also this morning. X-ray still showing some mild distention. Diet has been advanced per Dr. Salgado. Repeat x-ray in the morning. 05/29/2023 Patient is currently lying in bed. Awake alert and oriented x2-3. Denies any complaints of abdominal pain. Patient did have a bowel movement today. No complaints of chest pain or shortness of breath. Abdominal x-ray this morning showed minimally improved gaseous dilatation of bowel throughout the abdomen. Patient is currently on dysphagia level 2 diet. General surgery is on board. No further recommendations at this time.. Active Medications Acetaminophen (Acetaminophen Tab 325 Mg Tab) 650 mg PO Q6HR PRN PRN Reason: Mild Pain or Fever > 100.5 Apixaban (Apixaban 5 Mg Tab) 5 mg PO BID ANG; Protocol Last Admin: 05/27/23 20:20 Dose: 5 mg Cyanocobalamin (Cyanocobalamin 500 Mcg Tab) 1,000 mcg PO DAILY ANG Last Admin: 05/27/23 09:06 Dose: 1,000 mcg Ceftriaxone Sodium 1 gm/ (Sodium Chloride) 50 mls @ 100 mls/hr IVPB Q12HR ANG; Protocol Last Admin: 05/27/23 20:20 Dose: 100 mls/hr Lactated Ringer's (Lactated Ringers) 1,000 mls @ 100 mls/hr IV .Q10H [facility] Last Admin: 05/27/23 17:28 Dose: 100 mls/hr Lactulose (Lactulose 20 Gm/30 Ml Cup) 30 gm PO BID [facility] Last Admin: 05/27/23 20:35 Dose: Not Given Melatonin (Melatonin 3 Mg Tablet) 3 mg PO [facility] Last Admin: 05/27/23 20:19 Dose: 3 mg Metoclopramide HCl (Metoclopramide 5 Mg/Ml 2 Ml Vial) 10 mg IVP Q6HR [facility] Last Admin: 05/27/23 17:29 Dose: 10 mg Miscellaneous Information (Potassium Replacement Protocol 1 Each Misc) 1 each MISCELLANE DAILY PRN; Protocol PRN Reason: Per Protocol Multivitamins (Multivitamins, Thera 1 Each Tab) 1 each PO DAILY [facility] Last Admin: 05/27/23 09:06 Dose: 1 each Naloxone HCl (Naloxone 0.4 Mg/Ml 1 Ml Vial) 0.2 mg IV Q2M PRN PRN Reason: Opioid Reversal Ondansetron HCl (Ondansetron 4 Mg/2 Ml Vial) 4 mg IVP Q8HR PRN PRN Reason: Nausea And Vomiting Last Admin: 05/24/23 09:29 Dose: 4 mg Pantoprazole Sodium (Pantoprazole 40 Mg Tablet) 40 mg PO [facility] Last Admin: 05/27/23 20:19 Dose: 40 mg Thiamine HCl (Thiamine 100 Mg Tab) 100 mg PO BID-W/MEALS [facility] Last Admin: 05/27/23 17:29 Dose: 100 mg Past medical history to include: TIA/stroke, dementia, history of severe alcohol abuse and smoker. History of large pulmonary embolism withEKOS in 2015. Social history: Currently at [facility]. History of alcohol abuse and smoker. Physical examination: GENERAL: Laying in bed, appears better EYES: Pupils equal. Conjunctiva normal. HEENT: External appearance of nose and ears normal, oral cavity grossly normal. NECK: JVD not raised; masses not palpable. HEART: First and second heart sounds are normal; no edema. LUNGS: Respiratory rate normal; trees breath sounds. ABDOMEN: Soft, some distention,, liver spleen not palpable, no masses palpable. Humphreys catheter . Hyperactive bowel sounds PSYCH: Answering simple questions.. MUSCULOSKELETAL:No Clubbing/cyanosis;muscles-grossly intact. OA INVESTIGATIONS, reviewed in the clinical context: May 27: Potassium 4.4 May 26: White count 3.7 hemoglobin 11.1 platelets 110 potassium 2.5 BUN 6 creatinine 0.4 White count 13.6 hemoglobin 11.5 platelets 155 sodium 141 potassium 2.8 BUN 14 creatinine 0.5 for Troponin I less than 0.012 line UA positive for blood, leukoesterase, WBC, Influenza type A, B, RSV, COVID-19: Not detected EKG tracing personally reviewed by me-normal sinus rhythm. Nonspecific T-wave changes. Chest x-ray film personally reviewed by me-possible infiltrate. Dilated loops of bowel. CT abdomen pelvis: Gases distention of the colon. Assessment and plan: -Pneumonia, suspected gram-negative organism. Infiltrates on the check stat x- ray. Causing sepsis: Improving IV ceftriaxone. was chnaged omnicef. Fluids -Sepsis secondary to pneumonia" : Improved IV ceftriaxone. IV fluids - E coli UTI. followup sensitivity report -Severe cognitive impairment, from dementia secondary to probably alcoholism -Significant colonic distention: improving. started on diet. -Depression Lexapro -Vitamin B-12 deficiency B12 supplement -GERD Prilosec -Chronic pulmonary embolism Eliquis Patient will be continued on dysphagia level diet. No further intervention as per general surgery recommendations. Replace electrolytes and follow-up repeat CBC and BMP tomorrow. Objective - Vital Signs Vital signs: Vital Signs Temp 97.4 F L 05/29/23 20:00 Pulse 70 05/29/23 20:00 Resp 17 05/29/23 20:00 BP 135/73 05/29/23 20:00 Pulse Ox 96 05/29/23 20:00 FiO2 Intake & Output 05/29/23 05/29/23 05/30/23 06:59 18:59 06:59 Intake Total 900 Output Total 1700 1175 Balance -800 -1175 Weight 83.915 kg Intake: Intake, IV Titration 900 Amount Lactated Ringers 1,000 ml 900 @ 75 mls/hr IV .[id number] ANG Rx#:[id number] Output: Urine 1700 1175 Other: Voiding Method Indwelling Catheter Indwelling Catheter Indwelling Catheter # Bowel Movements 1 1 - Labs CBC & Chem 7: 05/30/23 05:12 05/30/23 05:12 Labs: Abnormal Lab Results - Last 24 Hours (Table) 05/29/23 05/29/23 Range/Units 05:30 17:42 Potassium 3.0 L 3.3 L (3.5-5.1) mmol/L Carbon Dioxide 32 H (22-30) mmol/L BUN <2 L (9-20) mg/dL Creatinine 0.48 L (0.66-1.25) mg/dL Calcium 8.1 L (8.4-10.2) mg/dL Microbiology - Last 24 Hours (Table) 05/23/23 23:12 Blood Culture - Final Blood 05/23/23 23:12 Blood Culture - Final Blood
[2023-05-31] MEDS: AMPICILLIN-SULBACTAM 3 GM in SODIUM CHLORIDE 0.9% 100 ML IVPB SCH ×2 (03:59→12:38)
[2023-05-31] MEDS: LACTATED RINGERS 1,000 ML IV SCH ×2 (03:59→12:41)
[2023-05-31 05:38] LABS: African American GFR (CKD) >90 (>60 ml/min/1.73 sqM); Anion Gap 6 mmol/L; Blood Urea Nitrogen 2 mg/dL (9-20); Calcium 8.8 mg/dL (8.4-10.2); Carbon Dioxide 30 mmol/L (22-30); Chloride 102 mmol/L (98-107); Glucose 81 mg/dL (74-99); Non-African American GFR(CKD) >90 (>60 ml/min/1.73 sqM); Potassium 3.9 mmol/L (3.5-5.1); Sodium 138 mmol/L (137-145)
[2023-05-31] MEDS: THIAMINE 100 MG TAB PO SCH ×2 (07:40→17:33)
[2023-05-31] MEDS: APIXABAN 5 MG TAB PO SCH ×2 (07:40→22:29)
[2023-05-31] MEDS: MULTIVITAMINS, THERA 1 EACH TAB PO SCH (07:41)
[2023-05-31] MEDS: CYANOCOBALAMIN 500 MCG TAB PO SCH (07:41)
[2023-05-31 13:19] LABS: Appearance,Urine Clear (Clear); Bilirubin,Urine Negative (Negative); Blood,Urine Negative (Negative); Color,Urine Light Yellow; Glucose,Urine (UA) Negative (Negative); Ketones,Urine Negative (Negative); Leukocyte Esterase,Urine Moderate (Negative); Nitrite,Urine Negative (Negative); PH, Urine 7.5 (5.0-8.0); Protein,Urine Negative (Negative); RBC,Urine 1 /hpf (0-5); Specific Gravity,Urine 1.005 (1.001-1.035); Squamous Epithelial Cell,Urine 2 /hpf (0-4); Urobilinogen,Urine <2.0 mg/dL (<2.0); WBC,Urine 7 /hpf (0-5)
[2023-05-31] MEDS: ERTAPENEM 1 GM in SODIUM CHLORIDE 0.9% 50 ML IVPB SCH (13:57)
[2023-05-31] MEDS: LACTULOSE 20 GM/30 ML CUP PO SCH (22:28)
[2023-05-31] MEDS: MELATONIN 3 MG TABLET PO SCH (22:29)
[2023-05-31] MEDS: PANTOPRAZOLE 40 MG TABLET PO SCH (22:29)
--- NOTE | 2023-05-31 22:32 | P.CONS ---
History of Present Illness - Reason for Consult Consult date: 05/31/23 - History of Present Illness Patient is a 83-year-old male with a past medical history significant for dementia CVA TIA presenting to the hospital about a week ago for evaluation of fever patient is a resident [facility] (formerly [facility]) of 41-year-old apparently the patient have a temperature of 102.8 F the patient become hypotensive patient was given some fluid and was subsequently brought into the hospital patient on presentation to the hospital did have a temperature of 102.3 F patient fever has subsequently resolved patient was mildly hypoxic requiring supplemental oxygen however currently on room air patient did have a elevated white count 13.6 with a left shift kidney function was normal patient did have a positive UA with more than 182 WBC influenza RSV and COVID testing was negative patient did have a CT abdominal pelvis did not show any significant consolidation trace effusion gaseous distention of the colon no transition to a trace effusion mucosal thickening in the bladder chest x-ray interstitial and airspace opacities in the lungs patient has been treated with Rocephin patient urine cultures coming back positive with ESBL E. coli that has prompted this infectious disease consultation patient did have a Humphreys catheter however his elevated good historian tells me he became with a catheter over the place when he patient currently breathing comfortably room air no dyspnea or chest pain or shortness of breath or cough no abdominal pain and no diarrhea has been reported Past Medical History Past Medical History: CVA/TIA, Dementia Additional Past Medical History / Comment(s): same day smoker. EtOH abuse (sober since 2019) History of Any Multi-Drug Resistant Organisms: ESBL Year Discovered:: 05/23/23 ESBL MDRO Source:: Urine Past Surgical History: Tonsillectomy Additional Past Surgical History / Comment(s): Vasectomy, bilateral inguinal hernia repair Past Anesthesia/Blood Transfusion Reactions: No Reported Reaction Past Psychological History: No Psychological Hx Reported Smoking Status: Current every day smoker Past Alcohol Use History: None Reported Past Drug Use History: None Reported - Past Family History Father Family Medical History: CVA/TIA Mother Family Medical History: Dementia Additional Family Medical History / Comment(s): hypokalemia, falls, PTSD, urogenital implants, late onset Alzheimers Medications and Allergies Home Medications Medication Instructions Recorded Confirmed Type Acetaminophen Tab [Tylenol] 650 mg PO Q6HR PRN tab 03/16/22 05/24/23 Rx Apixaban [Eliquis] 5 mg PO BID tab 03/16/22 05/24/23 Rx Melatonin 3 mg PO HS tablet 03/16/22 05/24/23 Rx Thiamine [Vitamin B-1] 100 mg PO BID-W/MEALS tab 03/16/22 05/24/23 Rx Cyanocobalamin (Vitamin B-12) 1,000 mcg PO DAILY 08/11/22 05/24/23 History [Vitamin B-12] Multivitamins, Thera [Multivitamin 1 tab PO DAILY 08/11/22 05/24/23 History (formulary)] Omeprazole Magnesium [PriLOSEC] 20 mg PO HS 08/11/22 05/24/23 History Escitalopram [Lexapro] 10 mg PO DAILY 05/24/23 05/24/23 History Healthshake 1 dose PO TID-W/MEALS 05/24/23 05/24/23 History Lactulose [Cephulac] 30 gm PO BID 05/24/23 05/24/23 History Potassium Chloride [Klor-Con 10 ER] 10 meq PO DAILY@1400 05/24/23 05/24/23 History Allergies Allergy/AdvReac Type Severity Reaction Status Date / Time No Known Allergies Allergy Verified 05/24/23 07:23 Physical Exam Vitals: Vital Signs Temp Pulse Resp BP Pulse Ox 05/31/23 07:14 97.8 F 60 16 132/74 97 05/31/23 00:40 98.0 F 73 18 140/87 94 L 05/30/23 19:20 98.0 F 75 18 145/82 93 L 05/30/23 12:48 98.4 F 83 16 118/78 97 Intake and Output 05/30/23 05/31/23 05/31/23 22:59 06:59 14:59 Output Total 3000 Balance -3000 Output: Urine 3000 Other: Voiding Method Indwelling Catheter Indwelling Catheter # Voids 3 Weight 83.915 kg Results CBC & Chem 7: 05/30/23 05:12 05/31/23 04:42 Labs: Abnormal Lab Results - Last 24 Hours (Table) 05/31/23 Range/Units 04:42 BUN 2 L (9-20) mg/dL Creatinine 0.42 L (0.66-1.25) mg/dL Assessment and Plan Plan: 1patient with a positive urine culture with ESBL E. coli and this patient was in the hospital about a week ago with fever he did have a positive UA at that point and concern for possible UTI however the patient showed clinical imp rovement with targeted treatment for this ESBL E. coli with question of possible contamination versus true pathogen. 2we will repeat his UA 3-for now switch antibiotic therapy to Invanz 1 g daily while waiting for the repeat urine to be finalized We will follow on clinical condition and cultures to further adjust medication if needed Thank you for this consultation we will follow the patient along with you Dictation was produced using [employer] dictation software. please excuse any grammatical, word or spelling errors. Time with Patient: Greater than 30
[2023-06-01] MEDS: METOCLOPRAMIDE 5 MG/ML 2 ML VIAL IVP SCH ×3 (00:25→12:08)
[2023-06-01] MEDS: LACTATED RINGERS 1,000 ML IV SCH ×2 (00:28→14:42)
[2023-06-01 01:34] VITALS: RESP 18; TEMP 97.6
[2023-06-01] MEDS: CYANOCOBALAMIN 500 MCG TAB PO SCH (07:49)
[2023-06-01] MEDS: THIAMINE 100 MG TAB PO SCH ×2 (07:49→17:24)
[2023-06-01] MEDS: ERTAPENEM 1 GM in SODIUM CHLORIDE 0.9% 50 ML IVPB SCH (07:49)
[2023-06-01] MEDS: LACTULOSE 20 GM/30 ML CUP PO SCH (07:49)
[2023-06-01] MEDS: APIXABAN 5 MG TAB PO SCH (07:50)
[2023-06-01] MEDS: MULTIVITAMINS, THERA 1 EACH TAB PO SCH (07:50)
[2023-06-01 13:25] LABS: Basophils # (A) 0.05 X 10*3/uL (0.00-0.10); Basophils % (A) 0.9 %; Eosinophils # (A) 0.26 X 10*3/uL (0.04-0.35); Eosinophils % (A) 4.6 %; HCT 33.5 % (39.6-50.0); HGB 10.8 d/dL (12.0-15.0); Lymphocytes # (A) 1.19 X 10*3/uL (0.90-5.00); Lymphocytes % (A) 21.2 %; MCH 28.9 pg (27.0-32.0); MCHC 32.2 d/dL (32.0-37.0); MCV 89.6 FL (80.0-97.0); Mean Platelet Volume 11.7 FL (9.5-12.2); Monocytes # (A) 0.56 X 10*3/uL (0.20-1.00); NRBC Per 100 WBC 0 X 10*3/uL (0.00-0.01); Neutrophils % (A) 62.4 %; Platelet Count 303 X 10*3/uL (140-440); RBC 3.74 X 10*6/uL (4.40-5.60); RDW 15.7 % (11.5-14.5); WBC 5.61 X 10*3/uL (4.50-10.00)
[2023-06-01 13:42] LABS: BUN/Creat Ratio <7.00 Ratio (12.00-20.00); Blood Urea Nitrogen <3.5 mg/dL (9.0-27.0); Calcium 9.2 mg/dL (8.7-10.3); Carbon Dioxide 25.3 mmol/L (21.6-31.8); Chloride 102 mmol/L (96-109); Glucose 82 mg/dL (70-110); Potassium 3.7 mmol/L (3.5-5.5); Sodium 140 mmol/L (135-145)
[2023-06-01 14:56] VITALS: BP 120/73; PULSE 80
--- NOTE | 2023-06-01 15:14 | P.DS ---
Providers Date of admission: 05/24/23 01:33 Expected date of discharge: 06/01/23 Attending physician: Burt Quiroga Consults: 05/24/23 09:21 Consult Physician Routine Consulting Provider: Rogelio Lozoya Consult Reason/Comments: patient complaining of chest pain Do you want consulting provider notified?: Yes 05/31/23 01:51 Consult Physician Routine Consulting Provider: Juan Manuel Romero Consult Reason/Comments: ESBL UTI Do you want consulting provider notified?: Yes, Notify in am Primary care physician: Frankie Badillo [facility] Course: Final diagnosis -Pneumonia, suspected gram-negative organism. With sepsis, present on admission -Sepsis secondary to pneumonia Improved -Acute urinary tract infection with E coli ESBL. Has been treated adequately and will not require antibiotics on discharge -Severe cognitive impairment, from dementia secondary to probably alcoholism -Significant colonic distention: Improved -Depression -Vitamin B-12 deficiency -GERD -Chronic pulmonary embolism -Focal Discharge disposition Patient is being discharged in a stable condition with guarded prognosis to [facility]. Patient will follow-up with Dr. Badillo in the outpatient setting upon discharge. Total time taken is greater than 35 minutes. Hospital course This is a 83-year-old male who was recently admitted with fever and hypotensive with concerns of sepsis along with pneumonia and colonic distention. Patient was seen and evaluated by general surgery but no surgical intervention and conservative management maintained on lactulose along with continued bowel regimen. Patient also had ESBL in the urine and was seen and evaluated by infectious disease started on ertapenem and has received adequate antibiotic therapy will not requiring antibiotics on discharge. Patient continues with chronic indwelling Humphreys catheter will continue with catheter management as well as outpatient follow-up with primary care provider. Patient has been cleared by consulted for discharge. Please refer to other consultation notes for further HPI. Patient is having bowel movements and tolerating diet. Will continue current diet as mentioned below. Currently no reports of chest pain, shortness of breath, or palpitations. Patient is afebrile. No reports of nausea or vomiting and patient is tolerating diet. Patient will be going to [facility] today. Guarded prognosis. Physical exam: Gen: This is a 83-year-old male who is awake, alert and oriented 2, thin built, elderly appearing HEENT: Head is atraumatic, normocephalic. Pupils equal, round. Sclerae is anicteric. NECK: Supple. No JVD. No lymphadenopathy. No thyromegaly. LUNGS: Clear to auscultation. No wheezes or rhonchi. No intercostal retractions. HEART: Regular rate and rhythm. No murmur. ABDOMEN: Soft. Bowel sounds are present. No masses. No tenderness. EXTREMITIES: No pedal edema. No calf tenderness. NEUROLOGICAL: Patient is awake, alert and oriented x2. Cranial nerves 2 through 12 are grossly intact. Diffusely weak Please refer to medication reconciliation sheet for a list of medications. The impression and plan of care has been dictated by Shaunna Proctor, Nurse Practitioner as directed. Dr. Pastor MD I have performed a history and examination and MDM of this patient, discussed the same with the dictator, and agree with the dictator's assessment and plan as written ,documented as a scribe. Based on total visit time, I have performed more than 50% of the visit. Patient Condition at Discharge: Stable Plan - Discharge Summary Discharge Rx Participant: No New Discharge Prescriptions: New Metoclopramide [Reglan] 5 mg PO TID #3 tab Continue Apixaban [Eliquis] 5 mg PO BID tab Thiamine [Vitamin B-1] 100 mg PO BID-W/MEALS tab Lactulose [Cephulac] 30 gm PO BID Escitalopram [Lexapro] 10 mg PO DAILY Potassium Chloride [Klor-Con 10 ER] 10 meq PO DAILY@1400 Melatonin 3 mg PO HS tablet Acetaminophen Tab [Tylenol] 650 mg PO Q6HR PRN tab PRN Reason: Mild Pain Or Fever > 100.5 Omeprazole Magnesium [PriLOSEC] 20 mg PO HS Multivitamins, Thera [Multivitamin (formulary)] 1 tab PO DAILY Cyanocobalamin (Vitamin B-12) [Vitamin B-12] 1,000 mcg PO DAILY Healthshake 1 dose PO TID-W/MEALS Discharge Medication List Acetaminophen Tab [Tylenol] 650 mg PO Q6HR PRN tab 03/16/22 [Rx] Apixaban [Eliquis] 5 mg PO BID tab 03/16/22 [Rx] Melatonin 3 mg PO HS tablet 03/16/22 [Rx] Thiamine [Vitamin B-1] 100 mg PO BID-W/MEALS tab 03/16/22 [Rx] Cyanocobalamin (Vitamin B-12) [Vitamin B-12] 1,000 mcg PO DAILY 08/11/22 [History] Multivitamins, Thera [Multivitamin (formulary)] 1 tab PO DAILY 08/11/22 [History] Omeprazole Magnesium [PriLOSEC] 20 mg PO HS 08/11/22 [History] Escitalopram [Lexapro] 10 mg PO DAILY 05/24/23 [History] Healthshake 1 dose PO TID-W/MEALS 05/24/23 [History] Lactulose [Cephulac] 30 gm PO BID 05/24/23 [History] Potassium Chloride [Klor-Con 10 ER] 10 meq PO DAILY@1400 05/24/23 [History] Metoclopramide [Reglan] 5 mg PO TID #3 tab 06/01/23 [Rx] Follow up Appointment(s)/Referral(s): Frankie Badillo DO [Primary Care Provider] - 1-2 days Activity/Diet/Wound Care/Special Instructions: Patient is going to [facility] activity as tolerated Patient has received adequate antibiotic coverage and will not require antibiotics on discharge Continue regular diet with soft foods only and low-fat with no straws no carbonated beverage and lactose-free Continue with medications as prescribed Discharge Disposition: TRANSFER TO SNF/ECF
--- NOTE | 2023-06-02 02:41 | P.PN ---
Subjective Progress Note Date: 05/30/23 This is a 83-year-old patient, resident of [facility]. Follows with Dr. Badillo. Per the EMS report: Patient developed a fever to 102.8. Became hypotensive. Was started on IV fluids before EMS arrived. Because of dementia patient can only answer some simple questions. Did complain of some mild lower abdominal and lower back pain. Humphreys catheter present. Patient has decreased appetite. Some distention of the abdomen. Does not really ambulate. Pending much is bedbound. Admitted with pneumonia, colonic distention. May 25: Abdomen still somewhat distended. No nausea vomiting. Nothing by mouth. IV ceftriaxone. IV fluids. Spiked a fever during the night May 26: Patient had some liquid stools overnight. Abdomen slightly less distended. Clear liquids. IV ceftriaxone. No further fever. X-ray reviewed shows a fairly loops of colon. May 27: Patient remains on full liquid diet. Has some stool yesterday and this morning. Less distended. No pain. She is pretty symptoms still stable. We'll change to oral Omnicef. May 28: Patient had some stools last evening and also this morning. X-ray still showing some mild distention. Diet has been advanced per Dr. Salgado. Repeat x-ray in the morning. 05/29/2023 Patient is currently lying in bed. Awake alert and oriented x2-3. Denies any complaints of abdominal pain. Patient did have a bowel movement today. No complaints of chest pain or shortness of breath. Abdominal x-ray this morning showed minimally improved gaseous dilatation of bowel throughout the abdomen. Patient is currently on dysphagia level 2 diet. General surgery is on board. No further recommendations at this time.. 05/30/2023 Patient lying in the bed. Awake alert and oriented X2-3. No complaints of abdominal pain or diarrhea. Patient is currently on Humphreys catheter. Urine culture showed ESBL E. coli. ID will be consulted. Laboratory test showed WBC 7.7 hemoglobin 10.7 platelets 241 BUN less than 3.5. And creatinine 0.4. Active Medications Acetaminophen (Acetaminophen Tab 325 Mg Tab) 650 mg PO Q6HR PRN PRN Reason: Mild Pain or Fever > 100.5 Apixaban (Apixaban 5 Mg Tab) 5 mg PO BID [facility]; Protocol Last Admin: 05/27/23 20:20 Dose: 5 mg Cyanocobalamin (Cyanocobalamin 500 Mcg Tab) 1,000 mcg PO DAILY [facility] Last Admin: 05/27/23 09:06 Dose: 1,000 mcg Ceftriaxone Sodium 1 gm/ (Sodium Chloride) 50 mls @ 100 mls/hr IVPB Q12HR [facility]; Protocol Last Admin: 05/27/23 20:20 Dose: 100 mls/hr Lactated Ringer's (Lactated Ringers) 1,000 mls @ 100 mls/hr IV .Q10H [facility] Last Admin: 05/27/23 17:28 Dose: 100 mls/hr Lactulose (Lactulose 20 Gm/30 Ml Cup) 30 gm PO BID [facility] Last Admin: 05/27/23 20:35 Dose: Not Given Melatonin (Melatonin 3 Mg Tablet) 3 mg PO HS [facility] Last Admin: 05/27/23 20:19 Dose: 3 mg Metoclopramide HCl (Metoclopramide 5 Mg/Ml 2 Ml Vial) 10 mg IVP Q6HR [facility] Last Admin: 05/27/23 17:29 Dose: 10 mg Miscellaneous Information (Potassium Replacement Protocol 1 Each Misc) 1 each MISCELLANE DAILY PRN; Protocol PRN Reason: Per Protocol Multivitamins (Multivitamins, Thera 1 Each Tab) 1 each PO DAILY [facility] Last Admin: 05/27/23 09:06 Dose: 1 each Naloxone HCl (Naloxone 0.4 Mg/Ml 1 Ml Vial) 0.2 mg IV Q2M PRN PRN Reason: Opioid Reversal Ondansetron HCl (Ondansetron 4 Mg/2 Ml Vial) 4 mg IVP Q8HR PRN PRN Reason: Nausea And Vomiting Last Admin: 05/24/23 09:29 Dose: 4 mg Pantoprazole Sodium (Pantoprazole 40 Mg Tablet) 40 mg PO HS [facility] Last Admin: 05/27/23 20:19 Dose: 40 mg Thiamine HCl (Thiamine 100 Mg Tab) 100 mg PO BID-W/MEALS [facility] Last Admin: 05/27/23 17:29 Dose: 100 mg Past medical history to include: TIA/stroke, dementia, history of severe alcohol abuse and smoker. History of large pulmonary embolism withEKOS in 2015. Social history: Currently at [facility]. History of alcohol abuse and smoker. Physical examination: GENERAL: Laying in bed, appears better EYES: Pupils equal. Conjunctiva normal. HEENT: External appearance of nose and ears normal, oral cavity grossly normal. NECK: JVD not raised; masses not palpable. HEART: First and second heart sounds are normal; no edema. LUNGS: Respiratory rate normal; trees breath sounds. ABDOMEN: Soft, some distention,, liver spleen not palpable, no masses palpable. Humphreys catheter . Hyperactive bowel sounds PSYCH: Answering simple questions.. MUSCULOSKELETAL:No Clubbing/cyanosis;muscles-grossly intact. OA INVESTIGATIONS, reviewed in the clinical context: May 27: Potassium 4.4 May 26: White count 3.7 hemoglobin 11.1 platelets 110 potassium 2.5 BUN 6 creatinine 0.4 White count 13.6 hemoglobin 11.5 platelets 155 sodium 141 potassium 2.8 BUN 14 creatinine 0.5 for Troponin I less than 0.012 line UA positive for blood, leukoesterase, WBC, Influenza type A, B, RSV, COVID-19: Not detected EKG tracing personally reviewed by me-normal sinus rhythm. Nonspecific T-wave changes. Chest x-ray film personally reviewed by me-possible infiltrate. Dilated loops of bowel. CT abdomen pelvis: Gases distention of the colon. Assessment and plan: -Pneumonia, suspected gram-negative organism. Infiltrates on the check stat x- ray. Causing sepsis: Improving IV ceftriaxone. was chnaged omnicef. Fluids -Sepsis secondary to pneumonia" : Improved IV ceftriaxone. IV fluids - ESBL E coli UTI. repeat UA and ID consult. -Severe cognitive impairment, from dementia secondary to probably alcoholism -Significant colonic distention: improving. started on diet. -Depression Lexapro -Vitamin B-12 deficiency B12 supplement -GERD Prilosec -Chronic pulmonary embolism Eliquis Patient will be continued on dysphagia level diet. No further intervention as per general surgery recommendations. Replace electrolytes and follow-up repeat CBC and BMP tomorrow. Objective - Vital Signs Vital signs: Vital Signs Temp 98.0 F 05/30/23 19:20 Pulse 75 05/30/23 19:20 Resp 18 05/30/23 19:20 BP 145/82 05/30/23 19:20 Pulse Ox 93 L 05/30/23 19:20 FiO2 Intake & Output 05/30/23 05/30/23 05/31/23 06:59 18:59 06:59 Output Total 2600 900 Balance -2600 -900 Output: Urine 2600 900 Other: Voiding Method Indwelling Catheter Indwelling Catheter Indwelling Catheter # Bowel Movements 1 - Labs CBC & Chem 7: 06/01/23 07:16 06/01/23 07:16 Labs: Abnormal Lab Results - Last 24 Hours (Table) 05/30/23 05/30/23 Range/Units 05:12 05:12 RBC 3.71 L (4.40-5.60) X 10*6/uL Hgb 10.7 L (12.0-15.0) d/dL Hct 32.6 L (39.6-50.0) % RDW 15.3 H (11.5-14.5) % BUN <3.5 L (9.0-27.0) mg/dL Creatinine 0.4 L (0.6-1.5) mg/dL BUN/Creatinine Ratio <8.75 L (12.00-20.00) Ratio Calcium 8.5 L (8.7-10.3) mg/dL
--- NOTE | 2023-06-02 02:43 | P.PN ---
Subjective Progress Note Date: 05/31/23 This is a 83-year-old patient, resident of [facility]. Follows with Dr. Badillo. Per the EMS report: Patient developed a fever to 102.8. Became hypotensive. Was started on IV fluids before EMS arrived. Because of dementia patient can only answer some simple questions. Did complain of some mild lower abdominal and lower back pain. Humphreys catheter present. Patient has decreased appetite. Some distention of the abdomen. Does not really ambulate. Pending much is bedbound. Admitted with pneumonia, colonic distention. May 25: Abdomen still somewhat distended. No nausea vomiting. Nothing by mouth. IV ceftriaxone. IV fluids. Spiked a fever during the night May 26: Patient had some liquid stools overnight. Abdomen slightly less distended. Clear liquids. IV ceftriaxone. No further fever. X-ray reviewed shows a fairly loops of colon. May 27: Patient remains on full liquid diet. Has some stool yesterday and this morning. Less distended. No pain. She is pretty symptoms still stable. We'll change to oral Omnicef. May 28: Patient had some stools last evening and also this morning. X-ray still showing some mild distention. Diet has been advanced per Dr. Salgado. Repeat x-ray in the morning. 05/29/2023 Patient is currently lying in bed. Awake alert and oriented x2-3. Denies any complaints of abdominal pain. Patient did have a bowel movement today. No complaints of chest pain or shortness of breath. Abdominal x-ray this morning showed minimally improved gaseous dilatation of bowel throughout the abdomen. Patient is currently on dysphagia level 2 diet. General surgery is on board. No further recommendations at this time.. 05/30/2023 Patient lying in the bed. Awake alert and oriented X2-3. No complaints of abdominal pain or diarrhea. Patient is currently on Humphreys catheter. Urine culture showed ESBL E. coli. ID will be consulted. Laboratory test showed WBC 7.7 hemoglobin 10.7 platelets 241 BUN less than 3.5. And creatinine 0.4. 05/31/2023 Patient is currently lying in bed. Awake alert and oriented. No complaints of chest pain. No nausea vomiting or abdominal pain. Patient is on Humphreys catheter. ID is on board. Repeat urinalysis showed moderate leukocyte esterase and WBC 7. Antibiotics changed to Invanz 1 g daily Problem medications and laboratory reviewed. Active Medications Acetaminophen (Acetaminophen Tab 325 Mg Tab) 650 mg PO Q6HR PRN PRN Reason: Mild Pain or Fever > 100.5 Apixaban (Apixaban 5 Mg Tab) 5 mg PO BID [facility]; Protocol Last Admin: 05/27/23 20:20 Dose: 5 mg Cyanocobalamin (Cyanocobalamin 500 Mcg Tab) 1,000 mcg PO DAILY [facility] Last Admin: 05/27/23 09:06 Dose: 1,000 mcg Ceftriaxone Sodium 1 gm/ (Sodium Chloride) 50 mls @ 100 mls/hr IVPB Q12HR [facility]; Protocol Last Admin: 05/27/23 20:20 Dose: 100 mls/hr Lactated Ringer's (Lactated Ringers) 1,000 mls @ 100 mls/hr IV .Q10H [facility] Last Admin: 05/27/23 17:28 Dose: 100 mls/hr Lactulose (Lactulose 20 Gm/30 Ml Cup) 30 gm PO BID [facility] Last Admin: 05/27/23 20:35 Dose: Not Given Melatonin (Melatonin 3 Mg Tablet) 3 mg PO HS [facility] Last Admin: 05/27/23 20:19 Dose: 3 mg Metoclopramide HCl (Metoclopramide 5 Mg/Ml 2 Ml Vial) 10 mg IVP Q6HR [facility] Last Admin: 05/27/23 17:29 Dose: 10 mg Miscellaneous Information (Potassium Replacement Protocol 1 Each Misc) 1 each MISCELLANE DAILY PRN; Protocol PRN Reason: Per Protocol Multivitamins (Multivitamins, Thera 1 Each Tab) 1 each PO DAILY [facility] Last Admin: 05/27/23 09:06 Dose: 1 each Naloxone HCl (Naloxone 0.4 Mg/Ml 1 Ml Vial) 0.2 mg IV Q2M PRN PRN Reason: Opioid Reversal Ondansetron HCl (Ondansetron 4 Mg/2 Ml Vial) 4 mg IVP Q8HR PRN PRN Reason: Nausea And Vomiting Last Admin: 05/24/23 09:29 Dose: 4 mg Pantoprazole Sodium (Pantoprazole 40 Mg Tablet) 40 mg PO HS [facility] Last Admin: 05/27/23 20:19 Dose: 40 mg Thiamine HCl (Thiamine 100 Mg Tab) 100 mg PO BID-W/MEALS [facility] Last Admin: 05/27/23 17:29 Dose: 100 mg Past medical history to include: TIA/stroke, dementia, history of severe alcohol abuse and smoker. History of large pulmonary embolism withEKOS in 2015. Social history: Currently at [facility]. History of alcohol abuse and smoker. Physical examination: GENERAL: Laying in bed, appears better EYES: Pupils equal. Conjunctiva normal. HEENT: External appearance of nose and ears normal, oral cavity grossly normal. NECK: JVD not raised; masses not palpable. HEART: First and second heart sounds are normal; no edema. LUNGS: Respiratory rate normal; trees breath sounds. ABDOMEN: Soft, some distention,, liver spleen not palpable, no masses palpable. Humphreys catheter . Hyperactive bowel sounds PSYCH: Answering simple questions.. MUSCULOSKELETAL:No Clubbing/cyanosis;muscles-grossly intact. OA INVESTIGATIONS, reviewed in the clinical context: May 27: Potassium 4.4 May 26: White count 3.7 hemoglobin 11.1 platelets 110 potassium 2.5 BUN 6 creatinine 0.4 White count 13.6 hemoglobin 11.5 platelets 155 sodium 141 potassium 2.8 BUN 14 creatinine 0.5 for Troponin I less than 0.012 line UA positive for blood, leukoesterase, WBC, Influenza type A, B, RSV, COVID-19: Not detected EKG tracing personally reviewed by me-normal sinus rhythm. Nonspecific T-wave changes. Chest x-ray film personally reviewed by me-possible infiltrate. Dilated loops of bowel. CT abdomen pelvis: Gases distention of the colon. Assessment and plan: -Pneumonia, suspected gram-negative organism. Infiltrates on the check stat x- ray. Causing sepsis: Improving IV ceftriaxone. was chnaged omnicef. Fluids -Sepsis secondary to pneumonia" : Improved IV ceftriaxone. IV fluids - ESBL E coli UTI. repeat UA and ID consult. -Severe cognitive impairment, from dementia secondary to probably alcoholism -Significant colonic distention: improving. started on diet. -Depression Lexapro -Vitamin B-12 deficiency B12 supplement -GERD Prilosec -Chronic pulmonary embolism Eliquis Patient will be continued on dysphagia level diet. No further intervention as per general surgery recommendations. Replace electrolytes and follow-up repeat CBC and BMP tomorrow. Objective - Vital Signs Vital signs: Vital Signs Temp 97.2 F L 05/31/23 14:00 Pulse 79 05/31/23 14:00 Resp 16 07/19/23 14:00 BP 130/76 05/31/23 14:00 Pulse Ox 97 05/31/23 14:00 FiO2 Intake & Output 05/31/23 05/31/23 06/01/23 06:59 18:59 06:59 Output Total 3000 1650 1000 Balance -3000 -1650 -1000 Weight 83.915 kg Output: Urine 3000 1650 1000 Other: Voiding Method Indwelling Catheter Indwelling Catheter # Voids 3 # Bowel Movements 1 - Labs CBC & Chem 7: 06/01/23 07:16 06/01/23 07:16 Labs: Abnormal Lab Results - Last 24 Hours (Table) 05/31/23 05/31/23 Range/Units 04:42 12:30 BUN 2 L (9-20) mg/dL Creatinine 0.42 L (0.66-1.25) mg/dL Ur Leukocyte Esterase Moderate H (Negative) Urine WBC 7 H (0-5) /hpf
== END 2023-06-01 17:59 | DRG 871 ==
LOC: EC 22:48 → 4SSUR 05-24 01:33
PROVIDERS: ADMIT Hospitalist; ATTEND Hospitalist
DX: A41.50 Gram-negative sepsis, unspecified (principal); J15.6 Pneumonia due to other Gram-negative bacteria; K56.699 Other intestinal obstruction unspecified as to partial versus complete obstruction; I27.82 Chronic pulmonary embolism; F10.27 Alcohol dependence with alcohol-induced persisting dementia; T83.592A Infection and inflammatory reaction due to indwelling ureteral stent, initial encounter; F03.C3 Unspecified dementia, severe, with mood disturbance; Z16.12 Extended spectrum beta lactamase (ESBL) resistance; I27.20 Pulmonary hypertension, unspecified; F10.21 Alcohol dependence, in remission; I11.9 Hypertensive heart disease without heart failure; B96.20 Unspecified Escherichia coli [E. coli] as the cause of diseases classified elsewhere; E53.8 Deficiency of other specified B group vitamins; K21.9 Gastro-esophageal reflux disease without esophagitis; E86.0 Dehydration; E87.6 Hypokalemia; K59.81 Ogilvie syndrome; F17.210 Nicotine dependence, cigarettes, uncomplicated; N32.89 Other specified disorders of bladder; I08.3 Combined rheumatic disorders of mitral, aortic and tricuspid valves; Y73.1 Therapeutic (nonsurgical) and rehabilitative gastroenterology and urology devices associated with adverse incidents; Z20.822 Contact with and (suspected) exposure to COVID-19; Z96.0 Presence of urogenital implants; Z86.73 Personal history of transient ischemic attack (TIA), and cerebral infarction without residual deficits; Z79.01 Long term (current) use of anticoagulants; Z79.899 Other long term (current) drug therapy; Z82.0 Family history of epilepsy and other diseases of the nervous system
CPT/HCPCS: 36415; 71045; 74019; 74176; 80048; 80053; 81001; 82150; 83605; 83690; 83735; 84132; 84145; 84484; 85025; 87040; 87077; 87086; 87186; 87636; 93005; 93306; 96361; 96365; 96366; 96368; 96375; 99285